=== PATIENT | female | born 1935 | race Caucasian/White ===

== ENCOUNTER 2017-06-02 12:02 | Emergency (ER) | payer OTHER ==
[2017-06-02 12:09] VITALS: TEMP 98; BMI 22.6
--- NOTE | 2017-06-02 12:57 | PDOC ---
History of Present Illness - General History Source: Patient Exam Limitations: No Limitations - History of Present Illness Initial Comments: 06/02/17 13:36 The patient is a 81 year old female, with a significant past medical history of HTN, NIDDM, pancreatic Ca (about 10 years ago s/p whipple procedure requiring dialysis) , gastritis, and hemorrhoids who presents to the emergency department with urinary retention and possible recurrent UTI. The patients daughter notes the patient has also been depressed this past year. The daughter notes the patient has been less active and more weak. Daughter also reports the patient has been sleeping more. She denies any change in appetite or any complaints of pain. She denies recent fevers, chills, headache or dizziness. She denies recent nausea, vomit, and diarrhea. She denies recent dysuria, frequency, urgency or hematuria. She denies recent chest pain or shortness of breath. Allergies: NKA Past surgical history: See HPI Social history: Nonsmoker. Denies EtOH use and recreational drug use. Primary Care Physician: Dr.Ammir Valiente [employer] Eng[employer] Planning Operator: <Foreign Sommer - Last Filed: 06/02/17 13:40> - General History Source: Patient Exam Limitations: No Limitations <Virgie Manriquez - Last Filed: 06/03/17 12:00> - General Chief Complaint: Urinary Problem Stated Complaint: URINE RETENTION, CONSTIPATED. Time Seen by Provider: 06/02/17 12:42 Past History <Foreign Sommer - Last Filed: 06/02/17 13:40> - Past Medical History Anemia: Yes Cancer: Yes (PANCREATIC) Diabetes: Yes HTN: Yes - Surgical History Abdominal Surgery: Yes (WHIPPLE, PANCREATIC CA) Cholecystectomy: Yes - Psycho/Social/Smoking Cessation Hx Anxiety: No Suicidal Ideation: No Smoking Status: No Smoking History: Never smoked Have you smoked in the past 12 months: No Number of Cigarettes Smoked Daily: 0 Hx Alcohol Use: No Drug/Substance Use Hx: No Substance Use Type: None Hx Substance Use Treatment: No <Virgie Manriquez - Last Filed: 06/03/17 12:00> - Past Medical History Allergies/Adverse Reactions: Allergies Allergy/AdvReac Type Severity Reaction Status Date / Time No Known Drug Allergies Allergy Verified 06/02/17 12:09 Home Medications: Ambulatory Orders Amlodipine Besylate/Benazepril [Lotrel 5-10 mg Capsule] 1 each PO DAILY Megestrol Acetate [Megace -] 40 mg PO DAILY 06/02/17 Metformin HCl [Metformin HCl ER] 1,000 mg PO DAILY 06/02/17 Metoclopramide HCl 5 mg PO ACHS 06/02/17 Mirtazapine [Remeron -] 15 mg PO DAILY 06/02/17 Pantoprazole Sodium [Protonix] 40 mg PO DAILY 06/02/17 Review of Systems - Review of Systems Able to Perform ROS?: Yes Comments:: 06/02/17 13:37 GENERAL/CONSTITUTIONAL: +weakness. No: fever, chills, loss of appetite. HEAD, EYES, EARS, NOSE AND THROAT: No: change in vision, ear pain, discharge, sore throat, throat swelling. CARDIOVASCULAR: No: chest pain, lightheadedness, palpitations, syncope RESPIRATORY: No: cough, shortness of breath, wheezing, hemoptysis, stridor. GASTROINTESTINAL: +constipation No: nausea, vomiting, diarrhea, abdominal cramping, rectal bleeding. GENITOURINARY: +retention. No: dysuria, hematuria, frequency, urgency, flank pain. MUSCULOSKELETAL: No: back pain, neck pain, joint pain, muscle swelling or pain SKIN : No: lesions, pallor, rash or easy bruising. NEUROLOGIC: No: headache, vertigo, paresthesias, weakness ENDOCRINE: No: unexplained weight gain or loss HEMATOLOGIC/LYMPHATIC: No: anemia, easy bleeding, swelling nodes. <Foreign Sommer - Last Filed: 06/02/17 13:40> *Physical Exam - Vital Signs Last Vital Signs Temp Pulse Resp BP Pulse Ox 98.0 F 71 20 122/54 99 06/02/17 12:06 06/02/17 12:06 06/02/17 12:06 06/02/17 12:06 06/02/17 12:06 - Physical Exam Comments: 06/02/17 13:40 GENERAL: Generalized weakness. HEAD: Normal with no signs of trauma. EYES: PERRLA, EOMI, sclera anicteric, conjunctiva clear. ENT: Ears normal, nares patent, oropharynx clear without exudates. Moist mucous membranes. NECK: Normal range of motion, supple without lymphadenopathy, JVD, or masses. LUNGS: Breath sounds equal, clear to auscultation bilaterally. No wheezes, and no crackles. HEART: Regular rate and rhythm, normal S1 and S2 without murmur, rub or gallop. ABDOMEN: Soft, nontender, normoactive bowel sounds. No guarding, no rebound. No masses palpable. EXTREMITIES: Normal range of motion, no edema. No clubbing or cyanosis. No erythema, or tenderness. NEUROLOGICAL: Cranial nerves II through XII grossly intact. Normal speech. No focal neurological deficits. MUSCULOSKELETAL: Back non-tender to palpation, no CVA tenderness SKIN: Warm, Dry, normal turgor, no rashes or lesions noted. <Foreign Sommer - Last Filed: 06/02/17 13:40> - Vital Signs Last Vital Signs Temp Pulse Resp BP Pulse Ox 98.0 F 71 20 122/54 99 06/02/17 12:06 06/02/17 12:06 06/02/17 12:06 06/02/17 12:06 06/02/17 12:06 <Virgie Manriquez - Last Filed: 06/03/17 12:00> Heart Score/ECG Review #1 ECG reviewed & interpreted by me at: 16:21 06/02/17 16:21 Twelve-lead EKG was performed and reviewed by me. There is normal sinus rhythm with a normal rate of 82 bpm. The axis is normal. The intervals are normal. (+) PVC. There are no ST or T wave abnormalities. <Virgie Manriquez - Last Filed: 06/03/17 12:00> ED Treatment Course - LABORATORY CBC & Chemistry Diagram: 06/02/17 13:55 06/02/17 13:55 <Virgie Manriquez - Last Filed: 06/03/17 12:00> Medical Decision Making - Medical Decision Making 06/02/17 12:56 A portion of this note was documented by scribe services under my direction. I have reviewed the details of the note, within reason, and agree with the documentation with the following case summary and management plan written by me. Nursing documentation reviewed and incorporated into medical decision making this is an 81 yo F with a history of pancreatic cancer, h/o depression pt presents to the ER with a complaint of generalized weakness which has been progressive over the past few days No fevers or chills tolerating po No vomiting or diarrhea Pt had a prior history of UTIs, family concerned about UTI Will do labs Will repeat UA 06/02/17 14:40 Laboratory Tests 05/21/16 05/21/16 06/02/17 06:00 06:00 13:55 WBC 6.2 D 13.9 H D Hgb 10.9 D 11.6 Hct 34.9 D 35.2 Plt Count 353 D 215 D BUN 11 D Creatinine 0.8 D Creatine Kinase Troponin I 06/02/17 13:55 WBC Hgb Hct Plt Count BUN 14 D Creatinine 1.3 H D Creatine Kinase 57 Troponin I < 0.02 06/02/17 15:57 Laboratory Tests 06/02/17 15:10 Urine Ketones Negative Urine Blood Negative Ur Leukocyte Esterase Negative This patient was ambulatory to the bathroom Labs reviewed with patient and family Pt will need to follow up with PMD <Virgie Manriquez - Last Filed: 06/03/17 12:00> *DC/Admit/Observation/Transfer - Attestations Scribe Attestion: 06/02/17 13:37 Documentation prepared by Foreign Sommer, acting as general medical practitioner for Virgie Manriquez MD. <Foreign Sommer - Last Filed: 06/02/17 13:40> - Discharge Dispostion Admit: No <Virgie Manriquez - Last Filed: 06/03/17 12:00> Diagnosis at time of Disposition: Weakness - Discharge Dispostion Disposition: HOME Condition at time of disposition: Stable - Referrals Referrals: Corazon Valiente MD [Primary Care Provider] - - Patient Instructions Printed Discharge Instructions: DI for Muscle Weakness Additional Instructions: USTED RYAN JOAQUIN CON EL BELEN POR FAVOR, MONITORAS PARA FEVERS O CHILLS DEVUELVA A LA ER PARA CUALQUIER OTRA DEMANDA O RECLAMACIN YOU MUST FOLLOW UP WITH DR VALIENTE PLEASE MONITOR YOURSELF FOR FEVERS OR CHILLS RETURN TO THE ER FOR ANY OTHER CONCERNS OR COMPLAINTS Print Language: DUTCH
[2017-06-02] MEDS ORDERED: SODIUM CHLORIDE 500 ML IV STA (13:40)
[2017-06-02 14:12] LABS: BASOPHIL 0.3 % (0-2.0); EOSINOPHIL 0.3 % (0-4.5); MCH 29.2 pg (25.7-33.7); MCHC 32.9 g/dl (32.0-36.0); MEAN CELL VOLUME 88.6 fl (80-96); MEAN PLT VOLUME 8.4 fl (7.5-11.1); NEUTROPHILS 86.8 % (42.8-82.8); PLATELET COUNT 215 K/MM3 (134-434); RDW 13.6 % (11.6-15.6); WHITE BLOOD COUNT 13.9 K/mm3 (4.0-10.0)
[2017-06-02 14:31] LABS: ALBUMIN 3.3 g/dl (3.4-5.0); ANION GAP 12 (8-16); BILIRUBIN,TOTAL 0.5 mg/dL (0.2-1.0); CALCIUM 8.1 mg/dL (8.5-10.1); CO2 21 mmol/L (21-32); CREATININE 1.3 mg/dL (0.55-1.02); GLUCOSE,RANDOM 246 mg/dL (74-106); SGOT/AST 45 U/L (15-37); SGPT/ALT 30 U/L (12-78); TOT PROT 6.8 g/dl (6.4-8.2)
[2017-06-02 14:34] LABS: ALK PHOS 97 U/L (45-117); TROPONIN I < 0.02 ng/ml (0.00-0.05)
[2017-06-02 15:25] LABS: URINE APPEARANCE CLEAR; URINE BILIRUBIN NEGATIVE (NEGATIVE); URINE BLOOD NEGATIVE (NEGATIVE); URINE COLOR LTYELLOW; URINE GLUCOSE (UA) 1+ (NEGATIVE); URINE KETONE NEGATIVE (NEGATIVE); URINE LEUK ESTERASE NEGATIVE (NEGATIVE); URINE NITRITE NEGATIVE (NEGATIVE); URINE PROTEIN NEGATIVE (NEGATIVE); URINE UROBILINOGEN NEGATIVE E.U./dl (0.2-1.0)
[2017-06-02 16:25] VITALS: BP 131/69; PULSE 89
--- NOTE | 2017-06-03 13:11 | EKG ---
Test Reason : Blood Pressure : / mmHG Vent. Rate : 082 BPM Atrial Rate : 082 BPM P-R Int : 196 ms QRS Dur : 082 ms QT Int : 402 ms P-R-T Axes : 064 033 073 degrees QTc Int : 469 ms SINUS RHYTHM WITH FREQUENT PREMATURE VENTRICULAR COMPLEXES LOW VOLTAGE QRS CANNOT RULE OUT ANTEROSEPTAL INFARCT (CITED ON OR BEFORE 25-MAY-2015) ABNORMAL ECG WHEN COMPARED WITH ECG OF 18-MAY-2016 17:19, PREMATURE VENTRICULAR COMPLEXES ARE NOW PRESENT QUESTIONABLE CHANGE IN INITIAL FORCES OF SEPTAL LEADS Confirmed by SHY HUGHES MD ([id number]) on 06/03/2017 1:11:16 PM Referred By: Confirmed By:SHY HUGHES MD
== END 2017-06-02 16:25 | disposition home or self-care (01) ==
LOC: JER 12:02
PROC: 3E0337Z Introduction of Electrolytic and Water Balance Substance into Peripheral Vein, Percutaneous Approach (ICD-10-PCS; principal; 2017-06-02)
DX: R53.1 Weakness (principal); I10 Essential (primary) hypertension; E11.9 Type 2 diabetes mellitus without complications; Z85.07 Personal history of malignant neoplasm of pancreas
CPT/HCPCS: 36415; 80053; 81003; 82550; 84484; 85025; 87086; 93005; 93010; 96360; 96361; 99283-25

== ENCOUNTER 2017-10-19 12:47 | Inpatient (IN) | payer OTHER ==
--- NOTE | 2017-10-19 13:14 | PDOC ---
History of Present Illness - General History Source: Patient Exam Limitations: No Limitations - History of Present Illness Initial Comments: 10/19/17 18:56 The patient is a 82 year old female, with a significant past medical history of Anemia, HTN, NIDDM, Pancreatic CA (s/p whipple procedure), Gastritis, ?Possible peptic ulcer disease, Depression who presents to the emergency department with generalized weakness, abdominal pain and diarrhea for the past two days. Patient is accompanied by daughter who states the patient was shaky and has been complaining of diffuse abdominal pain with associated diarrhea (nonmucoid, nonbloody) and nausea. Patient reports body aches, subjective fevers and chills. Daughter notes the patient has not been eating and reports decreased appetite. Patient reports the pain feels similar to her ulcers and presents to the ED for further evaluation. She denies chest pain, headache or dizziness. She denies fever, chills, vomit or constipation. She denies dysuria, frequency, urgency or hematuria. Patient denies sick contacts or recent travel. Allergies: NKA Past surgical history: Cholecystectomy, Whipple procedure Social history: None PCP: Dr. Mccain GI: Tommy <Jazmin Zimmer - Last Filed: 10/19/17 18:55> <Jimmy Montoya - Last Filed: 10/23/17 16:34> - General Chief Complaint: Weakness Stated Complaint: NOT FEELING WELL Past History <Jazmin Zimmer - Last Filed: 10/19/17 18:55> - Past Medical History Anemia: Yes Cancer: Yes (PANCREATIC) COPD: No Diabetes: Yes HTN: Yes Psychiatric Problems: Yes (DEPRESSION.) - Surgical History Abdominal Surgery: Yes (WHIPPLE, PANCREATIC CA) Cholecystectomy: Yes - Suicide/Smoking/Psychosocial Hx Smoking Status: No Smoking History: Never smoked Have you smoked in the past 12 months: No Number of Cigarettes Smoked Daily: 0 Hx Alcohol Use: No Drug/Substance Use Hx: No Substance Use Type: None Hx Substance Use Treatment: No <Jimmy Montoya - Last Filed: 10/23/17 16:34> - Past Medical History Allergies/Adverse Reactions: Allergies Allergy/AdvReac Type Severity Reaction Status Date / Time No Known Drug Allergies Allergy Verified 10/19/17 12:54 Home Medications: Ambulatory Orders Amlodipine Besylate/Benazepril [Lotrel 5-10 mg Capsule] 1 each PO DAILY Metoclopramide HCl 5 mg PO ACHS 06/02/17 Pantoprazole Sodium [Protonix] 40 mg PO DAILY 06/02/17 Acetaminophen [Tylenol .Regular Strength -] 650 mg PO Q4H PRN tablet 10/22/17 Amox-Tr/K Cl [Augmentin 500-125mg Tablet -] 1 tab PO BID@0800,1730 #10 tablet Metronidazole [Flagyl -] 500 mg PO TID #15 tablet 10/22/17 Mirtazapine [Remeron -] 15 mg PO DAILY #30 tablet 10/22/17 Ondansetron [Zofran Odt -] 4 mg SL Q6H PRN #30 tab.rapdis 10/22/17 Review of Systems - Review of Systems Able to Perform ROS?: Yes Comments:: CONSTITUTIONAL: No reported: Fever, Chills, Diaphoresis, Generalized Weakness, Malaise, Loss of Appetite HEENT: No reported: Rhinorrhea, Nasal Congestion, Throat Pain, Throat Swelling, Difficulty Swallowing, Mouth Swelling, Ear Pain, Eye Pain, Visual Changes CARDIOVASCULAR: No reported: Chest Pain, Syncope, Palpitations, Irregular Heart Rate, Lightheadedness, Peripheral Edema RESPIRATORY: No reported: Cough, Shortness of Breath, SOB with Exertion, Orthopnea, Wheezing , Stridor, Hemoptysis GASTROINTESTINAL: +diffuse abdominal pain, nausea, diarrhea No reported: Abdominal Distension, Vomiting,Constipation, Melena, Hematochezia GENITOURINARY: No reported: Dysuria, Frequency, Urgency, Hesitancy, Flank Pain, Genital Pain MUSCULOSKELETAL: No reported: Myalgia, Arthralgia, Joint Swelling, Back pain, Neck Pain SKIN: No reported: Rash, Itching, Pallor HEMEATOLOGIC/IMMUNOLOGIC: No reported: Easy Bleeding, Easy Bruising, Lymphadenopathy, Frequent infections ENDOCRINE: No reported: Unexplained Weight Gain, Unexplained Weight Loss, Heat Intolerance , Cold Intolerance NEUROLOGIC: No reported: Headache, Focal Weakness, Paresthesias, Vertigo, Lightheadedness, Unsteady Gait, Seizure, Mental Status Changes, Incontinence PSYCHIATRIC: No reported: Anxiety, Depression <Jazmin Zimmer - Last Filed: 10/19/17 18:55> *Physical Exam - Vital Signs Last Vital Signs Temp Pulse Resp BP Pulse Ox 98.3 F 91 H 18 101/54 98 10/19/17 12:52 10/19/17 12:52 10/19/17 12:52 10/19/17 12:52 10/19/17 12:52 - Physical Exam Comments: 10/19/17 18:56 GENERAL: The patient is awake, alert, and fully oriented, Nontoxic - in no acute distress. HEAD: Normocephalic, atraumatic. EYES: extraocular movements intact, sclera anicteric, conjunctiva clear. ENT: Normal voice, Moist mucous membranes. NECK: Normal range of motion, supple LUNGS: Breath sounds equal, clear to auscultation bilaterally. No wheezes, no rhonchi, no rales. HEART: Regular rate and rhythm, without murmur, rub or gallop. ABDOMEN: +Mild epigastric tenderness. Soft, nontender, normoactive bowel sounds. No guarding, no rebound.No CVA tenderness EXTREMITIES: Normal range of motion, no edema. No clubbing or cyanosis. No cords , erythema, or tenderness. NEUROLOGICAL: No facial asymmetry, Normal speech, PSYCH: Normal mood, normal affect. SKIN: Warm, Dry, normal turgor, <Jazmin Zimmer - Last Filed: 10/19/17 18:55> - Vital Signs Last Vital Signs Temp Pulse Resp BP Pulse Ox 98.3 F 91 H 18 101/54 98 10/19/17 12:52 10/19/17 12:52 10/19/17 12:52 10/19/17 12:52 10/19/17 12:52 <Jimmy Montoya - Last Filed: 10/23/17 16:34> Heart Score/ECG Review - ECG Impressions Comment:: 10/19/17 15:36 Twelve-lead EKG was performed and reviewed by me. There is normal sinus rhythm with a normal rate. Rate of 77 PVCs present <Jimmy Montoya - Last Filed: 10/23/17 16:34> ED Treatment Course - LABORATORY CBC & Chemistry Diagram: 10/19/17 14:37 10/19/17 14:37 - ADDITIONAL ORDERS Additional order review: Laboratory Results 10/19/17 10/19/17 10/19/17 16:30 14:37 14:37 PT with INR INR Sodium 130 L Potassium 5.4 H Chloride 100 Carbon Dioxide 21 Anion Gap 9 BUN 15 Creatinine 1.1 H Creat Clearance w eGFR 47.55 Random Glucose 101 D Calcium 7.8 L Total Bilirubin 0.9 D AST 89 H D ALT 45 D Alkaline Phosphatase 168 H D Troponin I < 0.02 Total Protein 6.9 Albumin 3.1 L Lipase 151 TSH 1.63 Urine Color Lt. yellow Urine Appearance Clear Urine pH 5.0 Ur Specific [place] 1.020 Urine Protein 1+ H Urine Glucose (UA) Negative Urine Ketones Trace H Urine Blood 1+ H Urine Nitrite Negative Urine Bilirubin 1+ H Urine Urobilinogen 0.2 10/19/17 14:37 PT with INR 12.80 H INR 1.13 Sodium Potassium Chloride Carbon Dioxide Anion Gap BUN Creatinine Creat Clearance w eGFR Random Glucose Calcium Total Bilirubin AST ALT Alkaline Phosphatase Troponin I Total Protein Albumin Lipase TSH Urine Color Urine Appearance Urine pH Ur Specific [place] Urine Protein Urine Glucose (UA) Urine Ketones Urine Blood Urine Nitrite Urine Bilirubin Urine Urobilinogen 10/19/17 14:37 RBC 4.03 MCV 90.1 MCHC 33.9 RDW 13.7 MPV 9.6 D Neutrophils % 95.6 H Lymphocytes % 3.3 L D Monocytes % 0.9 L D Eosinophils % 0.1 Basophils % 0.1 - Medications Given in the ED: ED Medications Discontinued Medications Generic Name Dose Route Start Last Admin Trade Name Cristy PRN Reason Stop Dose Admin Al Hydroxide/Mg Hydroxide 30 ml 10/19/17 14:04 10/19/17 14:37 Mylanta Suspension - PO 10/19/17 14:05 30 ml ONCE ONE Administration Famotidine/Sodium Chloride 20 50 mls @ 100 mls/hr 10/19/17 14:04 10/19/17 14: 37 mg/ Miscellaneous IVPB 10/19/17 14:33 100 mls/hr ONCE ONE Administration Sodium Chloride 500 mls @ 500 mls/hr 10/19/17 14:04 10/19/17 14:37 Normal Saline - IV 10/19/17 15:03 500 mls/hr ASDIR STA Administration <Jazmin Zimmer - Last Filed: 10/19/17 18:55> - LABORATORY CBC & Chemistry Diagram: 10/22/17 12:33 10/22/17 12:33 <Jimmy Montoya - Last Filed: 10/23/17 16:34> Medical Decision Making - Medical Decision Making 10/19/17 14:04 81y F hx of htn, niddm, pancreatic Ca (s/p whipple procedure), gastritis, presents with malaise, bodyaches, generalized weakness, and feeling 'shaky' since yesterday, and onset of epigastric pain starting n the car ride to the hospital. no assoiated n/v, fevers, diarrhea, urinary complaints. on exam pt has mild epgiastric tenderness differential is wide and includes but is not limited to anemia, metabolic dernagement,pancreatitis, gastiritis, acs, uti, will ck labs including cardiac profile, screening ekg ekg, lipase cxr, ua will treat with pepcid/maalox will erassess 10/19/17 19:[address] abdomen due to recurrent pain (pain ahd improveda fter intiial treatment) signed out to dr. edwards to disposition and reassess <Jimmy Montoya - Last Filed: 10/23/17 16:34> *DC/Admit/Observation/Transfer - Attestations Scribe Attestion: 10/19/17 18:46 Documentation prepared by Jazmin Zimmer, acting as medical billing supervisor for Jimmy Montoya MD <Jazmin Zimmer - Last Filed: 10/19/17 18:55> <Jimmy Montoya - Last Filed: 10/23/17 16:34> Diagnosis at time of Disposition: H/O pancreatic cancer, Abdominal pain, Pancreatitis - Discharge Dispostion Disposition: VNS/HOME HEALTH CARE Condition at time of disposition: Stable
[2017-10-19] MEDS ORDERED: FAMOTIDINE 20 MG/50 ML IVPB 20 MG in PREMIX 50 IVPB ONE (14:04)
[2017-10-19] MEDS ORDERED: SODIUM CHLORIDE 500 ML IV STA (14:04)
[2017-10-19] MEDS ORDERED: MAG HYDROX/AL HYDROX/SIMETH 355 ML ORAL.SUSP PO ONE (14:04)
[2017-10-19 15:11] LABS: INR 1.13 (0.82-1.09); PROTHROMBIN TIME (PATIENT) 12.8 SEC (9.98-11.88)
[2017-10-19 15:23] LABS: ALBUMIN 3.1 g/dl (3.4-5.0); ANION GAP 9 (8-16); BILIRUBIN,TOTAL 0.9 mg/dL (0.2-1.0); CALCIUM 7.8 mg/dL (8.5-10.1); CO2 21 mmol/L (21-32); CREATININE 1.1 mg/dL (0.55-1.02); GLUCOSE,RANDOM 101 mg/dL (74-106); SGPT/ALT 45 U/L (12-78); TOT PROT 6.9 g/dl (6.4-8.2)
[2017-10-19 15:31] LABS: ALK PHOS 168 U/L (45-117); THYROID STIMULATING HORMONE 1.63 uIU/ml (0.358-3.74); TROPONIN I < 0.02 ng/ml (0.00-0.05)
[2017-10-19 15:35] LABS: SGOT/AST 89 U/L (15-37)
[2017-10-19 16:27] LABS: BASOPHIL 0.1 % (0-2.0); EOSINOPHIL 0.1 % (0-4.5); MCH 30.6 pg (25.7-33.7); MCHC 33.9 g/dl (32.0-36.0); MEAN CELL VOLUME 90.1 fl (80-96); MEAN PLT VOLUME 9.6 fl (7.5-11.1); NEUTROPHILS 95.6 % (42.8-82.8); PLATELET COUNT 240 K/MM3 (134-434); RDW 13.7 % (11.6-15.6)
[2017-10-19 16:43] LABS: URINE APPEARANCE CLEAR; URINE BILIRUBIN 1+ (NEGATIVE); URINE BLOOD 1+ (NEGATIVE); URINE COLOR LT. YELLOW; URINE GLUCOSE (UA) NEGATIVE (NEGATIVE); URINE KETONE TRACE (NEGATIVE); URINE NITRITE NEGATIVE (NEGATIVE); URINE UROBILINOGEN 0.2 mg/dL (0.2-1.0)
[2017-10-19 17:15] LABS: URINE PROTEIN 1+ (NEGATIVE)
[2017-10-19 19:47] LABS: URINE LEUK ESTERASE Negative (NEGATIVE)
--- NOTE | 2017-10-19 21:07 | PDOC ---
*Physical Exam - Vital Signs Last Vital Signs Temp Pulse Resp BP Pulse Ox 98.3 F 91 H 18 101/54 98 10/19/17 12:52 10/19/17 12:52 10/19/17 12:52 10/19/17 12:52 10/19/17 12:52 ED Treatment Course - LABORATORY CBC & Chemistry Diagram: 10/19/17 14:37 10/19/17 14:37 - ADDITIONAL ORDERS Additional order review: Laboratory Results 10/19/17 10/19/17 10/19/17 16:30 14:37 14:37 PT with INR INR Sodium 130 L Potassium 5.4 H Chloride 100 Carbon Dioxide 21 Anion Gap 9 BUN 15 Creatinine 1.1 H Creat Clearance w eGFR 47.55 Random Glucose 101 D Calcium 7.8 L Total Bilirubin 0.9 D AST 89 H D ALT 45 D Alkaline Phosphatase 168 H D Troponin I < 0.02 Total Protein 6.9 Albumin 3.1 L Lipase 151 TSH 1.63 Urine Color Lt. yellow Urine Appearance Clear Urine pH 5.0 Ur Specific [place] 1.020 Urine Protein 1+ H Urine Glucose (UA) Negative Urine Ketones Trace H Urine Blood 1+ H Urine Nitrite Negative Urine Bilirubin 1+ H Urine Urobilinogen 0.2 Ur Leukocyte Esterase Negative 10/19/17 14:37 PT with INR 12.80 H INR 1.13 Sodium Potassium Chloride Carbon Dioxide Anion Gap BUN Creatinine Creat Clearance w eGFR Random Glucose Calcium Total Bilirubin AST ALT Alkaline Phosphatase Troponin I Total Protein Albumin Lipase TSH Urine Color Urine Appearance Urine pH Ur Specific [place] Urine Protein Urine Glucose (UA) Urine Ketones Urine Blood Urine Nitrite Urine Bilirubin Urine Urobilinogen Ur Leukocyte Esterase 10/19/17 14:37 RBC 4.03 MCV 90.1 MCHC 33.9 RDW 13.7 MPV 9.6 D Neutrophils % 95.6 H Lymphocytes % 3.3 L D Monocytes % 0.9 L D Eosinophils % 0.1 Basophils % 0.1 - Medications Given in the ED: ED Medications Discontinued Medications Generic Name Dose Route Start Last Admin Trade Name Freq PRN Reason Stop Dose Admin Al Hydroxide/Mg Hydroxide 30 ml 10/19/17 14:04 10/19/17 14:37 Mylanta Suspension - PO 10/19/17 14:05 30 ml ONCE ONE Administration Famotidine/Sodium Chloride 20 50 mls @ 100 mls/hr 10/19/17 14:04 10/19/17 14: 37 mg/ Miscellaneous IVPB 10/19/17 14:33 100 mls/hr ONCE ONE Administration Sodium Chloride 500 mls @ 500 mls/hr 10/19/17 14:04 10/19/17 14:37 Normal Saline - IV 10/19/17 15:03 500 mls/hr ASDIR STA Administration Medical Decision Making - Medical Decision Making 10/19/17 21:07 Pt abd/pelvis Ct scan shows possible recurrent Pancreatic CA, possible Pancreatitis. Pt to be admitted to [facility] under Dr. Mccain's service *DC/Admit/Observation/Transfer Diagnosis at time of Disposition: H/O pancreatic cancer, Abdominal pain, Pancreatitis - Discharge Dispostion Condition at time of disposition: Stable Admit: Yes - Referrals Referrals: Corazon Mccain MD [Primary Care Provider] - - Patient Instructions - Post Discharge Activity
[2017-10-19 21:14] LABS: URINE BACTERIA FEW /hpf (NONE SEEN); URINE HYALINE CAST 30 /lpf; URINE MUCUS RARE; URINE RBC 2 /hpf (0-3); URINE WBC 3 /hpf (3-5)
[2017-10-19 22:10] LABS: CPK 34 IU/L (26-192); TROPONIN I < 0.02 ng/ml (0.00-0.05)
[2017-10-19 23:30] LABS: CPK 70 IU/L (26-192)
[2017-10-20] MEDS ORDERED: PANTOPRAZOLE SODIUM 40 MG VIAL ONE (00:24)
[2017-10-20 00:46] LABS: ANISOCYTOSIS 1+
[2017-10-20 01:48] VITALS: BMI 18.7
[2017-10-20] MEDS ORDERED: PIPERACILLIN/TAZOB 3.375 GM 3.375 GM in DEXTROSE 5%-WATER - 50 ML IVPB ONE (02:00)
[2017-10-20 07:53] LABS: BASOPHIL 0.2 % (0-2.0); EOSINOPHIL 0.2 % (0-4.5); MCH 29.5 pg (25.7-33.7); MCHC 33.1 g/dl (32.0-36.0); MEAN CELL VOLUME 89.2 fl (80-96); MEAN PLT VOLUME 8.7 fl (7.5-11.1); NEUTROPHILS 87.7 % (42.8-82.8); PLATELET COUNT 171 K/MM3 (134-434); RDW 13.6 % (11.6-15.6); WHITE BLOOD COUNT 15.8 K/mm3 (4.0-10.0)
[2017-10-20 08:35] LABS: ALBUMIN 2.7 g/dl (3.4-5.0); AMYLASE 30 U/L (25-115); ANION GAP 10 (8-16); CALCIUM 7.9 mg/dL (8.5-10.1); CO2 22 mmol/L (21-32); GLUCOSE,RANDOM 121 mg/dL (74-106)
[2017-10-20 08:41] LABS: ALK PHOS 163 U/L (45-117); BILIRUBIN,TOTAL 0.7 mg/dL (0.2-1.0); SGOT/AST 109 U/L (15-37); SGPT/ALT 59 U/L (12-78); TOT PROT 6.1 g/dl (6.4-8.2); TROPONIN I < 0.02 ng/ml (0.00-0.05)
--- NOTE | 2017-10-20 09:44 | CONSULT ---
Consultation: REQUESTING PROVIDER: CONSULT REQUEST: We have been asked to medically evaluate this patient for pancreatitis. HISTORY OF PRESENT ILLNESS: 82F w/ hx of pancreatic cancer s/p whipple procedure, NIDDM, anemia, HTN, gastritis, and depression presenting with weakness 2 days. Pt also reports abdominal pain that is 5/10 and diffuse. She endorses some fevers, chills, body aches, body shaking, and decreased appetite. She denies headache, n/v/d, SOB, and dysuria. Pt has had no complications from her whipple surgery which took place in [place]. She returns to [place] about once a year. Pt given zosyn in ED. REVIEW OF SYSTEMS: CONSTITUTIONAL: Absent: fever, chills, diaphoresis, generalized weakness, malaise, weight change present: fever, chills, generalized weakness HEENT: Absent: rhinorrhea, nasal congestion, throat pain, throat swelling, difficulty swallowing, mouth swelling, ear pain, eye pain, visual changes CARDIOVASCULAR: Absent: chest pain, syncope, palpitations, irregular heart rate, lightheadedness , peripheral edema RESPIRATORY: Absent: cough, shortness of breath, dyspnea with exertion, orthopnea, wheezing, stridor, hemoptysis GASTROINTESTINAL: Absent: constipation, melena, hematochezia present: abdominal pain GENITOURINARY: Absent: dysuria, frequency, urgency, hesitancy, hematuria, flank pain, genital pain MUSCULOSKELETAL: Absent: myalgia, arthralgia, joint swelling, back pain, neck pain SKIN: Absent: rash, itching, pallor HEMATOLOGIC/IMMUNOLOGIC: Absent: easy bleeding, easy bruising, lymphadenopathy, frequent infections ENDOCRINE: Absent: unexplained weight gain, unexplained weight loss, heat intolerance, cold intolerance NEUROLOGIC: Absent: headache, focal weakness or paresthesias, dizziness, unsteady gait, seizure, mental status changes, bladder or bowel incontinence PSYCHIATRIC: Absent: anxiety, suicidal or homicidal ideation, hallucinations. present: depression PHYSICAL EXAMINATION Vital Signs - 24 hr 10/19/17 10/20/17 10/20/17 12:52 00:30 01:00 Temperature 98.3 F 97.2 F L Pulse Rate 91 H 81 Respiratory 18 18 18 Rate Blood Pressure 101/54 108/61 O2 Sat by Pulse 98 97 Oximetry (%) 10/20/17 10/20/17 10/20/17 01:37 01:52 05:44 Temperature 98 F 100.5 F H Pulse Rate 84 89 Respiratory 18 18 Rate Blood Pressure 130/72 153/70 O2 Sat by Pulse 97 Oximetry (%) GENERAL: Awake, alert, and fully oriented, in no acute distress. HEAD: Normal with no signs of trauma. EYES: Pupils equal, round and reactive to light, extraocular movements intact, sclera anicteric, conjunctiva clear. No lid lag. EARS, NOSE, THROAT: Ears normal, nares patent, oropharynx clear without exudates. Moist mucous membranes. NECK: Normal range of motion, supple without lymphadenopathy, JVD, or masses. LUNGS: Breath sounds equal, clear to auscultation bilaterally. No wheezes, and no crackles. No accessory muscle use. HEART: Regular rate and rhythm, normal S1 and S2 without murmur, rub or gallop. ABDOMEN: tender in upper quadrants and LLQ, soft, bulging in epigastric region, normoactive BS MUSCULOSKELETAL: Normal range of motion at all joints. No bony deformities or tenderness. No CVA tenderness. UPPER EXTREMITIES: 2+ pulses, warm, well-perfused. No cyanosis. No clubbing. Cap refill <2 seconds. No peripheral edema. LOWER EXTREMITIES: 2+ pulses, warm, well-perfused. No calf tenderness. No peripheral edema. NEUROLOGICAL: Cranial nerves II-XII intact. Normal speech. Normal gait. PSYCHIATRIC: Cooperative. Good eye contact. Appropriate mood and affect. SKIN: Warm, dry, normal turgor, no rashes or lesions noted. Laboratory Results - last 24 hr 10/19/17 10/19/17 10/19/17 14:37 14:37 14:37 WBC 9.0 D RBC 4.03 Hgb 12.3 Hct 36.3 MCV 90.1 MCH 30.6 MCHC 33.9 RDW 13.7 Plt Count 240 MPV 9.6 D Neutrophils % 95.6 H Lymphocytes % 3.3 L D Monocytes % 0.9 L D Eosinophils % 0.1 Basophils % 0.1 Anisocytosis 1+ PT with INR 12.80 H INR 1.13 Sodium 130 L Potassium 5.4 H Chloride 100 Carbon Dioxide 21 Anion Gap 9 BUN 15 Creatinine 1.1 H Creat Clearance w eGFR 47.55 Random Glucose 101 D Calcium 7.8 L Magnesium Total Bilirubin 0.9 D AST 89 H D ALT 45 D Alkaline Phosphatase 168 H D Creatine Kinase 70 Troponin I < 0.02 Total Protein 6.9 Albumin 3.1 L Total Amylase Lipase TSH 1.63 Urine Color Urine Appearance Urine pH Ur Specific [place] Urine Protein Urine Glucose (UA) Urine Ketones Urine Blood Urine Nitrite Urine Bilirubin Urine Urobilinogen Ur Leukocyte Esterase Urine WBC (Auto) Urine RBC (Auto) Ur Epithelial Cells Urine Bacteria Hyaline Casts Urine Mucus 10/19/17 10/19/17 10/19/17 14:37 16:30 21:14 WBC RBC Hgb Hct MCV MCH MCHC RDW Plt Count MPV Neutrophils % Lymphocytes % Monocytes % Eosinophils % Basophils % Anisocytosis PT with INR INR Sodium Potassium Chloride Carbon Dioxide Anion Gap BUN Creatinine Creat Clearance w eGFR Random Glucose Calcium Magnesium Total Bilirubin AST ALT Alkaline Phosphatase Creatine Kinase 34 Troponin I < 0.02 Total Protein Albumin Total Amylase Lipase 151 TSH Urine Color Lt. yellow Urine Appearance Clear Urine pH 5.0 Ur Specific [place] 1.020 Urine Protein 1+ H Urine Glucose (UA) Negative Urine Ketones Trace H Urine Blood 1+ H Urine Nitrite Negative Urine Bilirubin 1+ H Urine Urobilinogen 0.2 Ur Leukocyte Esterase Negative Urine WBC (Auto) 3 Urine RBC (Auto) 2 Ur Epithelial Cells Rare Urine Bacteria Few Hyaline Casts 30 Urine Mucus Rare 10/20/17 10/20/17 06:00 06:00 WBC 15.8 H D RBC 3.66 Hgb 10.8 D Hct 32.7 MCV 89.2 MCH 29.5 MCHC 33.1 RDW 13.6 Plt Count 171 D MPV 8.7 Neutrophils % 87.7 H Lymphocytes % 5.4 L D Monocytes % 6.5 D Eosinophils % 0.2 D Basophils % 0.2 Anisocytosis PT with INR INR Sodium 133 L Potassium 4.3 D Chloride 101 Carbon Dioxide 22 Anion Gap 10 BUN 18 Creatinine 1.0 Creat Clearance w eGFR 53.08 Random Glucose 121 H Calcium 7.9 L Magnesium 2.0 Total Bilirubin 0.7 D AST 109 H D ALT 59 D Alkaline Phosphatase 163 H Creatine Kinase Troponin I < 0.02 Total Protein 6.1 L Albumin 2.7 L Total Amylase 30 Lipase 48 L TSH Urine Color Urine Appearance Urine pH Ur Specific [place] Urine Protein Urine Glucose (UA) Urine Ketones Urine Blood Urine Nitrite Urine Bilirubin Urine Urobilinogen Ur Leukocyte Esterase Urine WBC (Auto) Urine RBC (Auto) Ur Epithelial Cells Urine Bacteria Hyaline Casts Urine Mucus Active Medications Generic Name Dose Route Start Last Admin Trade Name Freq PRN Reason Stop Dose Admin Acetaminophen 650 mg 10/20/17 07:55 Tylenol - PO Q4H PRN FEVER Amlodipine Besylate 5 mg 10/20/17 10:00 Norvasc - PO DAILY BRANDY Heparin Sodium (Porcine) 5,000 unit 10/20/17 10:00 Heparin - SQ BID BRANDY Dextrose/Sodium Chloride 1,000 mls @ 70 mls/hr 10/20/17 08:45 D5-Ns - IV ASDIR BRANDY Lisinopril 10 mg 10/20/17 10:00 Prinivil PO DAILY BRANDY Mirtazapine 15 mg 10/20/17 22:00 Remeron - PO HS BRANDY Pantoprazole Sodium 40 mg 10/19/17 22:45 10/20/17 00:00 Protonix Iv IVPUSH 40 mg DAILY BRANDY Administration Piperacillin/Tazobactam/Dextrose 3.375 gm 10/20/17 02:00 Zosyn 3.375gm Ivpb (Premix) IVPB Q8H-IV BRANDY ASSESSMENT/PLAN: 82F w/ hx of pancreatic cancer s/p whipple procedure, NIDDM, anemia, HTN, gastritis, and depression presenting with acute weakness and abdominal pain. -temp of 100.5, leukocytosis of 15.8 -given zosyn 3.375 -lipase wnl -UA negative, CXR shows no acute process -signficant CT findings -start ceftriaxone and flagyl to cover for possible biliary sepsis -f/u cultures and sensitivities -possible malignancy recurrence, f/u MRCP Rest of care per medical team. Case discussed with attending, Dr. Kothari. Dispo: We will continue to follow the patient. Thank you for this consultative opportunity. -Juan Arnold MD PGY1 ID Team Visit type - Emergency Visit Emergency Visit: Yes ED Registration Date: 10/19/17 Care time: The patient presented to the Emergency Department on the above date and was hospitalized for further evaluation of their emergent condition. - New Patient This patient is new to me today: Yes Date on this admission: 10/20/17 - Critical Care Critical Care patient: No
[2017-10-20] MEDS: DEXTROSE 5%-NORMAL SALINE 1,000 ML IV SCH (09:47)
[2017-10-20] MEDS: amLODIPine BESYLATE 5 MG TABLET (FP) PO SCH (09:48)
[2017-10-20] MEDS: HEPARIN NA (PORCINE) 5,000 UNITS/ML 1ML VIAL SQ SCH ×2 (09:59→23:33)
[2017-10-20] MEDS: PANTOPRAZOLE SODIUM 40 MG VIAL IVPUSH SCH ×2 (09:59)
[2017-10-20] MEDS: LISINOPRIL 10 MG TABLET (FP) PO SCH ×2 (09:59→10:16)
[2017-10-20] MEDS ORDERED: PATIENT'S OWN MEDICATION (NON-FORMULARY) (Amlodipine Besylate/Benazepril [Lotrel 5-10 Mg C PO SCH (10:00)
--- NOTE | 2017-10-20 10:47 | HP ---
Admitting History and Physical - Primary Care Physician PCP: Corazon Mccain - Admission Chief Complaint: ABD PAIN ACUTE PANCREATITIS History of Present Illness: S/P WHIPPLE SURGERY, HERE FOR ABD PAIN NAUSEA AND VOMITING. CT SCAN SHOWS POSSIBLE NEOPLASTIC VS INFLAMMATORY CHANGES. 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 No: Mitral Stenosis Gastrointestinal: Yes: Constipation, Diverticulosis, Gastritis ...: No Heme/Onc: Yes: Cancer (PANCREATIC) Musculoskeletal: Yes: Chronic low back pain, Osteoarthritis, Other (SEE CT SCAN 2014) Endocrine: Yes: Diabetes Mellitus - Past Surgical History Past Surgical History: Yes: Colonoscopy - Smoking History Smoking history: Never smoked Have you smoked in the past 12 months: No Aproximately how many cigarettes per day: 0 - Alcohol/Substance Use Hx Alcohol Use: No Home Medications - Allergies Allergies/Adverse Reactions: Allergies Allergy/AdvReac Type Severity Reaction Status Date / Time No Known Drug Allergies Allergy Verified 10/19/17 12:54 - Home Medications Home Medications: Ambulatory Orders Amlodipine Besylate/Benazepril [Lotrel 5-10 mg Capsule] 1 each PO DAILY Metformin HCl [Metformin HCl ER] 1,000 mg PO DAILY 06/02/17 Metoclopramide HCl 5 mg PO ACHS 06/02/17 Mirtazapine [Remeron -] 15 mg PO DAILY 06/02/17 Pantoprazole Sodium [Protonix] 40 mg PO DAILY 06/02/17 Review of Systems - Review of Systems Constitutional: reports: Lethargy, Loss of Appetite, Malaise Eyes: reports: No Symptoms HENT: reports: No Symptoms Neck: reports: No Symptoms Cardiovascular: reports: No Symptoms Respiratory: reports: No Symptoms Gastrointestinal: reports: Abdominal Pain, Nausea Genitourinary: reports: No Symptoms Musculoskeletal: reports: No Symptoms Integumentary: reports: No Symptoms Neurological: reports: No Symptoms Endocrine: reports: No Symptoms Hematology/Lymphatic: reports: No Symptoms Psychiatric: reports: No Symptoms Physical Examination Vital Signs: Vital Signs Temperature 98 F 10/20/17 10:03 Pulse Rate 98 H 10/20/17 10:03 Respiratory Rate 18 10/20/17 10:03 Blood Pressure 118/56 10/20/17 10:03 O2 Sat by Pulse Oximetry (%) 97 10/20/17 01:52 Constitutional: Yes: Moderate Distress Eyes: Yes: WNL HENT: Yes: WNL Neck: Yes: WNL Cardiovascular: Yes: WNL Respiratory: Yes: WNL Gastrointestinal: Yes: Tenderness Renal/: Yes: WNL Musculoskeletal: Yes: Muscle Weakness Extremities: Yes: WNL Edema: No Peripheral Pulses WNL: Yes Integumentary: Yes: WNL Wound/Incision: Yes: Clean/Dry Neurological: Yes: WNL ...Motor Strength: WNL Psychiatric: Yes: WNL Labs: CBC, BMP 10/20/17 06:00 10/20/17 06:00 Imaging - Results Cat Scan: Report Reviewed Assessment/Plan PATIENT S/P WHIPPLE HERE WITH ABDOMINAL PAIN NAUSEA AND VOMITING POOR APPETITE WEIGHT LOSS PLAN: GI CONSULT IV ABX ID F/U APPRECIATED IVF NPO MRCP WITH AND WITHOU CONTRAST PAIN CONTROL
--- NOTE | 2017-10-20 10:49 | PN ---
Teaching Attending Note Name of Resident: Juan Arnold ATTENDING PHYSICIAN STATEMENT I saw and evaluated the patient. I reviewed the resident's note and discussed the case with the resident. I agree with the resident's findings and plan as documented. SUBJECTIVE: weakness since Wednesday midepigastric pain faimily present no vomiting or diarrhea low grade temp overnight no weight loss OBJECTIVE: Vital Signs Period Temp Pulse Resp BP Sys/Disla Pulse Ox Last 24 Hr 97.2 F-100.5 F 81-98 18-18 101-153/54-72 97-98 cor-rrr lungs clear abd soft,+midepigastric pain to palpation ext no edema CBC, BMP 10/20/17 06:00 10/20/17 06:00 ct scan- ?pancreatic mass ASSESSMENT AND PLAN: low grade fever/leukocytosis/?recurrent pancreatic cancer history of whipple procedure 10 years ago in [place] no recent admissions rocephin/flagyl cover for possible biliary sepsis until cultures are back d/w Dr Mccain for MRCP f/u cultures Problem List - Problems (1) Leukocytosis Code(s): D72.829 - ELEVATED WHITE BLOOD CELL COUNT, UNSPECIFIED (2) Abdominal pain Code(s): R10.9 - UNSPECIFIED ABDOMINAL PAIN (3) H/O pancreatic cancer Code(s): Z85.07 - PERSONAL HISTORY OF MALIGNANT NEOPLASM OF PANCREAS
--- NOTE | 2017-10-20 11:22 | CON.GI ---
Consult Consult Specialty:: GI Reason for Consultation:: Abnormal CT abdomen - History of Present Illness History of Present Illness: History translated and provided by pt's family at bedside and chart records. Acute onset of abdominal pain, nausea and chills on Wednesday. The pain was epigastric, non-radiating, 5/10, worse with palpation, no alleviating, or aggravating factors. Lost appetite. Overall, no weight loss, changes in bowel habits, melena, hematochezia, hematemesis, vomiting, jaundice. History of Whipple for pancreatic cancer 10 y ago in [place] A [address] with IV contrast on admission showed inflammation and soft tissue mass in the area of the past surgery with possible splenic vein thrombosis, possible recreance of pancreatic ca. 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 No: Mitral Stenosis Gastrointestinal: Yes: Constipation, Diverticulosis, Gastritis ...: No Musculoskeletal: Yes: Chronic low back pain, Osteoarthritis, Other (SEE CT SCAN 2014) Endocrine: Yes: Diabetes Mellitus - Past Surgical History Past Surgical History: Yes: Colonoscopy - Alcohol/Substance Use Hx Alcohol Use: No - Smoking History Smoking history: Never smoked Have you smoked in the past 12 months: No Aproximately how many cigarettes per day: 0 - Social History Usual Living Arrangement: With Significant Other Home Medications - Allergies Allergies/Adverse Reactions: Allergies Allergy/AdvReac Type Severity Reaction Status Date / Time No Known Drug Allergies Allergy Verified 10/19/17 12:54 - Home Medications Home Medications: Ambulatory Orders Amlodipine Besylate/Benazepril [Lotrel 5-10 mg Capsule] 1 each PO DAILY Metformin HCl [Metformin HCl ER] 1,000 mg PO DAILY 06/02/17 Metoclopramide HCl 5 mg PO ACHS 06/02/17 Mirtazapine [Remeron -] 15 mg PO DAILY 06/02/17 Pantoprazole Sodium [Protonix] 40 mg PO DAILY 06/02/17 Family Disease History - Family Disease History Family History: Unremarkable (non-contrib) Review of Systems Findings/Remarks: please refer to H&P - Review of Systems Constitutional: reports: Chills, Loss of Appetite. denies: Fever, Lethargy, Night Sweats, Unintentional Wgt. Loss Gastrointestinal: reports: Abdominal Pain, Constipation, Nausea. denies: Bloating, Diarrhea, Dysphagia, Indigestion, Melena, Rectal Bleeding, Vomiting, Vomiting Blood Physical Exam-GI Vital Signs: Vital Signs Temperature 98 F 10/20/17 10:03 Pulse Rate 98 H 10/20/17 10:03 Respiratory Rate 18 10/20/17 10:03 Blood Pressure 118/56 10/20/17 10:03 O2 Sat by Pulse Oximetry (%) 97 10/20/17 01:52 Constitutional: Yes: No Distress, Calm, Thin Eyes: Yes: Conjunctiva Clear HENT: Yes: Atraumatic Neck: Yes: Supple Cardiovascular: Yes: Regular Rate and Rhythm Respiratory: Yes: Regular, CTA Bilaterally ...Auscultate: Yes: Normoactive Bowel Sounds ...Palpate: Yes: Soft, Tenderness, Tenderness, Epigastium. No: Firm/Rigid, Guarding, Mass, Tenderness, Rebound Neurological: Yes: Alert Labs: CBC, BMP 10/20/17 06:00 10/20/17 06:00 INR, PTT INR 1.13 (0.82-1.09) 10/19/17 14:37 Laboratory Results - last 24 hr 10/19/17 10/19/17 10/19/17 14:37 14:37 14:37 WBC 9.0 D RBC 4.03 Hgb 12.3 Hct 36.3 MCV 90.1 MCH 30.6 MCHC 33.9 RDW 13.7 Plt Count 240 MPV 9.6 D Neutrophils % 95.6 H Lymphocytes % 3.3 L D Monocytes % 0.9 L D Eosinophils % 0.1 Basophils % 0.1 Anisocytosis 1+ PT with INR 12.80 H INR 1.13 Sodium 130 L Potassium 5.4 H Chloride 100 Carbon Dioxide 21 Anion Gap 9 BUN 15 Creatinine 1.1 H Creat Clearance w eGFR 47.55 Random Glucose 101 D Calcium 7.8 L Magnesium Total Bilirubin 0.9 D AST 89 H D ALT 45 D Alkaline Phosphatase 168 H D Creatine Kinase 70 Troponin I < 0.02 Total Protein 6.9 Albumin 3.1 L Total Amylase Lipase TSH 1.63 Urine Color Urine Appearance Urine pH Ur Specific [place] Urine Protein Urine Glucose (UA) Urine Ketones Urine Blood Urine Nitrite Urine Bilirubin Urine Urobilinogen Ur Leukocyte Esterase Urine WBC (Auto) Urine RBC (Auto) Ur Epithelial Cells Urine Bacteria Hyaline Casts Urine Mucus 10/19/17 10/19/17 10/19/17 14:37 16:30 21:14 WBC RBC Hgb Hct MCV MCH MCHC RDW Plt Count MPV Neutrophils % Lymphocytes % Monocytes % Eosinophils % Basophils % Anisocytosis PT with INR INR Sodium Potassium Chloride Carbon Dioxide Anion Gap BUN Creatinine Creat Clearance w eGFR Random Glucose Calcium Magnesium Total Bilirubin AST ALT Alkaline Phosphatase Creatine Kinase 34 Troponin I < 0.02 Total Protein Albumin Total Amylase Lipase 151 TSH Urine Color Lt. yellow Urine Appearance Clear Urine pH 5.0 Ur Specific [place] 1.020 Urine Protein 1+ H Urine Glucose (UA) Negative Urine Ketones Trace H Urine Blood 1+ H Urine Nitrite Negative Urine Bilirubin 1+ H Urine Urobilinogen 0.2 Ur Leukocyte Esterase Negative Urine WBC (Auto) 3 Urine RBC (Auto) 2 Ur Epithelial Cells Rare Urine Bacteria Few Hyaline Casts 30 Urine Mucus Rare 10/20/17 10/20/17 06:00 06:00 WBC 15.8 H D RBC 3.66 Hgb 10.8 D Hct 32.7 MCV 89.2 MCH 29.5 MCHC 33.1 RDW 13.6 Plt Count 171 D MPV 8.7 Neutrophils % 87.7 H Lymphocytes % 5.4 L D Monocytes % 6.5 D Eosinophils % 0.2 D Basophils % 0.2 Anisocytosis PT with INR INR Sodium 133 L Potassium 4.3 D Chloride 101 Carbon Dioxide 22 Anion Gap 10 BUN 18 Creatinine 1.0 Creat Clearance w eGFR 53.08 Random Glucose 121 H Calcium 7.9 L Magnesium 2.0 Total Bilirubin 0.7 D AST 109 H D ALT 59 D Alkaline Phosphatase 163 H Creatine Kinase Troponin I < 0.02 Total Protein 6.1 L Albumin 2.7 L Total Amylase 30 Lipase 48 L TSH Urine Color Urine Appearance Urine pH Ur Specific [place] Urine Protein Urine Glucose (UA) Urine Ketones Urine Blood Urine Nitrite Urine Bilirubin Urine Urobilinogen Ur Leukocyte Esterase Urine WBC (Auto) Urine RBC (Auto) Ur Epithelial Cells Urine Bacteria Hyaline Casts Urine Mucus Imaging - Results Cat Scan: Report Reviewed Problem List - Problems (1) Abdominal pain Code(s): R10.9 - UNSPECIFIED ABDOMINAL PAIN (2) H/O pancreatic cancer Code(s): Z85.07 - PERSONAL HISTORY OF MALIGNANT NEOPLASM OF PANCREAS (3) Leukocytosis Code(s): D72.829 - ELEVATED WHITE BLOOD CELL COUNT, UNSPECIFIED Assessment/Plan Acute onset of the above symptoms and abnormla CT with IV contrast in an 82 yof with a history of pancreatic cancer. The recurrence is high on differential. Cannot exclude gastroenteritis given the acute onset of the symptoms. Pt states she is hungry this am. Obtain Pancreatic protocol CT CA19-9 Hydration Clear liquid, low fat diet Repeat CBC,CMP (?quite different results 1 day apart) will follow
[2017-10-20] MEDS: CEFTRIAXONE 1 G/50 ML PREMIX 50 ML IVPB SCH (12:11)
[2017-10-20] MEDS: METRONIDAZOLE 500 MG PREMIXED 500 MG/100 ML MG IVPB SCH ×2 (12:12→18:45)
[2017-10-20] MEDS: ACETAMINOPHEN 325 MG TABLET (FP) PO PRN ×2 (12:44→19:06)
--- NOTE | 2017-10-20 12:53 | EKG ---
Test Reason : Blood Pressure : / mmHG Vent. 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
--- NOTE | 2017-10-20 13:00 | EKG ---
Test Reason : Blood Pressure : / mmHG Vent. Rate : 077 BPM Atrial Rate : 077 BPM P-R Int : 194 ms QRS Dur : 074 ms QT Int : 380 ms P-R-T Axes : 066 043 086 degrees QTc Int : 430 ms SINUS RHYTHM WITH FREQUENT PREMATURE VENTRICULAR COMPLEXES LOW VOLTAGE QRS CANNOT RULE OUT ANTEROSEPTAL INFARCT (CITED ON OR BEFORE 25-MAY-2015) ABNORMAL ECG WHEN COMPARED WITH ECG OF 02-JUN-2017 14:16, QUESTIONABLE CHANGE IN INITIAL FORCES OF SEPTAL LEADS Confirmed by TRUNG PATEL MD ([id number]) on 10/20/2017 1:00:39 PM Referred By: Confirmed By:TRUNG PATEL MD
--- NOTE | 2017-10-20 14:05 | CONSULT ---
Consult Consult Specialty:: Nephrology Reason for Consultation:: hyperkalemia and hyponatremia - History of Present Illness Chief Complaint: abdominal pain History of Present Illness: Pt is an 82 year old female who presents to the ER with abdominal pain. She has history of anemia, HTN, DM, pancreatic ca s/p whipple and gerd. She was found to have elevated potassium and I was called to evaluate her. She has not eaten much in days and complains of abdominal pain. She also complains of diarrhea. She did have fevers at home. She denies history of CKD. She denies history of nsaid use. 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: Alzheimer's, CVA, Dementia, Migraine, Multiple Sclerosis, Peripheral Neuropathy, Parkinson's, Seizure, Syncope, TIA, Vertigo, Other Cardio/Vascular: Yes: HTN, Hyperlipdemia Gastrointestinal: Yes: Constipation, Diverticulosis, Gastritis ...: No Musculoskeletal: Yes: Chronic low back pain, Osteoarthritis, Other (SEE CT SCAN 2014) Endocrine: Yes: Diabetes Mellitus - Past Surgical History Past Surgical History: Yes: Colonoscopy - Alcohol/Substance Use Hx Alcohol Use: No - Smoking History Smoking history: Never smoked Have you smoked in the past 12 months: No Aproximately how many cigarettes per day: 0 - Social History Usual Living Arrangement: With Significant Other Home Medications - Allergies Allergies/Adverse Reactions: Allergies Allergy/AdvReac Type Severity Reaction Status Date / Time No Known Drug Allergies Allergy Verified 10/19/17 12:54 - Home Medications Home Medications: Ambulatory Orders Amlodipine Besylate/Benazepril [Lotrel 5-10 mg Capsule] 1 each PO DAILY Metformin HCl [Metformin HCl ER] 1,000 mg PO DAILY 06/02/17 Metoclopramide HCl 5 mg PO ACHS 06/02/17 Mirtazapine [Remeron -] 15 mg PO DAILY 06/02/17 Pantoprazole Sodium [Protonix] 40 mg PO DAILY 06/02/17 Family Disease History - Family Disease History Family History: Denies Review of Systems - Review of Systems Constitutional: reports: Fever, Malaise Eyes: reports: No Symptoms HENT: reports: No Symptoms Neck: reports: No Symptoms Cardiovascular: reports: No Symptoms Respiratory: reports: No Symptoms Gastrointestinal: reports: Abdominal Pain, Diarrhea Genitourinary: reports: No Symptoms Musculoskeletal: reports: No Symptoms Integumentary: reports: No Symptoms Neurological: reports: No Symptoms Endocrine: reports: No Symptoms Hematology/Lymphatic: reports: No Symptoms Psychiatric: reports: No Symptoms Physical Exam Vital Signs: Vital Signs Temperature 99.4 F 10/20/17 12:26 Pulse Rate 98 H 10/20/17 10:03 Respiratory Rate 18 10/20/17 10:03 Blood Pressure 118/56 10/20/17 10:03 O2 Sat by Pulse Oximetry (%) 97 10/20/17 01:52 Constitutional: Yes: Calm Eyes: Yes: Conjunctiva Clear HENT: Yes: Atraumatic Neck: Yes: Supple Cardiovascular: Yes: S1, S2 Respiratory: Yes: CTA Bilaterally Gastrointestinal: Yes: Tenderness Renal/: Yes: WNL Musculoskeletal: Yes: WNL Extremities: Yes: WNL Edema: No Neurological: Yes: Oriented Psychiatric: Yes: Oriented Labs: CBC, BMP 10/20/17 06:00 10/20/17 06:00 Laboratory Tests 10/19/17 10/19/17 10/19/17 14:37 14:37 16:30 WBC 9.0 D Hgb 12.3 Sodium 130 L Potassium 5.4 H Chloride 100 BUN 15 Creatinine 1.1 H Creat Clearance w eGFR Random Glucose Urine Protein 1+ H Urine Blood 1+ H 10/20/17 10/20/17 06:00 06:00 WBC 15.8 H D Hgb 10.8 D Sodium 133 L Potassium 4.3 D Chloride BUN 18 Creatinine 1.0 Creat Clearance w eGFR 53.08 Random Glucose 121 H Urine Protein Urine Blood Imaging - Results Chest X-ray: Report Reviewed Problem List - Problems (1) Hyperkalemia Code(s): E87.5 - HYPERKALEMIA (2) Hyponatremia Code(s): E87.1 - HYPO-OSMOLALITY AND HYPONATREMIA (3) Abdominal pain Code(s): R10.9 - UNSPECIFIED ABDOMINAL PAIN (4) Dehydration Code(s): E86.0 - DEHYDRATION (5) Depression Code(s): F32.9 - MAJOR DEPRESSIVE DISORDER, SINGLE EPISODE, UNSPECIFIED Assessment/Plan Current Medications Generic Name Dose Route Start Last Admin Trade Name Freq PRN Reason Stop Dose Admin Acetaminophen 650 mg 10/20/17 07:55 10/20/17 12:44 Tylenol - PO 650 mg Q4H PRN Administration FEVER Amlodipine Besylate 5 mg 10/20/17 10:00 10/20/17 09:48 Norvasc - PO Not Given DAILY BRANDY Heparin Sodium (Porcine) 5,000 unit 10/20/17 10:00 10/20/17 09:59 Heparin - SQ 5,000 unit BID BRANDY Administration Dextrose/Sodium Chloride 1,000 mls @ 70 mls/hr 10/20/17 08:45 10/20/17 09:47 D5-Ns - IV 70 mls/hr ASDIR BRANDY Administration CEFTRIAXONE 1 G/50 ML PREMIX 50 mls @ 100 mls/hr 10/20/17 11:00 10/20/17 12: 11 Ceftriaxone 1 Gm-D5w Bag IVPB 100 mls/hr DAILY [facility]ANDY Administration Metronidazole 500 mg in 100 mls @ 100 mls/hr 10/20/17 11:00 10/20/17 12:12 Flagyl 500mg Premixed Ivpb - IVPB 100 mls/hr Q8H-IV BRANDY Administration Lisinopril 10 mg 10/20/17 10:00 10/20/17 10:16 Prinivil PO Not Given DAILY BRANDY Mirtazapine 15 mg 10/20/17 22:00 Remeron - PO HS BRANDY Pantoprazole Sodium 40 mg 10/19/17 22:45 10/20/17 09:59 Protonix Iv IVPUSH 40 mg DAILY BRANDY Administration Impression 1. hyponatremia 2. hyperkalemia 3. dehydration 4. DM 5. abdominal nair 6. HTN 7. hx pancreatinc cancer Plan - potassium and sodium are improving - cont with fluids - repeat labs in am - check ua - GI follow up - electrolytes derangements likely from diarrhea and decreased PO intake Dr Venegas
--- NOTE | 2017-10-20 14:21 | CONSULT ---
Consult Consult Specialty:: Oncology - History of Present Illness History of Present Illness: 82F w/ hx of pancreatic cancer s/p whipple procedure, NIDDM, anemia, HTN, gastritis, and depression presenting with weakness 2 days. Pt also reports abdominal pain that is 5/10 and diffuse. She endorses some fevers, chills, body aches, body shaking, and decreased appetite. She denies headache, n/v/d, SOB, and dysuria. Pt has had no complications from her whipple surgery which took place in [place]. She returns to [place] about once a year. Oncology consulted for the finding of pancreatic mass/pelvic mass. Family at bedside. Son is the lang interpreter. Pt seen and examined. 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 No: Mitral Stenosis Gastrointestinal: Yes: Constipation, Diverticulosis, Gastritis ...: No Musculoskeletal: Yes: Chronic low back pain, Osteoarthritis, Other (SEE CT SCAN 2014) Endocrine: Yes: Diabetes Mellitus - Past Surgical History Past Surgical History: Yes: Colonoscopy - Alcohol/Substance Use Hx Alcohol Use: No - Smoking History Smoking history: Never smoked Have you smoked in the past 12 months: No Aproximately how many cigarettes per day: 0 - Social History Usual Living Arrangement: With Significant Other Home Medications - Allergies Allergies/Adverse Reactions: Allergies Allergy/AdvReac Type Severity Reaction Status Date / Time No Known Drug Allergies Allergy Verified 10/19/17 12:54 - Home Medications Home Medications: Ambulatory Orders Amlodipine Besylate/Benazepril [Lotrel 5-10 mg Capsule] 1 each PO DAILY Metformin HCl [Metformin HCl ER] 1,000 mg PO DAILY 06/02/17 Metoclopramide HCl 5 mg PO ACHS 06/02/17 Mirtazapine [Remeron -] 15 mg PO DAILY 06/02/17 Pantoprazole Sodium [Protonix] 40 mg PO DAILY 06/02/17 Review of Systems - Review of Systems Constitutional: reports: Loss of Appetite, Unintentional Wgt. Loss, Weakness Eyes: reports: No Symptoms HENT: reports: No Symptoms Neck: reports: No Symptoms. denies: Lumps, Pain on Movement Gastrointestinal: reports: Abdominal Pain. denies: Rectal Bleeding, Vomiting Neurological: reports: No Symptoms Hematology/Lymphatic: reports: No Symptoms Physical Exam Vital Signs: Vital Signs Temperature 98.4 F 10/20/17 14:05 Pulse Rate 72 10/20/17 14:05 Respiratory Rate 20 10/20/17 14:05 Blood Pressure 100/58 10/20/17 14:05 O2 Sat by Pulse Oximetry (%) 97 10/20/17 01:52 Constitutional: Yes: No Distress, Thin Eyes: Yes: Conjunctiva Clear HENT: Yes: Atraumatic, Normocephalic Neck: Yes: Supple, Trachea Midline Cardiovascular: Yes: Regular Rate and Rhythm Respiratory: Yes: Regular, CTA Bilaterally Gastrointestinal: Yes: Tenderness Musculoskeletal: Yes: WNL Edema: No Neurological: Yes: Alert, Oriented Labs: CBC, BMP 10/20/17 06:00 10/20/17 06:00 Problem List - Problems (1) Abdominal pain Code(s): R10.9 - UNSPECIFIED ABDOMINAL PAIN (2) H/O pancreatic cancer Code(s): Z85.07 - PERSONAL HISTORY OF MALIGNANT NEOPLASM OF PANCREAS (3) Weakness Code(s): R53.1 - WEAKNESS (4) Weight loss Code(s): R63.4 - ABNORMAL WEIGHT LOSS Assessment/Plan CT findings noted. Await Pancreatic CT protocol ?pelvic soft tissue mass findings suspicious for malignancy ID w/u underway will f/u on Ca 19-9. ?extent of w.u in an elderly frail patient. Discussed in detail with son. Son/ family/pt to decide.
--- NOTE | 2017-10-20 20:07 | HOSP ---
Subjective - Review of Symptoms Events since last encounter: Hospitalist Encounter Notified by primary RN of a Dr. Mccain's patient who was febrile with rigors. Was asked to evaluate patient. Arrived to bedside, patient is asleep but alert to name- baseline. Patient reports pain to generalized abdomen upon palpation See PE A/P s/p Whipple sx CT- neoplastic vs inflammatory changes Continue Rocephin/Flagyl for Biliary Sepsis per ID Blood Cultures-pending Urine Cultures-pending Monitor vitals Continue IVF Discussed plan with patient's shabbir, who is in agreement. General: Yes: Chills Gastrointestinal: Yes: Abdominal Pain Physical Examination Vital Signs: Vital Signs Temperature 99.0 F 10/20/17 19:19 Pulse Rate 69 10/20/17 19:19 Respiratory Rate 20 10/20/17 19:19 Blood Pressure 115/48 10/20/17 19:19 O2 Sat by Pulse Oximetry (%) 97 10/20/17 09:00 Constitutional: Yes: Cachectic, Thin Eyes: Yes: WNL, Conjunctiva Clear, PERRL HENT: Yes: WNL, Atraumatic, Normocephalic Neck: Yes: WNL, Supple, Trachea Midline Cardiovascular: Yes: WNL, Regular Rate and Rhythm, S1, S2 Respiratory: Yes: WNL, Regular, CTA Bilaterally Gastrointestinal: Yes: Normal Bowel Sounds, Soft, Tenderness, Tenderness, Epigastrium Neurological: Yes: Alert Psychiatric: Yes: Alert Labs: CBC, BMP 10/20/17 06:00 10/20/17 06:00
[2017-10-20] MEDS: PIPERACIL/TAZOB 3.375 GM 3.375 GM/50 ML PREMIX IVPB SCH (20:39)
[2017-10-20] MEDS ORDERED: PT OWN MED DRAWER 7, Y5N ONE ×2 (21:51→23:12)
[2017-10-20 22:56] LABS: URINE APPEARANCE CLEAR; URINE BILIRUBIN NEGATIVE (NEGATIVE); URINE BLOOD 2+ (NEGATIVE); URINE COLOR LTYELLOW; URINE GLUCOSE (UA) NEGATIVE (NEGATIVE); URINE KETONE NEGATIVE (NEGATIVE); URINE NITRITE NEGATIVE (NEGATIVE); URINE PROTEIN NEGATIVE (NEGATIVE); URINE UROBILINOGEN NEGATIVE mg/dL (0.2-1.0)
[2017-10-20 23:20] LABS: URINE RBC 3 /hpf (0-3); URINE WBC 2 /hpf (3-5)
[2017-10-20] MEDS: MIRTAZAPINE 15 MG TABLET (FP) PO SCH (23:32)
[2017-10-21] MEDS: METRONIDAZOLE 500 MG PREMIXED 500 MG/100 ML MG IVPB SCH ×3 (01:34→18:12)
[2017-10-21 07:28] LABS: MCH 29.7 pg (25.7-33.7); MCHC 33.3 g/dl (32.0-36.0); MEAN CELL VOLUME 89.2 fl (80-96); MEAN PLT VOLUME 8.7 fl (7.5-11.1); PLATELET COUNT 163 K/MM3 (134-434); RDW 13.8 % (11.6-15.6); WHITE BLOOD COUNT 7.2 K/mm3 (4.0-10.0)
[2017-10-21 08:08] LABS: ANION GAP 7 (8-16); CALCIUM 7.3 mg/dL (8.5-10.1); CO2 23 mmol/L (21-32); CREATININE 0.8 mg/dL (0.55-1.02); GLUCOSE,RANDOM 166 mg/dL (74-106)
--- NOTE | 2017-10-21 10:14 | PN ---
Progress Note, Physician Chief Complaint: AWAKE STILL WITH ABD PAIN - Current Medication List Current Medications: Active Medications Acetaminophen (Tylenol -) 650 mg PO Q4H PRN PRN Reason: FEVER Last Admin: 10/20/17 19:06 Dose: 650 mg Amlodipine Besylate (Norvasc -) 5 mg PO DAILY [facility] Last Admin: 10/20/17 09:48 Dose: Not Given Heparin Sodium (Porcine) (Heparin -) 5,000 unit SQ BID [facility] Last Admin: 10/20/17 23:33 Dose: 5,000 unit Dextrose/Sodium Chloride (D5-Ns -) 1,000 mls @ 70 mls/hr IV ASDIR [facility] Last Admin: 10/20/17 09:47 Dose: 70 mls/hr CEFTRIAXONE 1 G/50 ML PREMIX (Ceftriaxone 1 Gm-D5w Bag) 50 mls @ 100 mls/hr IVPB DAILY [facility] Last Admin: 10/20/17 12:11 Dose: 100 mls/hr Metronidazole (Flagyl 500mg Premixed Ivpb -) 500 mg in 100 mls @ 100 mls/hr IVPB Q8H-IV [facility] Last Admin: 10/21/17 01:34 Dose: 100 mls/hr Lisinopril (Prinivil) 10 mg PO DAILY [facility] Last Admin: 10/20/17 10:16 Dose: Not Given Mirtazapine (Remeron -) 15 mg PO HS [facility] Last Admin: 10/20/17 23:32 Dose: 15 mg Pantoprazole Sodium (Protonix Iv) 40 mg IVPUSH DAILY [facility] Last Admin: 10/20/17 09:59 Dose: 40 mg - Objective Vital Signs: Vital Signs Temperature 99.1 F 10/21/17 06:36 Pulse Rate 70 10/21/17 06:36 Respiratory Rate 18 10/21/17 06:36 Blood Pressure 121/58 10/21/17 06:36 O2 Sat by Pulse Oximetry (%) 97 10/20/17 21:00 Constitutional: Yes: Mild Distress Eyes: Yes: WNL HENT: Yes: WNL Neck: Yes: WNL Cardiovascular: Yes: WNL Respiratory: Yes: WNL Gastrointestinal: Yes: Tenderness Genitourinary: Yes: WNL Musculoskeletal: Yes: WNL Extremities: Yes: WNL Edema: No Peripheral Pulses WNL: Yes Integumentary: Yes: WNL Wound/Incision: Yes: Clean/Dry Neurological: Yes: Pre-Existing Deficit ...Motor Strength: WNL Psychiatric: Yes: WNL Labs: CBC, BMP 10/21/17 06:00 10/21/17 06:00 INR, PTT INR 1.13 (0.82-1.09) 10/19/17 14:37 Assessment/Plan PATIENT S/P WHIPPLE HERE WITH ABDOMINAL PAIN NAUSEA AND VOMITING POOR APPETITE WEIGHT LOSS PLAN: GI CONSULT IV ABX ID F/U APPRECIATED IVF NPO MRCP WITH AND WITHOU CONTRAST PAIN CONTROL
--- NOTE | 2017-10-21 10:25 | PN ---
Progress Note, Physician History of Present Illness: Comfortable. Tolerating liquids. Not in pain. Had chills tmax 99. Pancreatic protocol CT show a mass in surgical area suggestive of recurrence, splenic vein thrombosis and thickened gastric wall. CA 19-9 elevated. - Current Medication List Current Medications: Active Medications Acetaminophen (Tylenol -) 650 mg PO Q4H PRN PRN Reason: FEVER Last Admin: 10/20/17 19:06 Dose: 650 mg Amlodipine Besylate (Norvasc -) 5 mg PO DAILY [facility] Last Admin: 10/20/17 09:48 Dose: Not Given Heparin Sodium (Porcine) (Heparin -) 5,000 unit SQ BID [facility] Last Admin: 10/20/17 23:33 Dose: 5,000 unit Dextrose/Sodium Chloride (D5-Ns -) 1,000 mls @ 70 mls/hr IV ASDIR [facility] Last Admin: 10/20/17 09:47 Dose: 70 mls/hr CEFTRIAXONE 1 G/50 ML PREMIX (Ceftriaxone 1 Gm-D5w Bag) 50 mls @ 100 mls/hr IVPB DAILY [facility] Last Admin: 10/20/17 12:11 Dose: 100 mls/hr Metronidazole (Flagyl 500mg Premixed Ivpb -) 500 mg in 100 mls @ 100 mls/hr IVPB Q8H-IV [facility] Last Admin: 10/21/17 01:34 Dose: 100 mls/hr Lisinopril (Prinivil) 10 mg PO DAILY [facility] Last Admin: 10/20/17 10:16 Dose: Not Given Mirtazapine (Remeron -) 15 mg PO HS [facility] Last Admin: 10/20/17 23:32 Dose: 15 mg Pantoprazole Sodium (Protonix Iv) 40 mg IVPUSH DAILY [facility] Last Admin: 10/20/17 09:59 Dose: 40 mg - Objective Vital Signs: Vital Signs Temperature 99.1 F 10/21/17 06:36 Pulse Rate 70 10/21/17 06:36 Respiratory Rate 18 10/21/17 06:36 Blood Pressure 121/58 10/21/17 06:36 O2 Sat by Pulse Oximetry (%) 97 10/20/17 21:00 Constitutional: Yes: No Distress, Calm Eyes: Yes: Conjunctiva Clear. No: Sclera Icterus HENT: Yes: Atraumatic Gastrointestinal: Yes: Soft. No: Tenderness, Vomiting Neurological: Yes: Alert Labs: CBC, BMP 10/21/17 06:00 10/21/17 06:00 INR, PTT INR 1.13 (0.82-1.09) 10/19/17 14:37 Laboratory Results - last 24 hr 10/20/17 10/20/17 10/21/17 15:20 15:50 06:00 WBC 7.2 D RBC 3.43 L Hgb 10.2 L Hct 30.6 L MCV 89.2 MCH 29.7 MCHC 33.3 RDW 13.8 Plt Count 163 MPV 8.7 Sodium Potassium Chloride Carbon Dioxide Anion Gap BUN Creatinine Random Glucose Calcium CA 19-9 Antigen 39 H Urine Color Ltyellow Urine Appearance Clear Urine pH 5.0 Ur Specific [place] 1.039 H Urine Protein Negative Urine Glucose (UA) Negative Urine Ketones Negative Urine Blood 2+ H Urine Nitrite Negative Urine Bilirubin Negative Urine Urobilinogen Negative Urine WBC (Auto) 2 Urine RBC (Auto) 3 10/21/17 06:00 WBC RBC Hgb Hct MCV MCH MCHC RDW Plt Count MPV Sodium 135 L Potassium 3.6 Chloride 105 Carbon Dioxide 23 Anion Gap 7 L BUN 14 D Creatinine 0.8 Random Glucose 166 H D Calcium 7.3 L CA 19-9 Antigen Urine Color Urine Appearance Urine pH Ur Specific [place] Urine Protein Urine Glucose (UA) Urine Ketones Urine Blood Urine Nitrite Urine Bilirubin Urine Urobilinogen Urine WBC (Auto) Urine RBC (Auto) Problem List - Problems (1) Abdominal pain Code(s): R10.9 - UNSPECIFIED ABDOMINAL PAIN (2) H/O pancreatic cancer Code(s): Z85.07 - PERSONAL HISTORY OF MALIGNANT NEOPLASM OF PANCREAS (3) Leukocytosis Code(s): D72.829 - ELEVATED WHITE BLOOD CELL COUNT, UNSPECIFIED Assessment/Plan To discuss with family next step, mass biopsy, EGD Hydration Clear liquid, low fat diet daily labs
--- NOTE | 2017-10-21 10:31 | PN ---
Physical Exam: SUBJECTIVE: Patient seen and examined. Pt has no complaints. She denies fevers, chills, chest pain, SOB, abdominal pain , n/v/c, and dysuria. She endorses 1 episode of diarrhea this am. OBJECTIVE: Vital Signs Period Temp Pulse Resp BP Sys/Disla Pulse Ox Last 24 Hr 98.3 F-99.4 F 69-99 18-20 100-168/48-67 97 GENERAL: The patient is awake, alert, and fully oriented, in no acute distress. HEENT: NC, AT, EOMI NECK: Trachea midline, full range of motion, supple. LUNGS: Breath sounds equal, clear to auscultation bilaterally, no wheezes, no crackles, no accessory muscle use. HEART: Regular rate and rhythm, S1, S2 without murmur, rub or gallop. ABDOMEN: no longer tender in upper quadrants and LLQ, soft, small bulging in epigastric region, normoactive BS EXTREMITIES: 2+ pulses, warm, well-perfused, no edema. NEUROLOGICAL: Cranial nerves II through XII grossly intact. Normal speech, gait not observed. PSYCH: Normal mood, normal affect. SKIN: Warm, dry, normal turgor, no rashes or lesions noted Laboratory Results - last 24 hr 10/20/17 10/20/17 10/21/17 15:20 15:50 06:00 WBC 7.2 D RBC 3.43 L Hgb 10.2 L Hct 30.6 L MCV 89.2 MCH 29.7 MCHC 33.3 RDW 13.8 Plt Count 163 MPV 8.7 Sodium Potassium Chloride Carbon Dioxide Anion Gap BUN Creatinine Random Glucose Calcium CA 19-9 Antigen 39 H Urine Color Ltyellow Urine Appearance Clear Urine pH 5.0 Ur Specific [place] 1.039 H Urine Protein Negative Urine Glucose (UA) Negative Urine Ketones Negative Urine Blood 2+ H Urine Nitrite Negative Urine Bilirubin Negative Urine Urobilinogen Negative Urine WBC (Auto) 2 Urine RBC (Auto) 3 10/21/17 06:00 WBC RBC Hgb Hct MCV MCH MCHC RDW Plt Count MPV Sodium 135 L Potassium 3.6 Chloride 105 Carbon Dioxide 23 Anion Gap 7 L BUN 14 D Creatinine 0.8 Random Glucose 166 H D Calcium 7.3 L CA 19-9 Antigen Urine Color Urine Appearance Urine pH Ur Specific [place] Urine Protein Urine Glucose (UA) Urine Ketones Urine Blood Urine Nitrite Urine Bilirubin Urine Urobilinogen Urine WBC (Auto) Urine RBC (Auto) Active Medications Generic Name Dose Route Start Last Admin Trade Name Zohaibq PRN Reason Stop Dose Admin Acetaminophen 650 mg 10/20/17 07:55 10/20/17 19:06 Tylenol - PO 650 mg Q4H PRN Administration FEVER Amlodipine Besylate 5 mg 10/20/17 10:00 10/20/17 09:48 Norvasc - PO Not Given DAILY BRAND[facility] Heparin Sodium (Porcine) 5,000 unit 10/20/17 10:00 10/20/17 23:33 Heparin - SQ 5,000 unit BID [facility]ANDY Administration Dextrose/Sodium Chloride 1,000 mls @ 70 mls/hr 10/20/17 08:45 10/20/17 09:47 D5-Ns - IV 70 mls/hr ASDIR [facility] Administration CEFTRIAXONE 1 G/50 ML PREMIX 50 mls @ 100 mls/hr 10/20/17 11:00 10/20/17 12: 11 Ceftriaxone 1 Gm-D5w Bag IVPB 100 mls/hr DAILY [facility] Administration Metronidazole 500 mg in 100 mls @ 100 mls/hr 10/20/17 11:00 10/21/17 01:34 Flagyl 500mg Premixed Ivpb - IVPB 100 mls/hr Q8H-IV [facility] Administration Lisinopril 10 mg 10/20/17 10:00 10/20/17 10:16 Prinivil PO Not Given DAILY [facility] Mirtazapine 15 mg 10/20/17 22:00 10/20/17 23:32 Remeron - PO 15 mg HS BRANDY Administration Pantoprazole Sodium 40 mg 10/19/17 22:45 10/20/17 09:59 Protonix Iv IVPUSH 40 mg DAILY [facility] Administration ASSESSMENT/PLAN: 82F w/ hx of pancreatic cancer s/p whipple procedure, NIDDM, anemia, HTN, gastritis, and depression presenting with acute weakness and abdominal pain. -afebrile overnight -no leukocytosis -significant CT findings -continue ceftriaxone and flagyl to cover for possible biliary sepsis -f/u cultures and sensitivities -Ucx: pending -Bcx: no growth to date x 24h -possible malignancy recurrence, f/u MRCP -CA- 19-9: elevated Rest of care per medical team. Case discussed with attending, Dr. Sweet. Dispo: We will continue to follow the patient. Thank you for this consultative opportunity. -Juan Arnold MD PGY1 ID Team Visit type - Emergency Visit Emergency Visit: Yes ED Registration Date: 10/19/17 Care time: The patient presented to the Emergency Department on the above date and was hospitalized for further evaluation of their emergent condition. - New Patient This patient is new to me today: No - Critical Care Critical Care patient: No
--- NOTE | 2017-10-21 10:36 | PN ---
Teaching Attending Note Name of Resident: Juan Arnold ATTENDING PHYSICIAN STATEMENT I saw and evaluated the patient. I reviewed the resident's note and discussed the case with the resident. I agree with the resident's findings and plan as documented. SUBJECTIVE:Ceftriaxone and metronidazole Low grade temp some chills per nursing staff OBJECTIVE:Abd soft mild tenderness no rebound ASSESSMENT AND PLAN: Microbiology 10/20/17 02:03 Urine - Urine Clean Catch Urine Culture - Final 10/20/17 01:00 Blood - Peripheral Venous Blood Culture - Preliminary NO GROWTH OBTAINED AFTER 24 HOURS, INCUBATION TO CONTINUE FOR 4 DAYS. 10/20/17 01:00 Blood - Peripheral Venous Blood Culture - Preliminary NO GROWTH OBTAINED AFTER 24 HOURS, INCUBATION TO CONTINUE FOR 4 DAYS. Laboratory Tests 10/21/17 10/21/17 06:00 06:00 WBC 7.2 D Hgb 10.2 L Hct 30.6 L Plt Count 163 BUN 14 D Creatinine 0.8 Assessment Cultures negative Depending on MRCP will decide to stop antibiotics Suspect tumor recurrence with splenic thrombosis noted on CT [facility]
[2017-10-21 11:30] LABS: URINE LEUK ESTERASE Negative (NEGATIVE)
[2017-10-21] MEDS ORDERED: PT OWN MED DRAWER 7, Y5N ONE ×2 (11:40→19:54)
[2017-10-21] MEDS: LISINOPRIL 10 MG TABLET (FP) PO SCH ×2 (11:52→14:53)
[2017-10-21] MEDS: HEPARIN NA (PORCINE) 5,000 UNITS/ML 1ML VIAL SQ SCH ×2 (12:01→20:59)
[2017-10-21] MEDS: amLODIPine BESYLATE 5 MG TABLET (FP) PO SCH (12:02)
[2017-10-21] MEDS: PANTOPRAZOLE SODIUM 40 MG VIAL IVPUSH SCH (12:03)
[2017-10-21] MEDS: CEFTRIAXONE 1 G/50 ML PREMIX 50 ML IVPB SCH (12:03)
[2017-10-21] MEDS: DEXTROSE 5%-NORMAL SALINE 1,000 ML IV SCH (12:04)
[2017-10-21 14:55] LABS: BASOPHIL 0.2 % (0-2.0); EOSINOPHIL 1.1 % (0-4.5); MCH 29.9 pg (25.7-33.7); MCHC 33.3 g/dl (32.0-36.0); MEAN PLT VOLUME 8.5 fl (7.5-11.1); NEUTROPHILS 71.8 % (42.8-82.8); PLATELET COUNT 166 K/MM3 (134-434); RDW 13.8 % (11.6-15.6)
[2017-10-21] MEDS: ACETAMINOPHEN 325 MG TABLET (FP) PO PRN (14:55)
--- NOTE | 2017-10-21 15:16 | PN ---
Progress Note (short form) - Note Progress Note: Epigastric pain responded to tylenol. Tolerating liquids. Some of the family at bedside and aware of the pancreatic protocol CT findings. The patient has 8 children who will hold family meeting to discuss the next step. Pain management. Small dose oxycodone q6 hrs PRN if loses response to Tylenol ( discussed with the pt's nurse) Antiemetics pRN Small frequent meals as tolerated Monitor for fever, jaundice MRCP was done, formal read pending Problem List - Problems (1) Abdominal pain Code(s): R10.9 - UNSPECIFIED ABDOMINAL PAIN (2) H/O pancreatic cancer Code(s): Z85.07 - PERSONAL HISTORY OF MALIGNANT NEOPLASM OF PANCREAS (3) Leukocytosis Code(s): D72.829 - ELEVATED WHITE BLOOD CELL COUNT, UNSPECIFIED
[2017-10-21] MEDS ORDERED: oxyCODONE HCL 5 MG TABLET PO PRN (15:19)
[2017-10-21 15:25] LABS: ALBUMIN 2.5 g/dl (3.4-5.0); ANION GAP 6 (8-16); CALCIUM 7.1 mg/dL (8.5-10.1); CO2 24 mmol/L (21-32); GLUCOSE,RANDOM 165 mg/dL (74-106)
[2017-10-21 15:30] LABS: ALK PHOS 150 U/L (45-117); BILIRUBIN,TOTAL 0.8 mg/dL (0.2-1.0); CREATININE 0.8 mg/dL (0.55-1.02); SGOT/AST 41 U/L (15-37); SGPT/ALT 42 U/L (12-78); TOT PROT 5.6 g/dl (6.4-8.2)
[2017-10-21] MEDS ORDERED: ONDANSETRON *ODT* 4 MG TABLET SL PRN (15:30)
--- NOTE | 2017-10-21 17:13 | PN ---
Progress Note (short form) - Note Progress Note: Pt seen and examined. All consults noted. chart reviewed. O/E: Constitutional: Yes: No Distress, Thin Eyes: Yes: Conjunctiva Clear HENT: Yes: Atraumatic, Normocephalic Neck: Yes: Supple, Trachea Midline Cardiovascular: Yes: Regular Rate and Rhythm Respiratory: Yes: Regular, CTA Bilaterally Gastrointestinal: Yes: Tenderness Musculoskeletal: Yes: WNL Edema: No Neurological: Yes: Alert, Oriented Last Vital Signs Temp Pulse Resp BP Pulse Ox 99.1 F 72 18 134/61 97 10/21/17 14:40 10/21/17 14:40 10/21/17 14:40 10/21/17 14:40 10/21/17 09:00 CBC, BMP 10/21/17 14:30 10/21/17 14:30 Current Medications Generic Name Dose Route Start Last Admin Trade Name Freq PRN Reason Stop Dose Admin Acetaminophen 650 mg 10/20/17 07:55 10/21/17 14:55 Tylenol - PO 650 mg Q4H PRN Administration FEVER Amlodipine Besylate 5 mg 10/20/17 10:00 10/21/17 12:02 Norvasc - PO 5 mg DAILY BRANDY Administration Heparin Sodium (Porcine) 5,000 unit 10/20/17 10:00 10/21/17 12:01 Heparin - SQ 5,000 unit BID BRANDY Administration Dextrose/Sodium Chloride 1,000 mls @ 70 mls/hr 10/20/17 08:45 10/21/17 12:04 D5-Ns - IV 70 mls/hr ASDIR BRANDY Administration CEFTRIAXONE 1 G/50 ML PREMIX 50 mls @ 100 mls/hr 10/20/17 11:00 10/21/17 12: 03 Ceftriaxone 1 Gm-D5w Bag IVPB 100 mls/hr DAILY BRANDY Administration Metronidazole 500 mg in 100 mls @ 100 mls/hr 10/20/17 11:00 10/21/17 12:03 Flagyl 500mg Premixed Ivpb - IVPB 100 mls/hr Q8H-IV BRANDY Administration Lisinopril 10 mg 10/21/17 15:00 10/21/17 14:53 Prinivil PO 10 mg DAILY BRANDY Administration Mirtazapine 15 mg 10/20/17 22:00 10/20/17 23:32 Remeron - PO 15 mg HS BRANDY Administration Ondansetron HCl 4 mg 10/21/17 15:30 Zofran Odt - SL Q6H PRN NAUSEA AND/OR VOMITING Oxycodone HCl 5 mg 10/21/17 15:19 Roxicodone - PO Q6H PRN PAIN Pantoprazole Sodium 40 mg 10/19/17 22:45 10/21/17 12:03 Protonix Iv IVPUSH 40 mg DAILY BRANDY Administration CT scan findings with Ca 19-9 of 35 raises a high index for suspicion of recurrence,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 await MR imaging pain control abx per ID. continues with poor appetite GI f/u noted d/w family. to decide on further step Problem List - Problems (1) Abdominal pain Code(s): R10.9 - UNSPECIFIED ABDOMINAL PAIN (2) H/O pancreatic cancer Code(s): Z85.07 - PERSONAL HISTORY OF MALIGNANT NEOPLASM OF PANCREAS (3) Weakness Code(s): R53.1 - WEAKNESS (4) Weight loss Code(s): R63.4 - ABNORMAL WEIGHT LOSS
--- NOTE | 2017-10-21 17:20 | PN ---
Progress Note, Physician Chief Complaint: Pt seen and examined at bedside. She is awake and appears comfortable. - Current Medication List Current Medications: Active Medications Acetaminophen (Tylenol -) 650 mg PO Q4H PRN PRN Reason: FEVER Last Admin: 10/21/17 14:55 Dose: 650 mg Amlodipine Besylate (Norvasc -) 5 mg PO DAILY [facility] Last Admin: 10/21/17 12:02 Dose: 5 mg Heparin Sodium (Porcine) (Heparin -) 5,000 unit SQ BID [facility] Last Admin: 10/21/17 12:01 Dose: 5,000 unit Dextrose/Sodium Chloride (D5-Ns -) 1,000 mls @ 70 mls/hr IV ASDIR [facility] Last Admin: 10/21/17 12:04 Dose: 70 mls/hr CEFTRIAXONE 1 G/50 ML PREMIX (Ceftriaxone 1 Gm-D5w Bag) 50 mls @ 100 mls/hr IVPB DAILY [facility] Last Admin: 10/21/17 12:03 Dose: 100 mls/hr Metronidazole (Flagyl 500mg Premixed Ivpb -) 500 mg in 100 mls @ 100 mls/hr IVPB Q8H-IV [facility] Last Admin: 10/21/17 12:03 Dose: 100 mls/hr Lisinopril (Prinivil) 10 mg PO DAILY [facility] Last Admin: 10/21/17 14:53 Dose: 10 mg Mirtazapine (Remeron -) 15 mg PO HS [facility] Last Admin: 10/20/17 23:32 Dose: 15 mg Ondansetron HCl (Zofran Odt -) 4 mg SL Q6H PRN PRN Reason: NAUSEA AND/OR VOMITING Oxycodone HCl (Roxicodone -) 5 mg PO Q6H PRN PRN Reason: PAIN Pantoprazole Sodium (Protonix Iv) 40 mg IVPUSH DAILY [facility] Last Admin: 10/21/17 12:03 Dose: 40 mg - Objective Vital Signs: Vital Signs Temperature 99.1 F 10/21/17 14:40 Pulse Rate 72 10/21/17 14:40 Respiratory Rate 18 10/21/17 14:40 Blood Pressure 134/61 10/21/17 14:40 O2 Sat by Pulse Oximetry (%) 97 10/21/17 09:00 Constitutional: Yes: Calm Eyes: Yes: Conjunctiva Clear HENT: Yes: Atraumatic Neck: Yes: Supple Cardiovascular: Yes: S1, S2 Respiratory: Yes: CTA Bilaterally Gastrointestinal: Yes: Soft Genitourinary: Yes: WNL Musculoskeletal: Yes: WNL Edema: No Neurological: Yes: Oriented Psychiatric: Yes: Oriented Labs: CBC, BMP 10/21/17 14:30 10/21/17 14:30 INR, PTT INR 1.13 (0.82-1.09) 10/19/17 14:37 Problem List - Problems (1) Hyperkalemia Code(s): E87.5 - HYPERKALEMIA (2) Hyponatremia Code(s): E87.1 - HYPO-OSMOLALITY AND HYPONATREMIA (3) Abdominal pain Code(s): R10.9 - UNSPECIFIED ABDOMINAL PAIN (4) Dehydration Code(s): E86.0 - DEHYDRATION (5) Depression Code(s): F32.9 - MAJOR DEPRESSIVE DISORDER, SINGLE EPISODE, UNSPECIFIED Assessment/Plan Current Medications Generic Name Dose Route Start Last Admin Trade Name Freq PRN Reason Stop Dose Admin Acetaminophen 650 mg 10/20/17 07:55 10/21/17 14:55 Tylenol - PO 650 mg Q4H PRN Administration FEVER Amlodipine Besylate 5 mg 10/20/17 10:00 10/21/17 12:02 Norvasc - PO 5 mg DAILY BRANDY Administration Heparin Sodium (Porcine) 5,000 unit 10/20/17 10:00 10/21/17 12:01 Heparin - SQ 5,000 unit BID BRANDY Administration Dextrose/Sodium Chloride 1,000 mls @ 70 mls/hr 10/20/17 08:45 10/21/17 12:04 D5-Ns - IV 70 mls/hr ASDIR BRANDY Administration CEFTRIAXONE 1 G/50 ML PREMIX 50 mls @ 100 mls/hr 10/20/17 11:00 10/21/17 12: 03 Ceftriaxone 1 Gm-D5w Bag IVPB 100 mls/hr DAILY BRANDY Administration Metronidazole 500 mg in 100 mls @ 100 mls/hr 10/20/17 11:00 10/21/17 12:03 Flagyl 500mg Premixed Ivpb - IVPB 100 mls/hr Q8H-IV BRANDY Administration Lisinopril 10 mg 10/21/17 15:00 10/21/17 14:53 Prinivil PO 10 mg DAILY BRANDY Administration Mirtazapine 15 mg 10/20/17 22:00 10/20/17 23:32 Remeron - PO 15 mg HS BRANDY Administration Ondansetron HCl 4 mg 10/21/17 15:30 Zofran Odt - SL Q6H PRN NAUSEA AND/OR VOMITING Oxycodone HCl 5 mg 10/21/17 15:19 Roxicodone - PO Q6H PRN PAIN Pantoprazole Sodium 40 mg 10/19/17 22:45 10/21/17 12:03 Protonix Iv IVPUSH 40 mg DAILY BRANDY Administration Laboratory Tests 10/20/17 15:50 Urine Protein Negative Urine Blood 2+ H Impression 1. hyponatremia 2. hyperkalemia 3. dehydration 4. DM 5. abdominal nair 6. HTN 7. hx pancreatinc cancer Plan - cont fluids - renal function stabilizing - urine studies reviewed - GI follow up - electrolytes derangements likely from diarrhea and decreased PO intake Dr Venegas
[2017-10-21] MEDS: MIRTAZAPINE 15 MG TABLET (FP) PO SCH (20:59)
[2017-10-22] MEDS: METRONIDAZOLE 500 MG PREMIXED 500 MG/100 ML MG IVPB SCH ×2 (01:02→09:27)
[2017-10-22] MEDS: CEFTRIAXONE 1 G/50 ML PREMIX 50 ML IVPB SCH (09:27)
[2017-10-22] MEDS: PANTOPRAZOLE SODIUM 40 MG VIAL IVPUSH SCH (09:27)
[2017-10-22] MEDS: LISINOPRIL 10 MG TABLET (FP) PO SCH (09:28)
[2017-10-22] MEDS: amLODIPine BESYLATE 5 MG TABLET (FP) PO SCH (09:28)
[2017-10-22] MEDS: HEPARIN NA (PORCINE) 5,000 UNITS/ML 1ML VIAL SQ SCH (09:28)
--- NOTE | 2017-10-22 10:58 | PN ---
Physical Exam: SUBJECTIVE: Patient seen and examined. No acute events overnight. pt reports pain is well controlled on medication. she denies fevers, chills, chest pain, SOB, n/v/d/c, and dysuria. OBJECTIVE: Vital Signs Period Temp Pulse Resp BP Sys/Disla Pulse Ox Last 24 Hr 98 F-99.1 F 67-73 18-18 108-134/48-61 97 GENERAL: The patient is awake, alert, and fully oriented, in no acute distress. LUNGS: Breath sounds equal, clear to auscultation bilaterally, no wheezes, no crackles, no accessory muscle use. HEART: Regular rate and rhythm, S1, S2 without murmur, rub or gallop. ABDOMEN: Soft, mildly tender to palpation, nondistended, normoactive bowel sounds, no guarding, no rebound, no hepatosplenomegaly, no masses. EXTREMITIES: 2+ pulses, warm, well-perfused, no edema. NEUROLOGICAL: Cranial nerves II through XII grossly intact. Normal speech, gait not observed. PSYCH: Normal mood, normal affect. SKIN: Warm, dry, normal turgor, no rashes or lesions noted Laboratory Results - last 24 hr 10/20/17 10/21/17 10/21/17 15:50 14:30 14:30 WBC 8.0 RBC 3.51 L Hgb 10.5 L Hct 31.5 L MCV 90.0 MCH 29.9 MCHC 33.3 RDW 13.8 Plt Count 166 MPV 8.5 Neutrophils % 71.8 Lymphocytes % 15.5 D Monocytes % 11.4 H Eosinophils % 1.1 D Basophils % 0.2 Sodium 135 L Potassium 3.7 Chloride 105 Carbon Dioxide 24 Anion Gap 6 L BUN 11 D Creatinine 0.8 Creat Clearance w eGFR > 60 Random Glucose 165 H Calcium 7.1 L Total Bilirubin 0.8 AST 41 H D ALT 42 D Alkaline Phosphatase 150 H Total Protein 5.6 L Albumin 2.5 L Ur Leukocyte Esterase Negative Active Medications Generic Name Dose Route Start Last Admin Trade Name Freq PRN Reason Stop Dose Admin Acetaminophen 650 mg 10/20/17 07:55 10/21/17 14:55 Tylenol - PO 650 mg Q4H PRN Administration FEVER Amlodipine Besylate 5 mg 10/20/17 10:00 10/22/17 09:28 Norvasc - PO 5 mg DAILY BRANDY Administration Heparin Sodium (Porcine) 5,000 unit 10/20/17 10:00 10/22/17 09:28 Heparin - SQ 5,000 unit BID BRANDY Administration Dextrose/Sodium Chloride 1,000 mls @ 70 mls/hr 10/20/17 08:45 10/21/17 12:04 D5-Ns - IV 70 mls/hr ASDIR BRANDY Administration CEFTRIAXONE 1 G/50 ML PREMIX 50 mls @ 100 mls/hr 10/20/17 11:00 10/22/17 09: 27 Ceftriaxone 1 Gm-D5w Bag IVPB 100 mls/hr DAILY BRANDY Administration Metronidazole 500 mg in 100 mls @ 100 mls/hr 10/20/17 11:00 10/22/17 09:27 Flagyl 500mg Premixed Ivpb - IVPB 100 mls/hr Q8H-IV BRANDY Administration Lisinopril 10 mg 10/21/17 15:00 10/22/17 09:28 Prinivil PO 10 mg DAILY BRANDY Administration Mirtazapine 15 mg 10/20/17 22:00 10/21/17 20:59 Remeron - PO 15 mg HS BRANDY Administration Ondansetron HCl 4 mg 10/21/17 15:30 Zofran Odt - SL Q6H PRN NAUSEA AND/OR VOMITING Oxycodone HCl 5 mg 10/21/17 15:19 10/21/17 19:19 Roxicodone - PO 5 mg Q6H PRN Administration PAIN Pantoprazole Sodium 40 mg 10/19/17 22:45 10/22/17 09:27 Protonix Iv IVPUSH 40 mg DAILY BRANDY Administration ASSESSMENT/PLAN: 82F w/ hx of pancreatic cancer s/p whipple procedure, NIDDM, anemia, HTN, gastritis, and depression presenting with acute weakness and abdominal pain. -afebrile overnight -no leukocytosis -continue ceftriaxone and flagyl to cover for possible biliary sepsis. Stop if MRI shows no evidence of biliary problems. -f/u cultures and sensitivities -Ucx: pending -Bcx: no growth to date x 48h -possible malignancy recurrence, f/u MRCP -CA- 19-9: elevated Rest of care per medical team. Case discussed with attending, Dr. Kothari. Dispo: We will continue to follow the patient. Thank you for this consultative opportunity. -Juan Arnold MD PGY1 ID Team Visit type - Emergency Visit Emergency Visit: Yes ED Registration Date: 10/19/17 Care time: The patient presented to the Emergency Department on the above date and was hospitalized for further evaluation of their emergent condition. - New Patient This patient is new to me today: No - Critical Care Critical Care patient: No
--- NOTE | 2017-10-22 11:12 | DS ---
Physical Examination Vital Signs: Vital Signs Temperature 98 F 10/22/17 06:04 Pulse Rate 67 10/22/17 06:04 Respiratory Rate 18 10/22/17 06:04 Blood Pressure 118/48 10/22/17 06:04 O2 Sat by Pulse Oximetry (%) 97 10/21/17 21:00 Findings/Remarks: AWAKE ALERT TOLERATING LIQUID DIET FAMILY BEDSIDE Constitutional: Yes: No Distress Eyes: Yes: WNL HENT: Yes: WNL Neck: Yes: WNL Cardiovascular: Yes: WNL Respiratory: Yes: WNL Gastrointestinal: Yes: Tenderness Renal/: Yes: WNL Musculoskeletal: Yes: Muscle Weakness Extremities: Yes: WNL Edema: No Peripheral Pulses WNL: Yes Integumentary: Yes: WNL Wound/Incision: Yes: Clean/Dry Neurological: Yes: WNL ...Motor Strength: WNL Psychiatric: Yes: WNL Labs: CBC, BMP 10/21/17 14:30 10/21/17 14:30 Discharge Summary Reason For Visit: HISTORY OF A MALIGNANT PANCREAS Current Active Problems Abdominal pain (Acute) H/O pancreatic cancer (Acute) Hyperkalemia (Acute) Hyponatremia (Acute) Leukocytosis (Acute) Pancreatitis (Acute) Procedures: Principal: MRCP Hospital Course: ADMITTED IV ABX, PAIN CONTROL WORKED UP FOR PANCREATIC MASS VS PANCREATITIS, STABILIZE AND DISCHARGE HOME WITH HOME NURSING CARE. PATIENT WILL NEED ONCOLOGY FOLLOW UP IN 3-4 DAYS TO DISCUSS PLAN OF CARE Condition: Stable - Instructions Diet, Activity, Other Instructions: LOW FAT, SOUPS, LIQUIDS. SEE DR BELL IN 3-4 DAYS HOME PRIME CARE WITH PHYSICAL THERAPY SEE DR MCCAIN IN 2-3 WEEKS FOR FOLLOW UP Referrals: Corazon Mccain MD [Primary Care Provider] - Disposition: VNS/HOME HEALTH CARE - Home Medications Comprehensive Discharge Medication List: Ambulatory Orders Amlodipine Besylate/Benazepril [Lotrel 5-10 mg Capsule] 1 each PO DAILY Metformin HCl [Metformin HCl ER] 1,000 mg PO DAILY 06/02/17 Metoclopramide HCl 5 mg PO ACHS 06/02/17 Mirtazapine [Remeron -] 15 mg PO DAILY 06/02/17 Pantoprazole Sodium [Protonix] 40 mg PO DAILY 06/02/17
[2017-10-22] MEDS ORDERED: metroNIDAZOLE 250 MG TABLET PO SCH (11:15)
[2017-10-22] MEDS ORDERED: AMOX TR/POT CLAV 500MG/125MG TABLETS (FP) PO SCH (11:15)
--- NOTE | 2017-10-22 11:34 | PN ---
Progress Note (short form) - Note Progress Note: Pt seen and examined. All consults noted. chart reviewed. O/E: Constitutional: Yes: No Distress, Thin Eyes: Yes: Conjunctiva Clear HENT: Yes: Atraumatic, Normocephalic Neck: Yes: Supple, Trachea Midline Cardiovascular: Yes: Regular Rate and Rhythm Respiratory: Yes: Regular, CTA Bilaterally Gastrointestinal: Yes: Tenderness Musculoskeletal: Yes: WNL CBC, BMP 10/21/17 14:30 10/21/17 14:30 Current Medications Generic Name Dose Route Start Last Admin Trade Name Freq PRN Reason Stop Dose Admin Acetaminophen 650 mg 10/20/17 07:55 10/21/17 14:55 Tylenol - PO 650 mg Q4H PRN Administration FEVER Amlodipine Besylate 5 mg 10/20/17 10:00 10/22/17 09:28 Norvasc - PO 5 mg DAILY BRANDY Administration Amoxicillin/Clavulanate Potassium 1 tab 10/22/17 11:15 Augmentin - 500mg Tablet PO BID@0800,1730 BRANDY Dextrose/Sodium Chloride 1,000 mls @ 70 mls/hr 10/20/17 08:45 10/21/17 12:04 D5-Ns - IV 70 mls/hr ASDIR BRANDY Administration Lisinopril 10 mg 10/21/17 15:00 10/22/17 09:28 Prinivil PO 10 mg DAILY BRANDY Administration Metronidazole 500 mg 10/22/17 11:15 Flagyl - PO TID BRANDY Mirtazapine 15 mg 10/20/17 22:00 10/21/17 20:59 Remeron - PO 15 mg HS BRANDY Administration Ondansetron HCl 4 mg 10/21/17 15:30 Zofran Odt - SL Q6H PRN NAUSEA AND/OR VOMITING Oxycodone HCl 5 mg 10/21/17 15:19 10/21/17 19:19 Roxicodone - PO 5 mg Q6H PRN Administration PAIN CBC, BMP 10/21/17 14:30 10/21/17 14:30 CT scan findings with Ca 19-9 of 35 raises a high index for suspicion of recurrence,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 patient is an elderly frail woman discussed in detail with family again today regarding further steps. Yet to decide. for d/c today f/u in office on Wednesday at 11:00am at first floor [employer]. phone [phone]. d/w . Problem List - Problems (1) Abdominal pain Code(s): R10.9 - UNSPECIFIED ABDOMINAL PAIN (2) H/O pancreatic cancer Code(s): Z85.07 - PERSONAL HISTORY OF MALIGNANT NEOPLASM OF PANCREAS (3) Weakness Code(s): R53.1 - WEAKNESS (4) Weight loss Code(s): R63.4 - ABNORMAL WEIGHT LOSS
[2017-10-22 11:42] VITALS: BP 143/57; PULSE 75; TEMP 98.1
[2017-10-22 12:37] LABS: BASOPHIL 0.5 % (0-2.0); EOSINOPHIL 0.7 % (0-4.5); MCH 29.5 pg (25.7-33.7); MCHC 32.9 g/dl (32.0-36.0); MEAN CELL VOLUME 89.7 fl (80-96); MEAN PLT VOLUME 8.2 fl (7.5-11.1); PLATELET COUNT 171 K/MM3 (134-434); RDW 13.8 % (11.6-15.6); WHITE BLOOD COUNT 6.6 K/mm3 (4.0-10.0)
[2017-10-22 13:04] LABS: ALBUMIN 2.4 g/dl (3.4-5.0); ANION GAP 10 (8-16); BILIRUBIN,TOTAL 0.4 mg/dL (0.2-1.0); CALCIUM 7.3 mg/dL (8.5-10.1); CO2 22 mmol/L (21-32); CREATININE 0.7 mg/dL (0.55-1.02); GLUCOSE,RANDOM 170 mg/dL (74-106); SGOT/AST 26 U/L (15-37); SGPT/ALT 31 U/L (12-78); TOT PROT 5.5 g/dl (6.4-8.2)
[2017-10-22 13:05] LABS: ALK PHOS 135 U/L (45-117)
== END 2017-10-22 14:28 | disposition home health service (06) | DRG 439 ==
LOC: SUPCPDRO 12:47 → JER 12:47 → JERBED 21:07 → J7W 10-20 01:26
PROVIDERS: ADMIT Family Medicine; ATTEND Family Medicine
DX: K85.90 Acute pancreatitis without necrosis or infection, unspecified (principal); R64 Cachexia; Z68.1 Body mass index [BMI] 19.9 or less, adult; E87.1 Hypo-osmolality and hyponatremia; R10.9 Unspecified abdominal pain; Z85.07 Personal history of malignant neoplasm of pancreas; R53.1 Weakness; R63.4 Abnormal weight loss; E87.5 Hyperkalemia; D72.829 Elevated white blood cell count, unspecified; E11.9 Type 2 diabetes mellitus without complications; E86.0 Dehydration; F32.9 Major depressive disorder, single episode, unspecified; I10 Essential (primary) hypertension
CPT/HCPCS: 36415; 71010-TC; 74170-TC; 74177-TC; 74183-TC; 80048; 80053; 81003; 81015; 82150; 82550; 83690; 83735; 84443; 84484; 85025; 85027; 85610; 86301; 87040; 87086; 93005; 93010; 99285-25; C1887; J1644

== ENCOUNTER 2017-11-04 12:14 | Emergency (ER) | payer OTHER ==
[2017-11-04 12:19] VITALS: BP 128/56; PULSE 77; TEMP 97.7; BMI 18.7
--- NOTE | 2017-11-04 12:24 | PDOC ---
History of Present Illness - General History Source: Patient Exam Limitations: No Limitations - History of Present Illness Initial Comments: 11/04/17 13:00 The patient is a 82 year old female with a significant PMH of anemia, HTN, NIDDM, Pancreatic CA (s/p whipple procedure), gastritis, possible peptic ulcer disease, and depression was sent by Dr. Mccain to the emergency department for a repeat potassium level and generalized weakness. The patient states Dr. Mccain has taken her off of metformin and is currently taking glucerna. The patient denies any other complaints today. The patient denies chest pain, shortness of breath, headache and dizziness. Denies fever, chills, nausea, vomit, diarrhea and constipation. Denies dysuria, frequency, urgency and hematuria. Allergies: NKA Past surgical history: Cholecystectomy, whipple procedure Social history: No reported drug, alcohol, or cigarette use. PCP: Dr. Mccain 11/04/17 13:06 <Vanessa Mojica - Last Filed: 11/04/17 13:49> <Willian Guthrie - Last Filed: 11/04/17 15:39> - General Chief Complaint: Revisit, Lab Variance Stated Complaint: LAB VARIANCE (PCP SENT) Time Seen by Provider: 11/04/17 12:24 Past History <Vanessa Mojica - Last Filed: 11/04/17 13:49> - Past Medical History Anemia: Yes Cancer: Yes (PANCREATIC) COPD: No DVT: No Diabetes: Yes HTN: Yes Psychiatric Problems: Yes (DEPRESSION.) - Surgical History Abdominal Surgery: Yes (WHIPPLE, PANCREATIC CA) Cholecystectomy: Yes - Suicide/Smoking/Psychosocial Hx Smoking Status: No Smoking History: Never smoked Have you smoked in the past 12 months: No Number of Cigarettes Smoked Daily: 0 Information on smoking cessation initiated: No Hx Alcohol Use: No Drug/Substance Use Hx: No Substance Use Type: None Hx Substance Use Treatment: No <Willian Guthrie - Last Filed: 11/04/17 15:39> - Past Medical History Allergies/Adverse Reactions: Allergies Allergy/AdvReac Type Severity Reaction Status Date / Time No Known Drug Allergies Allergy Verified 11/04/17 12:15 Home Medications: Ambulatory Orders Amlodipine Besylate/Benazepril [Lotrel 5-10 mg Capsule] 1 each PO DAILY Metoclopramide HCl 5 mg PO ACHS 06/02/17 Pantoprazole Sodium [Protonix] 40 mg PO DAILY 06/02/17 Acetaminophen [Tylenol .Regular Strength -] 650 mg PO Q4H PRN tablet 10/22/17 Amox-Tr/K Cl [Augmentin 500-125mg Tablet -] 1 tab PO BID@0800,1730 #10 tablet Metronidazole [Flagyl -] 500 mg PO TID #15 tablet 10/22/17 Mirtazapine [Remeron -] 15 mg PO DAILY #30 tablet 10/22/17 Ondansetron [Zofran Odt -] 4 mg SL Q6H PRN #30 tab.rapdis 10/22/17 Review of Systems - Review of Systems Able to Perform ROS?: Yes Comments:: 11/04/17 13:00 GENERAL/CONSTITUTIONAL: (+) Generalized weakness. No fever or chills. HEAD, EYES, EARS, NOSE AND THROAT: No change in vision. No ear pain or discharge. No sore throat. CARDIOVASCULAR: No chest pain or shortness of breath. RESPIRATORY: No cough, wheezing, or hemoptysis. GASTROINTESTINAL: No nausea, vomiting, diarrhea or constipation. GENITOURINARY: No dysuria, frequency, or change in urination. MUSCULOSKELETAL: No joint or muscle swelling or pain. No neck or back pain. SKIN: No rash NEUROLOGIC: No headache, vertigo, loss of consciousness, or change in strength/ sensation. ENDOCRINE: No increased thirst. No abnormal weight change. HEMATOLOGIC/LYMPHATIC: No anemia, easy bleeding, or history of blood clots. ALLERGIC/IMMUNOLOGIC: No hives or skin allergy. <Vanessa Mojica - Last Filed: 11/04/17 13:49> *Physical Exam - Vital Signs Last Vital Signs Temp Pulse Resp BP Pulse Ox 97.7 F 77 18 128/56 100 11/04/17 12:16 11/04/17 12:16 11/04/17 12:16 11/04/17 12:16 11/04/17 12:16 - Physical Exam Comments: 11/04/17 13:04 GENERAL: Awake, alert, and fully oriented, in no acute distress HEAD: No signs of trauma EYES: PERRLA, EOMI, sclera anicteric, conjunctiva clear ENT: Auricles normal inspection, hearing grossly normal, nares patent, oropharynx clear without exudates. Moist mucosa NECK: Normal ROM, supple, no lymphadenopathy, JVD, or masses LUNGS: Breath sounds equal, clear to auscultation bilaterally. No wheezes, and no crackles HEART: Regular rate and rhythm, normal S1 and S2, no murmurs, rubs or gallops ABDOMEN: Soft, nontender, normoactive bowel sounds. No guarding, no rebound. No masses EXTREMITIES: Normal range of motion, no edema. No clubbing or cyanosis. No cords, erythema, or tenderness NEUROLOGICAL: Cranial nerves II through XII grossly intact. Normal speech, normal gait SKIN: Warm, Dry, normal turgor, no rashes or lesions noted. <Vanessa Mojica - Last Filed: 11/04/17 13:49> - Vital Signs Last Vital Signs Temp Pulse Resp BP Pulse Ox 97.7 F 77 18 128/56 100 11/04/17 12:16 11/04/17 12:16 11/04/17 12:16 11/04/17 12:16 11/04/17 12:16 <Willian Guthrie - Last Filed: 11/04/17 15:39> Heart Score/ECG Review #1 11/04/17 13:49 EKG performed at [12:25] demonstrates rate of [72], rhythm of [sinus rhythm with 1st degree AV block], Low voltage QRS, Cannot rule out Anterior infarct, age undetermined, Abnormal ECG. <Vanessa Mojica - Last Filed: 11/04/17 13:49> ED Treatment Course - LABORATORY CBC & Chemistry Diagram: 11/04/17 14:34 11/04/17 14:34 <Willian Guthrie - Last Filed: 11/04/17 15:39> Medical Decision Making - Medical Decision Making 11/04/17 15:[address] Mccain..... ok to dc home No EKG Changes <Willian Guthrie - Last Filed: 11/04/17 15:39> *DC/Admit/Observation/Transfer - Attestations Scribe Attestion: 11/04/17 13:05 GENERAL: Awake, alert, and fully oriented, in no acute distress HEAD: No signs of trauma EYES: PERRLA, EOMI, sclera anicteric, conjunctiva clear ENT: Auricles normal inspection, hearing grossly normal, nares patent, oropharynx clear without exudates. Moist mucosa NECK: Normal ROM, supple, no lymphadenopathy, JVD, or masses LUNGS: Breath sounds equal, clear to auscultation bilaterally. No wheezes, and no crackles HEART: Regular rate and rhythm, normal S1 and S2, no murmurs, rubs or gallops ABDOMEN: Soft, nontender, normoactive bowel sounds. No guarding, no rebound. No masses EXTREMITIES: Normal range of motion, no edema. No clubbing or cyanosis. No cords, erythema, or tenderness NEUROLOGICAL: Cranial nerves II through XII grossly intact. Normal speech, normal gait SKIN: Warm, Dry, normal turgor, no rashes or lesions noted. <Vanessa Mojica - Last Filed: 11/04/17 13:49> - Discharge Dispostion Admit: No - Attestations Physician Attestion: 11/04/17 12:24 I, Dr. Willian Guthrie, attest that this document has been prepared under my direction and personally reviewed by me in its entirety. I further attest, that it accurately reflects all work, treatment, procedures and medical decision -making performed by me. <Willian Guthrie - Last Filed: 11/04/17 15:39> Diagnosis at time of Disposition: Hyperkalemia, H/O pancreatic cancer - Discharge Dispostion Disposition: HOME Condition at time of disposition: Unchanged/Unknown - Referrals Referrals: Corazon Mccain MD [Primary Care Provider] - - Patient Instructions Printed Discharge Instructions: DI for Hyperkalemia Additional Instructions: Happy Holidays - Return to us if any problems
[2017-11-04 14:43] LABS: BASO % 0.6 % (0-2.0); EOS % 1.1 % (0-4.5); MCH 29.3 pg (25.7-33.7); MCHC 32.6 g/dl (32.0-36.0); MEAN CELL VOLUME 89.9 fl (80-96); MEAN PLT VOLUME 7.4 fl (7.5-11.1); NEUT % 57.7 % (42.8-82.8); PLATELET COUNT 391 K/MM3 (134-434); RDW 13.8 % (11.6-15.6); WHITE BLOOD COUNT 6.9 K/mm3 (4.0-10.0)
[2017-11-04 15:11] LABS: ANION GAP 8 (8-16); BILIRUBIN,TOTAL 0.2 mg/dL (0.2-1.0); CO2 25 mmol/L (21-32); GLUCOSE,RANDOM 127 mg/dL (74-106); SGOT/AST 64 U/L (15-37); SGPT/ALT 39 U/L (12-78); TOT PROT 6.6 g/dl (6.4-8.2)
[2017-11-04 15:12] LABS: ALK PHOS 149 U/L (45-117)
--- NOTE | 2017-11-10 12:58 | EKG ---
Test Reason : Blood Pressure : / mmHG Vent. Rate : 072 BPM Atrial Rate : 072 BPM P-R Int : 210 ms QRS Dur : 092 ms QT Int : 394 ms P-R-T Axes : 067 045 077 degrees QTc Int : 431 ms SINUS RHYTHM WITH 1ST DEGREE A-V BLOCK LOW VOLTAGE QRS CANNOT RULE OUT ANTERIOR INFARCT (CITED ON OR BEFORE 25-MAY-2015) ABNORMAL ECG WHEN COMPARED WITH ECG OF 20-OCT-2017 09:21, PREMATURE VENTRICULAR COMPLEXES ARE NO LONGER PRESENT [place] INTERVAL HAS INCREASED Confirmed by JORGE BHAT, TRUNG ([id number]) on 11/10/2017 12:58:37 PM Referred By: Confirmed By:TRUNG PATEL MD
== END 2017-11-04 15:45 | disposition home or self-care (01) ==
LOC: JER 12:14
DX: Z85.07 Personal history of malignant neoplasm of pancreas (principal); E87.5 Hyperkalemia; D64.9 Anemia, unspecified; F32.9 Major depressive disorder, single episode, unspecified; I10 Essential (primary) hypertension; E11.9 Type 2 diabetes mellitus without complications
CPT/HCPCS: 36415; 80053; 85025; 93005; 93010; 99281-25

== ENCOUNTER 2018-09-27 15:03 | Inpatient (IN) | payer OTHER ==
[2018-09-27] MEDS ORDERED: SODIUM CHLORIDE 1,000 ML IV STA ×2 (15:22)
[2018-09-27] MEDS ORDERED: LORazepam 2 MG/ML SDV VIAL ONE (15:26)
[2018-09-27] MEDS ORDERED: levETIRAcetam 500 MG/5 ML INJECTION VIAL IVPB ONE ×2 (15:29→15:30)
--- NOTE | 2018-09-27 15:29 | PDOC ---
History of Present Illness - General History Source: Family (Granddaughter) Exam Limitations: Clinical Condition - History of Present Illness Initial Comments: Pt is a 83 yo F, with PMH of HTN, DM, and pancreatic cancer (resection ~10 years ago), who is presenting from home via EMS after new-onset generalized tonic-clonic seizures. The first incident happened in the home and "lasted a few minutes," after which the family called EMS. The grand-daughter is at bedside, and states the pt "has not been feeling well" x2 weeks, with non- productive cough and congestion. The pt also stopped eating yesterday. They deny any facial droop, loss of muscle strength, or slurring of speech. The family denies any fevers/chills, vision changes, chest pain, SOB, nausea/ vomiting, abdominal pain, diarrhea/constipation, or extremity swelling. The pt is verbal, can ambulate, and do her daily activities with minimal assistance at baseline. They also state that the pt was told to stop taking her diabetic medications a few months ago, and the daughter stopped checking her glucose at home. Family denies any recent sick contacts or travel. Family denies any cigarette, alcohol, or drug use. Family members state pt is FULL CODE. 09/27/18 16:19 09/27/18 16:46 <Lexie Chung - Last Filed: 09/27/18 17:39> <Adriana Vides - Last Filed: 09/27/18 18:21> - General Chief Complaint: Seizure Stated Complaint: Seizure Time Seen by Provider: 09/27/18 15:15 Past History - Travel Traveled outside of the country in the last 30 days: No Close contact w/someone who was outside of country & ill: No - Past Medical History Anemia: Yes Cancer: Yes (PANCREATIC) COPD: No DVT: No Diabetes: Yes (Not taking meds) HTN: Yes Psychiatric Problems: Yes (DEPRESSION.) - Surgical History Abdominal Surgery: Yes (WHIP[place], PANCREATIC CA) Cholecystectomy: Yes - Suicide/Smoking/Psychosocial Hx Smoking Status: No Smoking History: Never smoked Have you smoked in the past 12 months: No Number of Cigarettes Smoked Daily: 0 Information on smoking cessation initiated: No Hx Alcohol Use: No Drug/Substance Use Hx: No Substance Use Type: None Hx Substance Use Treatment: No <Lexie Chung - Last Filed: 09/27/18 17:39> <Adriana Vides - Last Filed: 09/27/18 18:21> - Past Medical History Allergies/Adverse Reactions: Allergies Allergy/AdvReac Type Severity Reaction Status Date / Time No Known Drug Allergies Allergy Verified 09/27/18 15:17 Home Medications: Ambulatory Orders Amlodipine Besylate/Benazepril [Lotrel 5-10 mg Capsule] 1 each PO DAILY Pantoprazole Sodium [Protonix] 40 mg PO DAILY 06/02/17 Acetaminophen [Tylenol .Regular Strength -] 650 mg PO Q4H PRN tablet 10/22/17 Mirtazapine [Remeron -] 15 mg PO DAILY #30 tablet 10/22/17 Ondansetron [Zofran Odt -] 4 mg SL Q6H PRN #30 tab.rapdis 10/22/17 Review of Systems - Review of Systems Able to Perform ROS?: Yes (family) Is the patient limited [place] proficient: Yes Constitutional: Yes: Loss of Appetite (since yesterday), Weight Stable. No: Chills, Fever, Weakness HEENTM: Yes: Nose Congestion. No: Blurred Vision, Double Vision, Difficulty Swallowing Respiratory: Yes: Cough (dry cough x1 week). No: Orthopnea, Shortness of Breath , Wheezing, Productive cough, Hemoptysis Cardiac (ROS): No: Chest Pain, Lightheadedness, Syncope ABD/GI: Yes: Poor Appetite, Poor Fluid Intake (x1 day no appetite). No: Diarrhea, Nausea, Vomiting : No: Incontinence, Pain Musculoskeletal: No: Back Pain, Joint Pain Integumentary: No: Bruising, Rash Neurological: Yes: Seizure (1 episode generalized tonic-clonic for "a few minutes" at home, see HPI). No: Headache, Weakness, Unsteady Gait, Ataxia, Dizziness Psychiatric: Yes: Depression. No: Sleep Pattern Change, Change in Appetite Endocrine: No: Increased Urine, Change in Weight Hematologic/Lymphatic: No: Anemia, Blood Clots, Easy Bleeding, Easy Bruising <Lexie Chung - Last Filed: 09/27/18 17:39> *Physical Exam - Vital Signs Last Vital Signs Temp Pulse Resp BP Pulse Ox 97.7 F 114 H 16 139/69 97 09/27/18 15:17 09/27/18 15:17 09/27/18 15:17 09/27/18 15:17 09/27/18 15:17 - Physical Exam General Appearance: Yes: Nourished, Appropriately Dressed, Apparent Distress ( hypertensive, tachycardic, pupils sluggish, responsive only to tactile stimuli) , Thin. No: Alcohol on Breath, Intoxicated HEENT: positive: EOMI, Normal ENT Inspection, Pharynx Normal, Excessive drooling (pt breathing rapidly through mouth, tachypneic and producing saliva). negative: CORAZON (pupils constricted and sluggish), Normal Voice, Symmetrical, Scleral Icterus (R), Scleral Icterus (L), Pharyngeal Erythema, Tonsillar Exudate , Tonsillar Erythema Neck: positive: Trachea midline, Normal Thyroid, Supple. negative: Tender, Rigid, Decreased range of motion, Lymphadenopathy (R), Lymphadenopathy (L), Rigidity Respiratory/Chest: positive: Rapid RR, Rhonchi (coarse breath sounds b/l, no wheezing no crackles). negative: Chest Tender, Lungs Clear, Normal Breath Sounds, Respiratory Distress (saturating 97-98% on RA on arrival, rapid RR), Accessory Muscle Use, Crackles, Stridor, Wheezing, Dullness Cardiovascular: positive: Regular Rhythm, S1, S2, Tachycardia. negative: Regular Rate, Edema, JVD, Murmur Vascular Pulses: Carotid (R): 4+, Carotid (L): 4+ Gastrointestinal/Abdominal: positive: Normal Bowel Sounds, Flat, Soft. negative : Tender (no grimace to palpation), Organomegaly, Pulsatile Mass, Distended, Guarding, Rebound Rectal Exam: positive: normal exam, normal rectal tone. negative: decreased tone, other (no gross blood or sacral ulcers noted) Lymphatic: negative: Adenopathy, Tenderness Musculoskeletal: positive: Normal Inspection. negative: Other (no grimace with palpation, pt non-verbal to assess tenderness) Extremity: positive: Normal Capillary Refill, Normal Inspection, Normal Range of Motion (pt moving extremities when placing ECG leads, normal ROM), Pelvis Stable. negative: Tender, Cyanosis, Delayed Capillary Refill, Pedal Edema Integumentary: positive: Normal Color, Dry, Warm, Other (decreased skin turgor, dehydra). negative: Jaundice, Clammy, Diaphoresis, Ecchymosis Neurologic: positive: Motor Strength 5/5 (pt withdrawing from stimuli (ECG leads and sternal rub)). negative: plastic parts fabricator II-XII NML intact (unable to assess), Fully Oriented, Alert, Normal Mood/Affect, Normal Response, EOM Palsy, Facial Droop <Lexie Chung - Last Filed: 09/27/18 17:39> - Vital Signs Last Vital Signs Temp Pulse Resp BP Pulse Ox 97.7 F 125 H 18 137/64 100 09/27/18 15:17 09/27/18 17:08 09/27/18 17:08 09/27/18 17:08 09/27/18 17:08 <Adriana Vides - Last Filed: 09/27/18 18:21> Heart Score/ECG Review - History History: Slightly suspicious - Electrocardiogram EKG: Non specific repolarization disturbance - Age Age: >/= 65 - Risk Factors Risk Factors Heart Score: Yes Hx Hypertension, Yes Hx Diabetes Based on the list above the patient has:: 1-2 risk factors - Troponin Troponin: </= normal limit - Score Heart Score - Total: 4 <SheldonLexie - Last Filed: 09/27/18 17:39> ED Treatment Course - LABORATORY CBC & Chemistry Diagram: 09/27/18 15:15 09/27/18 15:15 - RADIOLOGY Radiology Studies Ordered: Category Date Time Status HEAD CT WITHOUT CONTRAST [CT] Stat CT Scan 09/27/18 15:13 Ordered CHEST X-RAY PORTABLE* [RAD] Stat Radiology 09/27/18 15:13 Ordered <SheldonLexie - Last Filed: 09/27/18 17:39> - LABORATORY CBC & Chemistry Diagram: 09/27/18 15:15 09/27/18 17:42 - ADDITIONAL ORDERS Additional order review: Laboratory Results 09/27/18 09/27/18 09/27/18 17:42 16:10 15:25 PT with INR INR PTT (Actin FS) VBG pH 7.07 L* POC VBG pCO2 26.9 L POC VBG pO2 77.8 H Mixed VBG HCO3 7.5 L* Sodium 140 Potassium 4.2 Chloride 115 H Carbon Dioxide 12 L Anion Gap 13 BUN 23 H Creatinine 1.4 H Creat Clearance w eGFR 35.91 Random Glucose 402 H* Lactic Acid 14.0 H* Calcium 7.4 L Phosphorus Magnesium Total Bilirubin AST ALT Alkaline Phosphatase Troponin I Total Protein Albumin Urine Color Urine Appearance Urine pH Ur Specific North Urine Protein Urine Glucose (UA) Urine Ketones Urine Blood Urine Nitrite Urine Bilirubin Urine Urobilinogen Ur Leukocyte Esterase Opiates Screen Methadone Screen Barbiturate Screen Phencyclidine Screen Ur Amphetamines Screen MDMA (Ecstasy) Screen Benzodiazepines Screen Cocaine Screen U Marijuana (THC) Screen Acetone, Qual 09/27/18 09/27/18 09/27/18 15:25 15:15 15:15 PT with INR INR PTT (Actin FS) VBG pH POC VBG pCO2 POC VBG pO2 Mixed VBG HCO3 Sodium 130 L Potassium 5.1 Chloride 100 Carbon Dioxide 8 L Anion Gap 21 H BUN 29 H Creatinine 1.8 H Creat Clearance w eGFR 26.87 Random Glucose 818 H* Lactic Acid Calcium 8.7 Phosphorus 5.7 H Magnesium 2.6 H Total Bilirubin 0.4 AST 65 H ALT 46 Alkaline Phosphatase 304 H Troponin I < 0.02 Total Protein 8.7 H Albumin 3.8 Urine Color Urine Appearance Urine pH Ur Specific North Urine Protein Urine Glucose (UA) Urine Ketones Urine Blood Urine Nitrite Urine Bilirubin Urine Urobilinogen Ur Leukocyte Esterase Opiates Screen Negative Methadone Screen Negative Barbiturate Screen Negative Phencyclidine Screen Negative Ur Amphetamines Screen Negative MDMA (Ecstasy) Screen Negative Benzodiazepines Screen Negative Cocaine Screen Negative U Marijuana (THC) Screen Negative Acetone, Qual Neg 09/27/18 09/27/18 15:15 15:15 PT with INR 11.50 INR 0.97 PTT (Actin FS) 22.9 L VBG pH POC VBG pCO2 POC VBG pO2 Mixed VBG HCO3 Sodium Potassium Chloride Carbon Dioxide Anion Gap BUN Creatinine Creat Clearance w eGFR Random Glucose Lactic Acid Calcium Phosphorus Magnesium Total Bilirubin AST ALT Alkaline Phosphatase Troponin I Total Protein Albumin Urine Color Straw Urine Appearance Clear Urine pH 5.0 Ur Specific North 1.020 Urine Protein Negative Urine Glucose (UA) 3+ H Urine Ketones Negative Urine Blood Negative Urine Nitrite Negative Urine Bilirubin Negative Urine Urobilinogen Negative Ur Leukocyte Esterase Negative Opiates Screen Methadone Screen Barbiturate Screen Phencyclidine Screen Ur Amphetamines Screen MDMA (Ecstasy) Screen Benzodiazepines Screen Cocaine Screen U Marijuana (THC) Screen Acetone, Qual 09/27/18 15:15 RBC 4.30 MCV 100.1 H MCHC 30.0 L RDW 15.5 D MPV 9.1 D Neutrophils % 42.3 L D Lymphocytes % 51.6 H D Monocytes % 4.8 Eosinophils % 1.0 Basophils % 0.3 - Medications Given in the ED: ED Medications Discontinued Medications Generic Name Dose Route Start Last Admin Trade Name Cristy PRN Reason Stop Dose Admin Dextrose 25 gm 09/27/18 17:54 09/27/18 18:03 D50w (Vial) - IVPUSH 09/27/18 17:55 Not Given NOW ONE Sodium Chloride 1,000 mls @ 1,000 mls/hr 09/27/18 15:22 09/27/18 16:26 Normal Saline - IV 09/27/18 16:21 1,000 mls/hr ASDIR STA Administration Sodium Chloride 1,000 mls @ 1,000 mls/hr 09/27/18 15:22 09/27/18 16:26 Normal Saline - IV 09/27/18 16:21 1,000 mls/hr ASDIR STA Administration Insulin Human Regular 10 units 09/27/18 16:05 09/27/18 16:26 Novolin R Vial *For Ivpush Or Iv Drip Only* IVPUSH 09/27/18 16:06 10 unit ONCE ONE Administration Levetiracetam 1,000 mg 09/27/18 15:29 09/27/18 15:30 Keppra Injection - IVPB 09/27/18 15:30 1,000 mg ONCE ONE Administration Lorazepam 2 mg 09/27/18 16:03 09/27/18 15:26 Ativan Injection - IVPUSH 09/27/18 16:04 2 mg ONCE ONE Administration Sodium Chloride 1,000 ml 09/27/18 16:12 09/27/18 16:26 Normal Saline - IV 09/27/18 16:13 1,000 ml ONCE ONE Administration Sodium Chloride 1,000 ml 09/27/18 16:12 09/27/18 17:31 Normal Saline - IV 09/27/18 16:13 1,000 ml ONCE ONE Administration <Adriana Vides - Last Filed: 09/27/18 18:21> Medical Decision Making - Medical Decision Making (entered later) Pt was seen at bedside, also will be seen by attending Dr. Vides. Pt presenting from home via EMS after new-onset generalized tonic-clonic seizures. The first incident happened in the home and "lasted a few minutes," after which the family called EMS. The grand-daughter is at bedside, and states the pt "has not been feeling well" x2 weeks, with non-productive cough and congestion. The pt also stopped eating yesterday. They deny any facial droop, loss of muscle strength, or slurring of speech. The pt is verbal at baseline. They also state that the pt was told to stop taking her diabetic medications a few months ago, and the daughter stopped checking her glucose at home. The pt has PMH of HTN, DM , and pancreatic cancer (resection ~10 years ago). Family denies any recent sick contacts or travel. Family denies any cigarette, alcohol, or drug use. Family members state pt is FULL CODE. During initial exam, pt had another witnessed seizure, with generalized shaking and incontinence. Pt was provided 2 mg IV ativan with ceasing of seizure. Initial vitals: rectal T 97.9, BP 130s/90s, HR 120s, O2 sat 97% on RA. PE showed constricted sluggish pupils, pt only withdrawing to painful stimuli. Considering [vs vs] Ordered work-up including full septic work-up (CBC, CMP, blood cultures, . Provided [interventions/meds] for improvement of [pain/symptom control]. Will continue to reassess pt and monitor for symptomatic improvement. [id number] CT/HEAD CT WITHOUT CONTRAST Cranial CT without contrast CLINICAL INFORMATION: altered mental status, new seizure No intracranial hemorrhage is seen. There is no extra-axial fluid collection. No discrete infarct is identified within the limitations of CT. There is no obvious mass lesion on noncontrast imaging. Involutional changes are noted with mild ventricular dilatation. The calvarium appears intact. IMPRESSION: No CT evidence of acute intracranial pathology. Moderate periventricular and subcortical chronic microvascular ischemic changes are seen. The intracranial structures demonstrate no definite interval change in comparison to a prior CT study of 07/01/2016. Interval development of moderate right maxillary sinus mucosal thickening is seen consistent with sinusitis which is probably chronic. Correlate clinically. 09/27/18 16:14 CT showed no acute changes. CBC WNL CMP: Na 130 (corrected 144), K 5.1, BUN 29, Cr 1.8, Glucose 818 P 5.7, Mg 2.6 VBG: pH 7.07, CO2 26, O2 77, HCO3 7.5 Lactic 14, trop <.02 ECG showed sinus tachycardia, appears to have peaked T waves in anterior leads ( K 5.1). T waves upright V1 > V6, but troponin <.02. HR 106, QRS 110. 09/27/18 16:22 Chest x-ray showed no acute changes. Paged PCP (Dr. Mccain) and ICU for admission. 09/27/18 16:34 Repeat vitals: HR 110s-120, O2 96-98% on face mask, RR 20, BP 145/105. Pt protecting airway and is starting to open her eyes and draw attention to verbal stimuli. Family members at bedside with pt. 09/27/18 16:42 No call back yet from [facility] team or ICU. Will place admission order without attending per protocol. 09/27/18 16:57 Paging hospitalist team. 09/27/18 17:03 Spoke to ICU team who will come to see the pt. 09/27/18 17:11 Hospitalist team accepted (Dr. Ramirez). Admission order changed and placed. Will re-draw BGM and BMP. Hospitalist team requested insulin drip. 09/27/18 17:20 ICU team at bedside. 09/27/18 17:51 <Lexie Chung - Last Filed: 09/27/18 17:39> *DC/Admit/Observation/Transfer - Discharge Dispostion Decision to Admit order: Yes <Lexie Chung - Last Filed: 09/27/18 17:39> - Discharge Dispostion Decision to Admit order Date/Time: Decision to Admit Order Category Date Time Status Decision to Admit to Hospital Routine Admission 09/27/18 16:45 Active <Adriana Vides - Last Filed: 09/27/18 18:21> Diagnosis at time of Disposition: Seizure, Hyperosmolar non-ketotic state in patient with type 2 diabetes mellitus, HILLARY (acute kidney injury), Lactic acidosis Hyperglycemia due to type 2 diabetes mellitus Qualifiers: Diabetes mellitus 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
[2018-09-27 15:36] LABS: BASO % 0.3 % (0-2.0); HEMATOCRIT 43.1 % (32.4-45.2); HEMOGLOBIN 12.9 GM/dL (10.7-15.3); LYMPH % 51.6 % (8-40); MCH 30.1 pg (25.7-33.7); MEAN CELL VOLUME 100.1 fl (80-96); MEAN PLT VOLUME 9.1 fl (7.5-11.1); MONO % 4.8 % (3.8-10.2); NEUT % 42.3 % (42.8-82.8); PLATELET COUNT 327 K/MM3 (134-434); RDW 15.5 % (11.6-15.6); WHITE BLOOD COUNT 8.5 K/mm3 (4.0-10.0)
[2018-09-27 15:41] LABS: INR 0.97 (0.83-1.09); PROTHROMBIN TIME (PATIENT) 11.5 SEC (9.7-13.0)
[2018-09-27 15:44] LABS: ACTIVATED PTT 22.9 SECONDS (25.2-36.5)
--- NOTE | 2018-09-27 15:45 | EKG ---
Test Reason : Blood Pressure : / mmHG Vent. Rate : 106 BPM Atrial Rate : 106 BPM P-R Int : 186 ms QRS Dur : 110 ms QT Int : 332 ms P-R-T Axes : 027 -34 100 degrees QTc Int : 441 ms SINUS TACHYCARDIA WITH 1ST DEGREE A-V BLOCK LEFT AXIS DEVIATION ABNORMAL ECG WHEN COMPARED WITH ECG OF 04-NOV-2017 12:25, QRS AXIS SHIFTED LEFT T WAVE INVERSION NOW EVIDENT IN LATERAL LEADS Confirmed by Venkata Stratton ([id number]) on 09/27/2018 3:44:47 PM Referred By: Confirmed By:Venkata Stratton
[2018-09-27 15:49] LABS: COCAINE, UR NEGATIVE ng/ml (CUTOFF=300); METHADONE, UR NEGATIVE ng/ml (CUTOFF=300); OPIATES, URI NEGATIVE ng/ml (CUTOFF=300); PHENCYCLIDINE,URINE NEGATIVE ng/ml (CUTOFF=25); URINE AMPHETAMINES NEGATIVE ng/ml (CUTOFF=500); URINE BARBITURATES NEGATIVE ng/ml (CUTOFF=200); URINE BENZODIAZEPINES NEGATIVE ng/ml (CUTOFF=200)
[2018-09-27 15:51] LABS: URINE APPEARANCE CLEAR; URINE BILIRUBIN NEGATIVE (<2.0 mg/dL); URINE COLOR STRAW; URINE GLUCOSE (UA) 3+ (NEGATIVE); URINE KETONE NEGATIVE (NEGATIVE); URINE LEUK ESTERASE NEGATIVE (NEGATIVE); URINE NITRITE NEGATIVE (NEGATIVE); URINE PROTEIN NEGATIVE (NEGATIVE); URINE UROBILINOGEN NEGATIVE mg/dL (0.2-1.0)
[2018-09-27 15:59] LABS: ALBUMIN 3.8 g/dl (3.4-5.0); ALK PHOS 304 U/L (45-117); ANION GAP 21 MMOL/L (8-16); BILIRUBIN,TOTAL 0.4 mg/dL (0.2-1); BLOOD UREA NITROGEN 29 mg/dL (7-18); CALCIUM 8.7 mg/dL (8.5-10.1); CHLORIDE 100 mmol/L (98-107); CO2 8 mmol/L (21-32); CREATININE 1.8 mg/dL (0.55-1.3); MAGNESIUM 2.6 mg/dL (1.8-2.4); PHOSPHOROUS 5.7 mg/dL (2.5-4.9); POTASSIUM 5.1 mmol/L (3.5-5.1); SGOT/AST 65 U/L (15-37); SGPT/ALT 46 U/L (13-61); SODIUM 130 mmol/L (136-145); TOT PROT 8.7 g/dl (6.4-8.2)
[2018-09-27 16:03] LABS: GLUCOSE,RANDOM 818 mg/dL (74-106)
[2018-09-27] MEDS ORDERED: INSULIN REGULAR HUMAN 100 UNITS/ML *VIAL SQ ONE (16:04)
[2018-09-27] MEDS ORDERED: INSULIN REGULAR HUMAN 100 UNITS/ML *VIAL IVPUSH ONE (16:05)
--- NOTE | 2018-09-27 16:11 | PDOC ---
Attending Attestation - Resident Resident Name: SheldonLexie - ED Attending Attestation I have performed the following: I have examined & evaluated the patient, The case was reviewed & discussed with the resident, I agree w/resident's findings & plan - HPI HPI: 09/27/18 16:20 83 Y/O F with a pmhx of HTN, NIDDM, Pancreatic CA (s/p whipple procedure), gastritis, and depression who presents to the emergency department for evaluation of AMS s/p witnessed new onset seizure at 2pm today. As per granddaughter, patient has not been feeling well and not at baseline over last 2weeks. No new medications, she has been off diabetic regimen, as PMD stopped her diabetic medication 2 weeks ago. Of note ~2 weeks ago had onset of weakness and malaise. No active treatment for pancreatic ca currently. Past surgical history: Cholecystectomy, whipple PMD Dr. Mccain 09/27/18 17:07 - Physicial Exam PE: 09/27/18 16:21 In severe distress, ill appearing, actively seizing, generalized tonic clonic movements. obtunded, snoring, responsive to painful stimuli, sluggish pupils nl conjunctiva, anicteric; neck supple. lungs rhonchorous, tachycardic, no murmurs, abdomen soft nontender. No peripheral edema. normal color for ethnicity , cool to touch. - Critical Care Time Total Critical Care Time: 60 (AMS, metabolic emergency) Critical Care Statement: The care of this patient involved high complexity decision making to prevent further life threatening deterioration of the patient 's condition and/or to evaluate & treat vital organ system(s) failure or risk of failure. - Medical Decision Making 09/27/18 16:21 83 Y/O F with a pmhx of HTN, NIDDM, Pancreatic CA (s/p whipple procedure), gastritis, and depression who presents to the emergency department for evaluation of AMS and general tonic clonic seizure activity and found to to have metabolic encephalopathy 2/2 hyperglycemia and suspected HHS. Vital signs reviewed, AMS, active seizures, tachycardic. Maintaining airway, placed on NRB. Prior notes reviewed, including admissions, discharges and consultations. laboratory results and imaging reviewed, basic labs and lytes notable for Hyperglycemia to 800s, negative ketones or acetones. UA neg for infection, +no ketones. elevated Cr noted, suspecting HILLARY/prerenal/dehydration. Lactic elevated 14, with acidosis present, likely contributory from recurrent seizure activity. Infectious workup also simultaneously pending as altered with lactic acidosis no clear source currently, no fever so defer abx for now CXR_clear, rotated, no acute pathology CT head with chronic microvascular changes, no acute bleed or infarct. Cardiac panel_neg trop, less likely demand ischemia. EKG normal sinus rhythm, no interval abnormalities, narrow QRS, ST and T wave segments and morphology normal. Nonspecific T wave abnormalities. Left axis deviation, peaking T waves. Poor R wave progression, changed from prior. ED course: ill appearing, found in active seizure at the bedside, on NRB, maintaining airway, Ativan 2mg IV x1 given, Keppra 1g loading. Given copious fluids NSS 4L for resuscitation/severe dehydration, insulin. More likely HHS and severe dehydration; no ketones to suggest DKA. will recheck BS after treatment. Bicarb for acidosis Insulin gtt initiated. called out to Dr. Mccain at 430pm, awaiting call back, no answer by 5pm, will admit to hospitalist team ICU cs for admit due to seizure/AMS and higher level of care and close monitoring. Dispo: Admit to ICU for metabolic derangement, HHS/hyperglycemia, severe dehydration, lactic acidosis, HILLARY and seizure.. Discussed results and management plan with pt and family member at bedside, agree with impression and plan 09/27/18 17:57 09/27/18 18:19 Heart Score/ECG Review - ECG Impressions Normal ECG: No Comment:: 09/27/18 18:21 EKG normal sinus rhythm, no interval abnormalities, narrow QRS, ST and T wave segments and morphology normal. Nonspecific T wave abnormalities. Left axis deviation, peaking T waves. Poor R wave progression, changed from prior.
[2018-09-27] MEDS ORDERED: SODIUM CHLORIDE 0.9% 500 ML INFUS.BAG IV ONE ×2 (16:12)
[2018-09-27] MEDS ORDERED: INSULIN NPH 100 UNITS/ML *VIAL ONE (16:16)
[2018-09-27 16:20] LABS: VENOUS PC02 26.9 mmHg (38-52); VENOUS PO2 77.8 mmHg (28-48)
[2018-09-27 16:23] LABS: VENOUS PH 7.07 (7.32-7.42)
[2018-09-27] MEDS ORDERED: INSULIN REGULAR 100 UNITS in SODIUM CHLORIDE 99 ML IVPB SCH ×2 (17:30→21:28)
[2018-09-27] MEDS ORDERED: DEXTROSE 50%-WATER - 25 GM/50 ML VIAL IVPUSH ONE (17:54)
[2018-09-27] MEDS ORDERED: SODIUM BICARBONATE 8.4% 50 MEQ/50 ML DISP.SYRIN IVPUSH ONE ×2 (17:56)
--- NOTE | 2018-09-27 18:06 | CONSULT ---
Consultation: REQUESTING PROVIDER:Dr. Mccain CONSULT REQUEST: We have been asked to medically evaluate this patient for seizure. HISTORY OF PRESENT ILLNESS: Patient is an 83 year old female with past medical history of Anemia, Depression , Hypertension and DM, presented with sudden-onset generalized tonic-clonic seizures, lasting about 2-3 minutes per episode. Patient remains lethargic at the ED, and history was taken from the family. Patient was reported to be complaining of fatigue, abdominal pain and nausea for the past 3 weeks. This was accompanied by loss of appetite. Today, patient had sudden-onset generalized tonic-clonic seizure, that was witnessed by the daughter. During the seizure, the patient was noted to have eye rolling and biting of tongue ( daughter had to take out patient's prosthetic teeth). This lasted about 2-3 minutes, with patient not regaining consciousness. Daughter reported a second episode of seizure, and afterwards patient had bowel incontinence. EMS was called and patient was brought to the ED. At the ED, patient had another episode of witnessed seizure. REVIEW OF SYSTEMS: CONSTITUTIONAL: fatigue, loss of appetite Absent: fever, chills, diaphoresis, malaise,weight change HEENT: Absent: rhinorrhea, nasal congestion, throat pain, throat swelling, difficulty swallowing, mouth swelling, ear pain, eye pain, visual changes CARDIOVASCULAR: Absent: chest pain, syncope, palpitations, irregular heart rate, lightheadedness , peripheral edema RESPIRATORY: Absent: cough, shortness of breath, dyspnea with exertion, orthopnea, wheezing, stridor, hemoptysis GASTROINTESTINAL:abdominal pain, nausea Absent: abdominal distension, vomiting, diarrhea, constipation, melena, hematochezia GENITOURINARY: Absent: dysuria, frequency, urgency, hesitancy, hematuria, flank pain, genital pain MUSCULOSKELETAL: Absent: myalgia, arthralgia, joint swelling, back pain, neck pain SKIN: Absent: rash, itching, pallor HEMATOLOGIC/IMMUNOLOGIC: Absent: easy bleeding, easy bruising, lymphadenopathy, frequent infections ENDOCRINE: Absent: unexplained weight gain, unexplained weight loss, heat intolerance, cold intolerance NEUROLOGIC: seizure, mental status changes Absent: headache, focal weakness or paresthesias, dizziness, unsteady gait, bladder or bowel incontinence PSYCHIATRIC: Absent: anxiety, depression, suicidal or homicidal ideation, hallucinations. PHYSICAL EXAMINATION Vital Signs - 24 hr 09/27/18 09/27/18 09/27/18 15:17 17:01 17:08 Temperature 97.7 F Pulse Rate 114 H Pulse Rate [ 118 H 125 H Left Radial] Respiratory 16 20 18 Rate Blood Pressure 139/69 Blood Pressure 145/105 H 137/64 [Right Arm] O2 Sat by Pulse 97 97 100 Oximetry (%) GENERAL: Lethargic, arousable to pain, on non-rebreather mask HEAD: Normal with no signs of trauma. EYES: PERRLA, sclera anicteric, conjunctiva clear. NECK: Normal range of motion, supple without lymphadenopathy, JVD, or masses. LUNGS: Breath sounds equal, clear to auscultation bilaterally. HEART: Tachycardic, normal S1 and S2 without murmur, rub or gallop. ABDOMEN: Soft, +grimace on palpation of abdomen, not distended, normoactive bowel sounds. UPPER EXTREMITIES: 2+ pulses, warm, well-perfused. No cyanosis. No clubbing. Cap refill <2 seconds. No peripheral edema. LOWER EXTREMITIES: 2+ pulses, warm, well-perfused. No calf tenderness. No peripheral edema. SKIN: Warm, dry, normal turgor, no rashes or lesions noted. Laboratory Results - last 24 hr 09/27/18 09/27/18 09/27/18 15:15 15:15 15:15 WBC 8.5 RBC 4.30 Hgb 12.9 Hct 43.1 D MCV 100.1 H MCH 30.1 MCHC 30.0 L RDW 15.5 D Plt Count 327 MPV 9.1 D Absolute Neuts (auto) 3.6 Neutrophils % 42.3 L D Lymphocytes % 51.6 H D Monocytes % 4.8 Eosinophils % 1.0 Basophils % 0.3 Nucleated RBC % 0 PT with INR 11.50 INR 0.97 PTT (Actin FS) 22.9 L VBG pH POC VBG pCO2 POC VBG pO2 Mixed VBG HCO3 Sodium Potassium Chloride Carbon Dioxide Anion Gap BUN Creatinine Creat Clearance w eGFR Random Glucose Lactic Acid Calcium Phosphorus Magnesium Total Bilirubin AST ALT Alkaline Phosphatase Troponin I Total Protein Albumin Urine Color Straw Urine Appearance Clear Urine pH 5.0 Ur Specific [place] 1.020 Urine Protein Negative Urine Glucose (UA) 3+ H Urine Ketones Negative Urine Blood Negative Urine Nitrite Negative Urine Bilirubin Negative Urine Urobilinogen Negative Ur Leukocyte Esterase Negative Opiates Screen Methadone Screen Barbiturate Screen Phencyclidine Screen Ur Amphetamines Screen MDMA (Ecstasy) Screen Benzodiazepines Screen Cocaine Screen U Marijuana (THC) Screen Acetone, Qual 09/27/18 09/27/18 09/27/18 15:15 15:15 15:25 WBC RBC Hgb Hct MCV MCH MCHC RDW Plt Count MPV Absolute Neuts (auto) Neutrophils % Lymphocytes % Monocytes % Eosinophils % Basophils % Nucleated RBC % PT with INR INR PTT (Actin FS) VBG pH POC VBG pCO2 POC VBG pO2 Mixed VBG HCO3 Sodium 130 L Potassium 5.1 Chloride 100 Carbon Dioxide 8 L Anion Gap 21 H BUN 29 H Creatinine 1.8 H Creat Clearance w eGFR 26.87 Random Glucose 818 H* Lactic Acid Calcium 8.7 Phosphorus 5.7 H Magnesium 2.6 H Total Bilirubin 0.4 AST 65 H ALT 46 Alkaline Phosphatase 304 H Troponin I < 0.02 Total Protein 8.7 H Albumin 3.8 Urine Color Urine Appearance Urine pH Ur Specific [place] Urine Protein Urine Glucose (UA) Urine Ketones Urine Blood Urine Nitrite Urine Bilirubin Urine Urobilinogen Ur Leukocyte Esterase Opiates Screen Negative Methadone Screen Negative Barbiturate Screen Negative Phencyclidine Screen Negative Ur Amphetamines Screen Negative MDMA (Ecstasy) Screen Negative Benzodiazepines Screen Negative Cocaine Screen Negative U Marijuana (THC) Screen Negative Acetone, Qual Neg 09/27/18 09/27/18 15:25 16:10 WBC RBC Hgb Hct MCV MCH MCHC RDW Plt Count MPV Absolute Neuts (auto) Neutrophils % Lymphocytes % Monocytes % Eosinophils % Basophils % Nucleated RBC % PT with INR INR PTT (Actin FS) VBG pH 7.07 L* POC VBG pCO2 26.9 L POC VBG pO2 77.8 H Mixed VBG HCO3 7.5 L* Sodium Potassium Chloride Carbon Dioxide Anion Gap BUN Creatinine Creat Clearance w eGFR Random Glucose Lactic Acid 14.0 H* Calcium Phosphorus Magnesium Total Bilirubin AST ALT Alkaline Phosphatase Troponin I Total Protein Albumin Urine Color Urine Appearance Urine pH Ur Specific [place] Urine Protein Urine Glucose (UA) Urine Ketones Urine Blood Urine Nitrite Urine Bilirubin Urine Urobilinogen Ur Leukocyte Esterase Opiates Screen Methadone Screen Barbiturate Screen Phencyclidine Screen Ur Amphetamines Screen MDMA (Ecstasy) Screen Benzodiazepines Screen Cocaine Screen U Marijuana (THC) Screen Acetone, Qual Active Medications Generic Name Dose Route Start Last Admin Trade Name Freq PRN Reason Stop Dose Admin Insulin Human Regular 100 100 mls @ 4.98 mls/hr 09/27/18 17:30 units/ Sodium Chloride IVPB TITR BRANDY Protocol 0.1 UNITS/KG/HR ASSESSMENT/PLAN: #Endocrinology 1) Hyperosmolar Hyperglycemic Nonketotic state: likely because patient has not been taking medications for a long time -Serum Osm 318 -continue IV fluids -monitor blood sugar q1h -BMP q2h/q4h -Keep blood sugar between 250-300 until patient's neurological state has improved. -Anion gap closed, no indication for insulin drip. -Insulin sliding scale -NPo for now until neurologically improved. -monitor serum K -monitor I/O, on coelho catheter 2) Anion gap metabolic acidosis with respiratory compensation: likely because of diabetes mellitus and lactic acidosis -anion gap closed -likely to improve with IV Fluid and bicarb -repeat ABG in 2 hours -Hold on further bicarb, improved from 8 to 12. 3)seizures: likely 2/2 hyperglycemia -Got Ativan and Keppra at the ED -continue IV Keppra 500mg BID for seizure prophylaxis -Seizure precaution -keep HOB elevated -Fall risk precaution -Aspiration precaution -Keep blood sugar between 250-300. #Cardiovascular 1) Hypertension -continue home anti-hypertensive medication #FEN -IV NS at 200ml/hr -replete electrolytes, routine bmp monitoring -NPO for now #Prophylaxis -Lovenox 30mg sq daily #Disposition -full code -ICU for closer monitoring Dispo: We will continue to follow the patient. Thank you for this consultative opportunity. Visit type - Emergency Visit Emergency Visit: Yes ED Registration Date: 09/27/18 Care time: The patient presented to the Emergency Department on the above date and was hospitalized for further evaluation of their emergent condition. - New Patient This patient is new to me today: Yes Date on this admission: 09/28/18 - Critical Care Critical Care patient: Yes Total Critical Care Time (in minutes): 45 Critical Care Statement: The care of this patient involved high complexity decision making to prevent further life threatening deterioration of the patient 's condition and/or to evaluate & treat vital organ system(s) failure or risk of failure.
[2018-09-27 18:15] LABS: ANION GAP 13 MMOL/L (8-16); BLOOD UREA NITROGEN 23 mg/dL (7-18); CALCIUM 7.4 mg/dL (8.5-10.1); CHLORIDE 115 mmol/L (98-107); CO2 12 mmol/L (21-32); CREATININE 1.4 mg/dL (0.55-1.3); POTASSIUM 4.2 mmol/L (3.5-5.1); SODIUM 140 mmol/L (136-145)
[2018-09-27] MEDS ORDERED: SODIUM CHLORIDE 0.45% 1,000 ML with SODIUM BICARBONATE 8.4% - 100 MEQ IV SCH (18:15)
[2018-09-27] MEDS ORDERED: SODIUM CHLORIDE 0.45% IV SCH (18:15)
[2018-09-27] MEDS ORDERED: SODIUM BICARBONATE IV SCH (18:15)
[2018-09-27] MEDS ORDERED: SODIUM CHLORIDE 1,000 ML IV SCH ×3 (18:15→18:45)
[2018-09-27 18:20] LABS: GLUCOSE,RANDOM 402 mg/dL (74-106)
--- NOTE | 2018-09-27 18:41 | HP ---
CHIEF COMPLAINT: Seizure PCP: Dr. Corazon Mccain HISTORY OF PRESENT ILLNESS: 83 year old female with a PMH significant for Pancreatic Ca (s/p resection), DM , HTN, Depression, dementia was brought to the ED after she had two seizures at home. The first episode lasted a few minutes, the second episode happened when EMS arrived and lasted about a minute. Patient's family reports her overall health has been declining over the past 3 months; more fatigued, decreased appetite with weight loss. She was diagnosed with DM approximately 5 years ago. She used to be on metformin but it was stopped by the PCP approximately 1 year ago. Daughter in law reports she checked patient's sugar about 3 months ago and it was in the 300s, but she did not follow up with the PCP. Patient has not had any seizures in the past, no reports of chest pain, shortness of breath, GI discomfort, or syncope. Upon admission to the ED patient was was tachycardic (120s) otherwise VSS. She was witnessed having another seizure with generalized shaking and incontinence. She was given 2 mg of Ativan IVP to good effect. Labs notable for glucose of 818 , Anion gap 21, Lactic acid 14.0, troponin and tox screen negative. Patient was given 4 L of fluid, a loading dose of Keppra 1,000 mg and started on an insulin drip. Glucose decreased to 402 and anion gap closed (13), K 5.1 -> 4.2 ECG with sinus tachycardia, peaked T-waves in lateral leads. CT of the head was negative. CXR unremarkable for acute pathology. Patient accepted for admission to the ICU. Recent Travel: [place], 4 months ago PAST MEDICAL HISTORY: CVA Pancreatic cancer 2006 Diabetes HTN HLD Alzheimer's dementia Multiple Sclerosis Parkinson's Disease Osteoarthritis Diverticulosis Depression PAST SURGICAL HISTORY: [place] 2006 Social History: Serbian speaking, originally from [place]. Lives with her son and his family. Smoking: Never Alcohol: Rarely Drugs: No Family History: Brother: cancer unsure of what kind Allergies No Known Drug Allergies Allergy (Verified 09/27/18 15:17) HOME MEDICATIONS: Home Medications Medication Instructions Recorded Amlodipine Besylate/Benazepril 1 each PO DAILY 06/02/17 [Lotrel 5-10 mg Capsule] Pantoprazole Sodium [Protonix] 40 mg PO DAILY 06/02/17 Acetaminophen [Tylenol .Regular 650 mg PO Q4H PRN tablet 10/22/17 Strength -] Mirtazapine [Remeron -] 15 mg PO DAILY #30 tablet 10/22/17 Ondansetron [Zofran Odt -] 4 mg SL Q6H PRN #30 tab.rapdis 10/22/17 REVIEW OF SYSTEMS CONSTITUTIONAL: (+) Loss of appetite and weight loss over the past 3 months Absent: fever, chills, diaphoresis, generalized weakness, malaise, loss of appetite, weight change HEENT: Absent: rhinorrhea, nasal congestion, throat pain, throat swelling, difficulty swallowing, mouth swelling, ear pain, eye pain, visual changes CARDIOVASCULAR: Absent: chest pain, syncope, palpitations, irregular heart rate, lightheadedness , peripheral edema RESPIRATORY: Absent: cough, shortness of breath, dyspnea with exertion, orthopnea, wheezing, stridor, hemoptysis GASTROINTESTINAL: Absent: abdominal pain, abdominal distension, nausea, vomiting, diarrhea, constipation, melena, hematochezia GENITOURINARY: Absent: dysuria, frequency, urgency, hesitancy, hematuria, flank pain, genital pain MUSCULOSKELETAL: (+) Back pain Absent: myalgia, arthralgia, joint swelling, neck pain SKIN: Absent: rash, itching, pallor HEMATOLOGIC/IMMUNOLOGIC: Absent: easy bleeding, easy bruising, lymphadenopathy, frequent infections ENDOCRINE: Absent: unexplained weight gain, unexplained weight loss, heat intolerance, cold intolerance NEUROLOGIC: (+) Seizure Absent: headache, focal weakness or paresthesias, dizziness, unsteady gait, mental status changes, bladder or bowel incontinence PSYCHIATRIC: (+) Depression Absent: anxiety, suicidal or homicidal ideation, hallucinations. PHYSICAL EXAMINATION Vital Signs - 24 hr 09/27/18 09/27/18 09/27/18 15:17 17:01 17:08 Temperature 97.7 F Pulse Rate 114 H Pulse Rate [ 118 H 125 H Left Radial] Respiratory 16 20 18 Rate Blood Pressure 139/69 Blood Pressure 145/105 H 137/64 [Right Arm] O2 Sat by Pulse 97 97 100 Oximetry (%) GENERAL: Frail, elderly, asleep, responsive to tactile stimuli in no acute distress. HEAD: Normal with no signs of trauma. EYES: Pupils equal, round and reactive to light, extraocular movements intact, sclera anicteric, conjunctiva clear. EARS, NOSE, THROAT: nares patent, Dry mucous membranes. NECK: Normal range of motion, supple without lymphadenopathy, JVD, or masses. LUNGS: Labored respiratory effort, ronchorous breath sounds HEART: Rapid rate and regular rhythm, normal S1 and S2 without murmur, rub or gallop. ABDOMEN: Soft, nontender, not distended, normoactive bowel sounds, no guarding, no rebound, no masses. No hepatomegaly or splenomegaly. MUSCULOSKELETAL: Normal range of motion at all joints. No bony deformities or tenderness. No CVA tenderness. UPPER EXTREMITIES: 2+ pulses, warm, well-perfused. No cyanosis. No clubbing. No peripheral edema. LOWER EXTREMITIES: 2+ pulses, warm, well-perfused. No calf tenderness. No peripheral edema. NEUROLOGICAL: Minimally arousable, asleep during exam SKIN: Warm, dry, normal turgor, no rashes or lesions noted, normal capillary refill. Laboratory Results - last 24 hr 09/27/18 09/27/18 09/27/18 15:15 15:15 15:15 WBC 8.5 RBC 4.30 Hgb 12.9 Hct 43.1 D MCV 100.1 H MCH 30.1 MCHC 30.0 L RDW 15.5 D Plt Count 327 MPV 9.1 D Absolute Neuts (auto) 3.6 Neutrophils % 42.3 L D Lymphocytes % 51.6 H D Monocytes % 4.8 Eosinophils % 1.0 Basophils % 0.3 Nucleated RBC % 0 PT with INR 11.50 INR 0.97 PTT (Actin FS) 22.9 L VBG pH POC VBG pCO2 POC VBG pO2 Mixed VBG HCO3 Sodium Potassium Chloride Carbon Dioxide Anion Gap BUN Creatinine Creat Clearance w eGFR Random Glucose Lactic Acid Calcium Phosphorus Magnesium Total Bilirubin AST ALT Alkaline Phosphatase Troponin I Total Protein Albumin Urine Color Straw Urine Appearance Clear Urine pH 5.0 Ur Specific [place] 1.020 Urine Protein Negative Urine Glucose (UA) 3+ H Urine Ketones Negative Urine Blood Negative Urine Nitrite Negative Urine Bilirubin Negative Urine Urobilinogen Negative Ur Leukocyte Esterase Negative Opiates Screen Methadone Screen Barbiturate Screen Phencyclidine Screen Ur Amphetamines Screen MDMA (Ecstasy) Screen Benzodiazepines Screen Cocaine Screen U Marijuana (THC) Screen Acetone, Qual 09/27/18 09/27/18 09/27/18 15:15 15:15 15:25 WBC RBC Hgb Hct MCV MCH MCHC RDW Plt Count MPV Absolute Neuts (auto) Neutrophils % Lymphocytes % Monocytes % Eosinophils % Basophils % Nucleated RBC % PT with INR INR PTT (Actin FS) VBG pH POC VBG pCO2 POC VBG pO2 Mixed VBG HCO3 Sodium 130 L Potassium 5.1 Chloride 100 Carbon Dioxide 8 L Anion Gap 21 H BUN 29 H Creatinine 1.8 H Creat Clearance w eGFR 26.87 Random Glucose 818 H* Lactic Acid Calcium 8.7 Phosphorus 5.7 H Magnesium 2.6 H Total Bilirubin 0.4 AST 65 H ALT 46 Alkaline Phosphatase 304 H Troponin I < 0.02 Total Protein 8.7 H Albumin 3.8 Urine Color Urine Appearance Urine pH Ur Specific [place] Urine Protein Urine Glucose (UA) Urine Ketones Urine Blood Urine Nitrite Urine Bilirubin Urine Urobilinogen Ur Leukocyte Esterase Opiates Screen Negative Methadone Screen Negative Barbiturate Screen Negative Phencyclidine Screen Negative Ur Amphetamines Screen Negative MDMA (Ecstasy) Screen Negative Benzodiazepines Screen Negative Cocaine Screen Negative U Marijuana (THC) Screen Negative Acetone, Qual Neg 09/27/18 09/27/18 09/27/18 15:25 16:10 17:42 WBC RBC Hgb Hct MCV MCH MCHC RDW Plt Count MPV Absolute Neuts (auto) Neutrophils % Lymphocytes % Monocytes % Eosinophils % Basophils % Nucleated RBC % PT with INR INR PTT (Actin FS) VBG pH 7.07 L* POC VBG pCO2 26.9 L POC VBG pO2 77.8 H Mixed VBG HCO3 7.5 L* Sodium 140 Potassium 4.2 Chloride 115 H Carbon Dioxide 12 L Anion Gap 13 BUN 23 H Creatinine 1.4 H Creat Clearance w eGFR 35.91 Random Glucose 402 H* Lactic Acid 14.0 H* Calcium 7.4 L Phosphorus Magnesium Total Bilirubin AST ALT Alkaline Phosphatase Troponin I Total Protein Albumin Urine Color Urine Appearance Urine pH Ur Specific [place] Urine Protein Urine Glucose (UA) Urine Ketones Urine Blood Urine Nitrite Urine Bilirubin Urine Urobilinogen Ur Leukocyte Esterase Opiates Screen Methadone Screen Barbiturate Screen Phencyclidine Screen Ur Amphetamines Screen MDMA (Ecstasy) Screen Benzodiazepines Screen Cocaine Screen U Marijuana (THC) Screen Acetone, Qual ASSESSMENT/PLAN: 83 year old female with a PMH significant for Pancreatic Ca, DM, HTN, Depression , dementia was brought to the ED after she had two seizures at home. She was admitted to the ICU for management of HHNK. Seizure -Head CT negative -Start Keppra 500 mg IV BID -PRN Ativan if actively seizing -Consult with neurologist ordered -TSH, Folic acid, B12 levels pending Diabetes/HHNK -Continue insulin drip until patient alert and able to tolerate PO -Then switch to Levemir 0.1u/kg daily -When glucose < 300 -Switch fluids to D5 1/2 NS + 20 meq K -Decrease insulin drip to 0.05 U/kg/hr to maintain sugar of 250-300 until patient alert -Monitor BMP q 4 hours -Hgb A1C pending Lactic Acidosis -Lactic acid 14.0, repeat pending -Afebrile, no leukocytosis -UA only significant for 3+ glucose, otherwise negative -BC x 2 pending HTN -Hold home Amlodipine Benazepril 5-10 mg Depression -Hold home Remeron 15 mg FEN -Normal saline +20 meq K @ 150 cc/hr -Electrolytes replete as indicated -NPO until alert, then diabetic DVT Prophylaxis -Lovenox SQ Dispo: pt currently requires further inpatient care. Full code
[2018-09-27] MEDS ORDERED: SODIUM CHLORIDE 0.9%/KCL 20 MEQ/1,000 ML INFUS.BAG IV SCH (20:45)
[2018-09-27] MEDS ORDERED: INSULIN SLIDING SCALE (NOVOLOG) 1 VIAL SQ SCH ×2 (21:00→22:00)
[2018-09-27 21:03] LABS: ANION GAP 12 MMOL/L (8-16); BLOOD UREA NITROGEN 18 mg/dL (7-18); CHLORIDE 112 mmol/L (98-107); CO2 17 mmol/L (21-32); GLUCOSE,RANDOM 260 mg/dL (74-106); POTASSIUM 4.2 mmol/L (3.5-5.1); SODIUM 141 mmol/L (136-145)
[2018-09-27 21:05] LABS: CALCIUM 6.9 mg/dL (8.5-10.1)
[2018-09-27] MEDS ORDERED: D5-1/2NS+20 MEQ KCL - 20 MEQ/1,000 ML INFUS.BAG IV SCH (21:30)
--- NOTE | 2018-09-27 21:31 | HOSP ---
Physical Examination Vital Signs: Vital Signs Temperature 97.6 F 09/27/18 19:10 Pulse Rate 101 H 09/27/18 19:10 Respiratory Rate 18 09/27/18 19:10 Blood Pressure 159/87 09/27/18 19:10 O2 Sat by Pulse Oximetry (%) 100 09/27/18 19:10 Constitutional: Yes: Cachectic Cardiovascular: Yes: Regular Rate and Rhythm, S1, S2 Respiratory: Yes: CTA Bilaterally Gastrointestinal: Yes: Normal Bowel Sounds, Soft Neurological: Yes: Other (moans to pain, withdraws to pain, does not open eyes) Labs: CBC, BMP 09/27/18 15:15 09/27/18 20:25 Hospitalist Encounter Assessment: [facility] - repeat BMP results received - will decrease insulin drip to 0.05u/kg/h - change IVF to D51/2+20K@150cc/hr - maintain sugar 250-300 until pt alert - ABG being drawn now
[2018-09-27 21:34] LABS: ARTERIAL BLD GAS O2 SATURATION 96.1 % (90-98.9); ARTERIAL BLOOD GAS BASE EXCESS -5.7 meq/l (-2-2); ARTERIAL BLOOD GAS PO2 81.3 mmHg (68-100); ARTERIAL BLOOD GAS pH 7.44 (7.35-7.45)
[2018-09-27 21:38] LABS: CARBOXYHEMOGLOBIN 0.5 gm% (0.5-2.0)
[2018-09-27] MEDS ORDERED: CHLORHEXIDINE GLUCONATE 4% CLEANSER FOR DECOLONIZATION TP SCH (22:00)
[2018-09-27] MEDS: levETIRAcetam 500 MG/5 ML INJECTION VIAL IVPB SCH (23:30)
[2018-09-28] MEDS: MUPIROCIN 2% TOPICAL OINTMENT FOR DECOLONIZATION NS SCH ×2 (03:04→10:00)
[2018-09-28 03:35] LABS: ALBUMIN 2.6 g/dl (3.4-5.0); ALK PHOS 181 U/L (45-117); ANION GAP 9 MMOL/L (8-16); BILIRUBIN,TOTAL 0.2 mg/dL (0.2-1); BLOOD UREA NITROGEN 13 mg/dL (7-18); CHLORIDE 112 mmol/L (98-107); CO2 19 mmol/L (21-32); CREATININE 0.8 mg/dL (0.55-1.3); GLUCOSE,RANDOM 142 mg/dL (74-106); SGOT/AST 48 U/L (15-37); SGPT/ALT 36 U/L (13-61); SODIUM 140 mmol/L (136-145); TOT PROT 5.7 g/dl (6.4-8.2)
[2018-09-28] MEDS ORDERED: CALCIUM GLUCONATE 10% - 1,000 MG/10 ML VIAL IVPUSH ONE (04:04)
[2018-09-28 06:23] LABS: BASO % 0.4 % (0-2.0); HEMATOCRIT 30.9 % (32.4-45.2); HEMOGLOBIN 10.3 GM/dL (10.7-15.3); LYMPH % 26.4 % (8-40); MCH 28.9 pg (25.7-33.7); MCHC 33.4 g/dl (32.0-36.0); MEAN CELL VOLUME 86.7 fl (80-96); MEAN PLT VOLUME 8.3 fl (7.5-11.1); NEUT % 63.2 % (42.8-82.8); PLATELET COUNT 216 K/MM3 (134-434); RBC 3.57 M/mm3 (3.60-5.2); RDW 13.6 % (11.6-15.6)
[2018-09-28 06:41] LABS: INR 1.11 (0.83-1.09); PROTHROMBIN TIME (PATIENT) 13.1 SEC (9.7-13.0)
[2018-09-28 06:57] LABS: ARTERIAL BLD GAS O2 SATURATION 95.8 % (90-98.9); ARTERIAL BLOOD GAS BASE EXCESS -2.4 meq/l (-2-2); ARTERIAL BLOOD GAS PCO2 26.9 mmHg (35-45); ARTERIAL BLOOD GAS PO2 80.5 mmHg (68-100); ARTERIAL BLOOD GAS pH 7.47 (7.35-7.45)
[2018-09-28 07:27] LABS: ANION GAP 10 MMOL/L (8-16); BLOOD UREA NITROGEN 11 mg/dL (7-18); CALCIUM 7.2 mg/dL (8.5-10.1); CHLORIDE 111 mmol/L (98-107); CO2 19 mmol/L (21-32); CREATININE 0.7 mg/dL (0.55-1.3); GLUCOSE,RANDOM 154 mg/dL (74-106); MAGNESIUM 1.5 mg/dL (1.8-2.4); PHOSPHOROUS 2.4 mg/dL (2.5-4.9); POTASSIUM 3.9 mmol/L (3.5-5.1); SODIUM 140 mmol/L (136-145)
[2018-09-28] MEDS ORDERED: MAGNESIUM SULF 50% (8.12 MEQ/2 ML-1 GM VIAL) IVPB ONE (08:04)
[2018-09-28 08:13] LABS: ALBUMIN 2.6 g/dl (3.4-5.0); ALK PHOS 179 U/L (45-117); BILIRUBIN,TOTAL 0.6 mg/dL (0.2-1); SGOT/AST 37 U/L (15-37); SGPT/ALT 34 U/L (13-61); TOT PROT 5.7 g/dl (6.4-8.2)
[2018-09-28] MEDS: INSULIN SLIDING SCALE (NOVOLOG) 1 VIAL SQ SCH ×6 (08:17→23:46)
[2018-09-28 08:27] LABS: AMYLASE 107 U/L (25-115); LIPASE 29 U/L (73-393)
[2018-09-28] MEDS: levETIRAcetam 500 MG/5 ML INJECTION VIAL IVPB SCH ×2 (09:19→22:00)
[2018-09-28] MEDS ORDERED: ACETAMINOPHEN 325 MG TABLET (FP) PO ONE ×2 (09:39→20:00)
[2018-09-28] MEDS ORDERED: ACETAMINOPHEN 1000 MG/100 ML VIAL (NON FORMULARY) IVPB ONE (09:40)
[2018-09-28] MEDS ORDERED: ENOXAPARIN NA (PORCINE) 30 MG/0.3 ML DISP.SYRIN SQ SCH ×2 (10:00)
--- NOTE | 2018-09-28 10:22 | PN ---
Progress Note, Physician Chief Complaint: AWAKE MORE ALERT SEEN IN ICU WITH SON BEDSIDE DENIES CP/SRIVASTAVA/SOB EVENTS NOTES AND REVIEWED PATIENT DOES NOT REMEMBER MUCH - Current Medication List Current Medications: Active Medications Acetaminophen (Ofirmev Injection -) 1,000 mg IVPB ONCE ONE Stop: 09/28/18 09:41 Chlorhexidine Gluconate (Hibiclens For Decolonization -) 1 applic TP HS [facility] Last Admin: 09/27/18 23:47 Dose: 1 applic Enoxaparin Sodium (Lovenox -) 30 mg SQ DAILY [facility] Potassium Chloride/Dextrose/Sod Cl (D5-1/2ns+20 Meq Kcl -) 20 meq in 1,000 mls @ 150 mls/hr IV ASDIR BRANDY Last Admin: 09/27/18 22:30 Dose: 150 mls/hr Insulin Human Regular 100 (units/ Sodium Chloride) 100 mls @ 2.49 mls/hr IVPB TITR [facility]; Protocol Last Titration: 09/28/18 03:00 Dose: 0 units/kg/hr, 0 mls/hr Insulin Aspart (Novolog Vial Sliding Scale -) 1 vial SQ Q4H [facility]; Protocol Last Admin: 09/28/18 09:30 Dose: Not Given Levetiracetam (Keppra Injection -) 500 mg IVPB BID [facility] Last Admin: 09/28/18 09:19 Dose: 500 mg Mupirocin (Bactroban Ointment (For Decolonization) -) 1 applic NS BID [facility] Stop: 10/02/18 21:59 Last Admin: 09/28/18 03:04 Dose: 1 applic - Objective Vital Signs: Vital Signs Temperature 98.1 F 09/28/18 02:00 Pulse Rate 59 L 09/28/18 04:00 Respiratory Rate 14 09/28/18 04:00 Blood Pressure 103/77 09/28/18 04:00 O2 Sat by Pulse Oximetry (%) 99 09/27/18 23:00 Constitutional: Yes: Mild Distress Eyes: Yes: WNL HENT: Yes: WNL Neck: Yes: WNL Cardiovascular: Yes: WNL Respiratory: Yes: WNL Gastrointestinal: Yes: WNL Genitourinary: Yes: Incontinence Musculoskeletal: Yes: Muscle Weakness Extremities: Yes: WNL Edema: No Peripheral Pulses WNL: Yes Integumentary: Yes: WNL Wound/Incision: Yes: Clean/Dry Neurological: Yes: Confusion, Weakness ...Motor Strength: LLE, RLE Psychiatric: Yes: Other Labs: CBC, BMP 09/28/18 05:30 09/28/18 05:30 INR, PTT INR 1.11 (0.83-1.09) H 09/28/18 05:30 Problem List - Problems (1) [place] (acute kidney injury) Code(s): N17.9 - ACUTE KIDNEY FAILURE, UNSPECIFIED (2) Hyperglycemia due to type 2 diabetes mellitus Code(s): E11.65 - TYPE 2 DIABETES MELLITUS WITH HYPERGLYCEMIA Qualifiers: Diabetes mellitus supervisor long goods insulin use: with detention use Qualified Code( s): E11.65 - Type 2 diabetes mellitus with hyperglycemia; Z79.4 - manager long term care ( current) use of insulin (3) Hyperosmolar non-ketotic state in patient with type 2 diabetes mellitus Code(s): E11.01 - TYPE 2 DIABETES MELLITUS WITH HYPEROSMOLARITY WITH COMA (4) Lactic acidosis Code(s): E87.2 - ACIDOSIS (5) Seizure Code(s): R56.9 - UNSPECIFIED CONVULSIONS (6) Abdominal pain Code(s): R10.9 - UNSPECIFIED ABDOMINAL PAIN (7) Alkaline phosphatase elevation Code(s): R74.8 - ABNORMAL LEVELS OF OTHER SERUM ENZYMES (8) Back pain Code(s): M54.9 - DORSALGIA, UNSPECIFIED (9) Diabetes Code(s): E11.9 - TYPE 2 DIABETES MELLITUS WITHOUT COMPLICATIONS Qualifiers: Diabetes mellitus type: type 2 Diabetes mellitus detention insulin use: without detention use Diabetes mellitus complication status: with hyperglycemia Qualified Code(s): E11.65 - Type 2 diabetes mellitus with hyperglycemia (10) H/O pancreatic cancer Code(s): Z85.07 - PERSONAL HISTORY OF MALIGNANT NEOPLASM OF PANCREAS (11) HTN (hypertension) Code(s): I10 - ESSENTIAL (PRIMARY) HYPERTENSION Assessment/Plan NEURO EVAL ON NEURO CHECKS AND PRECAUTIONS DIABETES UNCONTROLLED H/O POOR APPETITE AND HYPOGLYCEMIA AND MEDS WERE LOWERED FOR HER DIABETES TREATMENT. NOW HER APPETITE INCREASED AND MEDS WERE NEVER INCREASED TO ADJUST TO HYPERGLYCEMIA. WILL HAVE DIETARY AND ENDOCRINOLOGY SEE THE PATIENT FOR DIABETES EVALUATION. FAMILY AWARE AND SUPPORTIVE PT EVAL SNF
--- NOTE | 2018-09-28 13:53 | PN ---
Teaching Attending Note Name of Resident: Meera Black ATTENDING PHYSICIAN STATEMENT I saw and evaluated the patient. I reviewed the resident's note and discussed the case with the resident. I agree with the resident's findings and plan as documented. SUBJECTIVE: Pt seen and examined in the ICU. No further seizures noted. Blood glucose improved, now off insulin gtt. OBJECTIVE: Vital Signs Period Temp Pulse Resp BP Sys/Disla Pulse Ox Last 24 Hr 97.6 F-98.2 F 59-125 14-22 102-159/48-105 97-100 Intake & Output 09/25/18 09/26/18 09/27/18 09/28/18 23:59 23:59 23:59 23:59 Intake Total 1458.5 Output Total 2450 Balance -991.5 Weight 41.867 kg 42.275 kg Gen: NAD at rest Heart: RRR Lung: decreased breath sounds at the bases Abd: soft, nontender Ext: no edema CBC, BMP 09/28/18 05:30 09/28/18 05:30 Active Medications Chlorhexidine Gluconate (Hibiclens For Decolonization -) 1 applic TP HS [facility] Last Admin: 09/27/18 23:47 Dose: 1 applic Enoxaparin Sodium (Lovenox -) 30 mg SQ DAILY BRANDY Last Admin: 09/28/18 10:28 Dose: 30 mg Potassium Chloride/Dextrose/Sod Cl (D5-1/2ns+20 Meq Kcl -) 20 meq in 1,000 mls @ 150 mls/hr IV ASDIR BRANDY Last Admin: 09/27/18 22:30 Dose: 150 mls/hr Insulin Human Regular 100 (units/ Sodium Chloride) 100 mls @ 2.49 mls/hr IVPB TITR [facility]; Protocol Last Titration: 09/28/18 03:00 Dose: 0 units/kg/hr, 0 mls/hr Insulin Aspart (Novolog Vial Sliding Scale -) 1 vial SQ Q4H [facility]; Protocol Last Admin: 09/28/18 12:24 Dose: 6 units Levetiracetam (Keppra Injection -) 500 mg IVPB BID BRANDY Last Admin: 09/28/18 09:19 Dose: 500 mg Mupirocin (Bactroban Ointment (For Decolonization) -) 1 applic NS BID [facility] Stop: 10/02/18 21:59 Last Admin: 09/28/18 10:00 Dose: 1 applic ASSESSMENT AND PLAN: New Onset Seizure Hyperosmolar Hyperglycemic NonKetotic State Lactic Acidosis HTN DM Pancreatic Ca Dementia - glucose control - IVF - continue antiepileptics - neuro eval - DVT prophylaxis - can monitor on floor
--- NOTE | 2018-09-28 14:18 | PN ---
Physical Exam: SUBJECTIVE: Patient seen and examined at bedside. Patient was somnolent this morning, moans to pain. Throughout the day, patient was awake and alert. Overnight, patient was started on insulin drip, and was discontinued as BGM was at 140s. No further seizure episodes. OBJECTIVE: Vital Signs Period Temp Pulse Resp BP Sys/Disla Pulse Ox Last 24 Hr 97.6 F-98.2 F 59-125 14-22 102-159/48-105 97-100 GENERAL: Patient is awake, alert and oriented, not in distress. HEAD: Normal with no signs of trauma. EYES: PERRLA, sclera anicteric, conjunctiva clear. NECK: Normal range of motion, supple without lymphadenopathy, JVD, or masses. LUNGS: Breath sounds equal, clear to auscultation bilaterally. HEART: Regular rate and rhythm, normal S1 and S2 without murmur, rub or gallop. ABDOMEN: Soft, +tenderness on RUQ/LUQ, not distended, normoactive bowel sounds. UPPER EXTREMITIES: 2+ pulses, warm, well-perfused. No cyanosis. No peripheral edema. LOWER EXTREMITIES: 2+ pulses, warm, well-perfused. No calf tenderness. No peripheral edema. SKIN: Warm, dry, normal turgor, no rashes or lesions noted. Laboratory Results - last 24 hr 09/27/18 09/27/18 09/27/18 15:15 15:15 15:15 WBC 8.5 RBC 4.30 Hgb 12.9 Hct 43.1 D MCV 100.1 H MCH 30.1 MCHC 30.0 L RDW 15.5 D Plt Count 327 MPV 9.1 D Absolute Neuts (auto) 3.6 Neutrophils % 42.3 L D Lymphocytes % 51.6 H D Monocytes % 4.8 Eosinophils % 1.0 Basophils % 0.3 Nucleated RBC % 0 PT with INR 11.50 INR 0.97 PTT (Actin FS) 22.9 L Puncture Site ABG pH ABG pCO2 at Pt Temp ABG pO2 at Pt Temp ABG HCO3 ABG O2 Sat (Measured) ABG O2 Content ABG Base Excess Calin Test VBG pH POC VBG pCO2 POC VBG pO2 Mixed VBG HCO3 Carboxyhemoglobin Methemoglobin Oxygen Flow Rate Sodium Potassium Chloride Carbon Dioxide Anion Gap BUN Creatinine Creat Clearance w eGFR POC Glucometer Random Glucose Hemoglobin A1c % Serum Osmolality Lactic Acid Calcium Phosphorus Magnesium Total Bilirubin AST ALT Alkaline Phosphatase Troponin I Total Protein Albumin Triglycerides Cholesterol Total LDL Cholesterol HDL Cholesterol Total Amylase Lipase Vitamin B12 Serum Folate TSH Urine Color Straw Urine Appearance Clear Urine pH 5.0 Ur Specific [place] 1.020 Urine Protein Negative Urine Glucose (UA) 3+ H Urine Ketones Negative Urine Blood Negative Urine Nitrite Negative Urine Bilirubin Negative Urine Urobilinogen Negative Ur Leukocyte Esterase Negative Opiates Screen Methadone Screen Barbiturate Screen Phencyclidine Screen Ur Amphetamines Screen MDMA (Ecstasy) Screen Benzodiazepines Screen Cocaine Screen U Marijuana (THC) Screen Acetone, Qual 09/27/18 09/27/18 09/27/18 15:15 15:15 15:16 WBC RBC Hgb Hct MCV MCH MCHC RDW Plt Count MPV Absolute Neuts (auto) Neutrophils % Lymphocytes % Monocytes % Eosinophils % Basophils % Nucleated RBC % PT with INR INR PTT (Actin FS) Puncture Site ABG pH ABG pCO2 at Pt Temp ABG pO2 at Pt Temp ABG HCO3 ABG O2 Sat (Measured) ABG O2 Content ABG Base Excess Calin Test VBG pH POC VBG pCO2 POC VBG pO2 Mixed VBG HCO3 Carboxyhemoglobin Methemoglobin Oxygen Flow Rate Sodium 130 L Potassium 5.1 Chloride 100 Carbon Dioxide 8 L Anion Gap 21 H BUN 29 H Creatinine 1.8 H Creat Clearance w eGFR 26.87 POC Glucometer > 400 Random Glucose 818 H* Hemoglobin A1c % Serum Osmolality Lactic Acid Calcium 8.7 Phosphorus 5.7 H Magnesium 2.6 H Total Bilirubin 0.4 AST 65 H ALT 46 Alkaline Phosphatase 304 H Troponin I < 0.02 Total Protein 8.7 H Albumin 3.8 Triglycerides Cholesterol Total LDL Cholesterol HDL Cholesterol Total Amylase Lipase Vitamin B12 Serum Folate TSH Urine Color Urine Appearance Urine pH Ur Specific [place] Urine Protein Urine Glucose (UA) Urine Ketones Urine Blood Urine Nitrite Urine Bilirubin Urine Urobilinogen Ur Leukocyte Esterase Opiates Screen Negative Methadone Screen Negative Barbiturate Screen Negative Phencyclidine Screen Negative Ur Amphetamines Screen Negative MDMA (Ecstasy) Screen Negative Benzodiazepines Screen Negative Cocaine Screen Negative U Marijuana (THC) Screen Negative Acetone, Qual 09/27/18 09/27/18 09/27/18 15:25 15:25 16:10 WBC RBC Hgb Hct MCV MCH MCHC RDW Plt Count MPV Absolute Neuts (auto) Neutrophils % Lymphocytes % Monocytes % Eosinophils % Basophils % Nucleated RBC % PT with INR INR PTT (Actin FS) Puncture Site ABG pH ABG pCO2 at Pt Temp ABG pO2 at Pt Temp ABG HCO3 ABG O2 Sat (Measured) ABG O2 Content ABG Base Excess Calin Test VBG pH 7.07 L* POC VBG pCO2 26.9 L POC VBG pO2 77.8 H Mixed VBG HCO3 7.5 L* Carboxyhemoglobin Methemoglobin Oxygen Flow Rate Sodium Potassium Chloride Carbon Dioxide Anion Gap BUN Creatinine Creat Clearance w eGFR POC Glucometer Random Glucose Hemoglobin A1c % Serum Osmolality Lactic Acid 14.0 H* Calcium Phosphorus Magnesium Total Bilirubin AST ALT Alkaline Phosphatase Troponin I Total Protein Albumin Triglycerides Cholesterol Total LDL Cholesterol HDL Cholesterol Total Amylase Lipase Vitamin B12 Serum Folate TSH Urine Color Urine Appearance Urine pH Ur Specific [place] Urine Protein Urine Glucose (UA) Urine Ketones Urine Blood Urine Nitrite Urine Bilirubin Urine Urobilinogen Ur Leukocyte Esterase Opiates Screen Methadone Screen Barbiturate Screen Phencyclidine Screen Ur Amphetamines Screen MDMA (Ecstasy) Screen Benzodiazepines Screen Cocaine Screen U Marijuana (THC) Screen Acetone, Qual Neg 09/27/18 09/27/18 09/27/18 17:41 17:42 17:56 WBC RBC Hgb Hct MCV MCH MCHC RDW Plt Count MPV Absolute Neuts (auto) Neutrophils % Lymphocytes % Monocytes % Eosinophils % Basophils % Nucleated RBC % PT with INR INR PTT (Actin FS) Puncture Site ABG pH ABG pCO2 at Pt Temp ABG pO2 at Pt Temp ABG HCO3 ABG O2 Sat (Measured) ABG O2 Content ABG Base Excess Calin Test VBG pH POC VBG pCO2 POC VBG pO2 Mixed VBG HCO3 Carboxyhemoglobin Methemoglobin Oxygen Flow Rate Sodium 140 Potassium 4.2 Chloride 115 H Carbon Dioxide 12 L Anion Gap 13 BUN 23 H Creatinine 1.4 H Creat Clearance w eGFR 35.91 POC Glucometer > 400 Random Glucose 402 H* Hemoglobin A1c % Serum Osmolality 303 Lactic Acid Calcium 7.4 L Phosphorus Magnesium Total Bilirubin AST ALT Alkaline Phosphatase Troponin I Total Protein Albumin Triglycerides Cholesterol Total LDL Cholesterol HDL Cholesterol Total Amylase Lipase Vitamin B12 Serum Folate TSH Urine Color Urine Appearance Urine pH Ur Specific [place] Urine Protein Urine Glucose (UA) Urine Ketones Urine Blood Urine Nitrite Urine Bilirubin Urine Urobilinogen Ur Leukocyte Esterase Opiates Screen Methadone Screen Barbiturate Screen Phencyclidine Screen Ur Amphetamines Screen MDMA (Ecstasy) Screen Benzodiazepines Screen Cocaine Screen U Marijuana (THC) Screen Acetone, Qual 09/27/18 09/27/18 09/27/18 20:25 20:25 20:25 WBC RBC Hgb Hct MCV MCH MCHC RDW Plt Count MPV Absolute Neuts (auto) Neutrophils % Lymphocytes % Monocytes % Eosinophils % Basophils % Nucleated RBC % PT with INR INR PTT (Actin FS) Puncture Site ABG pH ABG pCO2 at Pt Temp ABG pO2 at Pt Temp ABG HCO3 ABG O2 Sat (Measured) ABG O2 Content ABG Base Excess Calin Test VBG pH POC VBG pCO2 POC VBG pO2 Mixed VBG HCO3 Carboxyhemoglobin Methemoglobin Oxygen Flow Rate Sodium 141 Potassium 4.2 Chloride 112 H Carbon Dioxide 17 L Anion Gap 12 BUN 18 Creatinine 1.0 Creat Clearance w eGFR 52.95 POC Glucometer [phone] Random Glucose 260 H Hemoglobin A1c % Serum Osmolality Lactic Acid 4.7 H* Calcium 6.9 L* Phosphorus Magnesium Total Bilirubin AST ALT Alkaline Phosphatase Troponin I Total Protein Albumin Triglycerides Cholesterol Total LDL Cholesterol HDL Cholesterol Total Amylase Lipase Vitamin B12 Serum Folate TSH Urine Color Urine Appearance Urine pH Ur Specific [place] Urine Protein Urine Glucose (UA) Urine Ketones Urine Blood Urine Nitrite Urine Bilirubin Urine Urobilinogen Ur Leukocyte Esterase Opiates Screen Methadone Screen Barbiturate Screen Phencyclidine Screen Ur Amphetamines Screen MDMA (Ecstasy) Screen Benzodiazepines Screen Cocaine Screen U Marijuana (THC) Screen Acetone, Qual 09/27/18 09/27/18 09/27/18 21:25 21:25 21:55 WBC RBC Hgb Hct MCV MCH MCHC RDW Plt Count MPV Absolute Neuts (auto) Neutrophils % Lymphocytes % Monocytes % Eosinophils % Basophils % Nucleated RBC % PT with INR INR PTT (Actin FS) Puncture Site Right radial ABG pH 7.44 ABG pCO2 at Pt Temp 25.0 L ABG pO2 at Pt Temp 81.3 ABG HCO3 16.8 L ABG O2 Sat (Measured) 96.1 ABG O2 Content 13.8 L ABG Base Excess -5.7 L Calin Test No Result Required. VBG pH POC VBG pCO2 POC VBG pO2 Mixed VBG HCO3 Carboxyhemoglobin 0.5 Methemoglobin 1.7 H Oxygen Flow Rate No Result Required. Sodium Potassium Chloride Carbon Dioxide Anion Gap BUN Creatinine Creat Clearance w eGFR POC Glucometer [phone] Random Glucose Hemoglobin A1c % Serum Osmolality Lactic Acid Calcium Phosphorus Magnesium Total Bilirubin AST ALT Alkaline Phosphatase Troponin I Total Protein Albumin Triglycerides Cholesterol Total LDL Cholesterol HDL Cholesterol Total Amylase Lipase Vitamin B12 Serum Folate TSH Urine Color Urine Appearance Urine pH Ur Specific [place] Urine Protein Urine Glucose (UA) Urine Ketones Urine Blood Urine Nitrite Urine Bilirubin Urine Urobilinogen Ur Leukocyte Esterase Opiates Screen Methadone Screen Barbiturate Screen Phencyclidine Screen Ur Amphetamines Screen MDMA (Ecstasy) Screen Benzodiazepines Screen Cocaine Screen U Marijuana (THC) Screen Acetone, Qual 09/27/18 09/27/18 09/28/18 22:40 23:55 01:15 WBC RBC Hgb Hct MCV MCH MCHC RDW Plt Count MPV Absolute Neuts (auto) Neutrophils % Lymphocytes % Monocytes % Eosinophils % Basophils % Nucleated RBC % PT with INR INR PTT (Actin FS) Puncture Site ABG pH ABG pCO2 at Pt Temp ABG pO2 at Pt Temp ABG HCO3 ABG O2 Sat (Measured) ABG O2 Content ABG Base Excess Calin Test VBG pH POC VBG pCO2 POC VBG pO2 Mixed VBG HCO3 Carboxyhemoglobin Methemoglobin Oxygen Flow Rate Sodium Potassium Chloride Carbon Dioxide Anion Gap BUN Creatinine Creat Clearance w eGFR POC Glucometer [phone] Random Glucose Hemoglobin A1c % Serum Osmolality Lactic Acid Calcium Phosphorus Magnesium Total Bilirubin AST ALT Alkaline Phosphatase Troponin I Total Protein Albumin Triglycerides Cholesterol Total LDL Cholesterol HDL Cholesterol Total Amylase Lipase Vitamin B12 Serum Folate TSH Urine Color Urine Appearance Urine pH Ur Specific [place] Urine Protein Urine Glucose (UA) Urine Ketones Urine Blood Urine Nitrite Urine Bilirubin Urine Urobilinogen Ur Leukocyte Esterase Opiates Screen Methadone Screen Barbiturate Screen Phencyclidine Screen Ur Amphetamines Screen MDMA (Ecstasy) Screen Benzodiazepines Screen Cocaine Screen U Marijuana (THC) Screen Acetone, Qual 09/28/18 09/28/18 09/28/18 01:20 01:20 02:00 WBC RBC Hgb Hct MCV MCH MCHC RDW Plt Count MPV Absolute Neuts (auto) Neutrophils % Lymphocytes % Monocytes % Eosinophils % Basophils % Nucleated RBC % PT with INR INR PTT (Actin FS) Puncture Site ABG pH ABG pCO2 at Pt Temp ABG pO2 at Pt Temp ABG HCO3 ABG O2 Sat (Measured) ABG O2 Content ABG Base Excess Calin Test VBG pH POC VBG pCO2 POC VBG pO2 Mixed VBG HCO3 Carboxyhemoglobin Methemoglobin Oxygen Flow Rate Sodium 140 Potassium 4.0 Chloride 112 H Carbon Dioxide 19 L Anion Gap 9 BUN 13 Creatinine 0.8 Creat Clearance w eGFR > 60 POC Glucometer [phone] Random Glucose 142 H Hemoglobin A1c % Serum Osmolality Lactic Acid 2.7 H* Calcium 7.0 L Phosphorus Magnesium Total Bilirubin 0.2 AST 48 H ALT 36 Alkaline Phosphatase 181 H Troponin I Total Protein 5.7 L Albumin 2.6 L Triglycerides Cholesterol Total LDL Cholesterol HDL Cholesterol Total Amylase Lipase Vitamin B12 660 Serum Folate TSH Urine Color Urine Appearance Urine pH Ur Specific [place] Urine Protein Urine Glucose (UA) Urine Ketones Urine Blood Urine Nitrite Urine Bilirubin Urine Urobilinogen Ur Leukocyte Esterase Opiates Screen Methadone Screen Barbiturate Screen Phencyclidine Screen Ur Amphetamines Screen MDMA (Ecstasy) Screen Benzodiazepines Screen Cocaine Screen U Marijuana (THC) Screen Acetone, Qual 09/28/18 09/28/18 09/28/18 03:14 04:10 05:07 WBC RBC Hgb Hct MCV MCH MCHC RDW Plt Count MPV Absolute Neuts (auto) Neutrophils % Lymphocytes % Monocytes % Eosinophils % Basophils % Nucleated RBC % PT with INR INR PTT (Actin FS) Puncture Site ABG pH ABG pCO2 at Pt Temp ABG pO2 at Pt Temp ABG HCO3 ABG O2 Sat (Measured) ABG O2 Content ABG Base Excess Calin Test VBG pH POC VBG pCO2 POC VBG pO2 Mixed VBG HCO3 Carboxyhemoglobin Methemoglobin Oxygen Flow Rate Sodium Potassium Chloride Carbon Dioxide Anion Gap BUN Creatinine Creat Clearance w eGFR POC Glucometer [phone] [phone] Random Glucose Hemoglobin A1c % Serum Osmolality Lactic Acid Calcium Phosphorus Magnesium Total Bilirubin AST ALT Alkaline Phosphatase Troponin I Total Protein Albumin Triglycerides Cholesterol Total LDL Cholesterol HDL Cholesterol Total Amylase Lipase Vitamin B12 Serum Folate TSH Urine Color Urine Appearance Urine pH Ur Specific [place] Urine Protein Urine Glucose (UA) Urine Ketones Urine Blood Urine Nitrite Urine Bilirubin Urine Urobilinogen Ur Leukocyte Esterase Opiates Screen Methadone Screen Barbiturate Screen Phencyclidine Screen Ur Amphetamines Screen MDMA (Ecstasy) Screen Benzodiazepines Screen Cocaine Screen U Marijuana (THC) Screen Acetone, Qual 09/28/18 09/28/18 09/28/18 05:30 05:30 05:30 WBC 8.0 RBC 3.57 L Hgb 10.3 L Hct 30.9 L D MCV 86.7 D MCH 28.9 MCHC 33.4 RDW 13.6 D Plt Count 216 D MPV 8.3 Absolute Neuts (auto) 5.1 Neutrophils % 63.2 D Lymphocytes % 26.4 D Monocytes % 8.0 Eosinophils % 2.0 D Basophils % 0.4 Nucleated RBC % 0 PT with INR 13.10 H INR 1.11 H PTT (Actin FS) Puncture Site ABG pH ABG pCO2 at Pt Temp ABG pO2 at Pt Temp ABG HCO3 ABG O2 Sat (Measured) ABG O2 Content ABG Base Excess Calin Test VBG pH POC VBG pCO2 POC VBG pO2 Mixed VBG HCO3 Carboxyhemoglobin Methemoglobin Oxygen Flow Rate Sodium 140 Potassium 3.9 Chloride 111 H Carbon Dioxide 19 L Anion Gap 10 BUN 11 Creatinine 0.7 Creat Clearance w eGFR > 60 POC Glucometer Random Glucose 154 H Hemoglobin A1c % Serum Osmolality Lactic Acid Calcium 7.2 L Phosphorus 2.4 L Magnesium 1.5 L Total Bilirubin 0.6 AST 37 ALT 34 Alkaline Phosphatase 179 H Troponin I Total Protein 5.7 L Albumin 2.6 L Triglycerides Cholesterol Total LDL Cholesterol HDL Cholesterol Total Amylase 107 Lipase 29 L Vitamin B12 Serum Folate TSH Urine Color Urine Appearance Urine pH Ur Specific [place] Urine Protein Urine Glucose (UA) Urine Ketones Urine Blood Urine Nitrite Urine Bilirubin Urine Urobilinogen Ur Leukocyte Esterase Opiates Screen Methadone Screen Barbiturate Screen Phencyclidine Screen Ur Amphetamines Screen MDMA (Ecstasy) Screen Benzodiazepines Screen Cocaine Screen U Marijuana (THC) Screen Acetone, Qual 09/28/18 09/28/18 09/28/18 05:30 05:30 05:30 WBC RBC Hgb Hct MCV MCH MCHC RDW Plt Count MPV Absolute Neuts (auto) Neutrophils % Lymphocytes % Monocytes % Eosinophils % Basophils % Nucleated RBC % PT with INR INR PTT (Actin FS) Puncture Site ABG pH ABG pCO2 at Pt Temp ABG pO2 at Pt Temp ABG HCO3 ABG O2 Sat (Measured) ABG O2 Content ABG Base Excess Calin Test VBG pH POC VBG pCO2 POC VBG pO2 Mixed VBG HCO3 Carboxyhemoglobin Methemoglobin Oxygen Flow Rate Sodium Potassium Chloride Carbon Dioxide Anion Gap BUN Creatinine Creat Clearance w eGFR POC Glucometer Random Glucose Hemoglobin A1c % 12.4 H Serum Osmolality Lactic Acid Calcium Phosphorus Magnesium Total Bilirubin AST ALT Alkaline Phosphatase Troponin I Total Protein Albumin Triglycerides 60 Cholesterol 73 Total LDL Cholesterol 48 HDL Cholesterol 29 L Total Amylase Lipase Vitamin B12 608 Cancelled Serum Folate 19 H TSH 0.86 Urine Color Urine Appearance Urine pH Ur Specific [place] Urine Protein Urine Glucose (UA) Urine Ketones Urine Blood Urine Nitrite Urine Bilirubin Urine Urobilinogen Ur Leukocyte Esterase Opiates Screen Methadone Screen Barbiturate Screen Phencyclidine Screen Ur Amphetamines Screen MDMA (Ecstasy) Screen Benzodiazepines Screen Cocaine Screen U Marijuana (THC) Screen Acetone, Qual 09/28/18 09/28/18 09/28/18 05:30 07:00 07:15 WBC RBC Hgb Hct MCV MCH MCHC RDW Plt Count MPV Absolute Neuts (auto) Neutrophils % Lymphocytes % Monocytes % Eosinophils % Basophils % Nucleated RBC % PT with INR INR PTT (Actin FS) Puncture Site Right brachial ABG pH 7.47 H ABG pCO2 at Pt Temp 26.9 L ABG pO2 at Pt Temp 80.5 ABG HCO3 19.4 L ABG O2 Sat (Measured) 95.8 ABG O2 Content 18.7 ABG Base Excess -2.4 L Calin Test No Result Required. VBG pH POC VBG pCO2 POC VBG pO2 Mixed VBG HCO3 Carboxyhemoglobin Methemoglobin Oxygen Flow Rate Room air Sodium Potassium Chloride Carbon Dioxide Anion Gap BUN Creatinine Creat Clearance w eGFR POC Glucometer [phone] Random Glucose Hemoglobin A1c % Serum Osmolality Lactic Acid 1.5 Calcium Phosphorus Magnesium Total Bilirubin AST ALT Alkaline Phosphatase Troponin I Total Protein Albumin Triglycerides Cholesterol Total LDL Cholesterol HDL Cholesterol Total Amylase Lipase Vitamin B12 Serum Folate TSH Urine Color Urine Appearance Urine pH Ur Specific [place] Urine Protein Urine Glucose (UA) Urine Ketones Urine Blood Urine Nitrite Urine Bilirubin Urine Urobilinogen Ur Leukocyte Esterase Opiates Screen Methadone Screen Barbiturate Screen Phencyclidine Screen Ur Amphetamines Screen MDMA (Ecstasy) Screen Benzodiazepines Screen Cocaine Screen U Marijuana (THC) Screen Acetone, Qual 09/28/18 12:21 WBC RBC Hgb Hct MCV MCH MCHC RDW Plt Count MPV Absolute Neuts (auto) Neutrophils % Lymphocytes % Monocytes % Eosinophils % Basophils % Nucleated RBC % PT with INR INR PTT (Actin FS) Puncture Site ABG pH ABG pCO2 at Pt Temp ABG pO2 at Pt Temp ABG HCO3 ABG O2 Sat (Measured) ABG O2 Content ABG Base Excess Calin Test VBG pH POC VBG pCO2 POC VBG pO2 Mixed VBG HCO3 Carboxyhemoglobin Methemoglobin Oxygen Flow Rate Sodium Potassium Chloride Carbon Dioxide Anion Gap BUN Creatinine Creat Clearance w eGFR POC Glucometer [phone] Random Glucose Hemoglobin A1c % Serum Osmolality Lactic Acid Calcium Phosphorus Magnesium Total Bilirubin AST ALT Alkaline Phosphatase Troponin I Total Protein Albumin Triglycerides Cholesterol Total LDL Cholesterol HDL Cholesterol Total Amylase Lipase Vitamin B12 Serum Folate TSH Urine Color Urine Appearance Urine pH Ur Specific [place] Urine Protein Urine Glucose (UA) Urine Ketones Urine Blood Urine Nitrite Urine Bilirubin Urine Urobilinogen Ur Leukocyte Esterase Opiates Screen Methadone Screen Barbiturate Screen Phencyclidine Screen Ur Amphetamines Screen MDMA (Ecstasy) Screen Benzodiazepines Screen Cocaine Screen U Marijuana (THC) Screen Acetone, Qual Active Medications Generic Name Dose Route Start Last Admin Trade Name Freq PRN Reason Stop Dose Admin Chlorhexidine Gluconate 1 applic 09/27/18 22:00 09/27/18 23:47 Hibiclens For Decolonization - TP 1 applic HS BRANDY Administration Enoxaparin Sodium 30 mg 09/28/18 10:00 09/28/18 10:28 Lovenox - SQ 30 mg DAILY BRANDY Administration Potassium Chloride/Dextrose/Sod Cl 20 meq in 1,000 mls @ 150 mls/hr 09/27/18 21:30 09/27/18 22:30 D5-1/2ns+20 Meq Kcl - IV 150 mls/hr ASDIR BRANDY Administration Insulin Human Regular 100 100 mls @ 2.49 mls/hr 09/27/18 21:28 09/28/18 03:00 units/ Sodium Chloride IVPB 0 units/kg/hr TITR BRANDY 0 mls/hr Titration Protocol 0.05 UNITS/KG/HR Insulin Aspart 1 vial 09/28/18 08:00 09/28/18 12:24 Novolog Vial Sliding Scale - SQ 6 units Q4H BRANDY Administration Protocol Levetiracetam 500 mg 09/27/18 22:00 09/28/18 09:19 Keppra Injection - IVPB 500 mg BID BRANDY Administration Mupirocin 1 applic 09/27/18 22:00 09/28/18 10:00 Bactroban Ointment (For Decolonization) - NS 10/02/18 21:59 1 applic BID BRANDY Administration ASSESSMENT/PLAN: Patient is an 83 year old female with past medical history of Anemia, Depression , Hypertension and DM, presented with sudden-onset generalized tonic-clonic seizures, lasting about 2-3 minutes per episode. #Endocrinology 1)Hyperosmolar Hyperglycemic Nonketotic state: improved -likely because patient has not been taking medications for a long time -Serum Osm 318 -continue IV fluids -monitor blood sugar q1h -Anion gap closed, no indication for insulin drip. -Insulin sliding scale -monitor serum K - 3.9, replete PRN -monitor I/O, on coelho catheter 2)Anion gap metabolic acidosis with respiratory compensation: likely 2/2 diabetes mellitus and lactic acidosis -anion gap closed -improved with IV Fluid and bicarb -Hold on further bicarb, improved from 8 to 12 yesterday, 19 today. 3)Seizures: likely 2/2 hyperglycemia -Got Ativan and Keppra at the ED -continue IV Keppra 500mg BID for seizure prophylaxis -Seizure precaution -keep HOB elevated -Fall risk precaution -Aspiration precaution -Blood glucose control -Neurology (Dr. Barrera) consulted. #Cardiovascular 1) Hypertension -continue home anti-hypertensive medication #FEN -IV 1/2 NS +KCl -replete electrolytes, routine bmp monitoring -Clear liquid diet as tolerated. #Prophylaxis -Lovenox 30mg sq daily #Disposition -full code -Transfer to med-surg Visit type - Emergency Visit Emergency Visit: Yes ED Registration Date: 09/27/18 Care time: The patient presented to the Emergency Department on the above date and was hospitalized for further evaluation of their emergent condition. - New Patient This patient is new to me today: Yes Date on this admission: 09/28/18 - Critical Care Critical Care patient: Yes Total Critical Care Time (in minutes): 40 Critical Care Statement: The care of this patient involved high complexity decision making to prevent further life threatening deterioration of the patient 's condition and/or to evaluate & treat vital organ system(s) failure or risk of failure.
[2018-09-28] MEDS ORDERED: POTASSIUM PHOSPHATE 15 MM in SODIUM CHLORIDE 100 ML IVPB ONE (16:00)
--- NOTE | 2018-09-28 18:51 | CONSULT ---
Consult - text type - Consultation Consultation Note: NEUROLOGY CONSULTATION is greatly appreciated: Events reviewed and discussed with ICU resident. Patient examined with family at the bedside who aide in translation. This 83 yo woman lives with her family. PMH of HTN, DM and distant h/o Whipple procedure for Pancreatic Ca. Family suggests possible recurrence this year. Maintained on: Amlodipine; Pantoprazole; Acetaminophen; Mirtazapine; and Ondansetron. Metformin discontinued 1 year ago and family D/C'ed BG checks 3 months ago altho reportedly > 300 mg% Family describes 2 weeks of deteriorating adelfo, strength and appetite with no PO x few days. Admitted after new-onset of generalized Tonic-clonic seizures with 2 additional episodes noted in ED where BG found to be >800 mg% with electrolyte imbalance and lactic acidosis (>14 mg%) . No c/o headaches. CT of head x 2 (reviewed): The sequence is quite remarkable. Yesterday's study shows extreme atrophy with shrunken brain and gyri and increased CSF space and sulci. Today's repeat study shows near normalization of brain volume. ROSSANA: Neck supple. No bruits. Cor reg. No evidence of head trauma. Neuro: Awake, alert. [facility], [place], Nov. Speech fluent in Swedish. CN II-XII: Full wilson and EOM's. No facial weakness. Gag OK Motor: No drift. Normal strength throughout. Decreased KJ's, absent AJ 's. Toes downgoing. Coord: No FTN dystaxia Sensory: Decreased vibration feet. Vib sensed at the ankles. IMP: Non-Focal exam suggesting mild OMS and possibly, a mild peripheral neuropathy. New-onset seizures associated with severe Toxic-Metabolic Encephalopathy (Hyperosmolar diabetic ketoacidosis). SUGGEST: Continue current regimen. Change levetiracetam to 500 mg PO BID x 3-6 mos then would D/C. Neuro f/u as out patient for EEG and levetiracetam taper. Thank you so much, Nile Barrera MD
[2018-09-28] MEDS ORDERED: CHLORHEXIDINE GLUCONATE 4% CLEANSER FOR DECOLONIZATION TP SCH (22:00)
[2018-09-28] MEDS ORDERED: MUPIROCIN 2% TOPICAL OINTMENT FOR DECOLONIZATION NS SCH (22:00)
[2018-09-28] MEDS: D5-1/2NS+20 MEQ KCL - 20 MEQ/1,000 ML INFUS.BAG IV SCH (23:34)
[2018-09-29] MEDS: INSULIN SLIDING SCALE (NOVOLOG) 1 VIAL SQ SCH ×4 (03:59→21:36)
[2018-09-29] MEDS: D5-1/2NS+20 MEQ KCL - 20 MEQ/1,000 ML INFUS.BAG IV SCH (05:12)
[2018-09-29 07:28] LABS: HEMATOCRIT 31.1 % (32.4-45.2); HEMOGLOBIN 10.3 GM/dL (10.7-15.3); MCHC 33.2 g/dl (32.0-36.0); MEAN CELL VOLUME 87.4 fl (80-96); MEAN PLT VOLUME 8.3 fl (7.5-11.1); PLATELET COUNT 187 K/MM3 (134-434); RBC 3.56 M/mm3 (3.60-5.2); RDW 13.6 % (11.6-15.6)
[2018-09-29 07:50] LABS: ALBUMIN 2.4 g/dl (3.4-5.0); ALK PHOS 150 U/L (45-117); ANION GAP 8 MMOL/L (8-16); BILIRUBIN,TOTAL 0.4 mg/dL (0.2-1); BLOOD UREA NITROGEN 7 mg/dL (7-18); CALCIUM 7.4 mg/dL (8.5-10.1); CHLORIDE 111 mmol/L (98-107); CO2 21 mmol/L (21-32); CREATININE 0.7 mg/dL (0.55-1.3); GLUCOSE,RANDOM 164 mg/dL (74-106); MAGNESIUM 1.7 mg/dL (1.8-2.4); PHOSPHOROUS 2.6 mg/dL (2.5-4.9); POTASSIUM 4.4 mmol/L (3.5-5.1); SGOT/AST 23 U/L (15-37); SGPT/ALT 26 U/L (13-61); SODIUM 139 mmol/L (136-145); TOT PROT 5.4 g/dl (6.4-8.2)
[2018-09-29] MEDS ORDERED: INSULIN (NOVOLOG) ASPART 100 UNITS/ML 10ML VIAL ONE (09:28)
[2018-09-29] MEDS ORDERED: PT OWN MED DRAWER 7, Y5N ONE (09:29)
[2018-09-29] MEDS: levETIRAcetam 500 MG/5 ML INJECTION VIAL IVPB SCH ×2 (09:39→21:35)
[2018-09-29] MEDS: ENOXAPARIN NA (PORCINE) 30 MG/0.3 ML DISP.SYRIN SQ SCH (09:39)
[2018-09-29] MEDS ORDERED: MAGNESIUM SULF 50% (8.12 MEQ/2 ML-1 GM VIAL) IVPB ONE (10:15)
--- NOTE | 2018-09-29 11:01 | PN ---
Progress Note, Physician Chief Complaint: patient seen and examined in bed awake alert speaks togolese - Current Medication List Current Medications: Active Medications Enoxaparin Sodium (Lovenox -) 30 mg SQ DAILY [facility] Last Admin: 09/29/18 09:39 Dose: 30 mg Potassium Chloride/Dextrose/Sod Cl (D5-1/2ns+20 Meq Kcl -) 20 meq in 1,000 mls @ 150 mls/hr IV ASDIR [facility] Last Admin: 09/29/18 05:12 Dose: 150 mls/hr Insulin Aspart (Novolog Vial Sliding Scale -) 1 vial SQ Q4H [facility]; Protocol Last Admin: 09/29/18 09:43 Dose: 4 unit Levetiracetam (Keppra Injection -) 500 mg IVPB BID [facility] Last Admin: 09/29/18 09:39 Dose: 500 mg - Objective Vital Signs: Vital Signs Temperature 97.8 F 09/29/18 06:00 Pulse Rate 78 09/29/18 06:00 Respiratory Rate 18 09/29/18 06:00 Blood Pressure 137/62 09/29/18 06:00 O2 Sat by Pulse Oximetry (%) 99 09/28/18 09:00 Constitutional: Yes: Calm Cardiovascular: Yes: Regular Rate and Rhythm, S1, S2 Respiratory: Yes: CTA Bilaterally Gastrointestinal: Yes: Normal Bowel Sounds, Soft Genitourinary: Yes: Coelho Present Edema: No Labs: CBC, BMP 09/29/18 06:00 09/29/18 06:00 INR, PTT INR 1.11 (0.83-1.09) H 09/28/18 05:30 Problem List - Problems (1) Hyperglycemia due to type 2 diabetes mellitus Assessment/Plan: endocrine eval pending uncontrolled Dm hgba1c 12.1 levemir 8 units- will uptitrate change liquid to soft diet dietary eval sliding scale Code(s): E11.65 - TYPE 2 DIABETES MELLITUS WITH HYPERGLYCEMIA Qualifiers: Diabetes mellitus detention insulin use: with green chain off bearer use Qualified Code( s): E11.65 - Type 2 diabetes mellitus with hyperglycemia; Z79.4 - flue lining dipper ( current) use of insulin (2) Seizure Assessment/Plan: neurology consult keppra bid Code(s): R56.9 - UNSPECIFIED CONVULSIONS (3) Lactic acidosis Assessment/Plan: improved dc ivf Code(s): E87.2 - ACIDOSIS (4) Alkaline phosphatase elevation Assessment/Plan: trending down Code(s): R74.8 - ABNORMAL LEVELS OF OTHER SERUM ENZYMES (5) Hyponatremia Assessment/Plan: improved Code(s): E87.1 - HYPO-OSMOLALITY AND HYPONATREMIA (6) Electrolyte abnormality Assessment/Plan: hypomagnesemia- repleted recheck in AM calcium noted- corrected 8.68 Code(s): E87.8 - OTH DISORDERS OF ELECTROLYTE AND FLUID BALANCE, NEC Assessment/Plan PT anastasia COMER to chair porsche coelho
[2018-09-29 14:29] VITALS: BMI 18.1
[2018-09-29] MEDS ORDERED: INSULIN SLIDING SCALE (NOVOLOG) 1 VIAL SQ SCH (16:30)
[2018-09-29] MEDS ORDERED: INSULIN (LEVEMIR) 100 UNITS/ML UNITS SQ SCH (22:00)
[2018-09-30] MEDS: INSULIN SLIDING SCALE (NOVOLOG) 1 VIAL SQ SCH ×2 (06:39→14:40)
[2018-09-30 07:17] LABS: BASO % 0.3 % (0-2.0); EOS % 0.5 % (0-4.5); HEMATOCRIT 36.8 % (32.4-45.2); HEMOGLOBIN 11.9 GM/dL (10.7-15.3); LYMPH % 18.6 % (8-40); MCH 28.8 pg (25.7-33.7); MCHC 32.3 g/dl (32.0-36.0); MEAN CELL VOLUME 89.1 fl (80-96); MEAN PLT VOLUME 8.9 fl (7.5-11.1); MONO % 6.7 % (3.8-10.2); NEUT % 73.9 % (42.8-82.8); PLATELET COUNT 221 K/MM3 (134-434); RBC 4.13 M/mm3 (3.60-5.2); RDW 13.6 % (11.6-15.6); WHITE BLOOD COUNT 7.5 K/mm3 (4.0-10.0)
[2018-09-30 08:34] LABS: ALBUMIN 3.2 g/dl (3.4-5.0); ALK PHOS 184 U/L (45-117); ANION GAP 12 MMOL/L (8-16); BILIRUBIN,TOTAL 0.4 mg/dL (0.2-1); BLOOD UREA NITROGEN 8 mg/dL (7-18); CALCIUM 8.1 mg/dL (8.5-10.1); CHLORIDE 109 mmol/L (98-107); CO2 19 mmol/L (21-32); CREATININE 0.8 mg/dL (0.55-1.3); GLUCOSE,RANDOM 109 mg/dL (74-106); MAGNESIUM 1.9 mg/dL (1.8-2.4); POTASSIUM 4.6 mmol/L (3.5-5.1); SGOT/AST 23 U/L (15-37); SGPT/ALT 31 U/L (13-61); SODIUM 141 mmol/L (136-145); TOT PROT 7.1 g/dl (6.4-8.2)
--- NOTE | 2018-09-30 09:35 | PN ---
Progress Note, Physician - Current Medication List Current Medications: Active Medications Enoxaparin Sodium (Lovenox -) 30 mg SQ DAILY [facility] Last Admin: 09/29/18 09:39 Dose: 30 mg Insulin Aspart (Novolog Vial Sliding Scale -) 1 vial SQ ACHS [facility]; Protocol Last Admin: 09/30/18 06:39 Dose: Not Given Insulin Detemir (Levemir Vial) 8 units SQ HS [facility] Last Admin: 09/29/18 21:35 Dose: 8 units Levetiracetam (Keppra Injection -) 500 mg IVPB BID [facility] Last Admin: 09/29/18 21:35 Dose: 500 mg - Objective Vital Signs: Vital Signs Temperature 97.9 F 09/30/18 06:00 Pulse Rate 80 09/30/18 06:00 Respiratory Rate 16 09/30/18 06:00 Blood Pressure 120/60 09/30/18 06:00 O2 Sat by Pulse Oximetry (%) 97 09/29/18 21:00 Constitutional: Yes: Calm, Thin Cardiovascular: Yes: Regular Rate and Rhythm, S1, S2 Respiratory: Yes: CTA Bilaterally Gastrointestinal: Yes: Normal Bowel Sounds, Soft Edema: No Labs: CBC, BMP 09/30/18 06:00 09/30/18 06:00 INR, PTT INR 1.11 (0.83-1.09) H 09/28/18 05:30 Problem List - Problems (1) Hyperglycemia due to type 2 diabetes mellitus Assessment/Plan: endocrine eval pending uncontrolled Dm hgba1c 12.1 levemir 8 units- will uptitrate change liquid to soft diet dietary eval sliding scale Qualifiers: Diabetes mellitus oil heaterman insulin use: with fdc use Qualified Code( s): E11.65 - Type 2 diabetes mellitus with hyperglycemia; Z79.4 - retirement ( current) use of insulin (2) Seizure Assessment/Plan: neurology outpatient FU keppra bid for 3-6 months Code(s): R56.9 - UNSPECIFIED CONVULSIONS (3) Lactic acidosis Assessment/Plan: improved dc ivf Code(s): E87.2 - ACIDOSIS (4) Alkaline phosphatase elevation Assessment/Plan: trending down liver sono probable diffuse fatty infiltration of liver s/p cholecystectomy with no bilary duct dilatation Code(s): R74.8 - ABNORMAL LEVELS OF OTHER SERUM ENZYMES (5) Hyponatremia Assessment/Plan: improved Code(s): E87.1 - HYPO-OSMOLALITY AND HYPONATREMIA (6) Electrolyte abnormality Assessment/Plan: hypomagnesemia- repleted calcium improved Code(s): E87.8 - OTH DISORDERS OF ELECTROLYTE AND FLUID BALANCE, NEC Assessment/Plan PT eval OOB to chair dc coelho awaiting snf placement
[2018-09-30] MEDS: ENOXAPARIN NA (PORCINE) 30 MG/0.3 ML DISP.SYRIN SQ SCH (09:38)
[2018-09-30] MEDS: levETIRAcetam 500 MG/5 ML INJECTION VIAL IVPB SCH (09:38)
[2018-09-30 10:16] VITALS: BP 120/57; PULSE 72; TEMP 98.1
--- NOTE | 2018-09-30 12:45 | DS ---
Physical Examination Vital Signs: Vital Signs Temperature 98.1 F 09/30/18 10:00 Pulse Rate 72 09/30/18 10:00 Respiratory Rate 18 09/30/18 10:00 Blood Pressure 120/57 L 09/30/18 10:00 O2 Sat by Pulse Oximetry (%) 97 09/29/18 21:00 Constitutional: Yes: Calm, Thin Cardiovascular: Yes: Regular Rate and Rhythm, S1, S2 Respiratory: Yes: CTA Bilaterally Gastrointestinal: Yes: Normal Bowel Sounds, Soft Edema: No Neurological: Yes: Alert, Oriented Labs: CBC, BMP 09/30/18 06:00 09/30/18 06:00 Discharge Summary Reason For Visit: TYPE II DIABE MELLITIS W\HYPERGLYCEMIA Current Active Problems HILLARY (acute kidney injury) (Acute) Electrolyte abnormality (Acute) Hyperglycemia due to type 2 diabetes mellitus (Acute) Hyperosmolar non-ketotic state in patient with type 2 diabetes mellitus (Acute) Lactic acidosis (Acute) Seizure (Acute) Hospital Course: CHIEF COMPLAINT: Seizure PCP: Dr. Corazon Mccain HISTORY OF PRESENT ILLNESS: 83 year old female with a PMH significant for Pancreatic Ca (s/p resection), DM , HTN, Depression, dementia was brought to the ED after she had two seizures at home. The first episode lasted a few minutes, the second episode happened when EMS arrived and lasted about a minute. Patient's family reports her overall health has been declining over the past 3 months; more fatigued, decreased appetite with weight loss. She was diagnosed with DM approximately 5 years ago. She used to be on metformin but it was stopped by the PCP approximately 1 year ago. Daughter in law reports she checked patient's sugar about 3 months ago and it was in the 300s, but she did not follow up with the PCP. Patient has not had any seizures in the past, no reports of chest pain, shortness of breath, GI discomfort, or syncope. Upon admission to the ED patient was was tachycardic (120s) otherwise VSS. She was witnessed having another seizure with generalized shaking and incontinence. She was given 2 mg of Ativan IVP to good effect. Labs notable for glucose of 818 , Anion gap 21, Lactic acid 14.0, troponin and tox screen negative. Patient was given 4 L of fluid, a loading dose of Keppra 1,000 mg and started on an insulin drip. Glucose decreased to 402 and anion gap closed (13), K 5.1 -> 4.2 ECG with sinus tachycardia, peaked T-waves in lateral leads. CT of the head was negative. CXR unremarkable for acute pathology. Patient accepted for admission to the ICU. insulin drip iv fluids Hyperosmolar hypergylcemic non ketotic state improved hyponatremia improved seizure on keppra bid neurology saw patient liver sono done for fatty infiltration and s/p cholcystectomy with no bilary duct dilatation Condition: Critical - Instructions Referrals: Corazon Mccain MD [Primary Care Provider] - [facility]position: [facility] - Home Medications Comprehensive Discharge Medication List: Ambulatory Orders Amlodipine Besylate/Benazepril [Lotrel 5-10 mg Capsule] 1 each PO DAILY Mirtazapine [Remeron -] 15 mg PO DAILY #30 tablet 10/22/17 Acetaminophen 325 mg PO QID PRN 09/27/18 Ferrous Sulfate 325 mg PO DAILY 09/27/18 Megestrol Acetate [Megace -] 20 mg PO DAILY 09/27/18 Pantoprazole Sodium [Protonix -] 20 mg PO DAILY 09/27/18
[2018-09-30] MEDS ORDERED: INSULIN (NOVOLOG) ASPART 100 UNITS/ML 10ML VIAL ONE (14:52)
[2018-09-30] MEDS ORDERED: levETIRAcetam 500 MG TABLET (FP) PO SCH (22:00)
[2018-10-01] MEDS ORDERED: sitaGLIPtin PHOSPHATE 50 MG TABLET PO SCH (07:00)
[2018-10-01 08:06] LABS: SERUM IRON SATURATION 14 % (15-55); TOTAL IRON BINDING CAPACITY 304 ug/dL (250-450); UIBC 260 ug/dL (118-369)
== END 2018-09-30 15:12 | disposition home health service (06) | DRG 637 ==
LOC: JER 15:03 → JERBED 16:45 → JICU 22:12 → J5S 09-28 20:45
PROVIDERS: ADMIT Internal Medicine; ATTEND Family Medicine
DX: E11.65 Type 2 diabetes mellitus with hyperglycemia (principal); G93.41 Metabolic encephalopathy; N17.9 Acute kidney failure, unspecified; E87.2 Acidosis; R64 Cachexia; Z68.1 Body mass index [BMI] 19.9 or less, adult; I10 Essential (primary) hypertension; K29.60 Other gastritis without bleeding; F32.9 Major depressive disorder, single episode, unspecified; D64.9 Anemia, unspecified; Z85.07 Personal history of malignant neoplasm of pancreas; G30.9 Alzheimer's disease, unspecified; F02.80 Dementia in other diseases classified elsewhere, unspecified severity, without behavioral disturbance, psychotic disturbance, mood disturbance, and anxiety; G35 Multiple sclerosis; G20 Parkinson's disease; Z86.73 Personal history of transient ischemic attack (TIA), and cerebral infarction without residual deficits; E78.5 Hyperlipidemia, unspecified; M54.9 Dorsalgia, unspecified; R56.9 Unspecified convulsions; E11.40 Type 2 diabetes mellitus with diabetic neuropathy, unspecified; R74.8 Abnormal levels of other serum enzymes; E87.8 Other disorders of electrolyte and fluid balance, not elsewhere classified; E83.42 Hypomagnesemia
CPT/HCPCS: 36415; 36600; 70450-TC; 71045-TC-FY; 76705-TC; 80048; 80053; 80061; 80307; 81003; 82009; 82150; 82375; 82607; 82728; 82746; 82803; 82962; 83036; 83050; 83540; 83550; 83605; 83690; 83721; 83735; 83930; 84100; 84443; 84484; 85025; 85027; 85610; 85730; 87040; 87086; 93005; 93010; 97116-GP; 97161-GP; 99285-25; J0131; J7030

== ENCOUNTER 2019-04-17 16:06 | Inpatient (IN) | payer OTHER ==
--- NOTE | 2019-04-17 16:14 | PDOC ---
Rapid Medical Evaluation Time Seen by Provider: 04/17/19 16:12 Medical Evaluation: Allergies Allergy/AdvReac Type Severity Reaction Status Date / Time No Known Drug Allergies Allergy Verified 09/27/18 15:17 04/17/19 16:13 I have performed a brief in-person evaluation of this patient. The patient presents with a chief complaint of: weakness and dizzy x2 weeks Pertinent physical exam findings: Lungs CTAB, RRR. No m/r/g. I have ordered the following: cardiac w/u The patient will proceed to the ED for further evaluation. Discharge Disposition - Diagnosis Weakness - Referrals - Patient Instructions - Post Discharge Activity
[2019-04-17 16:16] VITALS: BMI 18.9
--- NOTE | 2019-04-17 16:57 | PDOC ---
History of Present Illness - General Stated Complaint: DIZZINESS Time Seen by Provider: 04/17/19 16:12 History Source: Patient Exam Limitations: No Limitations - History of Present Illness Initial Comments: 04/17/19 16:56 83 year old woman with a PMH significant for Pancreatic Ca (s/p resection), DM, HTN, Depression, dementia with recent new onset seizures (09/2018) who presents with 1 week of dizziness, generalized headache, mid abdominal cramping, nausea and decreased appetite since she returned from a trip to [place]. The patient reports that her headache and dizziness improve with lying back and resting. She denies that her abdominal pain is related to eating food and notes that it does improve with tylenol. Daughter reports that she brought her to the ED today because she suddenly cried out that she was in pain from another room, but she was unable to pinpoint what was causing her pain. She denies any fevers, chest pain, shortness of breath, dysuria, hematuria, diarrhea, or constipation. She last took Tylenol yesterday. Vending Machine Refiller: [id number] Past History - Past Medical History Allergies/Adverse Reactions: Allergies Allergy/AdvReac Type Severity Reaction Status Date / Time No Known Drug Allergies Allergy Verified 09/27/18 15:17 Home Medications: Ambulatory Orders Mirtazapine [Remeron -] 15 mg PO DAILY #30 tablet 10/22/17 Acetaminophen 325 mg PO QID PRN 09/27/18 Ferrous Sulfate 325 mg PO DAILY 09/27/18 Megestrol Acetate [Megace -] 20 mg PO DAILY 09/27/18 Pantoprazole Sodium [Protonix -] 20 mg PO DAILY 09/27/18 Amlodipine Besylate [Norvasc -] 5 mg PO DAILY #30 tablet 09/30/18 Insulin (Levemir) [Levemir Vial] 8 units SQ HS #100 units MDD 8 09/30/18 Sitagliptin Phosphate [Januvia] 50 mg PO DAILY #30 tablet MDD 1 09/30/18 levETIRAcetam [Keppra -] 500 mg PO BID #30 tablet MDD 2 09/30/18 Aspirin [ASA -] 81 mg PO DAILY 04/17/19 Calcium 250Mg/Vit-D 125 Units [Oscal 250 mg+D -] 1 combo PO DAILY 04/17/19 Cholecalciferol (Vitamin D3) [Vitamin D-400] 400 unit PO DAILY 04/17/19 Ranolazine [Ranolazine ER] 500 mg PO BID 04/17/19 Anemia: Yes Cancer: Yes (PANCREATIC, s/p whipple sx 10 yrs ago) COPD: No DVT: No Diabetes: Yes HTN: Yes Psychiatric Problems: Yes (DEPRESSION.) - Surgical History Abdominal Surgery: Yes (WHIPPLE, PANCREATIC CA) Cholecystectomy: Yes - Suicide/Smoking/Psychosocial Hx Smoking Status: No Smoking History: Never smoked Have you smoked in the past 12 months: No Number of Cigarettes Smoked Daily: 0 Hx Alcohol Use: No Drug/Substance Use Hx: No Substance Use Type: None Hx Substance Use Treatment: No Review of Systems - Review of Systems Able to Perform ROS?: Yes Comments:: 04/17/19 17:58 GENERAL/CONSTITUTIONAL: No fever or chills. No weakness. HEAD, EYES, EARS, NOSE AND THROAT: No change in vision. No ear pain or discharge. No sore throat. CARDIOVASCULAR: No chest pain or shortness of breath RESPIRATORY: No cough, wheezing, or hemoptysis. GASTROINTESTINAL: + nausea, No vomiting, diarrhea or constipation. GENITOURINARY: No dysuria, frequency, or change in urination. MUSCULOSKELETAL: No joint or muscle swelling or pain. No neck or back pain. SKIN: No rash NEUROLOGIC: + headache, No vertigo, loss of consciousness, or change in strength /sensation. ENDOCRINE: No increased thirst. No abnormal weight change HEMATOLOGIC/LYMPHATIC: No anemia, easy bleeding, or history of blood clots. ALLERGIC/IMMUNOLOGIC: No hives or skin allergy. Is the patient limited Kenyan proficient: No *Physical Exam - Vital Signs Last Vital Signs Temp Pulse Resp BP Pulse Ox 98.9 F 99 H 18 125/79 99 04/17/19 16:13 04/17/19 16:13 04/17/19 16:13 04/17/19 16:13 04/17/19 16:13 - Physical Exam Comments: 04/17/19 17:59 GENERAL: Awake, alert, and fully oriented, in no acute distress HEAD: No signs of trauma, normocephalic, atraumatic EYES: PERRLA, EOMI, sclera anicteric, conjunctiva clear ENT: oropharynx clear without exudates. Moist mucosa NECK: Normal ROM, supple, LUNGS: No distress, speaks full sentences, clear to auscultation bilaterally HEART: Regular rate and rhythm, normal S1 and S2, no murmurs, rubs or gallops, peripheral pulses normal and equal bilaterally. ABDOMEN: Soft, nontender, normoactive bowel sounds. No guarding, no rebound. No masses EXTREMITIES : Normal inspection, Normal range of motion, no edema. No clubbing or cyanosis. NEUROLOGICAL: Cranial nerves II through XII grossly intact. Normal speech, normal gait, no focal sensorimotor deficits SKIN: Warm, Dry, normal turgor, no rashes or lesions noted ED Treatment Course - LABORATORY CBC & Chemistry Diagram: 04/17/19 16:54 04/17/19 16:54 Medical Decision Making - Medical Decision Making 04/17/19 17:53 83 year old woman with a PMH significant for Pancreatic Ca (s/p resection), DM, HTN, Depression, dementia with recent new onset seizures (09/2018) who presents with 1 week of generalized headache, dizziness, mid abdominal cramping, nausea and decreased appetite since she returned from [place]. The patient reports that her headache and dizziness improve with lying back and resting. She denies that her abdominal pain is related to eating food and notes that it does improve with tylenol. Daughter reports that she brought her to the ED today because she suddenly cried out that she was in pain from another room, but she was unable to pinpoint what was causing her pain. ED Course: r/o acs vs arrythmia vs infectious vs hypo/hyperthyroid r/o malignancy consider PE with recent travel history cbc, cmp, ekg, cxr, ua tsh ivf, reglan, tylenol 04/17/19 18:41 potassium 5.5 calcium gluconate kexylate dosed 04/17/19 18:58 CXR: without acute pathology, without new changes as read by this grant writer and attending. EKG: normal sinus rhythm HR 98, no interval abnormalities, narrow QRS, ST and T wave segments and morphology normal. 04/17/19 19:39 ua: wnl head ct and CT AP ordered to evaluate 04/17/19 21:[address]: no acute pathology 04/17/19 21:54 CT: no acute pathology D-dimer added to r.o PE as patient with recent travel history tachycardia and dizziness ns given 04/17/19 23:31 ddimer elevated duplex study pending if negative iwll update pcp and have f/u opt 04/17/19 23:32 repeat vitals HR 63, afebrile, bp reassuring vitals 04/17/19 23:53 Duplex unable to be performed overnight plan to be performed in AM will admit for obs *DC/Admit/Observation/Transfer Diagnosis at time of Disposition: Weakness - Discharge Dispostion Disposition: HOME Condition at time of disposition: Fair Decision to Admit order: Yes - Referrals Referrals: Corazon Mccain MD [Primary Care Provider] - - Patient Instructions Printed Discharge Instructions: DI for Fatigue Additional Instructions: You were seen in the ED for complaints if headache, dizziness, fatigue. In the ED you were evaluated with labwork and imaging. Your results were unremarkable. There does not appear to be an acute need for immediate hospitalization. You are advised to follow up with your Primary Care Physician within 1 week. Return to the ED immediately if you experience - Post Discharge Activity
[2019-04-17 17:04] LABS: BASO % 0.3 % (0-2.0); EOS % 0.7 % (0-4.5); HEMATOCRIT 36.5 % (32.4-45.2); HEMOGLOBIN 11.7 GM/dL (10.7-15.3); LYMPH % 8.8 % (8-40); MCH 29.4 pg (25.7-33.7); MCHC 32.1 g/dl (32.0-36.0); MEAN CELL VOLUME 91.6 fl (80-96); MEAN PLT VOLUME 7.3 fl (7.5-11.1); MONO % 8.3 % (3.8-10.2); NEUT % 81.9 % (42.8-82.8); PLATELET COUNT 254 K/MM3 (134-434); RBC 3.99 M/mm3 (3.60-5.2); RDW 14.8 % (11.6-15.6); WHITE BLOOD COUNT 12.1 K/mm3 (4.0-10.0)
[2019-04-17 17:28] LABS: ALBUMIN 3.6 g/dl (3.4-5.0); ALK PHOS 169 U/L (45-117); ANION GAP 7 MMOL/L (8-16); BILIRUBIN,TOTAL 0.4 mg/dL (0.2-1); BLOOD UREA NITROGEN 21 mg/dL (7-18); CALCIUM 8.6 mg/dL (8.5-10.1); CHLORIDE 107 mmol/L (98-107); CO2 20 mmol/L (21-32); GLUCOSE,RANDOM 137 mg/dL (74-106); MAGNESIUM 2.3 mg/dL (1.8-2.4); POTASSIUM 5.5 mmol/L (3.5-5.1); SGOT/AST 27 U/L (15-37); SGPT/ALT 26 U/L (13-61); SODIUM 135 mmol/L (136-145); TOT PROT 7.5 g/dl (6.4-8.2)
[2019-04-17] MEDS ORDERED: METOCLOPRAMIDE HCL INJECTION 10 MG/2 ML VIAL IVPUSH ONE (17:40)
[2019-04-17] MEDS ORDERED: METOCLOPRAMIDE HCL INJECTION 10 MG/2 ML VIAL ONE (17:57)
[2019-04-17] MEDS ORDERED: SODIUM CHLORIDE 1,000 ML IV SCH (18:00)
[2019-04-17] MEDS ORDERED: CALCIUM GLUCONATE 10% - 1,000 MG/10 ML VIAL IVPUSH ONE (18:02)
[2019-04-17] MEDS ORDERED: ACETAMINOPHEN 1000 MG/100 ML VIAL (NON FORMULARY) IVPB ONE (18:09)
[2019-04-17] MEDS ORDERED: SODIUM POLYSTYRENE SULFONATE 15 GM/60 ML BOTTLE PO ONE ×2 (18:10→18:30)
[2019-04-17 18:16] LABS: INR 0.99 (0.83-1.09); PROTHROMBIN TIME (PATIENT) 11.7 SEC (9.7-13.0)
[2019-04-17 18:21] LABS: LIPASE 21 U/L (73-393)
[2019-04-17] MEDS ORDERED: ACETAMINOPHEN INJECTION 100 ML IVPB ONE (18:30)
[2019-04-17] MEDS ORDERED: CALCIUM GLUCONATE 10% - 1,000 MG/10 ML VIAL ONE (18:30)
[2019-04-17] MEDS ORDERED: SODIUM POLYSTYRENE SULFONATE 15 GM/60 ML BOTTLE ONE (18:30)
[2019-04-17 19:04] LABS: EPI CELLS 0.5 /HPF (0-5/HPF); HYALINE CASTS 0 /lpf (0-8); URINE APPEARANCE CLEAR; URINE BACTERIA 8.8 /hpf (NEGATIVE); URINE BILIRUBIN NEGATIVE (NEGATIVE); URINE COLOR YELLOW; URINE GLUCOSE (UA) NEGATIVE (NEGATIVE); URINE KETONE NEGATIVE (NEGATIVE); URINE LEUK ESTERASE TRACE (NEGATIVE); URINE NITRITE NEGATIVE (NEGATIVE); URINE PROTEIN NEGATIVE (NEGATIVE); URINE RBC 2 /hpf (0-4); URINE UROBILINOGEN 0.2 mg/dL (0.2-1.0); URINE WBC 2 /hpf (0-5)
[2019-04-17] MEDS: SODIUM CHLORIDE 1,000 ML IV SCH (22:11)
--- NOTE | 2019-04-18 00:28 | HP ---
Admitting History and Physical - Primary Care Physician PCP: Corazon Mccain - Admission Chief Complaint: Abdominal Pain, Back Pain, Headache, Generalized Weakness History of Present Illness: This is a 83 y/o woman with PMHx of HTN, HLD, DM, Pancreatic Ca ( s/p Whipple, 10 yrs ago), OA, Depression, Diverticulitis. Who presents to the ED with her daughter for abdominal cramping, back pain, headache, dizziness, generalized malaise, decreased appetite x 1 week, since a recent trip to [place]. The patient is Kiswahili speaking and her daughter who was at bedside, provided HPI. The daughter reports that the patient cried out in pain but could not pinpoint the location of her pain. The daughter discussed her concerns regarding her mother loss of appetite and weakness. The daughter reports that her and her sibling's provide assistance to the patient. The daughter denies patient having fever, chills, cough, SOB, CP, palpitations, numbness, N/V/D, leg pain, dysuria. 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 Cardiovascular: Yes: HTN, Hyperlipdemia Gastrointestinal: Yes: Constipation, Diverticulosis, Gastritis Heme/Onc: Yes: Cancer (PANCREATIC) Musculoskeletal: Yes: Chronic low back pain, Osteoarthritis, Other (SEE CT SCAN 2015) Endocrine: Yes: Diabetes Mellitus - Past Surgical History Past Surgical History: Yes: Colonoscopy, Hysterectomy Additional Past Surgical History: Whipple - Smoking History Smoking history: Never smoked Have you smoked in the past 12 months: No Aproximately how many cigarettes per day: 0 - Alcohol/Substance Use Hx Alcohol Use: No History of Substance Use: reports: None - Social History Usual Living Arrangement: Yes: With Child ADL: Family Assistance History of Recent Travel: Yes ([place]) Home Medications - Allergies Allergies/Adverse Reactions: Allergies Allergy/AdvReac Type Severity Reaction Status Date / Time No Known Drug Allergies Allergy Verified 09/27/18 15:17 - Home Medications Home Medications: Ambulatory Orders Mirtazapine [Remeron -] 15 mg PO DAILY #30 tablet 10/22/17 Acetaminophen 325 mg PO QID PRN 09/27/18 Ferrous Sulfate 325 mg PO DAILY 09/27/18 Megestrol Acetate [Megace -] 20 mg PO DAILY 09/27/18 Pantoprazole Sodium [Protonix -] 20 mg PO DAILY 09/27/18 Amlodipine Besylate [Norvasc -] 5 mg PO DAILY #30 tablet 09/30/18 Insulin (Levemir) [Levemir Vial] 8 units SQ HS #100 units MDD 8 09/30/18 Sitagliptin Phosphate [Januvia] 50 mg PO DAILY #30 tablet MDD 1 09/30/18 levETIRAcetam [Keppra -] 500 mg PO BID #30 tablet MDD 2 09/30/18 Aspirin [ASA -] 81 mg PO DAILY 04/17/19 Calcium 250Mg/Vit-D 125 Units [Oscal 250 mg+D -] 1 combo PO DAILY 04/17/19 Cholecalciferol (Vitamin D3) [Vitamin D-400] 400 unit PO DAILY 04/17/19 Ranolazine [Ranolazine ER] 500 mg PO BID 04/17/19 Family Disease History - Family Disease History Family Disease History: CA: Brother (type unknown) Review of Systems Unable to obtain ROS, reason: Clinical Condition Physical Examination Vital Signs: Vital Signs Temperature 98.9 F 04/17/19 16:13 Pulse Rate 99 H 04/17/19 16:13 Respiratory Rate 18 04/17/19 16:13 Blood Pressure 125/79 04/17/19 16:13 O2 Sat by Pulse Oximetry (%) 99 04/17/19 16:13 Constitutional: Yes: No Distress, Calm, Thin Eyes: Yes: Conjunctiva Clear, PERRL HENT: Yes: WNL, Atraumatic, Normocephalic, Other (Mucousa Dry) Neck: Yes: WNL, Supple, Trachea Midline Cardiovascular: Yes: WNL, Regular Rate and Rhythm, S1, S2 Respiratory: Yes: WNL, Regular, CTA Bilaterally Gastrointestinal: Yes: Normal Bowel Sounds, Soft Renal/: Yes: Incontinence Breast(s): Yes: WNL Musculoskeletal: Yes: Back Pain Edema: No Peripheral Pulses WNL: Yes Neurological: Yes: Confusion, Cran Nerves II-XII Intact ...Motor Strength: WNL Labs: CBC, BMP 04/17/19 16:54 04/17/19 16:54 Laboratory Results - last 24 hr 04/17/19 04/17/19 04/17/19 16:54 16:54 16:54 WBC 12.1 H RBC 3.99 Hgb 11.7 Hct 36.5 MCV 91.6 MCH 29.4 MCHC 32.1 RDW 14.8 Plt Count 254 MPV 7.3 L D Absolute Neuts (auto) 9.9 H Neutrophils % 81.9 Lymphocytes % 8.8 D Monocytes % 8.3 Eosinophils % 0.7 Basophils % 0.3 Nucleated RBC % 0 PT with INR 11.70 INR 0.99 D-Dimer Sodium 135 L Potassium 5.5 H Chloride 107 Carbon Dioxide 20 L Anion Gap 7 L BUN 21 H Creatinine 1.0 Est GFR (CKD-EPI)AfAm 60.33 Est GFR (CKD-EPI)NonAf 52.06 POC Glucometer Random Glucose 137 H Calcium 8.6 Magnesium 2.3 Total Bilirubin 0.4 AST 27 ALT 26 Alkaline Phosphatase 169 H Creatine Kinase 54 Troponin I < 0.02 Total Protein 7.5 Albumin 3.6 Lipase 21 L TSH 0.80 Urine Color Urine Appearance Urine pH Ur Specific Golf Urine Protein Urine Glucose (UA) Urine Ketones Urine Blood Urine Nitrite Urine Bilirubin Urine Urobilinogen Ur Leukocyte Esterase Urine WBC (Auto) Urine RBC (Auto) Urine Casts (Auto) U Epithel Cells (Auto) Urine Bacteria (Auto) 04/17/19 04/17/19 04/17/19 17:11 18:52 19:30 WBC RBC Hgb Hct MCV MCH MCHC RDW Plt Count MPV Absolute Neuts (auto) Neutrophils % Lymphocytes % Monocytes % Eosinophils % Basophils % Nucleated RBC % PT with INR INR D-Dimer Sodium Potassium Chloride Carbon Dioxide Anion Gap BUN Creatinine Est GFR (CKD-EPI)AfAm Est GFR (CKD-EPI)NonAf POC Glucometer 137 Random Glucose Calcium Magnesium Total Bilirubin AST ALT Alkaline Phosphatase Creatine Kinase Troponin I Total Protein Albumin Lipase Cancelled TSH Urine Color Yellow Urine Appearance Clear Urine pH 5.0 Ur Specific Golf 1.010 Urine Protein Negative Urine Glucose (UA) Negative Urine Ketones Negative Urine Blood Trace Urine Nitrite Negative Urine Bilirubin Negative Urine Urobilinogen 0.2 Ur Leukocyte Esterase Trace Urine WBC (Auto) 2 Urine RBC (Auto) 2 Urine Casts (Auto) 0 U Epithel Cells (Auto) 0.5 Urine Bacteria (Auto) 8.8 04/17/19 04/17/19 04/18/19 19:30 21:58 01:15 WBC RBC Hgb Hct MCV MCH MCHC RDW Plt Count MPV Absolute Neuts (auto) Neutrophils % Lymphocytes % Monocytes % Eosinophils % Basophils % Nucleated RBC % PT with INR INR D-Dimer 1301 H Sodium 139 Potassium 4.5 Chloride 114 H Carbon Dioxide 19 L Anion Gap 6 L BUN 16 Creatinine 0.9 Est GFR (CKD-EPI)AfAm 68.53 Est GFR (CKD-EPI)NonAf 59.13 POC Glucometer Random Glucose 120 H Calcium 7.9 L Magnesium Total Bilirubin AST ALT Alkaline Phosphatase Creatine Kinase Troponin I Total Protein Albumin Lipase TSH Cancelled Urine Color Urine Appearance Urine pH Ur Specific Golf Urine Protein Urine Glucose (UA) Urine Ketones Urine Blood Urine Nitrite Urine Bilirubin Urine Urobilinogen Ur Leukocyte Esterase Urine WBC (Auto) Urine RBC (Auto) Urine Casts (Auto) U Epithel Cells (Auto) Urine Bacteria (Auto) Intake & Output 04/15/19 04/16/19 04/17/19 04/18/19 23:59 23:59 23:59 23:59 Weight 43.998 kg Imaging - Results Chest X-ray: Image Reviewed Cat Scan: Report Reviewed, Image Reviewed EKG: Image Reviewed Problem List - Problems (1) Abdominal pain Assessment/Plan: Likely secondary to Gastritis vs SBO CTAP report- no free air, mild pneumobilia, Whipple's procedure, gallbladder surgically, the colon is mildly distended with stool and air, no SBO. Appreciate GI consult Monitor CBC, BMP Monitor vitals Code(s): R10.9 - UNSPECIFIED ABDOMINAL PAIN (2) Back pain Assessment/Plan: r/o Malignancy vs Fx vs PE Wells Score 3 CTA to be done in 24hrs secondary to CTAP Consider VQ scan Lovenox given in ED, will continue Continue neurovascular checks Monitor vitals Code(s): M54.9 - DORSALGIA, UNSPECIFIED (3) Weakness Assessment/Plan: Likely secondary to Dehydration BUN 21 Albumin- nl Gentle IVF Monitor vitals Monitor CBC, BMP RD consult Code(s): R53.1 - WEAKNESS (4) Elevated d-dimer Assessment/Plan: r/o PE Hx Pancreatic Ca Wells Score 3 CTA needed r/o PE held for 24hrs secondary to CTAP Consider VQ Scan Lovenox given in ED, will continue Appreciate Pulmonology consult Monitor vitals Monitor CBC closely Continue cardiac monitoring O2 Code(s): R79.89 - OTHER SPECIFIED ABNORMAL FINDINGS OF BLOOD CHEMISTRY (5) Hyperkalemia Assessment/Plan: Hyperkalemia Protocol- given in ED Repeat K 4.5 Monitor BMP EKG reviewed- no peaked Ts Continue cardiac monitoring Code(s): E87.5 - HYPERKALEMIA (6) Diabetes Assessment/Plan: stable BGMs ISS Code(s): E11.9 - TYPE 2 DIABETES MELLITUS WITHOUT COMPLICATIONS Qualifiers: Diabetes mellitus type: type 2 Diabetes mellitus termite helper insulin use: without custodial use Diabetes mellitus complication status: with hyperglycemia Qualified Code(s): E11.65 - Type 2 diabetes mellitus with hyperglycemia (7) HTN (hypertension) Assessment/Plan: stable Monitor BP Continue home meds Code(s): I10 - ESSENTIAL (PRIMARY) HYPERTENSION (8) H/O pancreatic cancer Assessment/Plan: s/p Whipple Code(s): Z85.07 - PERSONAL HISTORY OF MALIGNANT NEOPLASM OF PANCREAS Assessment/Plan This is a 83 y/o woman placed in Telemetry Observation for Intractable Abdominal Pain, Back Pain, Hyperkalemia, Elevated D Dimer r/o PE for further evaluation of their emergent condition. Plan: See Problem List FEN D51/2nS@42ml/hr Replete lytes prn DVT ppx OOB SCDs Lovenox SQ Dispo: Observation Visit type - Emergency Visit Emergency Visit: Yes ED Registration Date: 04/17/19 Care time: The patient presented to the Emergency Department on the above date and was hospitalized for further evaluation of their emergent condition. - New Patient This patient is new to me today: Yes Date on this admission: 04/18/19 - Critical Care Critical Care patient: No
[2019-04-18] MEDS ORDERED: ENOXAPARIN NA (PORCINE) 40 MG/0.4 ML DISP.SYRIN SQ ONE ×3 (00:29→13:57)
--- NOTE | 2019-04-18 00:56 | PDOC ---
Documentation entered by Walter Franklin SCRIBE, acting as scribe for Violette Peck MD. Violette Peck MD: This documentation has been prepared by the Noemi ayoub Matthew, SCRIBE, under my direction and personally reviewed by me in its entirety. I confirm that the documentation accurately reflects all work, treatment, procedures, and medical decision making performed by me. Attending Attestation - Resident Resident Name: Gloria Santana - ED Attending Attestation I have performed the following: I have examined & evaluated the patient, The case was reviewed & discussed with the resident, I agree w/resident's findings & plan, Exceptions are as noted - HPI HPI: 04/17/19 18:29 Patient is an 83 year old female with a significant past medical history of Pancreatic Ca (s/p resection), DM, HTN, Depression, dementia, who presents to the ED with complaints of general weakness that began x1 week ago. Patient reports experiencing increased generalized weakness as well as associated symptoms of head pain, lower back pain, with slight nausea and mid abdominal pain. She report being with her daughter when she began to experience sudden surge of abdominal pain that she states was a cramping, Stabbing pain prompting her to come into the ED for further evaluation. Denies chest pain, sob. Martin nausea, vomiting. Denies contact with sick individuals, out of state travelling. Denies dysuria, hematuria. Denies dysuria , hematuria. Denies any other symptoms. Allergies: NKDA Social history: No smoking. No alcohol. No illicit drugs. Surgical history: Whipple 2005 PMD: Dr. Mccain - Physicial Exam PE: 04/17/19 19:22 GENERAL:+slender Well developed, well nourished. Awake and alert. In no acute distress. HEENT: Normocephalic, atraumatic. PERRLA, EOMI. No conjunctival pallor. Sclerae are non -icteric. Moist mucous membranes. Oropharynx is clear. NECK: Supple. Full ROM. No JVD. Carotid pulses 2+ and symmetric, without bruits. No thyromegaly. No lymphadenopathy. CARDIOVASCULAR: Regular rate and rhythm. No murmurs, rubs, or gallops. Distal pulses are 2+ and symmetric. PULMONARY: No evidence of respiratory distress. Lungs clear to auscultation bilaterally. No wheezing, rales or rhonchi. ABDOMINAL:+Epigastric tenderness Soft. Non-distended. No rebound or guarding. No organomegaly. Normoactive bowel sounds. MUSCULOSKELETAL Normal range of motion at all joints. No bony deformities or tenderness. No CVA tenderness. EXTREMITIES: No cyanosis. No clubbing. No edema. No calf tenderness. SKIN: Warm and dry. Normal capillary refill. No rashes. No jaundice. NEUROLOGICAL: Alert, awake, appropriate. Cranial nerves 2-12 intact. No deficits to light touch and temperature in face, upper extremities and lower extremities. No motor deficits in the in face, upper extremities and lower extremities. Normoreflexic in the upper and lower extremities. Normal speech. Toes are downgoing bilaterally. Gait is normal without ataxia. PSYCHIATRIC: Cooperative. Good eye contact. Appropriate mood and affect. - Medical Decision Making 04/17/19 19:00 83 yo female p/w complaint of headache with no history of chronic headaches and no recent trauma. She also has c/o weakness and low back pain -she also has some epigastric discomfort 04/17/19 20:10 Oral temperature was 99.8 cbc has sl leukocytosis 12,normal LFTs 04/17/19 22:28 ct scan head there isno acute intracranial pathology ct scan of abd/pel: no sbo,s/p hysterectomy,cholecystectomy,whipple procedure 04/17/19 23:47 elevated d dimer 04/18/19 00:49 unfortunately we cannot obtain CTA chest because she just had previous dye load tonight and due to the holiday we cannot now obtain duplex doppler of her legs( no explosive ordnance technician) we will OBS pt
[2019-04-18 01:57] LABS: CALCIUM 7.9 mg/dL (8.5-10.1); CREATININE 0.9 mg/dL (0.55-1.3); POTASSIUM 4.5 mmol/L (3.5-5.1)
[2019-04-18 06:51] LABS: BASO % 0.3 % (0-2.0); EOS % 4.4 % (0-4.5); HEMATOCRIT 31.5 % (32.4-45.2); HEMOGLOBIN 10.3 GM/dL (10.7-15.3); LYMPH % 21.3 % (8-40); MCH 29.8 pg (25.7-33.7); MCHC 32.8 g/dl (32.0-36.0); MEAN CELL VOLUME 90.9 fl (80-96); MEAN PLT VOLUME 7.3 fl (7.5-11.1); MONO % 8.5 % (3.8-10.2); NEUT % 65.5 % (42.8-82.8); PLATELET COUNT 211 K/MM3 (134-434); RBC 3.47 M/mm3 (3.60-5.2); RDW 14.8 % (11.6-15.6)
[2019-04-18 07:02] LABS: INR 1.1 (0.83-1.09)
[2019-04-18 07:14] LABS: CALCIUM 7.8 mg/dL (8.5-10.1); CREATININE 0.8 mg/dL (0.55-1.3); PHOSPHOROUS 3.7 mg/dL (2.5-4.9); POTASSIUM 4.2 mmol/L (3.5-5.1)
[2019-04-18] MEDS: DEXTROSE 5%-0.45% SALINE 1,000 ML IV SCH (08:49)
[2019-04-18] MEDS: CALCIUM 250MG/VIT-D 125 UNITS 1 COMBO TABLET PO SCH (10:00)
[2019-04-18] MEDS: RANOLAZINE E.R. 500 MG TABLET (FP) PO SCH ×2 (10:00→21:23)
[2019-04-18] MEDS: PANTOPRAZOLE SODIUM 40 MG VIAL IVPUSH SCH (10:00)
[2019-04-18] MEDS: amLODIPine BESYLATE 5 MG TABLET (FP) PO SCH (10:00)
--- NOTE | 2019-04-18 11:30 | EKG ---
Test Reason : Blood Pressure : / mmHG Vent. Rate : 098 BPM Atrial Rate : 098 BPM P-R Int : 174 ms QRS Dur : 090 ms QT Int : 346 ms P-R-T Axes : 064 012 097 degrees QTc Int : 441 ms NORMAL SINUS RHYTHM ANTERIOR INFARCT (CITED ON OR BEFORE 17-APR-2019) ABNORMAL ECG WHEN COMPARED WITH ECG OF 27-SEP-2018 15:27, QRS DURATION HAS DECREASED SERIAL CHANGES OF ANTERIOR INFARCT PRESENT Confirmed by Raj Allen MD ([id number]) on 04/18/2019 11:29:45 AM Referred By: Confirmed By:Raj Allen MD
--- NOTE | 2019-04-18 11:39 | PN ---
Progress Note, Physician Chief Complaint: Abdominal Pain Back Pain Headache Generalized Weakness - Current Medication List Current Medications: Active Medications Amlodipine Besylate (Norvasc -) 5 mg PO DAILY [facility] Last Admin: 04/18/19 10:00 Dose: 5 mg Calcium/Vitamin D (Oscal 250 Mg+D -) 1 tab PO DAILY [facility] Last Admin: 04/18/19 10:00 Dose: 1 tab Enoxaparin Sodium (Lovenox -) 40 mg SQ BID [facility] Sodium Chloride (Normal Saline -) 1,000 mls @ 0 mls/hr IV ASDIR [facility] Last Admin: 04/17/19 22:11 Dose: 100 mls/hr Dextrose/Sodium Chloride (D5-1/2ns -) 1,000 mls @ 42 mls/hr IV ASDIR [facility] Last Admin: 04/18/19 08:49 Dose: 42 mls/hr Mirtazapine (Remeron -) 15 mg PO [facility] Pantoprazole Sodium (Protonix Iv) 40 mg IVPUSH DAILY [facility] Last Admin: 04/18/19 10:00 Dose: 40 mg Ranolazine (Ranexa -) 500 mg PO BID [facility] Last Admin: 04/18/19 10:00 Dose: 500 mg - Objective Vital Signs: Vital Signs Temperature 98.5 F 04/18/19 10:15 Pulse Rate 62 04/18/19 10:15 Respiratory Rate 16 04/18/19 10:15 Blood Pressure 122/78 04/18/19 10:15 O2 Sat by Pulse Oximetry (%) 99 04/18/19 10:15 Labs: CBC, BMP 04/18/19 06:20 04/18/19 06:20 INR, PTT INR 1.10 (0.83-1.09) H 04/18/19 06:20
[2019-04-18] MEDS: ENOXAPARIN NA (PORCINE) 40 MG/0.4 ML DISP.SYRIN SQ SCH ×2 (13:54→21:25)
--- NOTE | 2019-04-18 14:48 | CON.PULM ---
Consult Consult Specialty:: PULM/CCM Referred by:: EDILBERTO Reason for Consultation:: elevated D Dimer - History of Present Illness Chief Complaint: abdominal pain History of Present Illness: 83 F, HTN, HLD, DM, Pancreatic CA (s/p Whipple, 10 yrs ago), OA, Depression, and Diverticulitis. Admitted via the ER due to abdominal cramping, back pain, headache, dizziness, generalized malaise, and decreased appetite for about 1 week. Patient was apparently was recently in [place]. There is no specific history of fever, chills, cough, SOB, CP, palpitations, or leg pain. No apparent personal or family history of VTE. 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 Cardio/Vascular: Yes: HTN, Hyperlipdemia Gastrointestinal: Yes: Constipation, Diverticulosis, Gastritis Musculoskeletal: Yes: Chronic low back pain, Osteoarthritis, Other (SEE CT SCAN 2014) Endocrine: Yes: Diabetes Mellitus - Past Surgical History Past Surgical History: Yes: Colonoscopy, Hysterectomy - Alcohol/Substance Use Hx Alcohol Use: No History of Substance Use: reports: None - Smoking History Smoking history: Never smoked Have you smoked in the past 12 months: No Aproximately how many cigarettes per day: 0 - Social History Usual Living Arrangement: With Significant Other ADL: Family Assistance History of Recent Travel: Yes ([place]) Home Medications - Allergies Allergies/Adverse Reactions: Allergies Allergy/AdvReac Type Severity Reaction Status Date / Time No Known Drug Allergies Allergy Verified 09/27/18 15:17 - Home Medications Home Medications: Ambulatory Orders Mirtazapine [Remeron -] 15 mg PO DAILY #30 tablet 10/22/17 Acetaminophen 325 mg PO QID PRN 09/27/18 Ferrous Sulfate 325 mg PO DAILY 09/27/18 Megestrol Acetate [Megace -] 20 mg PO DAILY 09/27/18 Pantoprazole Sodium [Protonix -] 20 mg PO DAILY 09/27/18 Amlodipine Besylate [Norvasc -] 5 mg PO DAILY #30 tablet 09/30/18 Insulin (Levemir) [Levemir Vial] 8 units SQ HS #100 units MDD 8 09/30/18 Sitagliptin Phosphate [Januvia] 50 mg PO DAILY #30 tablet MDD 1 09/30/18 levETIRAcetam [Keppra -] 500 mg PO BID #30 tablet MDD 2 09/30/18 Aspirin [ASA -] 81 mg PO DAILY 04/17/19 Calcium 250Mg/Vit-D 125 Units [Oscal 250 mg+D -] 1 combo PO DAILY 04/17/19 Cholecalciferol (Vitamin D3) [Vitamin D-400] 400 unit PO DAILY 04/17/19 Ranolazine [Ranolazine ER] 500 mg PO BID 04/17/19 Family Disease History - Family Disease History Family Disease History: CA: Brother (type unknown) Review of Systems - Review of Systems Constitutional: reports: Loss of Appetite, Malaise, Weakness. denies: Chills, Fever, Night Sweats Eyes: reports: No Symptoms HENT: reports: No Symptoms Neck: reports: No Symptoms Cardiovascular: denies: Chest Pain, Edema, Palpitations, Shortness of Breath Respiratory: denies: Cough, Hemoptysis, Orthopnea, Snoring, SOB, SOB on Exertion , Wheezing Gastrointestinal: reports: Abdominal Pain. denies: Rectal Bleeding, Vomiting Blood Genitourinary: reports: No Symptoms Breasts: reports: No Symptoms Reported Musculoskeletal: reports: Back Pain Integumentary: reports: No Symptoms Neurological: reports: Dizziness Endocrine: reports: No Symptoms Hematology/Lymphatic: reports: No Symptoms Psychiatric: reports: No Symptoms Physical Exam Vital Sings: Vital Signs Temperature 98.5 F 04/18/19 10:15 Pulse Rate 62 04/18/19 10:15 Respiratory Rate 16 04/18/19 10:15 Blood Pressure 122/78 04/18/19 10:15 O2 Sat by Pulse Oximetry (%) 99 04/18/19 10:15 Constitutional: Yes: No Distress, Thin Eyes: Yes: WNL Neck: Yes: WNL Cardiovascular: No: Regular Rate and Rhythm, JVD, Gallop Respiratory: Yes: Diminished. No: Accessory Muscle Use, Cough, On Nasal O2, Rales, Rhonchi, SOB, SOB on Exertion, Stridor, Tachypnea, Wheezes ...Inspection: Yes: WNL ...Clubbing: No Gastrointestinal: Yes: Normal Bowel Sounds, Soft, Tenderness. No: Ascites, Pulsatile Mass Renal/: Yes: WNL Musculoskeletal: Yes: WNL Extremities: Yes: WNL Edema: No Peripheral Pulses WNL: Yes Integumentary: Yes: WNL Neurological: Yes: WNL, Alert ...Motor Strength: WNL Psychiatric: Yes: WNL, Alert Labs: CBC, BMP 04/18/19 06:20 04/18/19 06:20 Imaging - Results Chest X-ray: Report Reviewed, Image Reviewed Cat Scan: Report Reviewed, Image Reviewed Problem List - Problems (1) Elevated d-dimer Code(s): R79.89 - OTHER SPECIFIED ABNORMAL FINDINGS OF BLOOD CHEMISTRY (2) Weakness Code(s): R53.1 - WEAKNESS (3) Abdominal pain Code(s): R10.9 - UNSPECIFIED ABDOMINAL PAIN (4) Back pain Code(s): M54.9 - DORSALGIA, UNSPECIFIED (5) Diabetes Code(s): E11.9 - TYPE 2 DIABETES MELLITUS WITHOUT COMPLICATIONS Qualifiers: Diabetes mellitus type: type 2 Diabetes mellitus roll mechanic insulin use: without roll mechanic use Diabetes mellitus complication status: with hyperglycemia Qualified Code(s): E11.65 - Type 2 diabetes mellitus with hyperglycemia (6) H/O pancreatic cancer Code(s): Z85.07 - PERSONAL HISTORY OF MALIGNANT NEOPLASM OF PANCREAS (7) HTN (hypertension) Code(s): I10 - ESSENTIAL (PRIMARY) HYPERTENSION (8) Hyponatremia Code(s): E87.1 - HYPO-OSMOLALITY AND HYPONATREMIA (9) Seizure Code(s): R56.9 - UNSPECIFIED CONVULSIONS (10) Weight loss Code(s): R63.4 - ABNORMAL WEIGHT LOSS Assessment/Plan I do not have a clinical suspicion of PE. LE duplex negative. Her saturation is 99% to 100% on RA and she does not have tachycardia. 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 Rosetta not pursue CTA or V/Q imaging at this time. Further evaluation of her GI issues to be assessed by GI (called) O2 as needed No indication of respiratory tract infection. Minimal basilar atalectasis is noted on CT imaging (as well as emphysematous changes) BD TX PRN Will follow Thank you. Dr Morelos
[2019-04-18] MEDS: INSULIN SLIDING SCALE (NOVOLOG) 1 VIAL SQ SCH (16:45)
[2019-04-18] MEDS ORDERED: PT OWN MED DRAWER 7, Y5N ONE (17:51)
--- NOTE | 2019-04-18 19:15 | CON.GI ---
Consult Consult Specialty:: GI Referred by:: Dr. Mccain Reason for Consultation:: Abdominal pain - History of Present Illness Chief Complaint: Back and leg pain History of Present Illness: Son present at bedside aiding in transplation. 83F admitted for evaluation of upper/mid and lower back pain as well as leg pain. She complains of occasional abdominal pain. CT scan performed revealed splenic vein thrombus unchanged from 2017 and matted loops of bowel near the area of the head of the pancreas. No vomiting,, rectal bleeding, diarrhea reported. Her son believes that she had a colonoscopy 8 months ago that was OK. 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 Cardio/Vascular: Yes: HTN, Hyperlipdemia Gastrointestinal: Yes: Constipation, Diverticulosis, Gastritis Heme/Onc: Yes: Cancer (Pancreatic cancer), Other (splenic vein thrombosis) Musculoskeletal: Yes: Chronic low back pain, Osteoarthritis, Other (SEE CT SCAN 2014) Endocrine: Yes: Diabetes Mellitus - Past Surgical History Past Surgical History: Yes: Colonoscopy, Hysterectomy Additional Surgical History: Whipple secondary to pancreatic cancer - Alcohol/Substance Use Hx Alcohol Use: No History of Substance Use: reports: None - Smoking History Smoking history: Never smoked Have you smoked in the past 12 months: No Aproximately how many cigarettes per day: 0 - Social History Usual Living Arrangement: With Significant Other ADL: Family Assistance Place of : Other ([place]) History of Recent Travel: Yes ([place]) Home Medications - Allergies Allergies/Adverse Reactions: Allergies Allergy/AdvReac Type Severity Reaction Status Date / Time No Known Drug Allergies Allergy Verified 09/27/18 15:17 - Home Medications Home Medications: Ambulatory Orders Mirtazapine [Remeron -] 15 mg PO DAILY #30 tablet 10/22/17 Acetaminophen 325 mg PO QID PRN 09/27/18 Ferrous Sulfate 325 mg PO DAILY 09/27/18 Megestrol Acetate [Megace -] 20 mg PO DAILY 09/27/18 Pantoprazole Sodium [Protonix -] 20 mg PO DAILY 09/27/18 Amlodipine Besylate [Norvasc -] 5 mg PO DAILY #30 tablet 09/30/18 Insulin (Levemir) [Levemir Vial] 8 units SQ HS #100 units MDD 8 09/30/18 Sitagliptin Phosphate [Januvia] 50 mg PO DAILY #30 tablet MDD 1 09/30/18 levETIRAcetam [Keppra -] 500 mg PO BID #30 tablet MDD 2 09/30/18 Aspirin [ASA -] 81 mg PO DAILY 04/17/19 Calcium 250Mg/Vit-D 125 Units [Oscal 250 mg+D -] 1 combo PO DAILY 04/17/19 Cholecalciferol (Vitamin D3) [Vitamin D-400] 400 unit PO DAILY 04/17/19 Ranolazine [Ranolazine ER] 500 mg PO BID 04/17/19 Family Disease History - Family Disease History Family Disease History: CA: Brother (type unknown) Other Family History: No family history of colorectal cancer or other GI malignancy Review of Systems - Review of Systems Constitutional: denies: Chills Cardiovascular: denies: Chest Pain Respiratory: denies: SOB Gastrointestinal: reports: Abdominal Pain (occasional). denies: Diarrhea, Dysphagia, Vomiting Physical Exam-GI Vital Signs: Vital Signs Temperature 97.9 F 04/18/19 17:36 Pulse Rate 58 L 04/18/19 17:36 Respiratory Rate 18 04/18/19 17:36 Blood Pressure 106/55 L 04/18/19 17:36 O2 Sat by Pulse Oximetry (%) 99 04/18/19 16:12 Constitutional: Yes: Calm Eyes: No: Sclera Icterus Cardiovascular: Yes: Regular Rate and Rhythm. No: Murmur Respiratory: Yes: CTA Bilaterally Gastrointestinal Inspection: Yes: Scars (merrcedes arnie scar in upper abdomen, + vertical surgical scar in mid pelvis). No: Distention ...Auscultate: Yes: Normoactive Bowel Sounds ...Palpate: Yes: Soft. No: Tenderness ...Percussion: No: Tympanitic Edema: No (No LE edema) Neurological: Yes: Alert Labs: CBC, BMP 04/18/19 06:20 04/18/19 06:20 INR, PTT INR 1.10 (0.83-1.09) H 04/18/19 06:20 Hepatic Panel Total Bilirubin 0.4 mg/dL (0.2-1) 04/17/19 16:54 AST 27 U/L (15-37) 04/17/19 16:54 ALT 26 U/L (13-61) 04/17/19 16:54 Alkaline Phosphatase 169 U/L (45-117) H 04/17/19 16:54 Albumin 3.6 g/dl (3.4-5.0) 04/17/19 16:54 Problem List - Problems (1) Abdominal pain Assessment/Plan: No focal findings on exam. Do not think abdominal pain is her main reason for admission as her main complaint is back and leg pain. Ordered UGIS / SBS to evaluate matted bowel loops described on admission CT scan and advance diet Work-up of back pain per primary team Consider heme evaluate of chronic splenic vein thrombosis Code(s): R10.9 - UNSPECIFIED ABDOMINAL PAIN
[2019-04-18] MEDS: SODIUM CHLORIDE 1,000 ML IV SCH (21:18)
[2019-04-18] MEDS: MIRTAZAPINE 15 MG TABLET (FP) PO SCH (21:23)
[2019-04-19] MEDS: INSULIN SLIDING SCALE (NOVOLOG) 1 VIAL SQ SCH ×3 (06:04→17:03)
[2019-04-19 09:06] LABS: BASO % 0.3 % (0-2.0); EOS % 4.4 % (0-4.5); HEMATOCRIT 34.8 % (32.4-45.2); HEMOGLOBIN 11.3 GM/dL (10.7-15.3); LYMPH % 31.3 % (8-40); MCH 29.9 pg (25.7-33.7); MCHC 32.5 g/dl (32.0-36.0); MEAN CELL VOLUME 92.1 fl (80-96); MEAN PLT VOLUME 7.4 fl (7.5-11.1); MONO % 8.6 % (3.8-10.2); NEUT % 55.4 % (42.8-82.8); PLATELET COUNT 211 K/MM3 (134-434); RBC 3.78 M/mm3 (3.60-5.2); RDW 14.9 % (11.6-15.6); WHITE BLOOD COUNT 3.2 K/mm3 (4.0-10.0)
[2019-04-19 09:45] LABS: BILIRUBIN,TOTAL 0.3 mg/dL (0.2-1); CALCIUM 7.9 mg/dL (8.5-10.1); CREATININE 0.8 mg/dL (0.55-1.3); POTASSIUM 4.2 mmol/L (3.5-5.1); TOT PROT 6.6 g/dl (6.4-8.2)
--- NOTE | 2019-04-19 10:53 | PN ---
Progress Note, Physician - Current Medication List Current Medications: Active Medications Amlodipine Besylate (Norvasc -) 5 mg PO DAILY [facility] Last Admin: 04/18/19 10:00 Dose: 5 mg Calcium/Vitamin D (Oscal 250 Mg+D -) 1 tab PO DAILY [facility] Last Admin: 04/18/19 10:00 Dose: 1 tab Enoxaparin Sodium (Lovenox -) 40 mg SQ BID [facility] Last Admin: 04/18/19 21:25 Dose: 40 mg Sodium Chloride (Normal Saline -) 1,000 mls @ 0 mls/hr IV ASDIR [facility] Last Admin: 04/18/19 21:18 Dose: Not Given Dextrose/Sodium Chloride (D5-1/2ns -) 1,000 mls @ 42 mls/hr IV ASDIR [facility] Last Admin: 04/18/19 08:49 Dose: 42 mls/hr Insulin Aspart (Novolog Vial Sliding Scale -) 1 vial SQ TIDAC [facility]; Protocol Last Admin: 04/19/19 06:04 Dose: Not Given Mirtazapine (Remeron -) 15 mg PO HS [facility] Last Admin: 04/18/19 21:23 Dose: 15 mg Pantoprazole Sodium (Protonix Iv) 40 mg IVPUSH DAILY [facility] Last Admin: 04/18/19 10:00 Dose: 40 mg Ranolazine (Ranexa -) 500 mg PO BID [facility] Last Admin: 04/18/19 21:23 Dose: 500 mg - Objective Vital Signs: Vital Signs Temperature 97.6 F 04/19/19 06:00 Pulse Rate 60 04/19/19 06:00 Respiratory Rate 20 04/19/19 06:00 Blood Pressure 140/63 04/19/19 06:00 O2 Sat by Pulse Oximetry (%) 95 04/19/19 04:00 Cardiovascular: Yes: Tachycardia, Pulse Irregular, S1, S2 Respiratory: Yes: Regular, CTA Bilaterally Gastrointestinal: Yes: Normal Bowel Sounds, Soft Musculoskeletal: Yes: Muscle Pain Edema: No Labs: CBC, BMP 04/19/19 09:00 04/19/19 09:00 INR, PTT INR 1.10 (0.83-1.09) H 04/18/19 06:20 Assessment/Plan - Problems (1) Abdominal pain Assessment/Plan: Likely secondary to Gastritis vs SBO CTAP report- no free air, mild pneumobilia, Whipple's procedure, gallbladder surgically, the colon is mildly distended with stool and air, no SBO. Appreciate GI consult Monitor CBC, BMP Monitor vitals Code(s): R10.9 - UNSPECIFIED ABDOMINAL PAIN (2) Back pain Assessment/Plan: r/o Malignancy vs Fx xrays ordered Monitor vitals Code(s): M54.9 - DORSALGIA, UNSPECIFIED (3) Weakness Assessment/Plan: Likely secondary to Dehydration BUN 21 Albumin- nl Gentle IVF Monitor vitals Monitor CBC, BMP RD consult Code(s): R53.1 - WEAKNESS (4) Elevated d-dimer Assessment/Plan: Pulm consult noted loww suspicion for PE Code(s): R79.89 - OTHER SPECIFIED ABNORMAL FINDINGS OF BLOOD CHEMISTRY (5) Hyperkalemia Assessment/Plan: Hyperkalemia Protocol- given in ED Repeat K 4.5 Monitor BMP EKG reviewed- no peaked Ts Continue cardiac monitoring Code(s): E87.5 - HYPERKALEMIA (6) Diabetes Assessment/Plan: stable BGMs ISS Code(s): E11.9 - TYPE 2 DIABETES MELLITUS WITHOUT COMPLICATIONS Qualifiers: Diabetes mellitus type: type 2 Diabetes mellitus intermission coordinator insulin use: without intermission coordinator use Diabetes mellitus complication status: with hyperglycemia Qualified Code(s): E11.65 - Type 2 diabetes mellitus with hyperglycemia (7) HTN (hypertension) Assessment/Plan: stable Monitor BP Continue home meds Code(s): I10 - ESSENTIAL (PRIMARY) HYPERTENSION (8) H/O pancreatic cancer Assessment/Plan: s/p Whipple (9) Arrythmia Assessment/Plan: Ekg and cardio
--- NOTE | 2019-04-19 14:24 | CON.CARD ---
Consult Consult Specialty:: Cardiology Referred by:: Lakeisha Reason for Consultation:: arrhythmia - History of Present Illness Chief Complaint: abd pain History of Present Illness: This is a 83 y/o woman with PMHx of HTN, HLD, DM, Pancreatic Ca ( s/p Whipple, 10 yrs ago), OA, Depression, Diverticulitis who presented for abdominal cramping , back pain, headache, dizziness, generalized malaise, decreased appetite x 1 week, since a recent trip to [place]. She denies chest pain, sob, orthopnea, pnd, edema, palpitations, dizziness or syncope. Noted with frequent PVCs on telemetry. 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 - Alcohol/Substance Use Hx Alcohol Use: No History of Substance Use: reports: None - Smoking History Smoking history: Never smoked Have you smoked in the past 12 months: No Aproximately how many cigarettes per day: 0 - Social History Usual Living Arrangement: With Significant Other ADL: Family Assistance History of Recent Travel: Yes ([place]) Home Medications - Allergies Allergies/Adverse Reactions: Allergies Allergy/AdvReac Type Severity Reaction Status Date / Time No Known Drug Allergies Allergy Verified 09/27/18 15:17 - Home Medications Home Medications: Ambulatory Orders Mirtazapine [Remeron -] 15 mg PO DAILY #30 tablet 10/22/17 Acetaminophen 325 mg PO QID PRN 09/27/18 Ferrous Sulfate 325 mg PO DAILY 09/27/18 Pantoprazole Sodium [Protonix -] 20 mg PO DAILY 09/27/18 Sitagliptin Phosphate [Januvia] 50 mg PO DAILY #30 tablet MDD 1 09/30/18 Cholecalciferol (Vitamin D3) [Vitamin D-400] 400 unit PO DAILY 04/17/19 Ranolazine [Ranolazine ER] 500 mg PO BID 04/17/19 Amlodipine Besylate/Benazepril [Lotrel 5-10 mg Capsule] 1 each PO DAILY Aspirin [Ecotrin] 81 mg PO DAILY 04/18/19 Calcium 500Mg/Vit-D 200 Units [Os-Chuy 500+D -] 1 combo PO DAILY 04/18/19 Family Disease History - Family Disease History Family History: Unable to Obtain Family Disease History: CA: Brother (type unknown) Other Family History: No family history of colorectal cancer or other GI malignancy Review of Systems - Review of Systems Constitutional: reports: No Symptoms Eyes: reports: No Symptoms HENT: reports: No Symptoms Neck: reports: No Symptoms Cardiovascular: reports: No Symptoms Respiratory: reports: No Symptoms Vital Signs: Vital Signs Temperature 97.6 F 04/19/19 06:00 Pulse Rate 60 04/19/19 06:00 Respiratory Rate 20 04/19/19 06:00 Blood Pressure 140/63 04/19/19 06:00 O2 Sat by Pulse Oximetry (%) 95 04/19/19 04:00 Constitutional: Yes: No Distress, Calm Eyes: Yes: Conjunctiva Clear, EOM Intact HENT: Yes: Atraumatic, Normocephalic Neck: Yes: Supple, Trachea Midline Respiratory: Yes: CTA Bilaterally Gastrointestinal: Yes: Normal Bowel Sounds, Soft Cardiovascular: Yes: Regular Rate and Rhythm JVD: No Carotid Bruit: No PMI: Non-Displaced Heart Sounds: Yes: S1, S2 Musculoskeletal: Yes: WNL Extremities: Yes: WNL Edema: No Peripheral Pulses WNL: Yes - Other Data Labs, Other Data: CBC, BMP 04/19/19 09:00 04/19/19 09:00 INR, PTT INR 1.10 (0.83-1.09) H 04/18/19 06:20 Imaging - Results Chest X-ray: Report Reviewed EKG: Report Reviewed (nsr old awmi) Assessment/Plan This is a 83 y/o woman with PMHx of HTN, HLD, DM, Pancreatic Ca ( s/p Whipple, 10 yrs ago), OA, Depression, Diverticulitis who presented for abdominal cramping , back pain, headache, dizziness, generalized malaise, decreased appetite x 1 week, since a recent trip to [place]. She denies chest pain, sob, orthopnea, pnd, edema, palpitations, dizziness or syncope. Noted with frequent PVCs on telemetry. PVC's -single and frequent PVCs are benign in this setting. No cardiac testing is needed. -no need for telemetry monitoring. -cardiac status is stable for GI workup. -will see as needed, call with questions.
[2019-04-19] MEDS: PANTOPRAZOLE SODIUM 40 MG VIAL IVPUSH SCH (14:35)
[2019-04-19] MEDS: RANOLAZINE E.R. 500 MG TABLET (FP) PO SCH ×2 (14:35→21:10)
[2019-04-19] MEDS: ENOXAPARIN NA (PORCINE) 40 MG/0.4 ML DISP.SYRIN SQ SCH ×2 (14:35→21:10)
[2019-04-19] MEDS: amLODIPine BESYLATE 5 MG TABLET (FP) PO SCH (14:35)
[2019-04-19] MEDS ORDERED: PT OWN MED DRAWER 7, Y5N ONE (14:38)
[2019-04-19] MEDS: CALCIUM 250MG/VIT-D 125 UNITS 1 COMBO TABLET PO SCH (14:38)
[2019-04-19] MEDS: DEXTROSE 5%-0.45% SALINE 1,000 ML IV SCH (17:07)
--- NOTE | 2019-04-19 17:13 | EKG ---
Test Reason : Blood Pressure : / mmHG Vent. Rate : 081 BPM Atrial Rate : 081 BPM P-R Int : 200 ms QRS Dur : 096 ms QT Int : 400 ms P-R-T Axes : 072 008 068 degrees QTc Int : 464 ms SINUS RHYTHM WITH FREQUENT PREMATURE VENTRICULAR COMPLEXES ANTERIOR INFARCT (CITED ON OR BEFORE 17-APR-2019) ABNORMAL ECG WHEN COMPARED WITH ECG OF 17-APR-2019 16:53, PREMATURE VENTRICULAR COMPLEXES ARE NOW PRESENT Confirmed by RUDY RIVAS MD ([id number]) on 04/19/2019 5:13:39 PM Referred By: ZAHRA FERRARI Confirmed By:RUDY RIVAS MD
[2019-04-19] MEDS: SODIUM CHLORIDE 1,000 ML IV SCH (21:10)
[2019-04-19] MEDS: MIRTAZAPINE 15 MG TABLET (FP) PO SCH (21:10)
--- NOTE | 2019-04-19 21:46 | PN.GI ---
GI Progress Note Subjective: Pt seen/examined at bedside, pts daughter present, translates. Pt feeling better , denies abdominal pain, n/v, tolerating clear liquids. - Objective Vital Signs: Vital Signs Temperature 98.4 F 04/19/19 14:00 Pulse Rate 77 04/19/19 14:00 Respiratory Rate 20 04/19/19 14:00 Blood Pressure 134/69 04/19/19 14:00 O2 Sat by Pulse Oximetry (%) 97 04/19/19 14:30 Constitutional: Well Nourished, No Distress Cardiovascular: Yes: WNL, Regular Rate and Rhythm Respiratory: Yes: WNL, Regular, CTA Bilaterally ...Palpate: Yes: Other (abd soft, nt, nd) Labs: CBC, BMP 04/19/19 09:00 04/19/19 09:00 INR, PTT INR 1.10 (0.83-1.09) H 04/18/19 06:20 Problem List - Problems (1) Abdominal pain Assessment/Plan: s/p UGI series revealing some compression at antrum possibly secondary to post surgical changes/whipple, and suggestion of malrotation d/w radiologist likely benign/incidental. Abdominal pain resolved this time. Tolerating diet. -Continue supportive measures -MRCP to evaluate pancreatic head -heme eval to readdress need to a/c -Pending course and if recurrent abdominal pain consider surgical consult Code(s): R10.9 - UNSPECIFIED ABDOMINAL PAIN
[2019-04-20 04:10] LABS: SERUM IRON SATURATION 9 % (15-55); TOTAL IRON BINDING CAPACITY 290 ug/dL (250-450); UIBC 264 ug/dL (118-369)
[2019-04-20] MEDS: INSULIN SLIDING SCALE (NOVOLOG) 1 VIAL SQ SCH ×3 (06:09→17:13)
[2019-04-20 06:30] LABS: BASO % 0.4 % (0-2.0); EOS % 3.2 % (0-4.5); HEMATOCRIT 32.7 % (32.4-45.2); HEMOGLOBIN 10.9 GM/dL (10.7-15.3); LYMPH % 36.1 % (8-40); MCH 30.1 pg (25.7-33.7); MCHC 33.4 g/dl (32.0-36.0); MEAN CELL VOLUME 90.2 fl (80-96); MEAN PLT VOLUME 7.6 fl (7.5-11.1); MONO % 10.9 % (3.8-10.2); NEUT % 49.4 % (42.8-82.8); PLATELET COUNT 216 K/MM3 (134-434); RBC 3.63 M/mm3 (3.60-5.2); RDW 14.8 % (11.6-15.6); WHITE BLOOD COUNT 3.3 K/mm3 (4.0-10.0)
[2019-04-20 06:36] LABS: ALBUMIN 2.9 g/dl (3.4-5.0); BILIRUBIN,TOTAL 0.3 mg/dL (0.2-1); CALCIUM 7.8 mg/dL (8.5-10.1); CREATININE 0.9 mg/dL (0.55-1.3); POTASSIUM 4.2 mmol/L (3.5-5.1); TOT PROT 6.3 g/dl (6.4-8.2)
[2019-04-20] MEDS: ENOXAPARIN NA (PORCINE) 40 MG/0.4 ML DISP.SYRIN SQ SCH ×2 (10:53→21:14)
[2019-04-20] MEDS: PANTOPRAZOLE SODIUM 40 MG VIAL IVPUSH SCH (10:53)
[2019-04-20] MEDS: amLODIPine BESYLATE 5 MG TABLET (FP) PO SCH (10:53)
[2019-04-20] MEDS: RANOLAZINE E.R. 500 MG TABLET (FP) PO SCH ×2 (10:53→21:14)
[2019-04-20] MEDS: CALCIUM 250MG/VIT-D 125 UNITS 1 COMBO TABLET PO SCH (10:54)
--- NOTE | 2019-04-20 11:33 | PN ---
Progress Note (short form) - Note Progress Note: NAD on RA. No CP or SOB. Feeling better. Intake & Output 04/17/19 04/18/19 04/19/19 04/20/19 23:59 23:59 23:59 23:59 Intake Total 210 1124 294 Output Total 700 Balance 210 424 294 Weight 97 lb 97 lb 97 lb Last Vital Signs Temp Pulse Resp BP Pulse Ox 97.8 F 63 20 122/71 96 04/20/19 06:00 04/20/19 06:00 04/20/19 06:00 04/20/19 06:00 04/19/19 21:00 Active Medications Amlodipine Besylate (Norvasc -) 5 mg PO DAILY [facility] Last Admin: 04/20/19 10:53 Dose: 5 mg Calcium/Vitamin D (Oscal 250 Mg+D -) 1 tab PO DAILY [facility] Last Admin: 04/20/19 10:54 Dose: 1 tab Enoxaparin Sodium (Lovenox -) 40 mg SQ BID [facility] Last Admin: 04/20/19 10:53 Dose: 40 mg Sodium Chloride (Normal Saline -) 1,000 mls @ 0 mls/hr IV ASDIR [facility] Last Admin: 04/19/19 21:10 Dose: Not Given Dextrose/Sodium Chloride (D5-1/2ns -) 1,000 mls @ 42 mls/hr IV ASDIR [facility] Last Admin: 04/19/19 17:07 Dose: 42 mls/hr Insulin Aspart (Novolog Vial Sliding Scale -) 1 vial SQ TIDAC [facility]; Protocol Last Admin: 04/20/19 06:09 Dose: Not Given Mirtazapine (Remeron -) 15 mg PO HS [facility] Last Admin: 04/19/19 21:10 Dose: 15 mg Pantoprazole Sodium (Protonix Iv) 40 mg IVPUSH DAILY [facility] Last Admin: 04/20/19 10:53 Dose: 40 mg Ranolazine (Ranexa -) 500 mg PO BID [facility] Last Admin: 04/20/19 10:53 Dose: 500 mg Constitutional: Yes: No Distress, Thin Eyes: Yes: WNL Neck: Yes: WNL Cardiovascular: No: Regular Rate and Rhythm, JVD, Gallop Respiratory: Yes: Diminished. No: Accessory Muscle Use, Cough, On Nasal O2, Rales, Rhonchi, SOB, SOB on Exertion, Stridor, Tachypnea, Wheezes ...Inspection: Yes: WNL ...Clubbing: No Gastrointestinal: Yes: Normal Bowel Sounds, Soft. No: Ascites, Pulsatile Mass Renal/: Yes: WNL Musculoskeletal: Yes: WNL Extremities: Yes: WNL Edema: No Peripheral Pulses WNL: Yes Integumentary: Yes: WNL Neurological: Yes: WNL, Alert ...Motor Strength: WNL Psychiatric: Yes: WNL, Alert Labs: Laboratory Results - last 24 hr 04/19/19 04/19/19 04/19/19 09:00 09:00 16:55 WBC RBC Hgb Hct MCV MCH MCHC RDW Plt Count MPV Absolute Neuts (auto) Neutrophils % Lymphocytes % Monocytes % Eosinophils % Basophils % Nucleated RBC % Sodium 141 Potassium 4.2 Chloride 110 H Carbon Dioxide 23 Anion Gap 8 BUN 9 Creatinine 0.8 Est GFR (CKD-EPI)AfAm 79.02 Est GFR (CKD-EPI)NonAf 68.18 POC Glucometer 106 Random Glucose 136 H Calcium 7.9 L Iron 26 L TIBC 290 Iron Saturation 9 L Ferritin 75.2 Total Bilirubin 0.3 AST 20 ALT 23 Alkaline Phosphatase 137 H Total Protein 6.6 Albumin 3.0 L Stool Occult Blood 04/19/19 04/20/19 04/20/19 20:32 05:30 05:30 WBC 3.3 L RBC 3.63 Hgb 10.9 Hct 32.7 MCV 90.2 MCH 30.1 MCHC 33.4 RDW 14.8 Plt Count 216 MPV 7.6 Absolute Neuts (auto) 1.6 Neutrophils % 49.4 Lymphocytes % 36.1 Monocytes % 10.9 H Eosinophils % 3.2 Basophils % 0.4 Nucleated RBC % 0 Sodium 140 Potassium 4.2 Chloride 108 H Carbon Dioxide 26 Anion Gap 7 L BUN 9 Creatinine 0.9 Est GFR (CKD-EPI)AfAm 68.53 Est GFR (CKD-EPI)NonAf 59.13 POC Glucometer 101 Random Glucose 134 H Calcium 7.8 L Iron TIBC Iron Saturation Ferritin Total Bilirubin 0.3 AST 18 ALT 22 Alkaline Phosphatase 130 H Total Protein 6.3 L Albumin 2.9 L Stool Occult Blood 04/20/19 04/20/19 05:40 10:00 WBC RBC Hgb Hct MCV MCH MCHC RDW Plt Count MPV Absolute Neuts (auto) Neutrophils % Lymphocytes % Monocytes % Eosinophils % Basophils % Nucleated RBC % Sodium Potassium Chloride Carbon Dioxide Anion Gap BUN Creatinine Est GFR (CKD-EPI)AfAm Est GFR (CKD-EPI)NonAf POC Glucometer 130 Random Glucose Calcium Iron TIBC Iron Saturation Ferritin Total Bilirubin AST ALT Alkaline Phosphatase Total Protein Albumin Stool Occult Blood Negative Problem List - Problems (1) Elevated d-dimer Code(s): R79.89 - OTHER SPECIFIED ABNORMAL FINDINGS OF BLOOD CHEMISTRY (2) Weakness Code(s): R53.1 - WEAKNESS (3) Abdominal pain Code(s): R10.9 - UNSPECIFIED ABDOMINAL PAIN (4) Back pain Code(s): M54.9 - DORSALGIA, UNSPECIFIED (5) Diabetes Code(s): E11.9 - TYPE 2 DIABETES MELLITUS WITHOUT COMPLICATIONS Qualifiers: Diabetes mellitus type: type 2 Diabetes mellitus longterm insulin use: without longterm use Diabetes mellitus complication status: with hyperglycemia Qualified Code(s): E11.65 - Type 2 diabetes mellitus with hyperglycemia (6) H/O pancreatic cancer Code(s): Z85.07 - PERSONAL HISTORY OF MALIGNANT NEOPLASM OF PANCREAS (7) HTN (hypertension) Code(s): I10 - ESSENTIAL (PRIMARY) HYPERTENSION (8) Hyponatremia Code(s): E87.1 - HYPO-OSMOLALITY AND HYPONATREMIA (9) Seizure Code(s): R56.9 - UNSPECIFIED CONVULSIONS (10) Weight loss Code(s): R63.4 - ABNORMAL WEIGHT LOSS Assessment/Plan Do not have a clinical suspicion of PE. LE duplex negative. Saturation is normal RA and she does not have tachycardia. 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 Would not pursue CTA or V/Q imaging at this time. GI workup ongoing. BD TX PRN Dr Morelos Problem List - Problems (1) Elevated d-dimer Code(s): R79.89 - OTHER SPECIFIED ABNORMAL FINDINGS OF BLOOD CHEMISTRY (2) Weakness Code(s): R53.1 - WEAKNESS (3) Abdominal pain Code(s): R10.9 - UNSPECIFIED ABDOMINAL PAIN (4) Back pain Code(s): M54.9 - DORSALGIA, UNSPECIFIED (5) Diabetes Code(s): E11.9 - TYPE 2 DIABETES MELLITUS WITHOUT COMPLICATIONS Qualifiers: Diabetes mellitus type: type 2 Diabetes mellitus extermination supervisor insulin use: without extermination supervisor use Diabetes mellitus complication status: with hyperglycemia Qualified Code(s): E11.65 - Type 2 diabetes mellitus with hyperglycemia (6) H/O pancreatic cancer Code(s): Z85.07 - PERSONAL HISTORY OF MALIGNANT NEOPLASM OF PANCREAS (7) HTN (hypertension) Code(s): I10 - ESSENTIAL (PRIMARY) HYPERTENSION (8) Hyponatremia Code(s): E87.1 - HYPO-OSMOLALITY AND HYPONATREMIA (9) Seizure Code(s): R56.9 - UNSPECIFIED CONVULSIONS (10) Weight loss Code(s): R63.4 - ABNORMAL WEIGHT LOSS
--- NOTE | 2019-04-20 14:19 | PN.GI ---
GI Progress Note Subjective: No acute events No abdominal pain leg pain and back pain UGIS: extrinsic compression of antrum, otherwise unrevealing UGIS/SBS Family present at bedside - Objective Vital Signs: Vital Signs Temperature 97.7 F 04/20/19 13:59 Pulse Rate 68 04/20/19 13:59 Respiratory Rate 18 04/20/19 13:59 Blood Pressure 138/64 04/20/19 13:59 O2 Sat by Pulse Oximetry (%) 96 04/19/19 21:00 Constitutional: Calm Eyes: No: Sclera Icterus Cardiovascular: Yes: Regular Rate and Rhythm Respiratory: Yes: CTA Bilaterally Gastrointestinal Inspection: No: Distention ...Auscultate: Yes: Normoactive Bowel Sounds ...Palpate: No: Tenderness ...Percussion: No: Tympanitic Edema: No (No LE edema) Neurological: Yes: Alert Labs: CBC, BMP 04/20/19 05:30 04/20/19 05:30 INR, PTT INR 1.10 (0.83-1.09) H 04/18/19 06:20 Problem List - Problems (1) Abdominal pain Assessment/Plan: No abdomoinal complaints and no focal abdominal exam findings: Advise: advance diet changed MRI to w and w/o contrast to eval pancreatic head Code(s): R10.9 - UNSPECIFIED ABDOMINAL PAIN
--- NOTE | 2019-04-20 14:24 | PN ---
Progress Note, Physician Chief Complaint: seen and examiend no more abdominal pain - Current Medication List Current Medications: Active Medications Amlodipine Besylate (Norvasc -) 5 mg PO DAILY [facility] Last Admin: 04/20/19 10:53 Dose: 5 mg Calcium/Vitamin D (Oscal 250 Mg+D -) 1 tab PO DAILY [facility] Last Admin: 04/20/19 10:54 Dose: 1 tab Enoxaparin Sodium (Lovenox -) 40 mg SQ BID [facility] Last Admin: 04/20/19 10:53 Dose: 40 mg Sodium Chloride (Normal Saline -) 1,000 mls @ 0 mls/hr IV ASDIR [facility] Last Admin: 04/19/19 21:10 Dose: Not Given Insulin Aspart (Novolog Vial Sliding Scale -) 1 vial SQ TIDAC [facility]; Protocol Last Admin: 04/20/19 11:41 Dose: Not Given Mirtazapine (Remeron -) 15 mg PO HS [facility] [place] Last Admin: 04/19/19 21:10 Dose: 15 mg Pantoprazole Sodium (Protonix Iv) 40 mg IVPUSH DAILY [facility] Last Admin: 04/20/19 10:53 Dose: 40 mg Ranolazine (Ranexa -) 500 mg PO BID [facility] Last Admin: 04/20/19 10:53 Dose: 500 mg - Objective Vital Signs: Vital Signs Temperature 97.7 F 04/20/19 13:59 Pulse Rate 68 04/20/19 13:59 Respiratory Rate 18 04/20/19 13:59 Blood Pressure 138/64 04/20/19 13:59 O2 Sat by Pulse Oximetry (%) 96 04/19/19 21:00 Constitutional: Yes: Calm Cardiovascular: Yes: Regular Rate and Rhythm, S1, S2 Respiratory: Yes: CTA Bilaterally Gastrointestinal: Yes: Normal Bowel Sounds, Soft Edema: No Neurological: Yes: Alert, Oriented Labs: CBC, BMP 04/20/19 05:30 04/20/19 05:30 INR, PTT INR 1.10 (0.83-1.09) H 04/18/19 06:20 Problem List - Problems (1) HILLARY (acute kidney injury) Assessment/Plan: improved with [id number] Code(s): N17.9 - ACUTE KIDNEY FAILURE, UNSPECIFIED (2) Abdominal pain Assessment/Plan: resolved ct scan no acute pathology advance diet Code(s): R10.9 - UNSPECIFIED ABDOMINAL PAIN (3) Elevated d-dimer Assessment/Plan: probably due to splenic thrombosis appreciate pulm noted will get heme to see if needs AC MRCP for h/o of pancreatic cancer Code(s): R79.89 - OTHER SPECIFIED ABNORMAL FINDINGS OF BLOOD CHEMISTRY
--- NOTE | 2019-04-20 15:34 | CONSULT ---
Consultation: REQUESTING PROVIDER: CONSULT REQUEST: We have been asked to medically evaluate this patient for chronic svt HISTORY OF PRESENT ILLNESS: This is a 83 yo F with PMH of SVT since 10/21/17 not on ac, Pancreatic Ca ( s/p Whipple, 10 yrs ago), HTN, HLD, DM, OA, Depression, Diverticulitis, who presented due to abd pain, back pain, loss of appetite and malaise x1w. admitted to further work up these complaints. had multiple imaging studies including unremarkable kub and xr t spine. xr l spine unable to be read due to obstructing PO contrast. CT ap done again showing SVT with no change from prior and no evidence of malignancy. labs were largely unremarkable. Heme consulted to evaluate for AC in setting of svt. patient was already started on full dose Lara in hospital. currently feels well, denies abd pain, n/v. denies melena hematochezia, weight loss. States that she ambulates with cane and never falls down. REVIEW OF SYSTEMS: CONSTITUTIONAL: Absent: fever, chills HEENT: Absent: rhinorrhea, nasal congestion, throat pain CARDIOVASCULAR: Absent: chest pain RESPIRATORY: Absent: cough, shortness of breath, hemoptysis GASTROINTESTINAL: Absent: abdominal pain, abdominal distension, nausea, vomiting, melena, hematochezia GENITOURINARY: Absent: dysuria, hematuria MUSCULOSKELETAL: Absent: back pain, neck pain SKIN: Absent: rash, itching, pallor HEMATOLOGIC/IMMUNOLOGIC: Absent: easy bleeding, easy bruising ENDOCRINE: Absent: unexplained weight gain, unexplained weight loss NEUROLOGIC: Absent: headache, focal weakness or paresthesias PSYCHIATRIC: Absent: anxiety, depression PHYSICAL EXAMINATION Vital Signs - 24 hr 04/19/19 04/19/19 04/19/19 18:00 21:00 22:00 Temperature 98.1 F 97.9 F Pulse Rate 68 67 Respiratory 18 20 20 Rate Blood Pressure 139/61 O2 Sat by Pulse 96 Oximetry (%) 04/20/19 04/20/19 04/20/19 01:23 06:00 09:50 Temperature 98 F 97.8 F 97.8 F Pulse Rate 64 63 64 Respiratory 18 20 18 Rate Blood Pressure 105/53 L 122/71 141/62 O2 Sat by Pulse Oximetry (%) 04/20/19 13:59 Temperature 97.7 F Pulse Rate 68 Respiratory 18 Rate Blood Pressure 138/64 O2 Sat by Pulse Oximetry (%) GENERAL: Awake, alert, and fully oriented, in no acute distress. HEAD: Normal with no signs of trauma. EYES: Pupils equal, round and reactive to light, extraocular movements intact, sclera anicteric, conjunctiva clear. No lid lag. EARS, NOSE, THROAT: Moist mucous membranes. NECK: supple without lymphadenopathy or masses. LUNGS: Breath sounds equal, clear to auscultation bilaterally. HEART: Regular rate and rhythm, normal S1 and S2 ABDOMEN: Soft, nontender, not distended, normoactive bowel sounds, no guarding, no rebound, no masses. Breasts: no lesions or masses, no axillary adenopathy MUSCULOSKELETAL: No CVA tenderness. Laboratory Results - last 24 hr 04/19/19 04/19/19 04/19/19 09:00 09:00 16:55 WBC RBC Hgb Hct MCV MCH MCHC RDW Plt Count MPV Absolute Neuts (auto) Neutrophils % Lymphocytes % Monocytes % Eosinophils % Basophils % Nucleated RBC % Sodium 141 Potassium 4.2 Chloride 110 H Carbon Dioxide 23 Anion Gap 8 BUN 9 Creatinine 0.8 Est GFR (CKD-EPI)AfAm 79.02 Est GFR (CKD-EPI)NonAf 68.18 POC Glucometer 106 Random Glucose 136 H Calcium 7.9 L Iron 26 L TIBC 290 Iron Saturation 9 L Ferritin 75.2 Total Bilirubin 0.3 AST 20 ALT 23 Alkaline Phosphatase 137 H Total Protein 6.6 Albumin 3.0 L Stool Occult Blood 04/19/19 04/20/19 04/20/19 20:32 05:30 05:30 WBC 3.3 L RBC 3.63 Hgb 10.9 Hct 32.7 MCV 90.2 MCH 30.1 MCHC 33.4 RDW 14.8 Plt Count 216 MPV 7.6 Absolute Neuts (auto) 1.6 Neutrophils % 49.4 Lymphocytes % 36.1 Monocytes % 10.9 H Eosinophils % 3.2 Basophils % 0.4 Nucleated RBC % 0 Sodium 140 Potassium 4.2 Chloride 108 H Carbon Dioxide 26 Anion Gap 7 L BUN 9 Creatinine 0.9 Est GFR (CKD-EPI)AfAm 68.53 Est GFR (CKD-EPI)NonAf 59.13 POC Glucometer 101 Random Glucose 134 H Calcium 7.8 L Iron TIBC Iron Saturation Ferritin Total Bilirubin 0.3 AST 18 ALT 22 Alkaline Phosphatase 130 H Total Protein 6.3 L Albumin 2.9 L Stool Occult Blood 04/20/19 04/20/19 04/20/19 05:40 10:00 11:37 WBC RBC Hgb Hct MCV MCH MCHC RDW Plt Count MPV Absolute Neuts (auto) Neutrophils % Lymphocytes % Monocytes % Eosinophils % Basophils % Nucleated RBC % Sodium Potassium Chloride Carbon Dioxide Anion Gap BUN Creatinine Est GFR (CKD-EPI)AfAm Est GFR (CKD-EPI)NonAf POC Glucometer 130 101 Random Glucose Calcium Iron TIBC Iron Saturation Ferritin Total Bilirubin AST ALT Alkaline Phosphatase Total Protein Albumin Stool Occult Blood Negative Active Medications Generic Name Dose Route Start Last Admin Trade Name Freq PRN Reason Stop Dose Admin Amlodipine Besylate 5 mg 04/18/19 10:00 04/20/19 10:53 Norvasc - PO 5 mg DAILY BRANDY Administration Calcium/Vitamin D 1 tab 04/18/19 10:00 04/20/19 10:54 Oscal 250 Mg+D - PO 1 tab DAILY BRANDY Administration Enoxaparin Sodium 40 mg 04/18/19 13:00 04/20/19 10:53 Lovenox - SQ 40 mg BID BRANDY Administration Insulin Aspart 1 vial 04/18/19 16:30 04/20/19 11:41 Novolog Vial Sliding Scale - SQ Not Given TIDAC [facility] Protocol Mirtazapine 15 mg 04/18/19 22:00 04/19/19 21:10 Remeron - PO 15 mg HS BRANDY Administration Pantoprazole Sodium 40 mg 04/21/19 10:00 Protonix - PO DAILY BRANDY Ranolazine 500 mg 04/18/19 10:00 04/20/19 10:53 Ranexa - PO 500 mg BID BRANDY Administration ASSESSMENT/PLAN: This is a 83 yo F with PMH of SVT since 10/21/17 not on ac, Pancreatic Ca ( s/p Whipple, 10 yrs ago), HTN, HLD, DM, OA, Depression, Diverticulitis, who presented due to abd pain, back pain, loss of appetite and malaise x1w. admitted to further work up these complaints. SVT chronic likely provoked by whipple Pancreatic Ca s/p Whipple, 10 yrs ago HTN HLD DM OA -patient does not appear to be a fall risk and denies bleeding history; meets criteria for anticoagulation with coumadin. -stop megace if possible (increases clotting) -monitor wbc count while in hospital Dispo: We will continue to follow the patient. Thank you for this consultative opportunity. Problem List - Problems (1) Splenic vein thrombosis Code(s): I82.890 - ACUTE EMBOLISM AND THROMBOSIS OF OTHER SPECIFIED VEINS (2) Chronic thrombosis of splenic vein Code(s): I82.891 - CHRONIC EMBOLISM AND THROMBOSIS OF OTHER SPECIFIED VEINS (3) Abdominal pain Code(s): R10.9 - UNSPECIFIED ABDOMINAL PAIN (4) Back pain Code(s): M54.9 - DORSALGIA, UNSPECIFIED (5) Diabetes Code(s): E11.9 - TYPE 2 DIABETES MELLITUS WITHOUT COMPLICATIONS Qualifiers: Diabetes mellitus type: type 2 Diabetes mellitus computer terminal operator insulin use: without computer terminal operator use Diabetes mellitus complication status: with hyperglycemia Qualified Code(s): E11.65 - Type 2 diabetes mellitus with hyperglycemia (6) H/O pancreatic cancer Code(s): Z85.07 - PERSONAL HISTORY OF MALIGNANT NEOPLASM OF PANCREAS (7) HTN (hypertension) Code(s): I10 - ESSENTIAL (PRIMARY) HYPERTENSION Visit type - Emergency Visit Emergency Visit: Yes ED Registration Date: 04/19/19 Care time: The patient presented to the Emergency Department on the above date and was hospitalized for further evaluation of their emergent condition. - New Patient This patient is new to me today: Yes Date on this admission: 04/20/19 - Critical Care Critical Care patient: No
--- NOTE | 2019-04-20 18:49 | PN ---
Teaching Attending Note Name of Resident: Sweta Milner ATTENDING PHYSICIAN STATEMENT I saw and evaluated the patient. I reviewed the resident's note and discussed the case with the resident. I agree with the resident's findings and plan as documented. SUBJECTIVE: Patient seen and examined Presented with vague abdominal pains, back pains and leg pains. Daughter states Whipple for pancreatic ca in [place] in [address]. [address] found to have splenic vein thrombosis. Last Vital Signs Temp Pulse Resp BP Pulse Ox 97.8 F 68 18 138/68 96 04/20/19 18:17 04/20/19 18:17 04/20/19 18:17 04/20/19 18:17 04/19/19 21:00 HEENT: KOKI, EOM Intact Oropharynx: No thrush, No mucositis, dentures Neck: Supple Nodes: Without adenopathy Breasts: Without masses Cor: RSR, No murmurs, No gallops Lungs: Clear to P&A Abd: Soft, Normal bowel sounds, No organomegaly, surgical scar Ext:No significant edema Skin: No rashes, Integument intact CBC, BMP 04/20/19 05:30 04/20/19 05:30 Current Medications Generic Name Dose Route Start Last Admin Trade Name Freq PRN Reason Stop Dose Admin Amlodipine Besylate 5 mg 04/18/19 10:00 04/20/19 10:53 Norvasc - PO 5 mg DAILY BRANDY Administration Calcium/Vitamin D 1 tab 04/18/19 10:00 04/20/19 10:54 Oscal 250 Mg+D - PO 1 tab DAILY BRANDY Administration Enoxaparin Sodium 40 mg 04/18/19 13:00 04/20/19 10:53 Lovenox - SQ 40 mg BID BRANDY Administration Insulin Aspart 1 vial 04/20/19 16:30 04/20/19 17:13 Novolog Vial Sliding Scale - SQ 2 units TIDAC BRANDY Administration Protocol Mirtazapine 15 mg 04/18/19 22:00 04/19/19 21:10 Remeron - PO 15 mg HS BRANDY Administration Pantoprazole Sodium 40 mg 04/21/19 10:00 Protonix - PO DAILY BRANDY Ranolazine 500 mg 04/18/19 10:00 04/20/19 10:53 Ranexa - PO 500 mg BID BRANDY Administration CT - splenic vein thrombosis- no change since 2017. Impression: Suspect splenic vein thrombosis is long standing and may relate back to pancreatic surgery years earlier. While anticoagulation typically is recommended in absence of bleeding risks such as varices, cirrhosis, daughter relates history of gastritis and ulcer disease in past. Will discuss with GI OBJECTIVE: ASSESSMENT AND PLAN:
[2019-04-20] MEDS: MIRTAZAPINE 15 MG TABLET (FP) PO SCH (21:14)
[2019-04-21] MEDS: INSULIN SLIDING SCALE (NOVOLOG) 1 VIAL SQ SCH ×3 (06:21→17:06)
[2019-04-21 07:31] LABS: BASO % 0.5 % (0-2.0); EOS % 2.3 % (0-4.5); HEMATOCRIT 34.8 % (32.4-45.2); HEMOGLOBIN 11.5 GM/dL (10.7-15.3); LYMPH % 41.4 % (8-40); MCH 29.9 pg (25.7-33.7); MCHC 33.1 g/dl (32.0-36.0); MEAN CELL VOLUME 90.3 fl (80-96); MEAN PLT VOLUME 8.2 fl (7.5-11.1); MONO % 10.7 % (3.8-10.2); NEUT % 45.1 % (42.8-82.8); PLATELET COUNT 230 K/MM3 (134-434); RBC 3.85 M/mm3 (3.60-5.2); RDW 14.4 % (11.6-15.6); WHITE BLOOD COUNT 3.5 K/mm3 (4.0-10.0)
[2019-04-21 07:44] LABS: ALBUMIN 3.2 g/dl (3.4-5.0); BILIRUBIN,TOTAL 0.3 mg/dL (0.2-1); CALCIUM 8.3 mg/dL (8.5-10.1); CREATININE 0.9 mg/dL (0.55-1.3); POTASSIUM 4.6 mmol/L (3.5-5.1); TOT PROT 6.7 g/dl (6.4-8.2)
[2019-04-21] MEDS: amLODIPine BESYLATE 5 MG TABLET (FP) PO SCH (09:58)
[2019-04-21] MEDS: RANOLAZINE E.R. 500 MG TABLET (FP) PO SCH ×2 (09:58→22:02)
[2019-04-21] MEDS: CALCIUM 250MG/VIT-D 125 UNITS 1 COMBO TABLET PO SCH (09:58)
[2019-04-21] MEDS: ENOXAPARIN NA (PORCINE) 40 MG/0.4 ML DISP.SYRIN SQ SCH ×2 (09:58→22:02)
[2019-04-21] MEDS ORDERED: PANTOPRAZOLE 40 MG TABLET (FP) PO SCH (10:00)
--- NOTE | 2019-04-21 12:23 | PN.GI ---
GI Progress Note Subjective: No acute events Daughter explains that her mother gets lower leg cramps after walking Tolerating PO Awaiting MRI - Objective Vital Signs: Vital Signs Temperature 98.6 F 04/21/19 10:00 Pulse Rate 66 04/21/19 10:00 Respiratory Rate 20 04/21/19 10:00 Blood Pressure 119/59 L 04/21/19 10:00 O2 Sat by Pulse Oximetry (%) 96 04/20/19 23:45 Constitutional: Calm Eyes: No: Sclera Icterus Cardiovascular: Yes: Regular Rate and Rhythm Respiratory: Yes: CTA Bilaterally Gastrointestinal Inspection: No: Distention ...Auscultate: Yes: Normoactive Bowel Sounds ...Palpate: No: Tenderness ...Percussion: No: Tympanitic Edema: No (No LE edema) Neurological: Yes: Alert Labs: CBC, BMP 04/21/19 05:55 04/21/19 05:55 INR, PTT INR 1.10 (0.83-1.09) H 04/18/19 06:20 Hepatic Panel Total Bilirubin 0.3 mg/dL (0.2-1) 04/21/19 05:55 AST 18 U/L (15-37) 04/21/19 05:55 ALT 20 U/L (13-61) 04/21/19 05:55 Alkaline Phosphatase 136 U/L (45-117) H 04/21/19 05:55 Albumin 3.2 g/dl (3.4-5.0) L 04/21/19 05:55 Problem List - Problems (1) Abdominal pain Assessment/Plan: Resolved Awaiting MRI On protonix. Change to 20mg once daily Patient with leg pain consistent with claudication. Consider vascular evaluation Code(s): R10.9 - UNSPECIFIED ABDOMINAL PAIN
--- NOTE | 2019-04-21 14:30 | PN ---
Progress Note, Physician Chief Complaint: Weakness Hyperkalemia Splenic Vein Thrombosis Hx Pancreatic CA History of Present Illness: Previous notes and events reviewed awake and alert NAD denies abdominal pain, chest pain or SOB complain of sharp leg pain B/L when walking - Current Medication List Current Medications: Active Medications Amlodipine Besylate (Norvasc -) 5 mg PO DAILY [facility] Last Admin: 04/21/19 09:58 Dose: 5 mg Calcium/Vitamin D (Oscal 250 Mg+D -) 1 tab PO DAILY [facility] Last Admin: 04/21/19 09:58 Dose: 1 tab Enoxaparin Sodium (Lovenox -) 40 mg SQ BID [facility] Last Admin: 04/21/19 09:58 Dose: 40 mg Insulin Aspart (Novolog Vial Sliding Scale -) 1 vial SQ TIDAC [facility]; Protocol Last Admin: 04/21/19 11:27 Dose: Not Given Mirtazapine (Remeron -) 15 mg PO [facility] Pantoprazole Sodium (Protonix -) 20 mg PO DAILY [facility] Ranolazine (Ranexa -) 500 mg PO BID [facility] Last Admin: 04/21/19 09:58 Dose: 500 mg - Objective Vital Signs: Vital Signs Temperature 98.6 F 04/21/19 10:00 Pulse Rate 66 04/21/19 10:00 Respiratory Rate 20 04/21/19 10:00 Blood Pressure 119/59 L 04/21/19 10:00 O2 Sat by Pulse Oximetry (%) 96 04/20/19 23:45 Constitutional: Yes: No Distress, Calm Eyes: Yes: Conjunctiva Clear HENT: Yes: Atraumatic Cardiovascular: Yes: Regular Rate and Rhythm Respiratory: Yes: Regular, CTA Bilaterally Gastrointestinal: Yes: Normal Bowel Sounds, Soft Genitourinary: Yes: Incontinence Musculoskeletal: Yes: Muscle Weakness Extremities: Yes: WNL Edema: No Neurological: Yes: Alert, Pre-Existing Deficit Psychiatric: Yes: Alert Labs: CBC, BMP 04/21/19 05:55 04/21/19 05:55 INR, PTT INR 1.10 (0.83-1.09) H 04/18/19 06:20 Microbiology 04/17/19 18:52 Urine - Urine Clean Catch Urine Culture - Final NO GROWTH OBTAINED - ....Imaging X-ray: Report Reviewed Cat Scan: Report Reviewed Problem List - Problems (1) Elevated d-dimer Assessment/Plan: -2/2 to splenic vein thrombosis -Lovenox -Hematology on board -pending MRI -US neg for DVT Code(s): R79.89 - OTHER SPECIFIED ABNORMAL FINDINGS OF BLOOD CHEMISTRY (2) Splenic vein thrombosis Assessment/Plan: -Hematology on board -Lovenox Code(s): I82.890 - ACUTE EMBOLISM AND THROMBOSIS OF OTHER SPECIFIED VEINS (3) HILLARY (acute kidney injury) Assessment/Plan: -improved -BUN/Cr 8/0.9 -monitor renal function Code(s): N17.9 - ACUTE KIDNEY FAILURE, UNSPECIFIED (4) Diabetes Assessment/Plan: -BGM ACHS -diabtetic diet -ISS -HgA1c 8.0% Code(s): E11.9 - TYPE 2 DIABETES MELLITUS WITHOUT COMPLICATIONS Qualifiers: Diabetes mellitus type: type 2 Diabetes mellitus usp insulin use: without parts counterman use Diabetes mellitus complication status: with hyperglycemia Qualified Code(s): E11.65 - Type 2 diabetes mellitus with hyperglycemia (5) H/O pancreatic cancer Assessment/Plan: -GI on board -Abdomen MRI pending Code(s): Z85.07 - PERSONAL HISTORY OF MALIGNANT NEOPLASM OF PANCREAS (6) HTN (hypertension) Assessment/Plan: -Amlodipine -low Na diet Code(s): I10 - ESSENTIAL (PRIMARY) HYPERTENSION (7) Hyperkalemia Assessment/Plan: -resolved -K 4.6 -monitor electrolyte and replete as needed Code(s): E87.5 - HYPERKALEMIA Assessment/Plan see problem list dvt ppx
--- NOTE | 2019-04-21 15:22 | PN ---
Physical Exam: SUBJECTIVE: Patient seen and examined resting in bed nad. no acute events. afebrile and hemodynamically stable. no complains at this time. no abd pain OBJECTIVE: Vital Signs Period Temp Pulse Resp BP Sys/Disla Pulse Ox Last 24 Hr 97.7 F-98.6 F 66-72 18-20 119-138/59-69 96 GENERAL: Awake, alert, and fully oriented, in no acute distress. HEAD: Normal with no signs of trauma. EYES: Pupils equal, round and reactive to light, extraocular movements intact, sclera anicteric, conjunctiva clear. No lid lag. EARS, NOSE, THROAT: Moist mucous membranes. NECK: supple without lymphadenopathy or masses. LUNGS: Breath sounds equal, clear to auscultation bilaterally. HEART: Regular rate and rhythm, normal S1 and S2 ABDOMEN: Soft, nontender, not distended, normoactive bowel sounds, no guarding, no rebound, no masses. MUSCULOSKELETAL: No CVA tenderness. Laboratory Results - last 24 hr 04/20/19 04/20/19 04/21/19 16:53 21:08 05:28 WBC RBC Hgb Hct MCV MCH MCHC RDW Plt Count MPV Absolute Neuts (auto) Neutrophils % Lymphocytes % Monocytes % Eosinophils % Basophils % Nucleated RBC % Sodium Potassium Chloride Carbon Dioxide Anion Gap BUN Creatinine Est GFR (CKD-EPI)AfAm Est GFR (CKD-EPI)NonAf POC Glucometer 207 114 113 Random Glucose Calcium Total Bilirubin AST ALT Alkaline Phosphatase Total Protein Albumin 04/21/19 04/21/19 04/21/19 05:55 05:55 11:25 WBC 3.5 L RBC 3.85 Hgb 11.5 Hct 34.8 MCV 90.3 MCH 29.9 MCHC 33.1 RDW 14.4 Plt Count 230 MPV 8.2 Absolute Neuts (auto) 1.6 Neutrophils % 45.1 Lymphocytes % 41.4 H Monocytes % 10.7 H Eosinophils % 2.3 Basophils % 0.5 Nucleated RBC % 0 Sodium 140 Potassium 4.6 Chloride 109 H Carbon Dioxide 25 Anion Gap 7 L BUN 8 Creatinine 0.9 Est GFR (CKD-EPI)AfAm 68.53 Est GFR (CKD-EPI)NonAf 59.13 POC Glucometer 115 Random Glucose 113 H Calcium 8.3 L Total Bilirubin 0.3 AST 18 ALT 20 Alkaline Phosphatase 136 H Total Protein 6.7 Albumin 3.2 L Active Medications Generic Name Dose Route Start Last Admin Trade Name Cristy PRN Reason Stop Dose Admin Amlodipine Besylate 5 mg 04/21/19 10:00 04/21/19 09:58 Norvasc - PO 5 mg DAILY BRANDY Administration Calcium/Vitamin D 1 tab 04/21/19 10:00 04/21/19 09:58 Oscal 250 Mg+D - PO 1 tab DAILY BRANDY Administration Enoxaparin Sodium 40 mg 04/21/19 10:00 04/21/19 09:58 Lovenox - SQ 40 mg BID BRANDY Administration Insulin Aspart 1 vial 04/20/19 16:30 04/21/19 11:27 Novolog Vial Sliding Scale - SQ Not Given TIDAC [facility] Protocol Mirtazapine 15 mg 04/21/19 22:00 Remeron - PO HS BRANDY Pantoprazole Sodium 20 mg 04/22/19 10:00 Protonix - PO DAILY BRANDY Ranolazine 500 mg 04/21/19 10:00 04/21/19 09:58 Ranexa - PO 500 mg BID BRANDY Administration ASSESSMENT/PLAN: This is a 83 yo F with PMH of SVT since 10/21/17 not on ac, Pancreatic Ca ( s/p Whipple, 10 yrs ago), HTN, HLD, DM, OA, Depression, Diverticulitis, who presented due to abd pain, back pain, loss of appetite and malaise x1w. admitted to further work up these complaints. SVT chronic likely provoked by whipple Pancreatic Ca s/p Whipple, 10 yrs ago HTN HLD DM OA -patient does not appear to be a fall risk and denies bleeding history; already on full dose Lara. meets criteria for anticoagulation with coumadin, however patient has been stable for 3 years and benefit of a/c vs risk of bleed is questionable. -stop megace if possible (increases clotting) -monitor wbc count while in hospital Problem List - Problems (1) Splenic vein thrombosis Code(s): I82.890 - ACUTE EMBOLISM AND THROMBOSIS OF OTHER SPECIFIED VEINS (2) Chronic thrombosis of splenic vein Code(s): I82.891 - CHRONIC EMBOLISM AND THROMBOSIS OF OTHER SPECIFIED VEINS (3) Abdominal pain Code(s): R10.9 - UNSPECIFIED ABDOMINAL PAIN (4) Back pain Code(s): M54.9 - DORSALGIA, UNSPECIFIED (5) Diabetes Code(s): E11.9 - TYPE 2 DIABETES MELLITUS WITHOUT COMPLICATIONS Qualifiers: Diabetes mellitus type: type 2 Diabetes mellitus remote computer terminal operator insulin use: without jail use Diabetes mellitus complication status: with hyperglycemia Qualified Code(s): E11.65 - Type 2 diabetes mellitus with hyperglycemia (6) H/O pancreatic cancer Code(s): Z85.07 - PERSONAL HISTORY OF MALIGNANT NEOPLASM OF PANCREAS (7) HTN (hypertension) Code(s): I10 - ESSENTIAL (PRIMARY) HYPERTENSION
--- NOTE | 2019-04-21 16:33 | PN ---
Teaching Attending Note Name of Resident: Sweta Milner ATTENDING PHYSICIAN STATEMENT I saw and evaluated the patient. I reviewed the resident's note and discussed the case with the resident. I agree with the resident's findings and plan as documented. SUBJECTIVE: Patient seen and examined Clinically improved OOB in chair and with less back pains awaiting MRI scan CT report suggest that splenic vein thrombosis present since 2017 . Will discuss in this light / of a/c with coumadin . OBJECTIVE: ASSESSMENT AND PLAN:
[2019-04-21] MEDS: MIRTAZAPINE 15 MG TABLET (FP) PO SCH (22:02)
[2019-04-22] MEDS: INSULIN SLIDING SCALE (NOVOLOG) 1 VIAL SQ SCH ×2 (06:31→11:52)
[2019-04-22 07:26] LABS: HEMATOCRIT 32.5 % (32.4-45.2); HEMOGLOBIN 10.8 GM/dL (10.7-15.3); MCHC 33.3 g/dl (32.0-36.0); MEAN CELL VOLUME 90.2 fl (80-96); MEAN PLT VOLUME 7.7 fl (7.5-11.1); PLATELET COUNT 201 K/MM3 (134-434); RDW 14.5 % (11.6-15.6); WHITE BLOOD COUNT 3.3 K/mm3 (4.0-10.0)
[2019-04-22 08:25] LABS: BILIRUBIN,TOTAL 0.4 mg/dL (0.2-1); CREATININE 0.9 mg/dL (0.55-1.3); POTASSIUM 4.4 mmol/L (3.5-5.1); TOT PROT 6.4 g/dl (6.4-8.2)
[2019-04-22] MEDS: CALCIUM 250MG/VIT-D 125 UNITS 1 COMBO TABLET PO SCH (09:35)
[2019-04-22] MEDS: amLODIPine BESYLATE 5 MG TABLET (FP) PO SCH (09:35)
[2019-04-22] MEDS: RANOLAZINE E.R. 500 MG TABLET (FP) PO SCH ×2 (09:35→22:31)
[2019-04-22] MEDS: PANTOPRAZOLE 20 MG TABLET (FP) PO SCH (09:36)
--- NOTE | 2019-04-22 09:44 | PN ---
Progress Note, Physician Chief Complaint: AWAKE ALERT EVENTS AND NOTES REVIEWED C/O LEG CRAMPS - Current Medication List Current Medications: Active Medications Amlodipine Besylate (Norvasc -) 5 mg PO DAILY [facility] Last Admin: 04/22/19 09:35 Dose: 5 mg Calcium/Vitamin D (Oscal 250 Mg+D -) 1 tab PO DAILY [facility] Last Admin: 04/22/19 09:35 Dose: 1 tab Enoxaparin Sodium (Lovenox -) 40 mg SQ BID [facility] Last Admin: 04/21/19 22:02 Dose: 40 mg Insulin Aspart (Novolog Vial Sliding Scale -) 1 vial SQ TIDAC [facility]; Protocol Last Admin: 04/22/19 06:31 Dose: Not Given Mirtazapine (Remeron -) 15 mg PO [facility] Last Admin: 04/21/19 22:02 Dose: 15 mg Pantoprazole Sodium (Protonix -) 20 mg PO DAILY [facility] Last Admin: 04/22/19 09:36 Dose: 20 mg Ranolazine (Ranexa -) 500 mg PO BID [facility] Last Admin: 04/22/19 09:35 Dose: 500 mg - Objective Vital Signs: Vital Signs Temperature 98.8 F 04/22/19 08:47 Pulse Rate 68 04/22/19 08:47 Respiratory Rate 20 04/22/19 08:47 Blood Pressure 122/60 04/22/19 08:47 O2 Sat by Pulse Oximetry (%) 96 04/20/19 23:45 Constitutional: Yes: Mild Distress Eyes: Yes: WNL HENT: Yes: WNL Neck: Yes: WNL Cardiovascular: Yes: WNL Respiratory: Yes: WNL Gastrointestinal: Yes: WNL Genitourinary: Yes: WNL Musculoskeletal: Yes: Muscle Pain Extremities: Yes: WNL Edema: No Peripheral Pulses WNL: Yes Integumentary: Yes: WNL Wound/Incision: Yes: Clean/Dry ...Motor Strength: WNL Psychiatric: Yes: WNL Labs: CBC, BMP 04/22/19 06:51 04/22/19 06:51 INR, PTT INR 1.10 (0.83-1.09) H 04/18/19 06:20 Problem List - Problems (1) Chronic thrombosis of splenic vein Code(s): I82.891 - CHRONIC EMBOLISM AND THROMBOSIS OF OTHER SPECIFIED VEINS (2) Elevated d-dimer Code(s): R79.89 - OTHER SPECIFIED ABNORMAL FINDINGS OF BLOOD CHEMISTRY (3) Weakness Code(s): R53.1 - WEAKNESS (4) Abdominal pain Code(s): R10.9 - UNSPECIFIED ABDOMINAL PAIN (5) Alkaline phosphatase elevation Code(s): R74.8 - ABNORMAL LEVELS OF OTHER SERUM ENZYMES (6) Diabetes Code(s): E11.9 - TYPE 2 DIABETES MELLITUS WITHOUT COMPLICATIONS Qualifiers: Diabetes mellitus type: type 2 Diabetes mellitus assisted insulin use: without bed bug exterminator use Diabetes mellitus complication status: with hyperglycemia Qualified Code(s): E11.65 - Type 2 diabetes mellitus with hyperglycemia (7) H/O pancreatic cancer Code(s): Z85.07 - PERSONAL HISTORY OF MALIGNANT NEOPLASM OF PANCREAS Assessment/Plan AWAITING MRI ABDOMEN ONCOLOGY AND GI EVAL APPRECIATED MONITOR LABS STOP MEGACE SPLENIC THROMBOSIS IS OLD LIKELY SURGICAL SCARRING FROM WHIPPLE. PRAMEXOLE STARTED 0.125MG HS FOR LEG CRAMPS PT EVAL
[2019-04-22] MEDS: ENOXAPARIN NA (PORCINE) 40 MG/0.4 ML DISP.SYRIN SQ SCH ×2 (11:55→22:32)
--- NOTE | 2019-04-22 18:44 | PN ---
Progress Note, Physician History of Present Illness: Abdominal pain improved, still with some discomfort in RLQ. No diarrhea or vomiting - Current Medication List Current Medications: Active Medications Amlodipine Besylate (Norvasc -) 5 mg PO DAILY [facility] Last Admin: 04/22/19 09:35 Dose: 5 mg Calcium/Vitamin D (Oscal 250 Mg+D -) 1 tab PO DAILY [facility] Last Admin: 04/22/19 09:35 Dose: 1 tab Enoxaparin Sodium (Lovenox -) 40 mg SQ BID [facility] Last Admin: 04/22/19 11:55 Dose: 40 mg Insulin Aspart (Novolog Vial Sliding Scale -) 1 vial SQ TIDAC [facility]; Protocol Last Admin: 04/22/19 11:52 Dose: Not Given Mirtazapine (Remeron -) 15 mg PO [facility] Last Admin: 04/21/19 22:02 Dose: 15 mg Pantoprazole Sodium (Protonix -) 20 mg PO DAILY [facility] Last Admin: 04/22/19 09:36 Dose: 20 mg Pramipexole Dihydrochloride (Mirapex -) 0.125 mg PO [facility] Ranolazine (Ranexa -) 500 mg PO BID [facility] Last Admin: 04/22/19 09:35 Dose: 500 mg - Objective Vital Signs: Vital Signs Temperature 98.8 F 04/22/19 08:47 Pulse Rate 68 04/22/19 08:47 Respiratory Rate 20 04/22/19 08:47 Blood Pressure 122/60 04/22/19 08:47 O2 Sat by Pulse Oximetry (%) 96 04/20/19 23:45 Constitutional: Yes: No Distress, Calm Respiratory: Yes: WNL, Regular, CTA Bilaterally Gastrointestinal: Yes: Soft, Tenderness (RLQ). No: Distention, Tenderness, Epigastrium Edema: No Labs: CBC, BMP 04/22/19 06:51 04/22/19 06:51 INR, PTT INR 1.10 (0.83-1.09) H 04/18/19 06:20 Assessment/Plan 83F with HTN, HLD, DM, PUD, Pancreatic Ca ( s/p Whipple, 10 yrs ago) admitted with abdominal pain and malaise x 1 week after a recent trip to [place]. Symptoms improved but splenic vein thrombosis was noted on CTAP, unchanged from 09/2017. Possibly post-surgical. No prior hx of thrombosis. Would not anticoagulate for old splenic vein thrombosis as risks would likely outweigh benefits.
[2019-04-22] MEDS: MIRTAZAPINE 15 MG TABLET (FP) PO SCH (22:32)
[2019-04-22] MEDS ORDERED: PT OWN MED DRAWER 7, Y5N ONE (22:33)
[2019-04-22] MEDS: PRAMIPEXOLE DIHYDROCHLORIDE 0.125 MG TABLET PO SCH (22:33)
[2019-04-23] MEDS: ENOXAPARIN NA (PORCINE) 40 MG/0.4 ML DISP.SYRIN SQ SCH ×2 (09:46→21:18)
[2019-04-23] MEDS: RANOLAZINE E.R. 500 MG TABLET (FP) PO SCH ×2 (09:46→21:22)
[2019-04-23] MEDS: amLODIPine BESYLATE 5 MG TABLET (FP) PO SCH (09:46)
[2019-04-23] MEDS: PANTOPRAZOLE 20 MG TABLET (FP) PO SCH (09:46)
[2019-04-23] MEDS: CALCIUM 250MG/VIT-D 125 UNITS 1 COMBO TABLET PO SCH (09:46)
[2019-04-23] MEDS: INSULIN SLIDING SCALE (NOVOLOG) 1 VIAL SQ SCH ×2 (11:41→16:39)
--- NOTE | 2019-04-23 12:06 | PN ---
Progress Note, Physician Chief Complaint: AWAKE ALERT TOLERATING MEALS AWAITING MRI ABDOMEN RESULTS - Current Medication List Current Medications: Active Medications Amlodipine Besylate (Norvasc -) 5 mg PO DAILY [facility] Last Admin: 04/23/19 09:46 Dose: 5 mg Calcium/Vitamin D (Oscal 250 Mg+D -) 1 tab PO DAILY [facility] Last Admin: 04/23/19 09:46 Dose: 1 tab Enoxaparin Sodium (Lovenox -) 40 mg SQ BID [facility] Last Admin: 04/23/19 09:46 Dose: 40 mg Insulin Aspart (Novolog Vial Sliding Scale -) 1 vial SQ TIDAC [facility]; Protocol Last Admin: 04/23/19 11:41 Dose: Not Given Mirtazapine (Remeron -) 15 mg PO [facility] Last Admin: 04/22/19 22:32 Dose: 15 mg Pantoprazole Sodium (Protonix -) 20 mg PO DAILY [facility] Last Admin: 04/23/19 09:46 Dose: 20 mg Pramipexole Dihydrochloride (Mirapex -) 0.125 mg PO [facility] Last Admin: 04/22/19 22:33 Dose: 0.125 mg Ranolazine (Ranexa -) 500 mg PO BID [facility] Last Admin: 04/23/19 09:46 Dose: 500 mg - Objective Vital Signs: Vital Signs Temperature 98.8 F 04/23/19 05:56 Pulse Rate 69 04/23/19 05:56 Respiratory Rate 18 04/23/19 05:56 Blood Pressure 118/66 04/23/19 05:56 O2 Sat by Pulse Oximetry (%) 99 04/22/19 21:00 Constitutional: Yes: Mild Distress Eyes: Yes: WNL HENT: Yes: WNL Neck: Yes: WNL Cardiovascular: Yes: Regular Rate and Rhythm Respiratory: Yes: WNL Gastrointestinal: Yes: WNL Genitourinary: Yes: WNL Musculoskeletal: Yes: WNL Extremities: Yes: WNL Edema: No Peripheral Pulses WNL: Yes Integumentary: Yes: WNL Wound/Incision: Yes: Clean/Dry Neurological: Yes: WNL ...Motor Strength: WNL Psychiatric: Yes: WNL Labs: CBC, BMP 04/22/19 06:51 04/22/19 06:51 INR, PTT INR 1.10 (0.83-1.09) H 04/18/19 06:20 Problem List - Problems (1) Chronic thrombosis of splenic vein Code(s): I82.891 - CHRONIC EMBOLISM AND THROMBOSIS OF OTHER SPECIFIED VEINS (2) Elevated d-dimer Code(s): R79.89 - OTHER SPECIFIED ABNORMAL FINDINGS OF BLOOD CHEMISTRY (3) Weakness Code(s): R53.1 - WEAKNESS (4) Abdominal pain Code(s): R10.9 - UNSPECIFIED ABDOMINAL PAIN (5) Alkaline phosphatase elevation Code(s): R74.8 - ABNORMAL LEVELS OF OTHER SERUM ENZYMES (6) Diabetes Code(s): E11.9 - TYPE 2 DIABETES MELLITUS WITHOUT COMPLICATIONS Qualifiers: Diabetes mellitus type: type 2 Diabetes mellitus penitentiary insulin use: without vector control specialist use Diabetes mellitus complication status: with hyperglycemia Qualified Code(s): E11.65 - Type 2 diabetes mellitus with hyperglycemia (7) H/O pancreatic cancer Code(s): Z85.07 - PERSONAL HISTORY OF MALIGNANT NEOPLASM OF PANCREAS Assessment/Plan AWAITING MRI ABDOMEN REULTS ONCOLOGY AND GI EVAL APPRECIATED MONITOR LABS STOP MEGACE SPLENIC THROMBOSIS IS OLD LIKELY SURGICAL SCARRING DO NOT ANTICOAGULATE RISK OUTWEIGHS BENEFIT AT THIS POINT AND HER AGE WITH COMORBIDITIES FROM [place]IP[place]. PRAMEXOLE STARTED 0.125MG HS FOR LEG CRAMPS PT EVAL
[2019-04-23] MEDS ORDERED: ONDANSETRON 4 MG/2 ML VIAL IVPUSH PRN (18:16)
--- NOTE | 2019-04-23 20:01 | PN ---
Progress Note, Physician History of Present Illness: Vomited today but denies abdominal pain. - Current Medication List Current Medications: Active Medications Amlodipine Besylate (Norvasc -) 5 mg PO DAILY [facility] Last Admin: 04/23/19 09:46 Dose: 5 mg Calcium/Vitamin D (Oscal 250 Mg+D -) 1 tab PO DAILY [facility] Last Admin: 04/23/19 09:46 Dose: 1 tab Enoxaparin Sodium (Lovenox -) 40 mg SQ BID [facility] Last Admin: 04/23/19 09:46 Dose: 40 mg Insulin Aspart (Novolog Vial Sliding Scale -) 1 vial SQ TIDAC [facility]; Protocol Last Admin: 04/23/19 16:39 Dose: Not Given Mirtazapine (Remeron -) 15 mg PO [facility] Last Admin: 04/22/19 22:32 Dose: 15 mg Ondansetron HCl (Zofran Injection) 4 mg IVPUSH Q6H PRN PRN Reason: NAUSEA AND/OR VOMITING Pantoprazole Sodium (Protonix -) 20 mg PO DAILY [facility] Last Admin: 04/23/19 09:46 Dose: 20 mg Pramipexole Dihydrochloride (Mirapex -) 0.125 mg PO [facility] Last Admin: 04/22/19 22:33 Dose: 0.125 mg Ranolazine (Ranexa -) 500 mg PO BID [facility] Last Admin: 04/23/19 09:46 Dose: 500 mg - Objective Vital Signs: Vital Signs Temperature 99.4 F 04/23/19 18:00 Pulse Rate 93 H 04/23/19 18:00 Respiratory Rate 19 04/23/19 18:00 Blood Pressure 129/60 04/23/19 18:00 O2 Sat by Pulse Oximetry (%) 99 04/22/19 21:00 Constitutional: Yes: No Distress, Calm Cardiovascular: Yes: Regular Rate and Rhythm Respiratory: Yes: Regular, CTA Bilaterally Gastrointestinal: Yes: Normal Bowel Sounds, Soft. No: Tenderness Edema: No Labs: CBC, BMP 04/22/19 06:51 04/22/19 06:51 INR, PTT INR 1.10 (0.83-1.09) H 04/18/19 06:20 Assessment/Plan 83F with HTN, HLD, DM, PUD, Pancreatic Ca ( s/p Whipple, 10 yrs ago) admitted with abdominal pain and malaise x 1 week after a recent trip to [place]. Symptoms improved but splenic vein thrombosis was noted on CTAP, unchanged from 09/2017. Possibly post-surgical. No prior hx of thrombosis. Would not anticoagulate for old splenic vein thrombosis as risks would likely outweigh benefits.
[2019-04-23] MEDS: MIRTAZAPINE 15 MG TABLET (FP) PO SCH (21:23)
[2019-04-23] MEDS ORDERED: PT OWN MED DRAWER 7, Y5N ONE (21:24)
[2019-04-23] MEDS: PRAMIPEXOLE DIHYDROCHLORIDE 0.125 MG TABLET PO SCH (21:25)
[2019-04-24] MEDS: INSULIN SLIDING SCALE (NOVOLOG) 1 VIAL SQ SCH ×3 (06:12→17:00)
[2019-04-24] MEDS ORDERED: PT OWN MED DRAWER 7, Y5N ONE (09:20)
[2019-04-24] MEDS: RANOLAZINE E.R. 500 MG TABLET (FP) PO SCH (09:27)
[2019-04-24] MEDS: ENOXAPARIN NA (PORCINE) 40 MG/0.4 ML DISP.SYRIN SQ SCH (09:27)
[2019-04-24] MEDS: PANTOPRAZOLE 20 MG TABLET (FP) PO SCH (09:27)
[2019-04-24] MEDS: CALCIUM 250MG/VIT-D 125 UNITS 1 COMBO TABLET PO SCH (09:27)
[2019-04-24] MEDS: amLODIPine BESYLATE 5 MG TABLET (FP) PO SCH (09:27)
--- NOTE | 2019-04-24 10:16 | PN.GI ---
GI Progress Note Subjective: Pt seen/examined at bedside, pts daughter at bedside, feels better, denies abdominal pain. Intermittent nausea and poor appetite. Also reporting intermittent back pain, and leg pain mostly on exertion. MRI done this weekend. - Objective Vital Signs: Vital Signs Temperature 97.7 F 04/24/19 04:56 Pulse Rate 62 04/24/19 04:56 Respiratory Rate 18 04/24/19 04:56 Blood Pressure 100/52 L 04/24/19 04:56 O2 Sat by Pulse Oximetry (%) 99 04/23/19 21:00 Constitutional: Well Nourished, No Distress, Calm Cardiovascular: Yes: WNL, Regular Rate and Rhythm Respiratory: Yes: WNL, Regular, CTA Bilaterally ...Palpate: Yes: Other (Abd soft, nontender, nondistended) Labs: CBC, BMP 04/22/19 06:51 04/22/19 06:51 INR, PTT INR 1.10 (0.83-1.09) H 04/18/19 06:20 Problem List - Problems (1) Abdominal pain Assessment/Plan: h/o pancreatic ca s/p Whipple (10 years ago in [place]), chronic splenic vein thrombosis with abdominal pain now improved, s/p UGI series revealing some compression at antrum possibly secondary to post surgical changes/whipple ? scarring, and suggestion of malrotation d/w radiologist likely benign/ incidental. No plans for A/C at this time per heme/onc. MRI/MRCP revealing postsurgical changes without obvious recurrent neoplasm. -Recommend diet as tolerated -PPI daily -Oncology follow up -Vascular surgery consultation for claudication in view of continued reports of LE pain Code(s): R10.9 - UNSPECIFIED ABDOMINAL PAIN
[2019-04-24 16:03] VITALS: BP 105/60; PULSE 65; TEMP 98.8
--- NOTE | 2019-04-24 17:03 | DS ---
Physical Examination Vital Signs: Vital Signs Temperature 98.8 F 04/24/19 15:59 Pulse Rate 65 04/24/19 15:59 Respiratory Rate 20 04/24/19 15:59 Blood Pressure 105/60 04/24/19 15:59 O2 Sat by Pulse Oximetry (%) 99 04/23/19 21:00 Constitutional: Yes: No Distress Eyes: Yes: WNL HENT: Yes: WNL Neck: Yes: WNL Cardiovascular: Yes: WNL Respiratory: Yes: WNL Gastrointestinal: Yes: WNL Musculoskeletal: Yes: Muscle Weakness Extremities: Yes: WNL Edema: No Peripheral Pulses WNL: Yes Integumentary: Yes: WNL Wound/Incision: Yes: Clean/Dry Neurological: Yes: WNL ...Motor Strength: WNL Psychiatric: Yes: WNL Labs: CBC, BMP 04/22/19 06:51 04/22/19 06:51 Discharge Summary Reason For Visit: WEAKNESS HYPERKALEMIA Current Active Problems Chronic thrombosis of splenic vein (Acute) Elevated d-dimer (Acute) Splenic vein thrombosis (Acute) Weakness (Acute) Procedures: Principal: MRI ABD Hospital Course: ADMITTED PANCRETITIS, MRI DONE TREATED WITH IVF AND PAIN CONTROL Condition: Fair - Instructions Diet, Activity, Other Instructions: SEE DR VALIENTE IN 2-3 DAYS STOP JANCHENG Disposition: HOME - Home Medications Comprehensive Discharge Medication List: Ambulatory Orders Mirtazapine [Remeron -] 15 mg PO DAILY #30 tablet 10/22/17 Acetaminophen 325 mg PO QID PRN 09/27/18 Ferrous Sulfate 325 mg PO DAILY 09/27/18 Pantoprazole Sodium [Protonix -] 20 mg PO DAILY 09/27/18 Cholecalciferol (Vitamin D3) [Vitamin D-400] 400 unit PO DAILY 04/17/19 Ranolazine [Ranolazine ER] 500 mg PO BID 04/17/19 Amlodipine Besylate/Benazepril [Lotrel 5-10 mg Capsule] 1 each PO DAILY Aspirin [Ecotrin] 81 mg PO DAILY 04/18/19 Calcium 500Mg/Vit-D 200 Units [Os-Chuy 500+D -] 1 combo PO DAILY 04/18/19 Pramipexole Dihydrochloride [Mirapex -] 0.125 mg PO HS #30 tablet 04/24/19
== END 2019-04-24 18:37 | disposition home or self-care (01) | DRG 391 ==
LOC: JER 16:06 → JERBED 04-18 00:19 → J4S 04-18 15:32 → OBSVTOIN 04-19 11:38 → J6S 04-20 22:59
PROVIDERS: ADMIT Family Medicine; ATTEND Family Medicine
DX: K29.70 Gastritis, unspecified, without bleeding (principal); K85.90 Acute pancreatitis without necrosis or infection, unspecified; I82.891 Chronic embolism and thrombosis of other specified veins; E87.1 Hypo-osmolality and hyponatremia; N17.9 Acute kidney failure, unspecified; I47.1 Supraventricular tachycardia; Z68.1 Body mass index [BMI] 19.9 or less, adult; I82.890 Acute embolism and thrombosis of other specified veins; R10.9 Unspecified abdominal pain; E11.9 Type 2 diabetes mellitus without complications; I10 Essential (primary) hypertension; F32.9 Major depressive disorder, single episode, unspecified; F03.90 Unspecified dementia, unspecified severity, without behavioral disturbance, psychotic disturbance, mood disturbance, and anxiety; Z85.07 Personal history of malignant neoplasm of pancreas; Z79.4 Long term (current) use of insulin; M54.9 Dorsalgia, unspecified; E87.5 Hyperkalemia; R63.4 Abnormal weight loss; I49.9 Cardiac arrhythmia, unspecified; I49.3 Ventricular premature depolarization; E86.0 Dehydration; R53.1 Weakness
CPT/HCPCS: 36415; 70450-TC; 71045-TC-FY; 72070-TC-FY; 72100-TC-FY; 74177-TC; 74183-TC; 74245-TC-FY; 80048; 80053; 81003; 82272; 82550; 82728; 82962; 83036; 83540; 83550; 83690; 83735; 84100; 84443; 84484; 85025; 85027; 85379; 85610; 87086; 93005; 93010; 93970-TC; 99285-25; G0378; J0131; J7030

== ENCOUNTER 2021-07-04 18:18 | Emergency (ER) | payer OTHER ==
[2021-07-04 19:33] VITALS: TEMP 98; BMI 19.5
[2021-07-04 21:21] LABS: BASO % 0.5 % (0-2.0); EOS % 3.3 % (0-4.5); HEMATOCRIT 30.4 % (32.4-45.2); HEMOGLOBIN 10.1 GM/dL (10.7-15.3); MCH 31.3 pg (25.7-33.7); MCHC 33.1 g/dl (32.0-36.0); MEAN CELL VOLUME 94.5 fl (80-96); MEAN PLT VOLUME 7.7 fl (7.5-11.1); MONO % 13.4 % (3.8-10.2); NEUT % 44.8 % (42.8-82.8); PLATELET COUNT 231 10^3/uL (134-434); RBC 3.22 M/mm3 (3.60-5.2); RDW 14.7 % (11.6-15.6); WHITE BLOOD COUNT 5.1 K/mm3 (4.0-10.0)
[2021-07-04 21:43] LABS: CHLORIDE 110 mmol/L (98-107); SODIUM 136 mmol/L (136-145)
[2021-07-04 21:44] LABS: CALCIUM 7.2 mg/dL (8.5-10.1)
[2021-07-04 21:45] LABS: ALBUMIN 2.5 g/dl (3.4-5.0); BLOOD UREA NITROGEN 14.1 mg/dL (7-18); CO2 20 mmol/L (21-32); GLUCOSE,RANDOM 124 mg/dL (74-106)
[2021-07-04 21:48] LABS: CREATININE 1.1 mg/dL (0.55-1.3); SGOT/AST 37 U/L (15-37); SGPT/ALT 26 U/L (13-61)
[2021-07-04 21:49] LABS: BILIRUBIN,TOTAL 0.2 mg/dL (0.2-1)
[2021-07-04 21:50] LABS: TOT PROT 5.9 g/dl (6.4-8.2)
[2021-07-04 21:51] LABS: ALK PHOS 135 U/L (45-117)
[2021-07-04 21:53] LABS: N-TERMINAL BNP 855.1 pg/ml (5-450)
[2021-07-04 22:15] LABS: ANION GAP 6 MMOL/L (8-16)
[2021-07-04 22:55] LABS: CALCIUM 7.7 mg/dL (8.5-10.1)
[2021-07-04 22:56] LABS: BLOOD UREA NITROGEN 13.5 mg/dL (7-18)
[2021-07-04 22:59] LABS: CREATININE 1.3 mg/dL (0.55-1.3)
[2021-07-04] MEDS ORDERED: FUROSEMIDE 20 MG TABLET (FP) PO ONE (23:11)
[2021-07-04] MEDS ORDERED: FUROSEMIDE 40 MG TABLET (FP) ONE (23:24)
[2021-07-04 23:50] VITALS: BP 116/64; PULSE 90
== END 2021-07-04 23:51 | disposition home or self-care (01) ==
LOC: JER 18:18
DX: R60.0 Localized edema (principal)
CPT/HCPCS: 36415; 71045-TC-FY; 80048; 80053; 82550; 83880; 84484; 85025; 93005; 93010; 93970-TC; 99285-25; C9803; U0003; U0005

== ENCOUNTER 2021-09-14 11:41 | Inpatient (IN) | payer OTHER ==
[2021-09-14] MEDS ORDERED: morphine CARPU-JECT 2 MG/1 ML DISP.SYRIN IVPUSH ONE (12:39)
[2021-09-14 14:03] LABS: BASO % 0.1 % (0-2.0); EOS % 0.4 % (0-4.5); HEMATOCRIT 29.6 % (32.4-45.2); HEMOGLOBIN 10.1 GM/dL (10.7-15.3); LYMPH % 11.6 % (8-40); MEAN CELL VOLUME 94.3 fl (80-96); MEAN PLT VOLUME 8.4 fl (7.5-11.1); MONO % 4.6 % (3.8-10.2); NEUT % 83.3 % (42.8-82.8); PLATELET COUNT 175 10^3/uL (134-434); RBC 3.14 M/mm3 (3.60-5.2); RDW 13.9 % (11.6-15.6)
[2021-09-14 14:33] LABS: CHLORIDE 109 mmol/L (98-107); SODIUM 136 mmol/L (136-145)
[2021-09-14 14:36] LABS: ANION GAP 6 MMOL/L (8-16); BLOOD UREA NITROGEN 11.4 mg/dL (7-18); CALCIUM 7.4 mg/dL (8.5-10.1); CO2 21 mmol/L (21-32); GLUCOSE,RANDOM 278 mg/dL (74-106); MAGNESIUM 1.8 mg/dL (1.8-2.4)
[2021-09-14 14:39] LABS: CREATININE 1.3 mg/dL (0.55-1.3); PHOSPHOROUS 3.3 mg/dL (2.5-4.9); SGOT/AST 46 U/L (15-37); SGPT/ALT 28 U/L (13-61)
[2021-09-14 14:41] LABS: BILIRUBIN,TOTAL 0.2 mg/dL (0.2-1); TOT PROT 5.5 g/dl (6.4-8.2)
[2021-09-14 14:42] LABS: ALK PHOS 137 U/L (45-117)
[2021-09-14] MEDS ORDERED: morphine SULFATE 4 MG/ML VIAL ONE ×2 (15:39→18:42)
[2021-09-14 15:53] LABS: PH,URINE 6.5 (5.0-8.0); URINE APPEARANCE CLEAR; URINE BILIRUBIN NEGATIVE (NEGATIVE); URINE COLOR YELLOW; URINE GLUCOSE (UA) TRACE (NEGATIVE); URINE KETONE NEGATIVE (NEGATIVE); URINE LEUK ESTERASE NEGATIVE (NEGATIVE); URINE NITRITE NEGATIVE (NEGATIVE); URINE PROTEIN NEGATIVE (NEGATIVE); URINE UROBILINOGEN 0.2 mg/dL (0.2-1.0)
[2021-09-14] MEDS ORDERED: morphine CARPU-JECT 4 MG/1 ML DISP.SYRIN IVPUSH ONE (18:17)
[2021-09-15] MEDS: ACETAMINOPHEN 1000 MG/100 ML VIAL IVPB PRN ×2 (06:21→16:31)
[2021-09-15] MEDS: DEXTROSE 5%-0.45% SALINE 1,000 ML IV SCH (08:46)
[2021-09-15 08:59] LABS: BASO % 0.4 % (0-2.0); EOS % 1.8 % (0-4.5); HEMATOCRIT 28.1 % (32.4-45.2); HEMOGLOBIN 9.5 GM/dL (10.7-15.3); LYMPH % 21.1 % (8-40); MCH 31.5 pg (25.7-33.7); MCHC 33.8 g/dl (32.0-36.0); MEAN CELL VOLUME 93.3 fl (80-96); MEAN PLT VOLUME 8.1 fl (7.5-11.1); MONO % 9.1 % (3.8-10.2); NEUT % 67.6 % (42.8-82.8); PLATELET COUNT 195 10^3/uL (134-434); RBC 3.02 M/mm3 (3.60-5.2); RDW 13.7 % (11.6-15.6); WHITE BLOOD COUNT 5.4 K/mm3 (4.0-10.0)
[2021-09-15 09:08] LABS: CALCIUM 8.3 mg/dL (8.5-10.1)
[2021-09-15 09:09] LABS: ALBUMIN 1.7 g/dl (3.4-5.0)
[2021-09-15 09:12] LABS: CREATININE 1.1 mg/dL (0.55-1.3)
[2021-09-15 09:14] LABS: BILIRUBIN,TOTAL 0.7 mg/dL (0.2-1)
[2021-09-15] MEDS: HEPARIN NA (PORCINE) 5,000 UNITS/ML 1ML VIAL SQ SCH ×2 (10:38→23:07)
[2021-09-15] MEDS: SODIUM ZIRCONIUM CYCLOSILICATE (LOKELMA) 5 GM PACKET PO SCH (15:08)
[2021-09-16 08:48] LABS: HEMATOCRIT 29.4 % (32.4-45.2); MCH 31.9 pg (25.7-33.7); MEAN CELL VOLUME 93.8 fl (80-96); PLATELET COUNT 200 10^3/uL (134-434); RBC 3.14 M/mm3 (3.60-5.2); RDW 13.8 % (11.6-15.6); WHITE BLOOD COUNT 5.6 K/mm3 (4.0-10.0)
[2021-09-16 09:15] LABS: CALCIUM 7.4 mg/dL (8.5-10.1)
[2021-09-16 09:16] LABS: BLOOD UREA NITROGEN 10.6 mg/dL (7-18)
[2021-09-16 09:19] LABS: CREATININE 0.9 mg/dL (0.55-1.3)
[2021-09-16] MEDS: DEXTROSE 5%-0.45% SALINE 1,000 ML IV SCH ×2 (09:35→18:07)
[2021-09-16] MEDS: SODIUM ZIRCONIUM CYCLOSILICATE (LOKELMA) 5 GM PACKET PO SCH (09:36)
[2021-09-16] MEDS: HEPARIN NA (PORCINE) 5,000 UNITS/ML 1ML VIAL SQ SCH (09:36)
[2021-09-16] MEDS ORDERED: ACETAMINOPHEN 1000 MG/100 ML VIAL IVPB PRN ×2 (11:49→15:54)
[2021-09-16] MEDS ORDERED: ACETAMINOPHEN INJECTION 100 ML IVPB ONE (13:48)
[2021-09-16] MEDS ORDERED: BUPIVACAINE HCL/PF 0.5% (5MG/ML) 10 ML VIAL ONE (13:48)
[2021-09-16] MEDS ORDERED: DEXMEDETOMIDINE HCL 200 MCG/2 ML IVPB ONE (13:49)
[2021-09-16 14:48] VITALS: BMI 16.6
[2021-09-16] MEDS ORDERED: VANCOMYCIN 1,000 MG VIAL (RESTRICTED TO ID ONLY) ONE (15:18)
[2021-09-16] MEDS ORDERED: ceFAZolin SODIUM 1 GM VIAL IVPB ONE (15:40)
[2021-09-16] MEDS ORDERED: LACTATED RINGERS SOLUTION 1,000 ML IV SCH (15:45)
[2021-09-16] MEDS ORDERED: morphine SULFATE 4 MG/ML VIAL IVPUSH PRN (17:45)
[2021-09-16] MEDS: LACTATED RINGERS SOLUTION 1,000 ML IV SCH (18:06)
[2021-09-16] MEDS: oxyCODONE HCL 5 MG TABLET PO PRN (21:57)
[2021-09-16] MEDS: CEFAZOLIN 2 GM in DEXTROSE 5%-WATER - 100 ML IVPB SCH (21:59)
[2021-09-16] MEDS ORDERED: PT OWN MED DRAWER 7, Y5N ONE (22:38)
[2021-09-16] MEDS ORDERED: CEFAZOLIN 2 GM in DEXTROSE 5%-WATER - 50 ML IVPB SCH (23:00)
[2021-09-17] MEDS: oxyCODONE HCL 5 MG TABLET PO PRN ×3 (05:52→18:25)
[2021-09-17] MEDS: DEXTROSE 5%-0.45% SALINE 1,000 ML IV SCH ×2 (05:59→18:04)
[2021-09-17] MEDS: CEFAZOLIN 2 GM in DEXTROSE 5%-WATER - 100 ML IVPB SCH (06:00)
[2021-09-17] MEDS ORDERED: ASPIRIN 325 MG TABLET PO SCH (08:00)
[2021-09-17 08:45] LABS: HEMATOCRIT 23.2 % (32.4-45.2); HEMOGLOBIN 7.9 GM/dL (10.7-15.3); MCH 31.5 pg (25.7-33.7); MCHC 33.8 g/dl (32.0-36.0); MEAN CELL VOLUME 93.1 fl (80-96); MEAN PLT VOLUME 8.1 fl (7.5-11.1); PLATELET COUNT 169 10^3/uL (134-434); RBC 2.49 M/mm3 (3.60-5.2); RDW 13.7 % (11.6-15.6); WHITE BLOOD COUNT 6.9 K/mm3 (4.0-10.0)
[2021-09-17 09:11] LABS: BLOOD UREA NITROGEN 14.1 mg/dL (7-18)
[2021-09-17 09:15] LABS: CREATININE 1.3 mg/dL (0.55-1.3)
[2021-09-17] MEDS ORDERED: FUROSEMIDE 40 MG/4 ML INJECTABLE VIAL IVPUSH ONE (09:23)
[2021-09-17] MEDS: ASPIRIN 325 MG TABLET PO SCH (09:27)
[2021-09-17] MEDS ORDERED: FUROSEMIDE 40 MG/4 ML INJECTABLE VIAL ONE (17:37)
[2021-09-17] MEDS: LACTATED RINGERS SOLUTION 1,000 ML IV SCH (18:03)
[2021-09-18] MEDS: oxyCODONE HCL 5 MG TABLET PO PRN ×2 (06:18→21:01)
[2021-09-18 08:57] LABS: BASO % 0.2 % (0-2.0); EOS % 0.8 % (0-4.5); HEMATOCRIT 28.6 % (32.4-45.2); LYMPH % 10.6 % (8-40); MCH 32.4 pg (25.7-33.7); MEAN CELL VOLUME 92.6 fl (80-96); MEAN PLT VOLUME 8.1 fl (7.5-11.1); MONO % 15.4 % (3.8-10.2); PLATELET COUNT 159 10^3/uL (134-434); RBC 3.09 M/mm3 (3.60-5.2); RDW 13.9 % (11.6-15.6); WHITE BLOOD COUNT 10.3 K/mm3 (4.0-10.0)
[2021-09-18] MEDS: ASPIRIN 325 MG TABLET PO SCH (09:19)
[2021-09-18 09:23] LABS: CHLORIDE 108 mmol/L (98-107); SODIUM 138 mmol/L (136-145)
[2021-09-18 09:31] LABS: ALBUMIN 1.4 g/dl (3.4-5.0); BLOOD UREA NITROGEN 20.7 mg/dL (7-18); GLUCOSE,RANDOM 158 mg/dL (74-106)
[2021-09-18 09:32] LABS: ANION GAP 4 MMOL/L (8-16); CO2 26 mmol/L (21-32)
[2021-09-18 09:33] LABS: BILIRUBIN,TOTAL 0.7 mg/dL (0.2-1); SGPT/ALT 11 U/L (13-61); TOT PROT 4.4 g/dl (6.4-8.2)
[2021-09-18 09:34] LABS: ALK PHOS 118 U/L (45-117); CREATININE 1.1 mg/dL (0.55-1.3); SGOT/AST 31 U/L (15-37)
[2021-09-18 09:40] LABS: CALCIUM 6.9 mg/dL (8.5-10.1)
[2021-09-18] MEDS: DEXTROSE 5%-0.45% SALINE 1,000 ML IV SCH (17:12)
[2021-09-18] MEDS: LACTATED RINGERS SOLUTION 1,000 ML IV SCH (21:02)
[2021-09-19] MEDS: oxyCODONE HCL 5 MG TABLET PO PRN (05:55)
[2021-09-19] MEDS: ASPIRIN 325 MG TABLET PO SCH (09:09)
[2021-09-19 17:15] VITALS: PULSE 101
[2021-09-19] MEDS: LACTATED RINGERS SOLUTION 1,000 ML IV SCH (17:15)
[2021-09-19] MEDS: DEXTROSE 5%-0.45% SALINE 1,000 ML IV SCH (17:15)
[2021-09-19] MEDS ORDERED: oxyCODONE HCL 5 MG TABLET PO ONE (18:58)
[2021-09-19] MEDS ORDERED: morphine SULFATE 4 MG/ML VIAL IVPUSH ONE (18:59)
[2021-09-19 19:56] VITALS: BP 146/74; TEMP 98.1
== END 2021-09-19 20:51 | disposition home or self-care (01) | DRG 522 ==
LOC: JER 11:41 → JERBED 17:51 → J6S 23:27
PROVIDERS: ADMIT Family Medicine; ATTEND Family Medicine
PROC: 0SRS0JZ Replacement of Left Hip Joint, Femoral Surface with Synthetic Substitute, Open Approach (ICD-10-PCS; principal; 2021-09-16 13:30)
PROC: 30233N1 Transfusion of Nonautologous Red Blood Cells into Peripheral Vein, Percutaneous Approach (ICD-10-PCS; 2021-09-17)
DX: S72.002A Fracture of unspecified part of neck of left femur, initial encounter for closed fracture (principal); E11.65 Type 2 diabetes mellitus with hyperglycemia; I10 Essential (primary) hypertension; E78.5 Hyperlipidemia, unspecified; K57.90 Diverticulosis of intestine, part unspecified, without perforation or abscess without bleeding; E87.5 Hyperkalemia; E83.51 Hypocalcemia; F32.9 Major depressive disorder, single episode, unspecified; D64.9 Anemia, unspecified; W19.XXXA Unspecified fall, initial encounter; Y93.9 Activity, unspecified; Y92.099 Unspecified place in other non-institutional residence as the place of occurrence of the external cause; Y99.9 Unspecified external cause status; E11.9 Type 2 diabetes mellitus without complications
CPT/HCPCS: 36415; 36430; 70450-TC; 71045-TC-FY; 72125-TC; 72192-TC; 73502-TC-LT-FY; 73700-TC-RT; 80048; 80053; 81003; 82550; 82962; 83735; 84100; 84484; 85025; 85027; 86850; 86900; 86901; 86922; 87086; 93005; 93010; 94010; 94760; 97161-GP; 99285-25; C9803; J0131; J1644; P9058; U0003; U0005

== ENCOUNTER 2021-10-16 03:43 | Inpatient (IN) | payer OTHER ==
[2021-10-16 04:05] VITALS: BMI 20.1
[2021-10-16 04:19] LABS: VENOUS BASE EXCESS -9.1 mmol/L (-2-2); VENOUS O2 SATURATION 19.9 % (70-80); VENOUS PCO2 54.1 mmHg (38-52)
[2021-10-16 04:20] LABS: BASO % 0.3 % (0-2.0); EOS % 1.7 % (0-4.5); HEMATOCRIT 39.2 % (32.4-45.2); HEMOGLOBIN 12.9 GM/dL (10.7-15.3); LYMPH % 23.5 % (8-40); MCHC 32.8 g/dl (32.0-36.0); MEAN CELL VOLUME 97.5 fl (80-96); MEAN PLT VOLUME 8.1 fl (7.5-11.1); MONO % 5.1 % (3.8-10.2); NEUT % 69.4 % (42.8-82.8); PLATELET COUNT 329 10^3/uL (134-434); RBC 4.02 M/mm3 (3.60-5.2); RDW 15.9 % (11.6-15.6); WHITE BLOOD COUNT 7.5 K/mm3 (4.0-10.0)
[2021-10-16 04:30] LABS: INR 0.9 (0.83-1.09); PROTHROMBIN TIME (PATIENT) 10.5 SEC (9.7-13.0)
[2021-10-16 04:33] LABS: ACTIVATED PTT 26.7 SECONDS (25.2-36.5)
[2021-10-16 04:47] LABS: LACTIC ACID 3.4 mmol/L (0.4-2.0)
[2021-10-16 04:51] LABS: ALBUMIN 2.5 g/dl (3.4-5.0); ALK PHOS 228 U/L (45-117); ANION GAP -3 MMOL/L (8-16); BLOOD UREA NITROGEN 16.7 mg/dL (7-18); CALCIUM 7.9 mg/dL (8.5-10.1); CHLORIDE 110 mmol/L (98-107); CO2 22 mmol/L (21-32); CREATININE 1.2 mg/dL (0.55-1.3); GLUCOSE,RANDOM 77 mg/dL (74-106); SODIUM 128 mmol/L (136-145)
[2021-10-16 04:53] LABS: VENOUS PH 7.177 (7.310-7.410)
[2021-10-16] MEDS ORDERED: SODIUM CHLORIDE 0.9% 500 ML INFUS.BAG IV ONE (05:24)
[2021-10-16 06:23] LABS: BILIRUBIN,TOTAL 0.3 mg/dL (0.2-1); BLOOD UREA NITROGEN 16.9 mg/dL (7-18); CALCIUM 7.4 mg/dL (8.5-10.1); CREATININE 1.1 mg/dL (0.55-1.3); TOT PROT 5.9 g/dl (6.4-8.2)
[2021-10-16] MEDS ORDERED: SODIUM ZIRCONIUM CYCLOSILICATE (LOKELMA) 5 GM PACKET PO ONE (06:28)
[2021-10-16] MEDS ORDERED: CALCIUM GLUCONATE 10% - 1,000 MG/10 ML VIAL IVPB ONE (06:31)
[2021-10-16] MEDS ORDERED: SODIUM ZIRCONIUM CYCLOSILICATE (LOKELMA) 5 GM PACKET ONE ×2 (06:42→12:41)
[2021-10-16] MEDS ORDERED: CALCIUM GLUC IN NACL, ISO-OSM 1 GM/50 ML BAG IVPB ONE (06:45)
[2021-10-16 07:02] LABS: MAGNESIUM 1.7 mg/dL (1.8-2.4)
[2021-10-16] MEDS ORDERED: MAGNESIUM SULF 50% (8.12 MEQ/2 ML-1 GM VIAL) IVPB ONE (07:43)
[2021-10-16 09:26] LABS: URINE APPEARANCE CLEAR; URINE BILIRUBIN NEGATIVE (NEGATIVE); URINE COLOR YELLOW; URINE GLUCOSE (UA) NEGATIVE (NEGATIVE); URINE KETONE NEGATIVE (NEGATIVE); URINE LEUK ESTERASE NEGATIVE (NEGATIVE); URINE NITRITE NEGATIVE (NEGATIVE); URINE PROTEIN NEGATIVE (NEGATIVE); URINE UROBILINOGEN 0.2 mg/dL (0.2-1.0)
[2021-10-16] MEDS ORDERED: MAGNESIUM 1GM/D5W - 1 GM/100 ML IVPB IVPB ONE (09:37)
[2021-10-16 10:43] LABS: BLOOD UREA NITROGEN 14.5 mg/dL (7-18); CHLORIDE 114 mmol/L (98-107); CO2 19 mmol/L (21-32); CREATININE 0.9 mg/dL (0.55-1.3); GLUCOSE,RANDOM 94 mg/dL (74-106); SODIUM 137 mmol/L (136-145)
[2021-10-16 11:15] LABS: ANION GAP 4 MMOL/L (8-16); CALCIUM 8.6 mg/dL (8.5-10.1)
[2021-10-16] MEDS ORDERED: D5-1/2NS+20 MEQ KCL - 20 MEQ/1,000 ML INFUS.BAG IV SCH ×2 (11:30→11:45)
[2021-10-16] MEDS: DEXTROSE 5%-0.45% SALINE 1,000 ML IV SCH (12:37)
[2021-10-16] MEDS: HEPARIN NA (PORCINE) 5,000 UNITS/ML 1ML VIAL SQ SCH (22:00)
[2021-10-16] MEDS: MIRTAZAPINE 15 MG TABLET (FP) PO SCH (22:00)
[2021-10-16] MEDS: ACETAMINOPHEN 325 MG TABLET (FP) PO PRN (22:01)
[2021-10-17 07:49] LABS: BASO % 0.4 % (0-2.0); EOS % 1.8 % (0-4.5); HEMATOCRIT 26.4 % (32.4-45.2); HEMOGLOBIN 8.8 GM/dL (10.7-15.3); LYMPH % 37.8 % (8-40); MCH 32.3 pg (25.7-33.7); MCHC 33.5 g/dl (32.0-36.0); MEAN CELL VOLUME 96.3 fl (80-96); MEAN PLT VOLUME 7.9 fl (7.5-11.1); MONO % 8.1 % (3.8-10.2); NEUT % 51.9 % (42.8-82.8); PLATELET COUNT 204 10^3/uL (134-434); RBC 2.74 M/mm3 (3.60-5.2); RDW 14.8 % (11.6-15.6); WHITE BLOOD COUNT 5.2 K/mm3 (4.0-10.0)
[2021-10-17] MEDS: HEPARIN NA (PORCINE) 5,000 UNITS/ML 1ML VIAL SQ SCH ×2 (10:42→22:35)
[2021-10-17] MEDS: PANTOPRAZOLE 20 MG TABLET PO SCH (10:42)
[2021-10-17] MEDS: SODIUM ZIRCONIUM CYCLOSILICATE (LOKELMA) 10 GM PACKET PO SCH (10:42)
[2021-10-17 11:04] LABS: HEMATOCRIT 30.5 % (32.4-45.2); HEMOGLOBIN 10.2 GM/dL (10.7-15.3); MCH 32.5 pg (25.7-33.7); MCHC 33.3 g/dl (32.0-36.0); MEAN CELL VOLUME 97.5 fl (80-96); PLATELET COUNT 239 10^3/uL (134-434); RBC 3.13 M/mm3 (3.60-5.2); RDW 15.1 % (11.6-15.6)
[2021-10-17 11:16] LABS: ALBUMIN 1.6 g/dl (3.4-5.0); BILIRUBIN,TOTAL 0.4 mg/dL (0.2-1); BLOOD UREA NITROGEN 13.2 mg/dL (7-18); CALCIUM 7.5 mg/dL (8.5-10.1); CREATININE 1.1 mg/dL (0.55-1.3); TOT PROT 4.7 g/dl (6.4-8.2)
[2021-10-17] MEDS: DEXTROSE 5%-0.45% SALINE 1,000 ML IV SCH (12:21)
[2021-10-17] MEDS: ACETAMINOPHEN 325 MG TABLET (FP) PO PRN (22:35)
[2021-10-17] MEDS: MIRTAZAPINE 15 MG TABLET (FP) PO SCH (22:37)
[2021-10-18 07:28] LABS: HEMATOCRIT 26.8 % (32.4-45.2); MCH 32.7 pg (25.7-33.7); MCHC 33.5 g/dl (32.0-36.0); MEAN CELL VOLUME 97.8 fl (80-96); MEAN PLT VOLUME 8.1 fl (7.5-11.1); PLATELET COUNT 208 10^3/uL (134-434); RBC 2.75 M/mm3 (3.60-5.2); RDW 14.9 % (11.6-15.6); WHITE BLOOD COUNT 5.5 K/mm3 (4.0-10.0)
[2021-10-18 07:48] LABS: CALCIUM 7.4 mg/dL (8.5-10.1)
[2021-10-18 07:49] LABS: ALBUMIN 1.5 g/dl (3.4-5.0); BLOOD UREA NITROGEN 12.7 mg/dL (7-18); CREATININE 1.1 mg/dL (0.55-1.3)
[2021-10-18 07:51] LABS: BILIRUBIN,TOTAL 0.4 mg/dL (0.2-1); TOT PROT 4.7 g/dl (6.4-8.2)
[2021-10-18] MEDS: SODIUM ZIRCONIUM CYCLOSILICATE (LOKELMA) 10 GM PACKET PO SCH (09:46)
[2021-10-18] MEDS: PANTOPRAZOLE 20 MG TABLET PO SCH (09:46)
[2021-10-18] MEDS: HEPARIN NA (PORCINE) 5,000 UNITS/ML 1ML VIAL SQ SCH ×2 (09:46→21:32)
[2021-10-18] MEDS: ACETAMINOPHEN 325 MG TABLET (FP) PO PRN (21:30)
[2021-10-18] MEDS: MIRTAZAPINE 15 MG TABLET (FP) PO SCH (21:33)
[2021-10-19 06:50] LABS: HEMATOCRIT 26.7 % (32.4-45.2); HEMOGLOBIN 9.1 GM/dL (10.7-15.3); MCH 33.2 pg (25.7-33.7); MCHC 34.1 g/dl (32.0-36.0); MEAN CELL VOLUME 97.1 fl (80-96); MEAN PLT VOLUME 8.1 fl (7.5-11.1); PLATELET COUNT 213 10^3/uL (134-434); RBC 2.75 M/mm3 (3.60-5.2); WHITE BLOOD COUNT 6.2 K/mm3 (4.0-10.0)
[2021-10-19 06:53] LABS: CALCIUM 7.4 mg/dL (8.5-10.1)
[2021-10-19 06:54] LABS: BLOOD UREA NITROGEN 13.9 mg/dL (7-18)
[2021-10-19 06:57] LABS: CREATININE 1.1 mg/dL (0.55-1.3)
[2021-10-19] MEDS: HEPARIN NA (PORCINE) 5,000 UNITS/ML 1ML VIAL SQ SCH ×2 (09:11→21:24)
[2021-10-19] MEDS: PANTOPRAZOLE 20 MG TABLET PO SCH (09:11)
[2021-10-19] MEDS: MIRTAZAPINE 15 MG TABLET (FP) PO SCH (21:24)
[2021-10-20] MEDS ORDERED: INSULIN SLIDING SCALE (NOVOLOG) 1 VIAL SQ SCH (07:00)
[2021-10-20] MEDS: PANTOPRAZOLE 20 MG TABLET PO SCH (09:14)
[2021-10-20] MEDS: HEPARIN NA (PORCINE) 5,000 UNITS/ML 1ML VIAL SQ SCH (09:14)
[2021-10-20 09:20] VITALS: BP 132/62; PULSE 92; TEMP 98.6
== END 2021-10-20 11:25 | disposition home health service (06) | DRG 638 ==
LOC: JER 03:43 → JERBED 06:19 → J4W 13:55
PROVIDERS: ADMIT Family Medicine; ATTEND Family Medicine
DX: E11.649 Type 2 diabetes mellitus with hypoglycemia without coma (principal); E87.2 Acidosis; R64 Cachexia; E87.5 Hyperkalemia; I10 Essential (primary) hypertension; E78.5 Hyperlipidemia, unspecified; Z85.07 Personal history of malignant neoplasm of pancreas; R55 Syncope and collapse; E83.42 Hypomagnesemia; N17.9 Acute kidney failure, unspecified; R16.0 Hepatomegaly, not elsewhere classified
CPT/HCPCS: 36415; 70450-TC; 71045-TC-FY; 80048; 80053; 81003; 82272; 82550; 82728; 82803; 82962; 83036; 83540; 83550; 83605; 83735; 84443; 84484; 85025; 85027; 85610; 85730; 87040; 87086; 93005; 93010; 99291; C9803; J1644; U0003; U0005

== ENCOUNTER 2021-10-28 13:00 | Inpatient (IN) | payer OTHER ==
[2021-10-28] MEDS ORDERED: SODIUM CHLORIDE 1,000 ML IV SCH ×2 (13:15→21:30)
[2021-10-28] MEDS ORDERED: ATORVASTATIN CA 80 MG TABLET (FP) PO ONE (14:32)
[2021-10-28] MEDS ORDERED: ASPIRIN 81 MG CHEWABLE TABLETS PO ONE ×2 (14:41→14:48)
[2021-10-28] MEDS ORDERED: ASPIRIN 81 MG CHEWABLE TABLETS ONE (14:56)
[2021-10-28] MEDS ORDERED: ATORVASTATIN CA 80 MG TABLET (FP) ONE (14:56)
[2021-10-28 15:28] LABS: BASO % 0.4 % (0-2.0); HEMATOCRIT 32.8 % (32.4-45.2); LYMPH % 29.4 % (8-40); MCH 32.2 pg (25.7-33.7); MCHC 33.6 g/dl (32.0-36.0); MEAN CELL VOLUME 95.9 fl (80-96); MEAN PLT VOLUME 7.6 fl (7.5-11.1); MONO % 8.2 % (3.8-10.2); PLATELET COUNT 238 10^3/uL (134-434); RBC 3.42 M/mm3 (3.60-5.2); RDW 14.7 % (11.6-15.6); WHITE BLOOD COUNT 5.3 K/mm3 (4.0-10.0)
[2021-10-28] MEDS ORDERED: ALTEPLASE BOLUS IVPUSH ONE (15:33)
[2021-10-28] MEDS ORDERED: ALTEPLASE 100 MG/100 ML VIAL IVPB ONE (15:33)
[2021-10-28 15:35] LABS: INR 1.22 (0.83-1.09); PROTHROMBIN TIME (PATIENT) 13.7 SEC (9.7-13.0)
[2021-10-28 15:38] LABS: ACTIVATED PTT 35.6 SECONDS (25.2-36.5)
[2021-10-28] MEDS ORDERED: ALTEPLASE 100MG 100 ML ONE (15:38)
[2021-10-28 15:54] LABS: BLOOD UREA NITROGEN 10.4 mg/dL (7-18); CALCIUM 7.5 mg/dL (8.5-10.1)
[2021-10-28 15:57] LABS: CREATININE 1.2 mg/dL (0.55-1.3)
[2021-10-28 15:58] LABS: BILIRUBIN,TOTAL 0.3 mg/dL (0.2-1); TOT PROT 5.7 g/dl (6.4-8.2)
[2021-10-28 16:01] LABS: ALBUMIN 1.9 g/dl (3.4-5.0)
[2021-10-28] MEDS ORDERED: ACETAMINOPHEN 1000 MG/100 ML VIAL IVPB ONE (19:03)
[2021-10-28] MEDS ORDERED: ACETAMINOPHEN INJECTION 100 ML IVPB ONE (19:04)
[2021-10-28 19:26] LABS: EPI CELLS 1 /uL (0-25.1); HYALINE CASTS 0 /uL (0-3.1); PH,URINE 6.5 (5.0-8.0); URINE APPEARANCE CLEAR; URINE BACTERIA 65 /uL (0-1359); URINE BILIRUBIN NEGATIVE (NEGATIVE); URINE COLOR YELLOW; URINE GLUCOSE (UA) NEGATIVE (NEGATIVE); URINE KETONE NEGATIVE (NEGATIVE); URINE LEUK ESTERASE 1+ (NEGATIVE); URINE NITRITE NEGATIVE (NEGATIVE); URINE PROTEIN NEGATIVE (NEGATIVE); URINE RBC 4 /uL (0-23.9); URINE UROBILINOGEN 0.2 mg/dL (0.2-1.0); URINE WBC 108 /uL (0-25.8)
[2021-10-28] MEDS: MUPIROCIN 2% TOPICAL OINTMENT FOR DECOLONIZATION NS SCH (21:44)
[2021-10-28] MEDS: PANTOPRAZOLE SODIUM 40 MG VIAL IVPUSH SCH (21:44)
[2021-10-28] MEDS ORDERED: CHLORHEXIDINE GLUCONATE 4% CLEANSER FOR DECOLONIZATION TP SCH (22:00)
[2021-10-29] MEDS ORDERED: ACETAMINOPHEN 1000 MG/100 ML VIAL IVPB PRN ×2 (02:06→17:44)
[2021-10-29] MEDS: PANTOPRAZOLE SODIUM 40 MG VIAL IVPUSH SCH (09:59)
[2021-10-29] MEDS ORDERED: SODIUM CHLORIDE 1,000 ML IV SCH (15:30)
[2021-10-29 15:47] VITALS: BMI 15.9
[2021-10-29] MEDS ORDERED: ASPIRIN 81 MG CHEWABLE TABLETS PO SCH (16:00)
[2021-10-29] MEDS: MUPIROCIN 2% TOPICAL OINTMENT FOR DECOLONIZATION NS SCH (16:17)
[2021-10-29 21:11] LABS: BASO % 0.5 % (0-2.0); EOS % 3.4 % (0-4.5); HEMATOCRIT 31.1 % (32.4-45.2); HEMOGLOBIN 10.5 GM/dL (10.7-15.3); LYMPH % 29.4 % (8-40); MCH 32.5 pg (25.7-33.7); MCHC 33.9 g/dl (32.0-36.0); MEAN CELL VOLUME 95.9 fl (80-96); MEAN PLT VOLUME 7.4 fl (7.5-11.1); MONO % 7.5 % (3.8-10.2); NEUT % 59.2 % (42.8-82.8); PLATELET COUNT 219 10^3/uL (134-434); RBC 3.24 M/mm3 (3.60-5.2); RDW 15.2 % (11.6-15.6); WHITE BLOOD COUNT 4.6 K/mm3 (4.0-10.0)
[2021-10-29 21:28] LABS: CALCIUM 7.3 mg/dL (8.5-10.1)
[2021-10-29 21:29] LABS: BLOOD UREA NITROGEN 9.8 mg/dL (7-18); MAGNESIUM 1.8 mg/dL (1.8-2.4)
[2021-10-29 21:32] LABS: PHOSPHOROUS 4.5 mg/dL (2.5-4.9)
[2021-10-29] MEDS ORDERED: MUPIROCIN 2% TOPICAL OINTMENT FOR DECOLONIZATION NS SCH (22:00)
[2021-10-29] MEDS ORDERED: CHLORHEXIDINE GLUCONATE 4% CLEANSER FOR DECOLONIZATION TP SCH (22:00)
[2021-10-30 06:58] LABS: HEMATOCRIT 29.7 % (32.4-45.2); MCH 32.5 pg (25.7-33.7); MCHC 33.7 g/dl (32.0-36.0); MEAN CELL VOLUME 96.4 fl (80-96); MEAN PLT VOLUME 7.7 fl (7.5-11.1); PLATELET COUNT 209 10^3/uL (134-434); RBC 3.08 M/mm3 (3.60-5.2); RDW 14.6 % (11.6-15.6); WHITE BLOOD COUNT 4.2 K/mm3 (4.0-10.0)
[2021-10-30 07:14] LABS: CALCIUM 7.3 mg/dL (8.5-10.1)
[2021-10-30 07:15] LABS: BLOOD UREA NITROGEN 10.1 mg/dL (7-18); MAGNESIUM 1.8 mg/dL (1.8-2.4)
[2021-10-30 07:18] LABS: PHOSPHOROUS 4.3 mg/dL (2.5-4.9)
[2021-10-30] MEDS ORDERED: ENOXAPARIN NA (PORCINE) 40 MG/0.4 ML DISP.SYRIN SQ SCH ×3 (10:00)
[2021-10-30] MEDS ORDERED: ASPIRIN 81 MG CHEWABLE TABLETS PO SCH ×2 (10:00)
[2021-10-30] MEDS: ENOXAPARIN NA (PORCINE) 30 MG/0.3 ML DISP.SYRIN SQ SCH (10:26)
[2021-10-30] MEDS: ASPIRIN 81 MG CHEWABLE TABLETS PO SCH (10:26)
[2021-10-30] MEDS: PANTOPRAZOLE SODIUM 40 MG VIAL IVPUSH SCH (10:26)
[2021-10-30] MEDS: ATORVASTATIN CA 40 MG TABLET (FP) PO SCH (21:53)
[2021-10-31] MEDS: ENOXAPARIN NA (PORCINE) 30 MG/0.3 ML DISP.SYRIN SQ SCH (09:45)
[2021-10-31] MEDS: ASPIRIN 81 MG CHEWABLE TABLETS PO SCH (09:46)
[2021-10-31] MEDS: PANTOPRAZOLE SODIUM 40 MG VIAL IVPUSH SCH (09:46)
[2021-10-31] MEDS: ATORVASTATIN CA 40 MG TABLET (FP) PO SCH (21:25)
[2021-11-01] MEDS: ASPIRIN 81 MG CHEWABLE TABLETS PO SCH ×2 (10:52→15:22)
[2021-11-01] MEDS: PANTOPRAZOLE SODIUM 40 MG VIAL IVPUSH SCH ×2 (10:52→15:22)
[2021-11-01] MEDS: ENOXAPARIN NA (PORCINE) 30 MG/0.3 ML DISP.SYRIN SQ SCH (10:52)
[2021-11-01] MEDS: ACETAMINOPHEN 325 MG TABLET (FP) PO PRN (16:04)
[2021-11-01] MEDS: ATORVASTATIN CA 40 MG TABLET (FP) PO SCH (21:36)
[2021-11-02] MEDS: ENOXAPARIN NA (PORCINE) 30 MG/0.3 ML DISP.SYRIN SQ SCH (11:28)
[2021-11-02] MEDS: ASPIRIN 81 MG CHEWABLE TABLETS PO SCH (11:28)
[2021-11-02] MEDS: PANTOPRAZOLE 40 MG TABLET PO SCH ×2 (11:28→11:41)
[2021-11-02] MEDS: ATORVASTATIN CA 40 MG TABLET (FP) PO SCH (23:00)
[2021-11-03 07:25] LABS: BASO % 0.5 % (0-2.0); EOS % 2.3 % (0-4.5); HEMATOCRIT 28.8 % (32.4-45.2); HEMOGLOBIN 9.7 GM/dL (10.7-15.3); LYMPH % 37.2 % (8-40); MCH 32.5 pg (25.7-33.7); MCHC 33.6 g/dl (32.0-36.0); MEAN CELL VOLUME 96.8 fl (80-96); MEAN PLT VOLUME 8.1 fl (7.5-11.1); MONO % 9.1 % (3.8-10.2); NEUT % 50.9 % (42.8-82.8); PLATELET COUNT 196 10^3/uL (134-434); RBC 2.98 M/mm3 (3.60-5.2); RDW 14.4 % (11.6-15.6); WHITE BLOOD COUNT 4.2 K/mm3 (4.0-10.0)
[2021-11-03 07:59] LABS: CALCIUM 7.4 mg/dL (8.5-10.1)
[2021-11-03 08:00] LABS: ALBUMIN 1.6 g/dl (3.4-5.0); BLOOD UREA NITROGEN 14.6 mg/dL (7-18)
[2021-11-03 08:03] LABS: CREATININE 0.9 mg/dL (0.55-1.3)
[2021-11-03 08:04] LABS: BILIRUBIN,TOTAL 0.5 mg/dL (0.2-1)
[2021-11-03] MEDS: PANTOPRAZOLE 40 MG TABLET PO SCH (10:40)
[2021-11-03] MEDS: ASPIRIN 81 MG CHEWABLE TABLETS PO SCH (10:40)
[2021-11-03] MEDS: ENOXAPARIN NA (PORCINE) 30 MG/0.3 ML DISP.SYRIN SQ SCH (10:40)
[2021-11-03] MEDS: ACETAMINOPHEN 325 MG TABLET (FP) PO PRN (17:55)
[2021-11-03] MEDS: ATORVASTATIN CA 40 MG TABLET (FP) PO SCH (21:30)
[2021-11-04 05:18] VITALS: TEMP 98.2
[2021-11-04] MEDS: PANTOPRAZOLE 40 MG TABLET PO SCH (09:40)
[2021-11-04] MEDS: ASPIRIN 81 MG CHEWABLE TABLETS PO SCH (09:40)
[2021-11-04] MEDS: ENOXAPARIN NA (PORCINE) 30 MG/0.3 ML DISP.SYRIN SQ SCH (09:43)
[2021-11-04] MEDS ORDERED: amLODIPine BESYLATE 2.5 MG TABLET (FP) PO SCH (10:00)
[2021-11-04] MEDS ORDERED: metoPROLOL SUCCINATE 25 MG TAB.SR.24H (FP) PO SCH (10:00)
[2021-11-04 11:54] VITALS: BP 148/85; PULSE 85
== END 2021-11-04 15:15 | DRG 61 ==
LOC: JER 13:00 → JERBED 14:50 → JICU 20:18 → J4W 10-29 18:23
PROVIDERS: ADMIT Family Medicine; ATTEND Family Medicine
DX: I63.9 Cerebral infarction, unspecified (principal); E43 Unspecified severe protein-calorie malnutrition; I69.354 Hemiplegia and hemiparesis following cerebral infarction affecting left non-dominant side; J90 Pleural effusion, not elsewhere classified; R29.701 NIHSS score 1; I10 Essential (primary) hypertension; E78.5 Hyperlipidemia, unspecified; E11.9 Type 2 diabetes mellitus without complications; M54.50 Low back pain, unspecified; K59.00 Constipation, unspecified; R56.9 Unspecified convulsions; K57.90 Diverticulosis of intestine, part unspecified, without perforation or abscess without bleeding; R94.31 Abnormal electrocardiogram [ECG] [EKG]; I25.119 Atherosclerotic heart disease of native coronary artery with unspecified angina pectoris; Z85.07 Personal history of malignant neoplasm of pancreas
CPT/HCPCS: 36415; 70450-TC; 70496-TC; 70498-TC; 70551-TC; 71045-TC-FY; 80048; 80053; 80061; 81003; 82550; 82962; 83036; 83735; 84100; 84484; 85025; 85027; 85610; 85730; 93005; 93010; 93306-TC; 93880-TC; 97116-GP; 97161-GP; 99285-25; C9803; J0131; J2997; Q9967; U0003; U0005

== ENCOUNTER 2022-01-31 16:58 | Inpatient (IN) | payer OTHER ==
[2022-01-31] MEDS ORDERED: ACETAMINOPHEN 1000 MG/100 ML BAG IVPB ONE (18:21)
[2022-01-31] MEDS ORDERED: FAMOTIDINE 20 MG/50 ML IVPB 20 MG/50 ML MG IVPB ONE ×2 (18:21→19:24)
[2022-01-31] MEDS ORDERED: MAG HYDROX/AL HYDROX/SIMETH -MYLANTA- ORAL SUSPENSION PO ONE (18:21)
[2022-01-31] MEDS ORDERED: ACETAMINOPHEN INJECTION 100 ML IVPB ONE (19:24)
[2022-01-31] MEDS ORDERED: MAG HYDROX/AL HYDROX/SIMETH 30 ML UNIT-DOSE CUP ONE (19:24)
[2022-01-31 19:31] LABS: BASO % 1.1 % (0-2.0); HEMATOCRIT 32.8 % (32.4-45.2); HEMOGLOBIN 11.2 GM/dL (10.7-15.3); LYMPH % 29.8 % (8-40); MEAN PLT VOLUME 8.4 fl (7.5-11.1); MONO % 8.5 % (3.8-10.2); NEUT % 58.6 % (42.8-82.8); PLATELET COUNT 311 10^3/uL (134-434); RBC 3.49 M/mm3 (3.60-5.2); WHITE BLOOD COUNT 7.1 K/mm3 (4.0-10.0)
[2022-01-31 19:40] LABS: INR 1.33 (0.83-1.09); PROTHROMBIN TIME (PATIENT) 15.3 SEC (9.7-13.0)
[2022-01-31 19:42] LABS: ACTIVATED PTT 32.5 SECONDS (25.2-36.5)
[2022-01-31 19:48] LABS: CHLORIDE 106 mmol/L (98-107); SODIUM 137 mmol/L (136-145)
[2022-01-31 19:50] LABS: CALCIUM 7.2 mg/dL (8.5-10.1)
[2022-01-31 19:51] LABS: ALBUMIN 1.5 g/dl (3.4-5.0); BLOOD UREA NITROGEN 21.4 mg/dL (7-18); CO2 26 mmol/L (21-32); GLUCOSE,RANDOM 130 mg/dL (74-106); LIPASE < 10 U/L (73-393)
[2022-01-31 19:54] LABS: CREATININE 1.3 mg/dL (0.55-1.3); SGOT/AST 78 U/L (15-37); SGPT/ALT 28 U/L (13-61)
[2022-01-31 19:55] LABS: BILIRUBIN,TOTAL 0.6 mg/dL (0.2-1); TOT PROT 6.1 g/dl (6.4-8.2)
[2022-01-31 19:57] LABS: ALK PHOS 255 U/L (45-117)
[2022-01-31 19:59] LABS: N-TERMINAL BNP 2902.1 pg/ml (5-450)
[2022-01-31 20:03] LABS: ANION GAP 5 MMOL/L (8-16)
[2022-01-31 20:19] LABS: LACTIC ACID 2.3 mmol/L (0.4-2.0)
[2022-01-31 21:41] LABS: CHLORIDE 107 mmol/L (98-107); SODIUM 140 mmol/L (136-145)
[2022-01-31 21:43] LABS: ANION GAP 7 MMOL/L (8-16); CO2 26 mmol/L (21-32); GLUCOSE,RANDOM 134 mg/dL (74-106)
[2022-01-31 21:46] LABS: CREATININE 1.2 mg/dL (0.55-1.3)
[2022-01-31] MEDS ORDERED: FUROSEMIDE 40 MG/4 ML INJECTABLE VIAL IVPUSH ONE (21:46)
[2022-01-31 21:58] LABS: CALCIUM 6.4 mg/dL (8.5-10.1)
[2022-01-31] MEDS ORDERED: CALCIUM GLUC IN NACL, ISO-OSM 1 GM/50 ML BAG IVPB ONE (22:02)
[2022-01-31] MEDS ORDERED: FUROSEMIDE 40 MG/4 ML INJECTABLE VIAL ONE (22:12)
[2022-01-31] MEDS ORDERED: CALCIUM GLUCONATE 10% - 1,000 MG/10 ML VIAL ONE (22:17)
[2022-01-31] MEDS ORDERED: ENOXAPARIN NA (PORCINE) 30 MG/0.3 ML DISP.SYRIN SQ ONE ×2 (23:10→23:31)
[2022-01-31 23:15] LABS: LACTIC ACID 2.1 mmol/L (0.4-2.0)
[2022-02-01] MEDS: INSULIN SLIDING SCALE (NOVOLOG) 1 VIAL SQ SCH ×4 (06:36→22:12)
[2022-02-01] MEDS: FUROSEMIDE 40 MG/4 ML INJECTABLE VIAL IVPUSH SCH ×3 (06:41→18:37)
[2022-02-01] MEDS: CHOLECALCIFEROL (VIT D3) 400 UNIT (10 MCG) TABLET PO SCH (10:18)
[2022-02-01] MEDS: PANTOPRAZOLE 40 MG TABLET PO SCH (10:18)
[2022-02-01] MEDS: metoPROLOL SUCCINATE 25 MG TAB.SR.24H (FP) PO SCH (10:18)
[2022-02-01] MEDS: FERROUS SO4 325 MG TABLET (FP) PO SCH (10:18)
[2022-02-01] MEDS: ASPIRIN 81 MG CHEWABLE TABLETS PO SCH (10:18)
[2022-02-01] MEDS: amLODIPine BESYLATE 2.5 MG TABLET (FP) PO SCH (10:18)
[2022-02-01 14:08] LABS: HEMATOCRIT 30.4 % (32.4-45.2); HEMOGLOBIN 10.5 GM/dL (10.7-15.3); MCH 32.1 pg (25.7-33.7); MCHC 34.5 g/dl (32.0-36.0); PLATELET COUNT 270 10^3/uL (134-434); RBC 3.26 M/mm3 (3.60-5.2); RDW 16.9 % (11.6-15.6); WHITE BLOOD COUNT 6.5 K/mm3 (4.0-10.0)
[2022-02-01 14:33] LABS: CREATININE 1.3 mg/dL (0.55-1.3)
[2022-02-01 14:34] LABS: BILIRUBIN,TOTAL 0.6 mg/dL (0.2-1); TOT PROT 5.2 g/dl (6.4-8.2)
[2022-02-01 15:09] LABS: BLOOD UREA NITROGEN 20.9 mg/dL (7-18); CALCIUM 7.3 mg/dL (8.5-10.1); MAGNESIUM 2.1 mg/dL (1.8-2.4)
[2022-02-01 15:10] LABS: ALBUMIN 1.4 g/dl (3.4-5.0)
[2022-02-01] MEDS: CALCITRIOL 0.25 MCG CAPSULE (FP) PO SCH (20:07)
[2022-02-01] MEDS: MIRTAZAPINE 15 MG TABLET (FP) PO SCH (22:14)
[2022-02-02] MEDS: FUROSEMIDE 40 MG/4 ML INJECTABLE VIAL IVPUSH SCH ×2 (06:27→14:49)
[2022-02-02] MEDS: INSULIN SLIDING SCALE (NOVOLOG) 1 VIAL SQ SCH ×4 (06:27→22:05)
[2022-02-02] MEDS: PANTOPRAZOLE 40 MG TABLET PO SCH (10:41)
[2022-02-02] MEDS: CALCITRIOL 0.25 MCG CAPSULE (FP) PO SCH (10:41)
[2022-02-02] MEDS: FERROUS SO4 325 MG TABLET (FP) PO SCH (10:42)
[2022-02-02] MEDS: CHOLECALCIFEROL (VIT D3) 400 UNIT (10 MCG) TABLET PO SCH (10:42)
[2022-02-02] MEDS: metoPROLOL SUCCINATE 25 MG TAB.SR.24H (FP) PO SCH (10:42)
[2022-02-02] MEDS: amLODIPine BESYLATE 2.5 MG TABLET (FP) PO SCH (10:42)
[2022-02-02] MEDS ORDERED: LOSARTAN POTASSIUM 25 MG TABLET PO ONE (11:27)
[2022-02-02] MEDS: ASPIRIN 81 MG CHEWABLE TABLETS PO SCH (14:48)
[2022-02-02 16:04] LABS: BASO % 0.4 % (0-2.0); EOS % 1.7 % (0-4.5); HEMATOCRIT 29.9 % (32.4-45.2); HEMOGLOBIN 9.9 GM/dL (10.7-15.3); LYMPH % 24.5 % (8-40); MCH 31.4 pg (25.7-33.7); MCHC 33.3 g/dl (32.0-36.0); MEAN CELL VOLUME 94.4 fl (80-96); MEAN PLT VOLUME 7.7 fl (7.5-11.1); MONO % 7.2 % (3.8-10.2); NEUT % 66.2 % (42.8-82.8); PLATELET COUNT 261 10^3/uL (134-434); RBC 3.17 M/mm3 (3.60-5.2); RDW 16.9 % (11.6-15.6); WHITE BLOOD COUNT 5.8 K/mm3 (4.0-10.0)
[2022-02-02 16:26] LABS: ALBUMIN 1.3 g/dl (3.4-5.0); BLOOD UREA NITROGEN 18.8 mg/dL (7-18); CALCIUM 7.4 mg/dL (8.5-10.1)
[2022-02-02 16:29] LABS: CREATININE 1.5 mg/dL (0.55-1.3)
[2022-02-02 16:31] LABS: BILIRUBIN,TOTAL 0.5 mg/dL (0.2-1); TOT PROT 4.8 g/dl (6.4-8.2)
[2022-02-02 17:34] LABS: BF WBC & OTHER NUCLEATED CELLS 416 /mm3
[2022-02-02 17:57] LABS: BODY FLUID MACROPHAGES 12 %; BODY FLUID MESOTHELIAL 7 %; BODY FLUID MONOCYTE 12 %
[2022-02-02] MEDS ORDERED: SACUBITRIL/VALSARTAN 24 MG-26 MG TABLET PO SCH (22:00)
[2022-02-02] MEDS: MIRTAZAPINE 15 MG TABLET (FP) PO SCH (22:05)
[2022-02-02] MEDS: ATORVASTATIN CA 40 MG TABLET (FP) PO SCH (22:05)
[2022-02-03] MEDS: FUROSEMIDE 40 MG/4 ML INJECTABLE VIAL IVPUSH SCH (06:20)
[2022-02-03] MEDS: INSULIN SLIDING SCALE (NOVOLOG) 1 VIAL SQ SCH ×4 (06:23→21:19)
[2022-02-03] MEDS: metoPROLOL SUCCINATE 25 MG TAB.SR.24H (FP) PO SCH (10:11)
[2022-02-03] MEDS: ASPIRIN 81 MG CHEWABLE TABLETS PO SCH (10:11)
[2022-02-03] MEDS: CHOLECALCIFEROL (VIT D3) 400 UNIT (10 MCG) TABLET PO SCH (10:12)
[2022-02-03] MEDS: FERROUS SO4 325 MG TABLET (FP) PO SCH (10:12)
[2022-02-03] MEDS: CALCITRIOL 0.25 MCG CAPSULE (FP) PO SCH (10:12)
[2022-02-03] MEDS: PANTOPRAZOLE 40 MG TABLET PO SCH (10:12)
[2022-02-03] MEDS: MIRTAZAPINE 15 MG TABLET (FP) PO SCH (21:11)
[2022-02-03] MEDS: ATORVASTATIN CA 40 MG TABLET (FP) PO SCH (21:11)
[2022-02-03] MEDS: SPIRONOLACTONE 25 MG TABLET PO SCH (21:12)
[2022-02-04] MEDS: INSULIN SLIDING SCALE (NOVOLOG) 1 VIAL SQ SCH ×4 (06:03→21:38)
[2022-02-04 07:30] LABS: BASO % 0.3 % (0-2.0); HEMATOCRIT 27.4 % (32.4-45.2); HEMOGLOBIN 9.1 GM/dL (10.7-15.3); MCH 31.4 pg (25.7-33.7); MCHC 33.3 g/dl (32.0-36.0); MEAN CELL VOLUME 94.2 fl (80-96); MEAN PLT VOLUME 7.8 fl (7.5-11.1); MONO % 6.9 % (3.8-10.2); NEUT % 64.8 % (42.8-82.8); PLATELET COUNT 255 10^3/uL (134-434); RBC 2.91 M/mm3 (3.60-5.2); RDW 16.6 % (11.6-15.6); WHITE BLOOD COUNT 5.8 K/mm3 (4.0-10.0)
[2022-02-04 08:25] LABS: BLOOD UREA NITROGEN 21.1 mg/dL (7-18)
[2022-02-04 08:26] LABS: ALBUMIN 1.2 g/dl (3.4-5.0)
[2022-02-04 08:28] LABS: CREATININE 1.5 mg/dL (0.55-1.3)
[2022-02-04 08:30] LABS: BILIRUBIN,TOTAL 0.6 mg/dL (0.2-1); TOT PROT 4.6 g/dl (6.4-8.2)
[2022-02-04 09:21] LABS: CALCIUM 7.5 mg/dL (8.5-10.1)
[2022-02-04] MEDS: FUROSEMIDE 40 MG TABLET (FP) PO SCH (10:19)
[2022-02-04] MEDS: ASPIRIN 81 MG CHEWABLE TABLETS PO SCH (10:19)
[2022-02-04] MEDS: PANTOPRAZOLE 40 MG TABLET PO SCH (10:19)
[2022-02-04] MEDS: metoPROLOL SUCCINATE 25 MG TAB.SR.24H (FP) PO SCH (10:20)
[2022-02-04] MEDS: SPIRONOLACTONE 25 MG TABLET PO SCH ×2 (10:20→21:38)
[2022-02-04] MEDS: CALCITRIOL 0.25 MCG CAPSULE (FP) PO SCH (10:20)
[2022-02-04] MEDS: CHOLECALCIFEROL (VIT D3) 400 UNIT (10 MCG) TABLET PO SCH (10:20)
[2022-02-04] MEDS: FERROUS SO4 325 MG TABLET (FP) PO SCH (10:20)
[2022-02-04 11:59] LABS: URINE APPEARANCE CLOUDY; URINE BILIRUBIN NEGATIVE (NEGATIVE); URINE COLOR YELLOW; URINE GLUCOSE (UA) NEGATIVE (NEGATIVE); URINE KETONE NEGATIVE (NEGATIVE); URINE LEUK ESTERASE NEGATIVE (NEGATIVE); URINE NITRITE NEGATIVE (NEGATIVE); URINE PROTEIN NEGATIVE (NEGATIVE); URINE UROBILINOGEN 0.2 mg/dL (0.2-1.0)
[2022-02-04 17:09] LABS: BODY FLUID ALBUMIN 0.2 g/dL (Not Estab.)
[2022-02-04] MEDS: ATORVASTATIN CA 40 MG TABLET (FP) PO SCH (21:38)
[2022-02-04] MEDS: MIRTAZAPINE 15 MG TABLET (FP) PO SCH (21:38)
[2022-02-05] MEDS: INSULIN SLIDING SCALE (NOVOLOG) 1 VIAL SQ SCH ×4 (06:02→21:24)
[2022-02-05 08:14] LABS: HEMATOCRIT 26.8 % (32.4-45.2); HEMOGLOBIN 9.2 GM/dL (10.7-15.3); MCH 32.2 pg (25.7-33.7); MCHC 34.4 g/dl (32.0-36.0); MEAN CELL VOLUME 93.4 fl (80-96); MEAN PLT VOLUME 7.5 fl (7.5-11.1); PLATELET COUNT 219 10^3/uL (134-434); RBC 2.87 M/mm3 (3.60-5.2); RDW 15.9 % (11.6-15.6); WHITE BLOOD COUNT 6.6 K/mm3 (4.0-10.0)
[2022-02-05 08:25] LABS: CALCIUM 7.1 mg/dL (8.5-10.1)
[2022-02-05 08:26] LABS: ALBUMIN 1.3 g/dl (3.4-5.0); BLOOD UREA NITROGEN 25.3 mg/dL (7-18)
[2022-02-05 08:28] LABS: IRON SERUM 51 ug/dL (50-175); MAGNESIUM 1.8 mg/dL (1.8-2.4); TOTAL IRON BINDING CAPACITY 41 ug/dL (250-450)
[2022-02-05 08:29] LABS: CREATININE 1.5 mg/dL (0.55-1.3)
[2022-02-05 08:30] LABS: BILIRUBIN,TOTAL 0.6 mg/dL (0.2-1)
[2022-02-05 08:31] LABS: TOT PROT 4.8 g/dl (6.4-8.2)
[2022-02-05] MEDS: CALCITRIOL 0.25 MCG CAPSULE (FP) PO SCH (10:30)
[2022-02-05] MEDS: FUROSEMIDE 40 MG TABLET (FP) PO SCH (10:30)
[2022-02-05] MEDS: metoPROLOL SUCCINATE 25 MG TAB.SR.24H (FP) PO SCH (10:31)
[2022-02-05] MEDS: PANTOPRAZOLE 40 MG TABLET PO SCH (10:31)
[2022-02-05] MEDS: CHOLECALCIFEROL (VIT D3) 400 UNIT (10 MCG) TABLET PO SCH (10:31)
[2022-02-05] MEDS: SPIRONOLACTONE 25 MG TABLET PO SCH ×2 (10:31→21:24)
[2022-02-05] MEDS: ASPIRIN 81 MG CHEWABLE TABLETS PO SCH (10:31)
[2022-02-05] MEDS: FERROUS SO4 325 MG TABLET (FP) PO SCH (10:31)
[2022-02-05] MEDS: IRON SUCROSE INJECTION 200 MG in SODIUM CHLORIDE 90 ML IVPB ONE ×2 (10:32→11:27)
[2022-02-05] MEDS: ATORVASTATIN CA 40 MG TABLET (FP) PO SCH (21:24)
[2022-02-05] MEDS: MIRTAZAPINE 15 MG TABLET (FP) PO SCH (21:24)
[2022-02-06] MEDS: INSULIN SLIDING SCALE (NOVOLOG) 1 VIAL SQ SCH ×4 (06:03→21:45)
[2022-02-06] MEDS: CHOLECALCIFEROL (VIT D3) 400 UNIT (10 MCG) TABLET PO SCH (10:20)
[2022-02-06] MEDS: SPIRONOLACTONE 25 MG TABLET PO SCH ×2 (10:20→21:45)
[2022-02-06] MEDS: PANTOPRAZOLE 40 MG TABLET PO SCH (10:20)
[2022-02-06] MEDS: FUROSEMIDE 40 MG TABLET (FP) PO SCH (10:20)
[2022-02-06] MEDS: metoPROLOL SUCCINATE 25 MG TAB.SR.24H (FP) PO SCH (10:20)
[2022-02-06] MEDS: ASPIRIN 81 MG CHEWABLE TABLETS PO SCH (10:20)
[2022-02-06] MEDS: FERROUS SO4 325 MG TABLET (FP) PO SCH (10:21)
[2022-02-06] MEDS: CALCITRIOL 0.25 MCG CAPSULE (FP) PO SCH (10:21)
[2022-02-06] MEDS: MIRTAZAPINE 15 MG TABLET (FP) PO SCH (21:45)
[2022-02-06] MEDS: ATORVASTATIN CA 40 MG TABLET (FP) PO SCH (21:45)
[2022-02-07] MEDS: INSULIN SLIDING SCALE (NOVOLOG) 1 VIAL SQ SCH ×4 (06:05→22:02)
[2022-02-07] MEDS: ASPIRIN 81 MG CHEWABLE TABLETS PO SCH (11:31)
[2022-02-07] MEDS: SPIRONOLACTONE 25 MG TABLET PO SCH ×2 (11:32→22:02)
[2022-02-07] MEDS: CALCITRIOL 0.25 MCG CAPSULE (FP) PO SCH (11:32)
[2022-02-07] MEDS: metoPROLOL SUCCINATE 25 MG TAB.SR.24H (FP) PO SCH (11:32)
[2022-02-07] MEDS: CHOLECALCIFEROL (VIT D3) 400 UNIT (10 MCG) TABLET PO SCH (11:32)
[2022-02-07] MEDS: FERROUS SO4 325 MG TABLET (FP) PO SCH (11:32)
[2022-02-07] MEDS: PANTOPRAZOLE 40 MG TABLET PO SCH (11:32)
[2022-02-07] MEDS: FUROSEMIDE 40 MG TABLET (FP) PO SCH (11:32)
[2022-02-07] MEDS ORDERED: IRON SUCROSE INJECTION 300 MG in SODIUM CHLORIDE 235 ML IVPB ONE (13:01)
[2022-02-07] MEDS: ATORVASTATIN CA 40 MG TABLET (FP) PO SCH (22:02)
[2022-02-07] MEDS: MIRTAZAPINE 15 MG TABLET (FP) PO SCH (22:02)
[2022-02-08] MEDS: INSULIN SLIDING SCALE (NOVOLOG) 1 VIAL SQ SCH ×4 (06:07→21:26)
[2022-02-08 07:50] LABS: CALCIUM 7.1 mg/dL (8.5-10.1)
[2022-02-08 07:52] LABS: ALBUMIN 1.2 g/dl (3.4-5.0); BLOOD UREA NITROGEN 31.3 mg/dL (7-18)
[2022-02-08 07:54] LABS: CREATININE 1.5 mg/dL (0.55-1.3)
[2022-02-08 08:14] LABS: HEMATOCRIT 27.6 % (32.4-45.2); HEMOGLOBIN 9.4 GM/dL (10.7-15.3); MCH 32.4 pg (25.7-33.7); MCHC 34.1 g/dl (32.0-36.0); MEAN PLT VOLUME 8.6 fl (7.5-11.1); PLATELET COUNT 147 10^3/uL (134-434); RBC 2.91 M/mm3 (3.60-5.2); RDW 15.7 % (11.6-15.6); WHITE BLOOD COUNT 7.8 K/mm3 (4.0-10.0)
[2022-02-08] MEDS: SPIRONOLACTONE 25 MG TABLET PO SCH ×2 (09:41→21:26)
[2022-02-08] MEDS: CHOLECALCIFEROL (VIT D3) 400 UNIT (10 MCG) TABLET PO SCH (09:41)
[2022-02-08] MEDS: FERROUS SO4 325 MG TABLET (FP) PO SCH (09:41)
[2022-02-08] MEDS: metoPROLOL SUCCINATE 25 MG TAB.SR.24H (FP) PO SCH (09:41)
[2022-02-08] MEDS: CALCITRIOL 0.25 MCG CAPSULE (FP) PO SCH (09:41)
[2022-02-08] MEDS: FUROSEMIDE 40 MG TABLET (FP) PO SCH (09:41)
[2022-02-08] MEDS: PANTOPRAZOLE 40 MG TABLET PO SCH (09:41)
[2022-02-08] MEDS: ASPIRIN 81 MG CHEWABLE TABLETS PO SCH (09:41)
[2022-02-08] MEDS: LACTULOSE 20 GM/30 ML UDC (FOR ORAL USE ONLY) PO PRN (14:40)
[2022-02-08] MEDS ORDERED: DOCUSATE SODIUM 100 MG CAPSULE (FP) PO SCH ×3 (18:45→22:00)
[2022-02-08] MEDS ORDERED: DOCUSATE SODIUM 100 MG CAPSULE (FP) PO ONE (19:15)
[2022-02-08] MEDS ORDERED: MINERAL OIL ENEMA 133 ML ENEMA PR ONE (20:09)
[2022-02-08] MEDS: ATORVASTATIN CA 40 MG TABLET (FP) PO SCH (21:26)
[2022-02-08] MEDS: MIRTAZAPINE 15 MG TABLET (FP) PO SCH (21:26)
[2022-02-09] MEDS: LACTULOSE 20 GM/30 ML UDC (FOR ORAL USE ONLY) PO PRN (01:25)
[2022-02-09] MEDS: INSULIN SLIDING SCALE (NOVOLOG) 1 VIAL SQ SCH ×4 (07:20→21:46)
[2022-02-09] MEDS: metoPROLOL SUCCINATE 25 MG TAB.SR.24H (FP) PO SCH (09:57)
[2022-02-09] MEDS: PANTOPRAZOLE 40 MG TABLET PO SCH (09:57)
[2022-02-09] MEDS: SPIRONOLACTONE 25 MG TABLET PO SCH ×2 (09:57→21:37)
[2022-02-09] MEDS: FERROUS SO4 325 MG TABLET (FP) PO SCH (09:57)
[2022-02-09] MEDS: CHOLECALCIFEROL (VIT D3) 400 UNIT (10 MCG) TABLET PO SCH (09:57)
[2022-02-09] MEDS: FUROSEMIDE 40 MG TABLET (FP) PO SCH (09:57)
[2022-02-09] MEDS: CALCITRIOL 0.25 MCG CAPSULE (FP) PO SCH (09:57)
[2022-02-09] MEDS: ASPIRIN 81 MG CHEWABLE TABLETS PO SCH (09:57)
[2022-02-09] MEDS ORDERED: SENNOSIDES 8.6MG TABLET (FP) PO PRN (13:27)
[2022-02-09 14:36] VITALS: BMI 17.5
[2022-02-09] MEDS: POLYETHYLENE GLYCOL (HEALTHYLAX) 3350 17 GM PACKET PO SCH ×2 (15:28→21:38)
[2022-02-09] MEDS: MIRTAZAPINE 15 MG TABLET (FP) PO SCH (21:37)
[2022-02-09] MEDS: ATORVASTATIN CA 40 MG TABLET (FP) PO SCH (21:37)
[2022-02-09] MEDS ORDERED: DOCUSATE SODIUM 100 MG CAPSULE (FP) PO SCH (22:00)
[2022-02-10] MEDS: POLYETHYLENE GLYCOL (HEALTHYLAX) 3350 17 GM PACKET PO SCH ×2 (06:13→15:24)
[2022-02-10] MEDS: INSULIN SLIDING SCALE (NOVOLOG) 1 VIAL SQ SCH ×3 (06:21→16:53)
[2022-02-10] MEDS: PANTOPRAZOLE 40 MG TABLET PO SCH (09:23)
[2022-02-10] MEDS: SPIRONOLACTONE 25 MG TABLET PO SCH (09:23)
[2022-02-10] MEDS: ASPIRIN 81 MG CHEWABLE TABLETS PO SCH (09:23)
[2022-02-10] MEDS: FUROSEMIDE 40 MG TABLET (FP) PO SCH (09:23)
[2022-02-10] MEDS: FERROUS SO4 325 MG TABLET (FP) PO SCH (09:23)
[2022-02-10] MEDS: CHOLECALCIFEROL (VIT D3) 400 UNIT (10 MCG) TABLET PO SCH (09:23)
[2022-02-10] MEDS: CALCITRIOL 0.25 MCG CAPSULE (FP) PO SCH (09:23)
[2022-02-10] MEDS: metoPROLOL SUCCINATE 25 MG TAB.SR.24H (FP) PO SCH (09:24)
[2022-02-10] MEDS ORDERED: INSULIN (NOVOLOG) ASPART 100 UNITS/ML 10ML VIAL ONE (10:54)
[2022-02-10 16:25] VITALS: BP 123/70; PULSE 83; TEMP 97.7
== END 2022-02-10 19:25 | disposition home health service (06) | DRG 291 ==
LOC: JER 16:58 → JERBED 21:46 → J4S 02-01 03:21 → J8W 02-08 18:53
PROVIDERS: ADMIT Internal Medicine; ATTEND Family Medicine
PROC: 0W9G3ZX Drainage of Peritoneal Cavity, Percutaneous Approach, Diagnostic (ICD-10-PCS; principal; 2022-02-02)
DX: I11.0 Hypertensive heart disease with heart failure (principal); I50.33 Acute on chronic diastolic (congestive) heart failure; R18.8 Other ascites; E46 Unspecified protein-calorie malnutrition; I82.891 Chronic embolism and thrombosis of other specified veins; R64 Cachexia; Z68.1 Body mass index [BMI] 19.9 or less, adult; E87.5 Hyperkalemia; E83.51 Hypocalcemia; E78.5 Hyperlipidemia, unspecified; E87.70 Fluid overload, unspecified; K76.0 Fatty (change of) liver, not elsewhere classified; K59.00 Constipation, unspecified
CPT/HCPCS: 36415; 71045-TC-FY; 74174-TC; 76700-TC; 76942-TC; 80048; 80053; 81003; 82042; 82140; 82150; 82272; 82465; 82570; 82784; 82945; 82962; 82977; 83540; 83550; 83605; 83615; 83690; 83735; 83880; 83986; 84155; 84156; 84157; 84165; 84439; 84443; 84478; 84481; 84484; 85025; 85027; 85610; 85730; 86038; 86140; 86301; 86304; 86334; 86850; 86900; 86901; 88108; 88305-TC; 93005; 93010; 93306-TC; 94761; 97116-GP; 97161-GP; 99285-25; C9803-CS; J1756; U0003; U0005